=== PATIENT | male | born 1945 | race Caucasian/White ===

== ENCOUNTER 2016-09-17 20:33 | Inpatient (IN) | payer MEDICAID ==
[~2016-09-17] VITALS: Ht 175.3 cm; Wt 43.9 kg
[~2016-09-17 20:33] MED LIST: HALO2CON PO; QUET200 PO
[2016-09-17 21:14] VITALS: BP 132/76; PULSE 83; RESP 16; TEMP 98.8; O2SAT 99
[2016-09-17] MEDS ORDERED: BUSP1TAB PO (21:22)
[2016-09-17] MEDS ORDERED: HALO1TAB PO (21:23)
[2016-09-17] MEDS ORDERED: QUET5TAB PO (21:23)
[2016-09-17] MEDS ORDERED: MEMA1TAB2 PO (21:23)
[2016-09-17 21:28] VITALS: O2SAT 99
[2016-09-17] MEDS ORDERED: SODIUM CHLORIDE 0.9% FLUSH 10 ML FLUSH IVF PRN (21:30)
--- NOTE | 2016-09-17 21:35 | PD ---
HPI Chief Complaint: GI Complaint Time Seen by Provider: 21:15 Travel History International Travel<30 days: No Contact w/Intl Traveler<30days: No Traveled to known affect area: No History of Present Illness HPI Patient comes in by EMS with reported 1 episode of dark red vomiting. Patient is demented and a poor historian. Patient is alert to self but not year or location. Part of History of present illness is obtained through use of shoe stainer is patient's primary language is Yakut. Patient was asked if he wanted to use hospital interpreting service, but declined this time is comfortable using the shoe stainer. Patient reports that he is here because he awoke with chest pain on the right side 3 hours ago has since resolved. Patient denies any nausea, vomiting, shortness of breath, abdominal pain, fevers , or headaches. Patient reports he does live with his . PFS Past Medical History Medical History: Unable to Obtain Cancer: No Cardiovascular Problems: No Dementia: Yes Diabetes: No Endocrine: No Genitourinary: No Headaches: No Immune Disorder: No Musculoskeletal: No Neurologic: No Psychiatric: No Reproductive: No Respiratory: No Seizures: No Tetanus Vaccination: Unknown Past Surgical History Surgical History: Unable to Obtain AICD: No Arteriovenous Shunt: No Insulin Pump: No Joint Replacement: No Pacemaker: No Social History Alcohol Use: No Tobacco Use: No Substance Use: No Allergies-Medications (Allergen,Severity, Reaction): Coded Allergies: No Known Allergies (Unverified , 11/10/15) INFO OBTAINED FROM PT'S SON Reported Meds & Prescriptions Reported Meds & Active Scripts Active Reported Haloperidol 1 Mg Tab 1 Mg PO BID Memantine 10 Mg Tab 10 Mg PO BID Quetiapine (Quetiapine Fumarate) 50 Mg Tab 50 Mg PO BID Buspirone (Buspirone HCl) 7.5 Mg Tab 7.5 Mg PO BID Review of Systems ROS Limitations: Poor Historian Except as stated in HPI: all other systems reviewed are Neg Physical Exam Exam Limitations: Poor Historian Narrative GENERAL: Well-developed, well nourished, in no acute distress, and non-ill appearing. SKIN: Focused skin assessment warm and dry. HEAD: Atraumatic. Normocephalic. EYES: Pupils equal and round. EOMI. No scleral icterus. No injection or drainage. ENT: No nasal bleeding or discharge. Mucous membranes pink and moist. Posterior pharynx shows no evidence of recent or active bleeding. There is no signs of blood or coffee-ground emesis noted in the mouth. NECK: Trachea midline. No JVD. Supple. No nuclear rigidity. CARDIOVASCULAR: Regular rate and rhythm. No murmur appreciated. RESPIRATORY: No accessory muscle use. No respiratory distress. Clear to auscultation. Breath sounds equal bilaterally. GASTROINTESTINAL: Abdomen soft, non-tender, nondistended. Hepatic and splenic margins not palpable. Normal bowel sounds 4. No pulsatile mass. MUSCULOSKELETAL: No obvious deformities. No clubbing. No cyanosis. No edema. Patient moving all 4 extremities.. NEUROLOGICAL: Awake and alert. No obvious cranial nerve deficits. Motor grossly within normal limits. Normal speech. PSYCHIATRIC: Appropriate mood and affect. Data Data Last Documented VS Vital Signs Date Time Temp Pulse Resp B/P Pulse Ox O2 Delivery O2 Flow Rate FiO2 09/17/16 21:28 99 Room Air 09/17/16 21:14 98.8 83 16 132/76 Orders Basic Metabolic Panel (Bmp) (09/17/16 21:21) Complete Blood Count With Diff (09/17/16 21:21) Prothrombin Time / Inr (Pt) (09/17/16 21:21) Act Partial Throm Time (Ptt) (09/17/16 21:21) Chest, Single Ap (09/17/16 21:21) Ecg Monitoring (09/17/16 21:21) Iv Access Insert/Monitor (09/17/16 21:21) Oximetry (09/17/16 21:21) Sodium Chloride 0.9% Flush (Ns Flush) (09/17/16 21:30) Electrocardiogram (09/17/16 21:30) Ckmb (Isoenzyme) Profile (09/17/16 21:30) Magnesium (Mg) (09/17/16 21:30) Troponin I (09/17/16 21:30) Bilateral Bp Monitoring (09/17/16 21:30) Oxygen Administration (09/17/16 21:30) Ckmb (Isoenzyme) Profile (09/17/16 22:49) Troponin I (09/17/16 22:49) Labs Laboratory Tests Test 09/17/16 21:38 White Blood Count 10.5 TH/MM3 Red Blood Count 3.47 MIL/MM3 Hemoglobin 10.4 GM/DL Hematocrit 30.6 % Mean Corpuscular Volume 88.4 FL Mean Corpuscular Hemoglobin 30.0 PG Mean Corpuscular Hemoglobin 33.9 % Concent Red Cell Distribution Width 13.4 % Platelet Count 346 TH/MM3 Mean Platelet Volume 6.6 FL Neutrophils (%) (Auto) 83.5 % Lymphocytes (%) (Auto) 9.8 % Monocytes (%) (Auto) 5.8 % Eosinophils (%) (Auto) 0.5 % Basophils (%) (Auto) 0.4 % Neutrophils # (Auto) 8.7 TH/MM3 Lymphocytes # (Auto) 1.0 TH/MM3 Monocytes # (Auto) 0.6 TH/MM3 Eosinophils # (Auto) 0.1 TH/MM3 Basophils # (Auto) 0.0 TH/MM3 CBC Comment DIFF FINAL Differential Comment Prothrombin Time 11.3 SEC Prothromb Time International 1.0 RATIO Ratio Activated Partial 22.9 SEC Thromboplast Time Sodium Level 142 MEQ/L Potassium Level 3.8 MEQ/L Chloride Level 109 MEQ/L Carbon Dioxide Level 28.2 MEQ/L Anion Gap 5 MEQ/L Blood Urea Nitrogen 16 MG/DL Creatinine 0.96 MG/DL Estimat Glomerular Filtration 77 ML/MIN Rate Random Glucose 125 MG/DL Calcium Level 8.2 MG/DL [facility] Medical Decision Making Medical Screen Exam Complete: Yes Emergency Medical Condition: Yes Interpretation(s) EKG reviewed with Dr. Lennon shows sinus rhythm with a ventricular of 74. No STEMI. Chest x-ray read by the radiologist shows: No acute disease. Differential Diagnosis Anemia, electrolyte abnormality, acute coronary syndrome, pneumonia, other Narrative Course Patient seen and examined. Initial laboratory and radiological studies ordered. Patient signed out to Dr. Lennon at the end of my shift. Please see his dictation for final diagnosis and disposition. HemaPrompt Point of Care Internal Pos. & Neg. Controls: Passed Fecal Specimen Occult Blood: Negative Rohith Bundy September 17, 2016 21:35
[2016-09-17 21:52] LABS: AUTOMATED NEUTROPHIL # 8.7 TH/MM3 (1.8-7.7); BASOPHIL % 0.4 % (0.0-2.0); EOSINOPHIL # 0.1 TH/MM3 (0-0.4); EOSINOPHIL % 0.5 % (0.0-4.0); HEMATOCRIT 30.6 % (39.0-51.0); HEMO FLAGS DIFF FINAL; LYMPH % 9.8 % (9.0-44.0); MEAN CELL VOLUME 88.4 FL (80.0-100.0); MEAN CORPUSCULAR HGB CONC 33.9 % (32.0-36.0); MONO % 5.8 % (0.0-8.0); NEUT % 83.5 % (16.0-70.0); PLATELET COUNT 346 TH/MM3 (150-450); RED BLOOD COUNT 3.47 MIL/MM3 (4.50-5.90); RED CELL DISTRIBUTION WIDTH 13.4 % (11.6-17.2); WHITE BLOOD COUNT 10.5 TH/MM3 (4.0-11.0)
[2016-09-17 22:07] LABS: BICARBONATE 28.2 MEQ/L (21.0-32.0); POTASSIUM 3.8 MEQ/L (3.5-5.1)
[2016-09-17 22:12] LABS: APTT (PATIENT) 22.9 SEC (24.3-30.1); PROTHROMBIN TIME - PATIENT 11.3 SEC (9.8-11.6)
--- NOTE | 2016-09-17 22:16 | RADRPT ---
EXAM DATE/TIME: 09/17/2016 22:07 [facility] COMPARISON: No previous studies available for comparison. INDICATIONS : Vomiting blood. MEDICAL HISTORY : None. SURGICAL HISTORY : None. ENCOUNTER: Initial ACUITY: 1 day PAIN SCORE: Non-responsive. LOCATION: chest FINDINGS: A single view of the chest demonstrates the lungs to be symmetrically aerated without evidence of mas s, infiltrate or effusion. The cardiomediastinal contours are unremarkable. Osseous structures are intact. A scoliotic spine. CONCLUSION: No acute disease. Moises Snider Jr., MD on September 17, 2016 at 22:14 Board Certified Radiologist. This report was verified electronically.
--- NOTE | 2016-09-17 22:57 | PD ---
Physical Exam Date Seen by Provider: September 17, 2016 Time Seen by Provider: 22:56 Narrative The patient is a 71-year-old male was initially evaluated by the mid-level provider. Please refer to the initial history, physical, diagnostic evaluation , and treatment modality plan. The patient was signed out at 11 PM laboratory evaluation pending. Data Data Last Documented VS Vital Signs Date Time Temp Pulse Resp B/P Pulse Ox O2 Delivery O2 Flow Rate FiO2 09/18/16 00:19 76 18 135/70 98 Room Air 09/17/16 23:50 99.7 Orders Basic Metabolic Panel (Bmp) (09/17/16 21:21) Complete Blood Count With Diff (09/17/16 21:21) Prothrombin Time / Inr (Pt) (09/17/16 21:21) Act Partial Throm Time (Ptt) (09/17/16 21:21) Chest, Single Ap (09/17/16 21:21) Ecg Monitoring (09/17/16 21:21) Iv Access Insert/Monitor (09/17/16 21:21) Oximetry (09/17/16 21:21) Sodium Chloride 0.9% Flush (Ns Flush) (09/17/16 21:30) Electrocardiogram (09/17/16 21:30) Ckmb (Isoenzyme) Profile (09/17/16 21:30) Magnesium (Mg) (09/17/16 21:30) Troponin I (09/17/16 21:30) Bilateral Bp Monitoring (09/17/16 21:30) Oxygen Administration (09/17/16 21:30) Ckmb (Isoenzyme) Profile (09/17/16 22:49) Troponin I (09/17/16 22:49) Us Testicles W Doppler (09/17/16 ) Urinalysis - C+S If Indicated (09/17/16 23:35) CKMB (09/17/16 21:38) CKMB% (09/17/16 21:38) Sodium Chlor 0.9% 1000 Ml Inj (Ns 1000 M (09/18/16 01:00) Sodium Chlor 0.9% 1000 Ml Inj (Ns 1000 M (09/18/16 01:45) CKMB (09/18/16 00:39) CKMB% (09/18/16 00:39) Admit Order (Ed Use Only) (09/18/16 02:01) Labs Laboratory Tests Test 09/17/16 09/17/16 09/18/16 21:38 23:44 00:39 White Blood Count 10.5 TH/MM3 Red Blood Count 3.47 MIL/MM3 Hemoglobin 10.4 GM/DL Hematocrit 30.6 % Mean Corpuscular Volume 88.4 FL Mean Corpuscular Hemoglobin 30.0 PG Mean Corpuscular Hemoglobin 33.9 % Concent Red Cell Distribution Width 13.4 % Platelet Count 346 TH/MM3 Mean Platelet Volume 6.6 FL Neutrophils (%) (Auto) 83.5 % Lymphocytes (%) (Auto) 9.8 % Monocytes (%) (Auto) 5.8 % Eosinophils (%) (Auto) 0.5 % Basophils (%) (Auto) 0.4 % Neutrophils # (Auto) 8.7 TH/MM3 Lymphocytes # (Auto) 1.0 TH/MM3 Monocytes # (Auto) 0.6 TH/MM3 Eosinophils # (Auto) 0.1 TH/MM3 Basophils # (Auto) 0.0 TH/MM3 CBC Comment DIFF FINAL Differential Comment Prothrombin Time 11.3 SEC Prothromb Time International 1.0 RATIO Ratio Activated Partial 22.9 SEC Thromboplast Time Sodium Level 142 MEQ/L Potassium Level 3.8 MEQ/L Chloride Level 109 MEQ/L Carbon Dioxide Level 28.2 MEQ/L Anion Gap 5 MEQ/L Blood Urea Nitrogen 16 MG/DL Creatinine 0.96 MG/DL Estimat Glomerular Filtration 77 ML/MIN Rate Random Glucose 125 MG/DL Calcium Level 8.2 MG/DL Magnesium Level 2.1 MG/DL Total Creatine Kinase 2723 U/L 3041 U/L Creatine Kinase MB 53.6 NG/ML 55.9 NG/ML Creatine Kinase MB % 2.0 % 1.8 % Troponin I LESS THAN 0.02 LESS THAN 0.02 NG/ML NG/ML Urine Color YELLOW Urine Turbidity CLEAR Urine pH 6.0 Urine Specific [place] 1.022 Urine Protein 30 mg/dL Urine Glucose (UA) NEG mg/dL Urine Ketones TRACE mg/dL Urine Occult Blood MOD Urine Nitrite NEG Urine Bilirubin NEG Urine Urobilinogen 2.0 MG/DL Urine Leukocyte Esterase NEG Urine RBC 7 /hpf Urine WBC 1 /hpf Urine Mucus FEW /lpf Microscopic Urinalysis Comment CATH-CULT NOT IND MDM Medical Record Reviewed: Yes Supervised Visit with JAGJIT: Yes Interpretation(s) EKG reveals normal sinus rhythm with a rate of 74. No ischemic changes or ectopy noted. Laboratory Tests Test 09/17/16 09/17/16 09/18/16 21:38 23:44 00:39 White Blood Count 10.5 TH/MM3 Red Blood Count 3.47 MIL/MM3 Hemoglobin 10.4 GM/DL Hematocrit 30.6 % Mean Corpuscular Volume 88.4 FL Mean Corpuscular Hemoglobin 30.0 PG Mean Corpuscular Hemoglobin 33.9 % Concent Red Cell Distribution Width 13.4 % Platelet Count 346 TH/MM3 Mean Platelet Volume 6.6 FL Neutrophils (%) (Auto) 83.5 % Lymphocytes (%) (Auto) 9.8 % Monocytes (%) (Auto) 5.8 % Eosinophils (%) (Auto) 0.5 % Basophils (%) (Auto) 0.4 % Neutrophils # (Auto) 8.7 TH/MM3 Lymphocytes # (Auto) 1.0 TH/MM3 Monocytes # (Auto) 0.6 TH/MM3 Eosinophils # (Auto) 0.1 TH/MM3 Basophils # (Auto) 0.0 TH/MM3 CBC Comment DIFF FINAL Differential Comment Prothrombin Time 11.3 SEC Prothromb Time International 1.0 RATIO Ratio Activated Partial 22.9 SEC Thromboplast Time Sodium Level 142 MEQ/L Potassium Level 3.8 MEQ/L Chloride Level 109 MEQ/L Carbon Dioxide Level 28.2 MEQ/L Anion Gap 5 MEQ/L Blood Urea Nitrogen 16 MG/DL Creatinine 0.96 MG/DL Estimat Glomerular Filtration 77 ML/MIN Rate Random Glucose 125 MG/DL Calcium Level 8.2 MG/DL Magnesium Level 2.1 MG/DL Total Creatine Kinase 2723 U/L 3041 U/L Creatine Kinase MB 53.6 NG/ML 55.9 NG/ML Creatine Kinase MB % 2.0 % 1.8 % Troponin I LESS THAN 0.02 LESS THAN 0.02 NG/ML NG/ML Urine Color YELLOW Urine Turbidity CLEAR Urine pH 6.0 Urine Specific Welch 1.022 Urine Protein 30 mg/dL Urine Glucose (UA) NEG mg/dL Urine Ketones TRACE mg/dL Urine Occult Blood MOD Urine Nitrite NEG Urine Bilirubin NEG Urine Urobilinogen 2.0 MG/DL Urine Leukocyte Esterase NEG Urine RBC 7 /hpf Urine WBC 1 /hpf Urine Mucus FEW /lpf Microscopic Urinalysis Comment CATH-CULT NOT IND Differential Diagnosis Differential diagnosis includes acute coronary syndrome, GERD, esophageal spasm , pancreatitis, gastritis, atypical chest pain, pneumonia, pleural effusion. Narrative Course I, Dr. Lennon, have reviewed the advance practice practitioner's documentation and am in agreement, met with the patient face to face, made the diagnosis, and the medical decision making was done by me. *My assessment and Findings: 71-year-old male who was initially evaluated by the mid-level provider. Please refer to the initial history, physical, diagnostic evaluation, treatment modality plan. The patient was signed out 11 PM with laboratory evaluation pending for atypical right sided chest pain. EKG was unremarkable. The patient was evaluated, has noted tenderness upon palpation, states that the medic in the emergency department. Chest x-rays unremarkable. The patient's initial troponin was negative, however, CPK was elevated greater than 2000. The patient received 2 L of IV fluids and CPK was reevaluated, was now greater than 3000. The patient has rhabdomyolysis with no obvious underlying cause. We tried to call the number for the patient, however , no one at the house would worm picker the phone, we're unable to find any family he knows any relevant past medical history. As the patient does have rhabdomyolysis and atypical chest pain, the patient will be admitted for IV fluids. The patient may need case management and/or DCF involvement if no family is obtainable. I also performed a physical examination, the patient had uncircumcised phallus, but and had enlarged and edematous scrotum which appear to be slightly painful. UA was negative, therefore, ultrasound was ordered. Ultrasound is currently pending. Physician Communication Physician Communication The on-call medical service was paged for admission. I discussed the patient with Dr. Spears who agrees with admission. Diagnosis Primary Impression: Rhabdomyolysis Qualified Code: M62.82 - Non-traumatic rhabdomyolysis Additional Impression: Atypical chest pain Admitting Information Admitting Physician Requests: Admit Condition: Stable Ammon Lennon MD September 17, 2016 22:57
[2016-09-17 23:22] LABS: MAGNESIUM 2.1 MG/DL (1.5-2.5)
[2016-09-17 23:47] VITALS: BP 149/89; PULSE 75; RESP 18; O2SAT 99
[2016-09-17 23:50] VITALS: TEMP 99.7
[2016-09-17 23:53] LABS: CREATINE KINASE 2723 U/L (39-308)
[2016-09-17 23:58] LABS: BLOOD, URINE MOD (NEG); GLUCOSE,URINE NEG (NEG); KETONE, URINE TRACE mg/dL (NEG); MUCUS URINE FEW /lpf (OCC); NITRITE,URINE NEG (NEG); URINE COLOR YELLOW (YELLW/STRAW)
[2016-09-17 23:59] LABS: COMMENT (UR) CATH-CULT NOT IND; CULTURE IF INDICATED CATH CULTURE NOT IND
[2016-09-18] VITALS (11 sets, daily range): BP systolic 124–159; BP diastolic 65–77; PULSE 65–80; RESP 16–20; TEMP 97.7–99.1; O2SAT 96–100
[2016-09-18 00:11] LABS: CKMB 53.6 NG/ML (0.5-3.6)
[2016-09-18] MEDS ORDERED: SODIUM CHLOR 0.9% 1000 ML INJ 1,000 ML IV ONE ×2 (01:00→01:45)
[2016-09-18 01:36] LABS: CREATINE KINASE 3041 U/L (39-308)
[2016-09-18 01:50] LABS: CKMB 55.9 NG/ML (0.5-3.6)
[2016-09-18] MEDS ORDERED: NALOXONE HCL 0.4 MG/ML AMP IV PRN (02:15)
[2016-09-18] MEDS ORDERED: SODIUM CHLORIDE 0.9% FLUSH 10 ML FLUSH IV FLUSH PRN (02:15)
[2016-09-18] MEDS: SODIUM CHLOR 0.9% 1000 ML INJ 1,000 ML IV SCH ×3 (02:16→20:52)
--- NOTE | 2016-09-18 04:56 | RADRPT ---
EXAM DATE/TIME: 09/18/2016 02:44 [facility] COMPARISON: No previous studies available for comparison. INDICATIONS : Scrotal pain and swelling. MEDICAL HISTORY : Dementia. Unable to obtain proper history. SURGICAL HISTORY : Unable to obtain. ENCOUNTER: Initial ACUITY: 1 day PAIN SCORE: 3/10 LOCATION: Bilateral scrotum. MEASUREMENTS: RIGHT TESTICLE: 4.3 x 3.6 x 2.2cm LEFT TESTICLE: 4.4 x 3.0 x 2.1cm FINDINGS: RIGHT TESTICLE: Homogeneous echotexture without intra or extratesticular mass. Blood flow is symmetric and within no rmal limits. Moderate hydrocele. Cysts in the epididymal head. LEFT TESTICLE: Homogeneous echotexture without intra or extratesticular mass. Blood flow is symmetric and within no rmal limits. No hydrocele or varicocele. Epididymis is within normal limits. SCROTUM: Prominently edematous CONCLUSION: Right hydrocele and epididymal cysts. Prominent scrotal edema. Testicles were benign and intact Curtis Preciado MD on September 18, 2016 at 4:52 Board Certified Radiologist. This report was verified electronically.
--- NOTE | 2016-09-18 08:39 | HHI.HP ---
HPI Service [facility] Hospitalists Primary Care Physician Unknown Admission Diagnosis rhabdomyolysis, atypical chest pain, dementia Diagnoses: Chief Complaint: Pt denies pain/discomfort Travel History International Travel<30 Days: No Contact w/Intl Traveler <30 Da: No Traveled to Known Affected Are: No History of Present Illness Mr. Bar is 71 yo with history of dementia. No other history was known or reported. Mr. Bar's primary language is Welsh. Visual collection systems worker service was initially utilized and due to pt's low vocalization the grounding engineer could not hear a great deal of pt's communication. Subsequently, a nurse who is fluent in Welsh served as a collection systems worker. Mr. Bar noted the current year is 1992, he was born in 2094 and could not recall events of last evening that brought him to the hospital. As such, history is obtained from medical record. 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 Pt denied taking medication for any issue. Per report, pt awoke with chest pain and coughed up an amount of red blood. He was subsequently transported to [facility]. Through bedside nurse grounding engineer pain denied pain (chest, abdominal, back, leg , or head), shortness of breath. He did endorse having a cough a sore throat. Nausea and vomiting were denied. Due to pt's unreliable recall a 10 pt ROS could not be obtained. Review of Systems ROS Limitations: Poor Historian Past Family Social History Past Medical History Dementia Past Surgical History Unknown, pt denied Reported Medications Reported Meds & Active Scripts Active Reported Haloperidol 1 Mg Tab 1 Mg PO BID Memantine 10 Mg Tab 10 Mg PO BID Quetiapine (Quetiapine Fumarate) 50 Mg Tab 50 Mg PO BID Buspirone (Buspirone HCl) 7.5 Mg Tab 7.5 Mg PO BID Allergies: Coded Allergies: No Known Allergies (Unverified , 11/10/15) INFO OBTAINED FROM PT'S SON Active Ordered Medications Current Medications Medications (Trade) Dose Ordered Sig/Leo Route Start Time Stop Time Status Last Admin (NS 1000 ml Inj) 1,000 ml @ 100 mls/hr Q10H IV 09/18/16 02:01 09/18/16 02:16 (NS Flush) 2 ml UNSCH PRN IV FLUSH 09/18/16 02:15 (NS Flush) 2 ml BID IV FLUSH 09/18/16 09:00 (Narcan Inj) 0.4 mg UNSCH PRN IV 09/18/16 02:15 Family History Unable to determine. Social History Medical record indicated pt drinks one cup of coffee a day. Nicotine use was denied (per medical record). Recreational and illicit drugs were denied (per medical record). Physical Exam Vital Signs Vital Signs Date Time Temp Pulse Resp B/P Pulse Ox O2 Delivery O2 Flow Rate FiO2 09/18/16 07:45 98.3 75 17 158/77 96 09/18/16 04:17 65 09/18/16 04:06 97.7 71 18 159/75 100 09/18/16 02:15 80 18 145/69 99 Room Air 09/18/16 00:19 76 18 135/70 98 Room Air 09/17/16 23:50 99.7 09/17/16 23:47 75 18 149/89 99 Room Air 09/17/16 21:28 99 Room Air 09/17/16 21:14 98.8 83 16 132/76 99 Physical Exam GENERAL: This is a well-nourished, well-developed patient, in no apparent distress encountered laying a bed in the ED bay. SKIN: No rashes, ecchymoses or lesions. Cool and dry. HEAD: Atraumatic. Normocephalic. EYES: Pupils equal round and reactive. Extraocular motions intact. No scleral icterus. No injection or drainage. ENT: Nose without bleeding, purulent drainage. Airway patent. NECK: Trachea midline. No lymphadenopathy. Supple, nontender, CARDIOVASCULAR: Regular rate and rhythm without murmurs, gallops, or rubs. RESPIRATORY: Clear to auscultation. Breath sounds equal bilaterally. No wheezes , rales, or rhonchi. GASTROINTESTINAL: Abdomen soft, non-tender, nondistended. No hepato- splenomegaly. No guarding. MUSCULOSKELETAL: Extremities without clubbing, cyanosis, or edema. No joint tenderness, effusion, or edema noted. NEUROLOGICAL: Awake and alert x 1. Cranial nerves II through XII intact. Motor and sensory grossly within normal limits. Per burse pt was evidencing word finding difficulties in his [place] language. Laboratory Laboratory Tests Test 09/17/16 09/17/16 09/18/16 21:38 23:44 00:39 White Blood Count 10.5 Red Blood Count 3.47 Hemoglobin 10.4 Hematocrit 30.6 Mean Corpuscular Volume 88.4 Mean Corpuscular Hemoglobin 30.0 Mean Corpuscular Hemoglobin 33.9 Concent Red Cell Distribution Width 13.4 Platelet Count 346 Mean Platelet Volume 6.6 Neutrophils (%) (Auto) 83.5 Lymphocytes (%) (Auto) 9.8 Monocytes (%) (Auto) 5.8 Eosinophils (%) (Auto) 0.5 Basophils (%) (Auto) 0.4 Neutrophils # (Auto) 8.7 Lymphocytes # (Auto) 1.0 Monocytes # (Auto) 0.6 Eosinophils # (Auto) 0.1 Basophils # (Auto) 0.0 CBC Comment DIFF FINAL Differential Comment Prothrombin Time 11.3 Prothromb Time International 1.0 Ratio Activated Partial 22.9 Thromboplast Time Sodium Level 142 Potassium Level 3.8 Chloride Level 109 Carbon Dioxide Level 28.2 Anion Gap 5 Blood Urea Nitrogen 16 Creatinine 0.96 Estimat Glomerular Filtration 77 Rate Random Glucose 125 Calcium Level 8.2 Magnesium Level 2.1 Total Creatine Kinase 2723 3041 Creatine Kinase MB 53.6 55.9 Creatine Kinase MB % 2.0 1.8 Troponin I LESS THAN 0.02 LESS THAN 0.02 Urine Color YELLOW Urine Turbidity CLEAR Urine pH 6.0 Urine Specific [place] 1.022 Urine Protein 30 Urine Glucose (UA) NEG Urine Ketones TRACE Urine Occult Blood MOD Urine Nitrite NEG Urine Bilirubin NEG Urine Urobilinogen 2.0 Urine Leukocyte Esterase NEG Urine RBC 7 Urine WBC 1 Urine Mucus FEW Microscopic Urinalysis Comment CATH-CULT NOT IND Result Diagram: [id number]/17/[id number]/[id number] Imaging Last Impressions Scrotum Ultrasound 09/18/16 0000 Signed Impressions: Service Date/Time: September 02:44 - CONCLUSION: Right hydrocele and epididymal cysts. Prominent scrotal edema. Testicles were benign and intact Curtis Preciado MD Chest X-Ray 09/17/162120 Signed Impressions: Service Date/Time: Saturday, September 17, 2016 22:07 - CONCLUSION: No acute disease. Moises Snider Jr., MD Assessment and Plan Problem List: (1) Rhabdomyolysis ICD Code: M62.82 Status: Acute (2) Dementia with behavioral disturbance ICD Code: F03.91 Status: Chronic (3) Atypical chest pain ICD Code: R07.89 Status: Acute (4) Normocytic anemia ICD Code: D64.9 Status: Acute Assessment and Plan Mr. Bar is 71 yo with history of dementia. No other history was known or reported. Rhabdomyolysis -IVF -creatinine is currently WNL -avoid nephrotoxic agents. -recheck labs in am Normocytic anemia -Checking serial H&H -B-12, Iron/TIBC, and Ferritin studies ordered. Repeat labs in am Dementia with disturbance of behavior -Continue home dosing of memantine 10 mg po BID , quetiapine 50 mg PO BID, haloperidol 1 mg PO BID, and buspirone 7,5 mg BID Atypical chest pain -Cardiac enzymes normal x 2 -Per Ed report pt did not suffer stemi -monitor Diet: healthy heart DVT prophylaxis: Attestation Patient seen and examined with Antonio Raman PA-C. The exam, history, and the medical decision-making described in the above note were completed with the assistance of the dictating practitioner. I attest that I had a lokx-cy-swal encounter with the patient on the same day, and personally performed all of the history, exam, or medical decision making. Discussed case with him thoroughly after seeing the patient, reviewed and agreed with the plan. Please see addendum in History, Physical examination and Plan. See below for any errata/ additional input: Mr. Bar is 71 yo with history of dementia, very poor historian, allegedly sent to the hospital for? Hematemesis and chest pain. Patient very poor historian. Not in distress. Calm. Not in distress Regular rate and rhythm Clear breath sounds Awake, not oriented, positive for dementia. Chest pain-serial troponin so far is negative 2, EKGs negative, sinus rhythm, normal axis. Anemia-check serial H&H Rhabdomyolysis-no compromise of renal function, monitor CK, continue IVF. Recheck BMP tomorrow. Discussed Condition With Pt, RN at bedside, RN (collection systems worker) and Dr. Juarez. Physician Certification 2 Midnight Certification Type: Admission for Inpatient Services Order for Inpatient Services The services are ordered in accordance with Medicare regulations or non- Medicare payer requirements, as applicable. In the case of services not specified as inpatient-only, they are appropriately provided as inpatient services in accordance with the 2-midnight benchmark. Estimated LOS (days): 3 Three days is the estimated time the patient will need to remain in the hospital , assuming treatment plan goals are met and no additional complications. Post-Hospital Plan: Not yet determined Problem Qualifiers (1) Rhabdomyolysis: Qualified Code: M62.82 - Non-traumatic rhabdomyolysis (2) Dementia with behavioral disturbance: Qualified Code: F03.91 - Dementia with behavioral disturbance, unspecified dementia type Maurice Raman Jr. Sep 18, 2016 08:39 Justin Juarez MD Sep 18, 2016 18:04
[2016-09-18] MEDS: HALOPERIDOL 1 MG TAB PO SCH ×2 (11:25→20:52)
[2016-09-18] MEDS: SODIUM CHLORIDE 0.9% FLUSH 10 ML FLUSH IV FLUSH SCH ×2 (11:25→20:53)
[2016-09-18] MEDS: MEMANTINE HCL 10 MG TAB PO SCH ×2 (11:25→20:52)
--- NOTE | 2016-09-18 11:32 | EKG ---
Date Performed: 09/17/2016 Time Performed: 21:36:20 PTAGE: 71 years EKG: Sinus rhythm NORMAL ECG NO PREVIOUS TRACING DOCTOR: Albert Medina Interpretating Date/Time 09/18/2016 11:31:12
[2016-09-18 12:07] LABS: HEMATOCRIT 29.1 % (39.0-51.0); REVIEW FLAG FINAL
[2016-09-18] MEDS: QUEtiapine FUMARATE 25 MG TAB PO SCH (12:42)
[2016-09-18 13:13] LABS: TRANSFERRIN IRON PROFILE 147 MG/DL (200-360)
[2016-09-18 13:38] LABS: FERRITIN 284 NG/ML (26-388)
[2016-09-18 17:34] LABS: HEMATOCRIT 29.4 % (39.0-51.0); REVIEW FLAG FINAL
[2016-09-18] MEDS: IRON SUCROSE INJ 200 MG in SODIUM CHLORIDE 0.9% INJ 100 ML IV SCH (20:06)
[2016-09-18] MEDS: busPIRone HCL 5 MG TAB PO SCH (20:52)
[2016-09-19] VITALS (7 sets, daily range): BP systolic 104–150; BP diastolic 55–87; PULSE 62–93; RESP 16–20; TEMP 97.8–99.6; O2SAT 97–99
[2016-09-19 01:55] LABS: REVIEW FLAG FINAL
[2016-09-19 08:49] LABS: AUTOMATED NEUTROPHIL # 5.2 TH/MM3 (1.8-7.7); BASOPHIL % 0.7 % (0.0-2.0); EOSINOPHIL # 0.3 TH/MM3 (0-0.4); EOSINOPHIL % 4.1 % (0.0-4.0); HEMATOCRIT 30.5 % (39.0-51.0); HEMO FLAGS DIFF FINAL; LYMPH % 15.3 % (9.0-44.0); LYMPHOCYTE # 1.1 TH/MM3 (1.0-4.8); MEAN CELL VOLUME 87.3 FL (80.0-100.0); MEAN CORPUSCULAR HEMOGLOBIN 30.1 PG (27.0-34.0); MEAN CORPUSCULAR HGB CONC 34.5 % (32.0-36.0); MONO % 6.2 % (0.0-8.0); NEUT % 73.7 % (16.0-70.0); PLATELET COUNT 298 TH/MM3 (150-450); RED BLOOD COUNT 3.49 MIL/MM3 (4.50-5.90); RED CELL DISTRIBUTION WIDTH 13.3 % (11.6-17.2)
[2016-09-19] MEDS: HALOPERIDOL 1 MG TAB PO SCH ×2 (09:13→21:17)
[2016-09-19] MEDS: busPIRone HCL 5 MG TAB PO SCH ×2 (09:13→21:17)
[2016-09-19] MEDS: IRON SUCROSE INJ 200 MG in SODIUM CHLORIDE 0.9% INJ 100 ML IV SCH (09:13)
[2016-09-19] MEDS: MEMANTINE HCL 10 MG TAB PO SCH ×2 (09:13→21:17)
[2016-09-19] MEDS: QUEtiapine FUMARATE 25 MG TAB PO SCH ×2 (09:13→12:03)
[2016-09-19] MEDS: SODIUM CHLORIDE 0.9% FLUSH 10 ML FLUSH IV FLUSH SCH ×2 (09:14→21:20)
[2016-09-19] MEDS: SODIUM CHLOR 0.9% 1000 ML INJ 1,000 ML IV SCH ×2 (09:14→17:07)
[2016-09-19 09:15] LABS: BICARBONATE 24.6 MEQ/L (21.0-32.0); POTASSIUM 3.3 MEQ/L (3.5-5.1)
--- NOTE | 2016-09-19 09:20 | HHI.PR ---
Subjective Remarks Follow-up for anemia. Pt resting comfortably, in NAD. Denied pain/discomfort, cough, shortness of breath, fever, nausea, or vomiting. Discussed with RN, no new concerns raised. Objective Vitals Vital Signs Date Time Temp Pulse Resp B/P Pulse Ox O2 Delivery O2 Flow Rate FiO2 09/19/16 08:00 97.8 66 18 136/71 99 09/19/16 04:00 99.0 73 20 134/74 98 09/19/16 00:00 97.8 62 16 137/60 99 09/18/16 22:00 Room Air 09/18/16 20:30 97.9 66 20 147/65 100 09/18/16 20:17 76 09/18/16 19:39 98.8 68 20 124/74 100 09/18/16 15:32 98.4 65 16 146/69 99 09/18/16 11:46 99.1 72 20 146/73 99 I/O 09/18/16 09/18/16 09/18/16 09/19/16 09/19/16 09/19/16 07:00 15:00 23:00 07:00 15:00 23:00 Intake Total 3000 ml 360 ml 60 ml 2648 ml Output Total 500 ml Balance 2500 ml 360 ml 60 ml 2648 ml Intake Oral 360 ml 60 ml 300 ml IV Total 3000 ml 2348 ml Output Urine Total 500 ml # Voids 2 4 1 3 # Bowel Movements 1 0 0 Result Diagram: 09/19/16 0658 09/17/162137 Imaging Last Impressions Scrotum Ultrasound 09/18/16 0000 Signed Impressions: Service Date/Time: September 02:44 - CONCLUSION: Right hydrocele and epididymal cysts. Prominent scrotal edema. Testicles were benign and intact Curtis Preciado MD Chest X-Ray 09/17/162120 Signed Impressions: Service Date/Time: Saturday, September 17, 2016 22:07 - CONCLUSION: No acute disease. Moises Snider Jr., MD Objective Remarks GENERAL: Pt encountered laying a bed, awake, not in acute distress, seemingly more alert and responsive than upon admission. SKIN: Warm and dry. HEAD: Normocephalic. EYES: No scleral icterus. No injection or drainage. NECK: Supple, trachea midline. No lymphadenopathy. CARDIOVASCULAR: Regular rate and rhythm without murmurs, gallops, or rubs. RESPIRATORY: Breath sounds equal bilaterally. No accessory muscle use. GASTROINTESTINAL: Abdomen soft, non-tender, nondistended. MUSCULOSKELETAL: No cyanosis, or edema. PSYCHIATRIC: Alert and oriented x 1, affect flat, not evidencing depression or anxiety. Pleasant and cooperative. Medications and IVs Current Medications Medications (Trade) Dose Ordered Sig/Leo Route Start Time Stop Time Status Last Admin (NS 1000 ml Inj) 1,000 ml @ 100 mls/hr Q10H IV 09/18/16 02:01 09/18/16 20:52 (NS Flush) 2 ml UNSCH PRN IV FLUSH 09/18/16 02:15 (NS Flush) 2 ml BID IV FLUSH 09/18/16 09:00 09/18/16 20:53 (Narcan Inj) 0.4 mg UNSCH PRN IV 09/18/16 02:15 (Haldol) 1 mg BID PO 09/18/16 10:00 09/18/16 20:52 (SEROquel) 25 mg BID@09,12 PO 09/18/16 12:00 09/18/16 12:42 (Buspar) 7.5 mg Q12HR PO 09/18/16 21:00 09/18/16 20:52 Memantine 10 mg 10 mg BID PO 09/18/16 10:00 09/18/16 20:52 (Venofer Inj/NS Inj) 110 ml @ 110 mls/hr DAILY IV 09/18/16 20:00 09/20/16 09:59 09/18/16 20:06 Urinary Catheter: No Vascular Central Line Catheter: No A/P Problem List: (1) Rhabdomyolysis ICD Code: M62.82 Status: Acute (2) Dementia with behavioral disturbance ICD Code: F03.91 Status: Chronic (3) Atypical chest pain ICD Code: R07.89 Status: Acute (4) Normocytic anemia ICD Code: D64.9 Status: Acute Assessment and Plan Mr. Bar is 71 yo with history of dementia. No other history was known or reported. Rhabdomyolysis -IVF -creatinine is currently WNL -avoid nephrotoxic agents. -recheck labs in am -Labs indicated an significant improvement as CPK has decreased by over 41%. Repeat labs in am. Normocytic anemia -Checking serial H&H -B-12, Iron/TIBC, and Ferritin studies ordered. -Repeat labs in am -Pt received first dose of Iron sucrose last evening, labs this morning reflect improved H&H; IV replacement to occur daily until 09/20/16. Dementia with disturbance of behavior -Continue home dosing of memantine 10 mg po BID , quetiapine 50 mg PO BID, haloperidol 1 mg PO BID, and buspirone 7,5 mg BID -Per nursing, behavior has been good. -PT consult placed to evaluate and treat with results being used by CM to determine needs should pt be sent home or need placement. Atypical chest pain -Cardiac enzymes normal x 2 -Per Ed report pt did not suffer stemi -monitor -No further reports of chest pain since admission. Diet: healthy heart DVT prophylaxis: Discussed with Pt, RN, and Dr. Juarez. Discharge Planning CM working to formulate discharge plan. Pt consult placed to evaluate and treat; results to assist in determining care at home or if pt is placed. Problem Qualifiers (1) Rhabdomyolysis: Qualified Code: M62.82 - Non-traumatic rhabdomyolysis (2) Dementia with behavioral disturbance: Qualified Code: F03.91 - Dementia with behavioral disturbance, unspecified dementia type Maurice Raman Jr. Sep 19, 2016 09:20
[2016-09-19 13:50] LABS: CKMB 10.6 NG/ML (0.5-3.6)
[2016-09-20] VITALS (7 sets, daily range): BP systolic 133–165; BP diastolic 65–93; PULSE 66–82; RESP 16–19; TEMP 97.8–98.7; O2SAT 97–98
[2016-09-20] MEDS: SODIUM CHLOR 0.9% 1000 ML INJ 1,000 ML IV SCH ×3 (01:38→20:44)
[2016-09-20 07:20] LABS: AUTOMATED NEUTROPHIL # 3.9 TH/MM3 (1.8-7.7); BASOPHIL # 0.1 TH/MM3 (0-0.2); BASOPHIL % 0.9 % (0.0-2.0); EOSINOPHIL # 0.3 TH/MM3 (0-0.4); EOSINOPHIL % 5.9 % (0.0-4.0); HEMATOCRIT 30.8 % (39.0-51.0); HEMO FLAGS DIFF FINAL; LYMPH % 20.4 % (9.0-44.0); LYMPHOCYTE # 1.2 TH/MM3 (1.0-4.8); MEAN CELL VOLUME 87.9 FL (80.0-100.0); MEAN CORPUSCULAR HGB CONC 34.2 % (32.0-36.0); MONO % 6.9 % (0.0-8.0); NEUT % 65.9 % (16.0-70.0); PLATELET COUNT 288 TH/MM3 (150-450); RED BLOOD COUNT 3.51 MIL/MM3 (4.50-5.90); RED CELL DISTRIBUTION WIDTH 13.1 % (11.6-17.2)
[2016-09-20 07:52] LABS: BICARBONATE 26.5 MEQ/L (21.0-32.0); POTASSIUM 3.5 MEQ/L (3.5-5.1)
[2016-09-20] MEDS: IRON SUCROSE INJ 200 MG in SODIUM CHLORIDE 0.9% INJ 100 ML IV SCH (09:50)
[2016-09-20] MEDS: SODIUM CHLORIDE 0.9% FLUSH 10 ML FLUSH IV FLUSH SCH ×2 (09:50→20:49)
[2016-09-20] MEDS: HALOPERIDOL 1 MG TAB PO SCH ×2 (09:51→20:43)
[2016-09-20] MEDS: MEMANTINE HCL 10 MG TAB PO SCH ×2 (09:51→20:43)
[2016-09-20] MEDS: busPIRone HCL 5 MG TAB PO SCH ×2 (09:51→20:43)
[2016-09-20] MEDS: QUEtiapine FUMARATE 25 MG TAB PO SCH ×2 (09:51→12:38)
--- NOTE | 2016-09-20 13:04 | HHI.PR ---
Subjective Remarks Follow for rhabdomyolysis Patient denies any symptoms, denies any pain, shortness of breath, poor historian. Objective Vitals Vital Signs Date Time Temp Pulse Resp B/P Pulse Ox O2 Delivery O2 Flow Rate FiO2 09/20/16 12:00 98.0 66 18 133/65 97 09/20/16 09:40 Room Air 09/20/16 09:40 77 09/20/16 08:00 98.2 72 18 142/71 98 09/20/16 04:00 98.7 69 16 152/82 97 09/20/16 00:00 98.0 71 16 138/76 98 09/19/16 20:08 83 09/19/16 20:00 Room Air 09/19/16 19:52 99.6 84 16 150/87 97 09/19/16 16:05 98.1 93 18 115/59 98 I/O 09/19/16 09/19/16 09/19/16 09/20/16 09/20/16 09/20/16 07:00 15:00 23:00 07:00 15:00 23:00 Intake Total 2648 ml 948 ml 200 ml Balance 2648 ml 948 ml 200 ml Intake Oral 300 ml 600 ml 200 ml IV Total 2348 ml 348 ml # Voids 3 2 2 5 # Bowel Movements 0 0 0 0 Result Diagram: 09/20/1664309/20/16643 Objective Remarks GENERAL: Pt encountered laying a bed, awake, not in acute distress, seemingly more alert and responsive than upon admission. SKIN: Warm and dry. NECK: Supple, trachea midline. No lymphadenopathy. CARDIOVASCULAR: Regular rate and rhythm without murmurs, gallops, or rubs. RESPIRATORY: Breath sounds equal bilaterally. No accessory muscle use. GASTROINTESTINAL: Abdomen soft, non-tender, nondistended. MUSCULOSKELETAL: No cyanosis, or edema. PSYCHIATRIC: Alert and oriented x 1, affect flat, not evidencing depression or anxiety. A/P Problem List: (1) Rhabdomyolysis ICD Code: M62.82 Status: Acute (2) Dementia with behavioral disturbance ICD Code: F03.91 Status: Chronic (3) Atypical chest pain ICD Code: R07.89 Status: Acute (4) Normocytic anemia ICD Code: D64.9 Status: Acute Assessment and Plan Mr. Bar is 71 yo with history of dementia. No other history was known or reported. Rhabdomyolysis -IVF, creatinine is normal, CK trending down, recheck CK and BMP tomorrow. Iron deficiency anemia-continue iron sucrose, hemoglobin stable. Dementia with disturbance of behavior -Continue home dosing of memantine 10 mg po BID , quetiapine 50 mg PO BID, haloperidol 1 mg PO BID, and buspirone 7,5 mg BID -Per nursing, behavior has been good. -PT consult placed to evaluate and treat with results being used by CM to determine needs should pt be sent home or need placement. Atypical chest pain -Cardiac enzymes normal x 2, EKG within normal limits -monitor -No further reports of chest pain since admission. Diet: healthy heart DVT prophylaxis: Discharge Planning Discharge to SNF tomorrow if CKs less than 1000 Problem Qualifiers (1) Rhabdomyolysis: Qualified Code: M62.82 - Non-traumatic rhabdomyolysis (2) Dementia with behavioral disturbance: Qualified Code: F03.91 - Dementia with behavioral disturbance, unspecified dementia type Justin Juarez MD Sep 20, 2016 13:04
[2016-09-21] VITALS (7 sets, daily range): BP systolic 130–158; BP diastolic 68–96; PULSE 76–86; RESP 18–20; TEMP 97.2–99.5; O2SAT 92–98
[2016-09-21] MEDS: SODIUM CHLORIDE 0.9% FLUSH 10 ML FLUSH IV FLUSH SCH ×2 (08:12→21:16)
[2016-09-21] MEDS: busPIRone HCL 5 MG TAB PO SCH ×2 (08:12→21:16)
[2016-09-21] MEDS: QUEtiapine FUMARATE 25 MG TAB PO SCH ×2 (08:13→11:34)
[2016-09-21] MEDS: HALOPERIDOL 1 MG TAB PO SCH (08:13)
[2016-09-21] MEDS: MEMANTINE HCL 10 MG TAB PO SCH ×2 (08:13→21:16)
[2016-09-21 10:32] LABS: BICARBONATE 24.6 MEQ/L (21.0-32.0); POTASSIUM 3.9 MEQ/L (3.5-5.1)
--- NOTE | 2016-09-21 13:38 | HHI.PR ---
Subjective Remarks Follow-up for rhabdomyolysis Patient not agitated, sleepy today, arousable. No complaints. Objective Vitals Vital Signs Date Time Temp Pulse Resp B/P Pulse Ox O2 Delivery O2 Flow Rate FiO2 09/21/16 12:15 98.1 80 18 130/73 92 09/21/16 08:28 99.5 78 18 151/75 94 09/21/16 07:00 Room Air 09/21/16 06:00 97.7 85 20 158/96 97 09/21/16 00:00 97.2 76 18 152/86 98 09/20/16 20:00 97.8 82 19 165/93 97 09/20/16 20:00 Room Air 09/20/16 19:59 75 I/O 09/20/16 09/20/16 09/20/16 09/21/16 09/21/16 09/21/16 07:00 15:00 23:00 07:00 15:00 23:00 Intake Total 1918 ml 1216 ml 590 ml Balance 1918 ml 1216 ml 590 ml Intake Oral 320 ml 360 ml IV Total 1598 ml 856 ml 590 ml # Voids 5 4 3 # Bowel Movements 0 1 0 Result Diagram: 09/20/16 0644 09/21/16 0819 Objective Remarks GENERAL: Not in distress. SKIN: Warm and dry. NECK: Supple, trachea midline. CARDIOVASCULAR: Regular rate and rhythm without murmurs, gallops, or rubs. RESPIRATORY: Breath sounds equal bilaterally. No accessory muscle use. GASTROINTESTINAL: Abdomen soft, non-tender, nondistended. MUSCULOSKELETAL: No cyanosis, or edema. 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 Bar is 71 yo with history of dementia. No other history was known or reported. Rhabdomyolysis - Resolved with IVF, creatinine remained stable. Iron deficiency anemia- status post iron sucrose, hemoglobin stable. Dementia with disturbance of behavior -Continue home dosing of memantine 10 mg po BID , quetiapine 50 mg PO BID, change of the paddle to when necessary due to sleepiness. Continue buspirone. Atypical chest pain -Cardiac enzymes normal x 2, EKG within normal limits -monitor -No further reports of chest pain since admission. Diet: healthy heart DVT prophylaxis: Discharge Planning Discharge to SNF once placement is available. No contact information available. Problem Qualifiers (1) Rhabdomyolysis: Qualified Code: M62.82 - Non-traumatic rhabdomyolysis (2) Dementia with behavioral disturbance: Qualified Code: F03.91 - Dementia with behavioral disturbance, unspecified dementia type Justin Juarez MD Sep 21, 2016 13:38
--- NOTE | 2016-09-21 13:41 | HHI.DS ---
Discharge Summary Admission Date Sep 18, 2016 at 02:02 Discharge Date: Sep 22, 2016 Admitting Diagnosis rhabdomyolysis, atypical chest pain, dementia (1) Rhabdomyolysis ICD Code: M62.82 Diagnosis: Principal (2) Dementia with behavioral disturbance ICD Code: F03.91 Diagnosis: Secondary (3) Atypical chest pain ICD Code: R07.89 Diagnosis: Secondary (4) Normocytic anemia ICD Code: D64.9 Diagnosis: Secondary Procedures None Brief History - From Admission Mr. Bar is 71 yo with history of dementia. No other history was known or reported. Mr. Bar's primary language is Slovenian. Visual olive brine tester service was initially utilized and due to pt's low vocalization the freelance interpreter/translator could not hear a great deal of pt's communication. Subsequently, a nurse who is fluent in [place]ian served as a olive brine tester. Mr. Bar noted the current year is 1992, he was born in 2094 and could not recall events of last evening that brought him to the hospital. As such, history is obtained from medical record. 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 Pt denied taking medication for any issue. Per report, pt awoke with chest pain and coughed up an amount of red blood. He was subsequently transported to [facility]. Through bedside nurse freelance interpreter/translator pain denied pain (chest, abdominal, back, leg , or head), shortness of breath. He did endorse having a cough a sore throat. Nausea and vomiting were denied. Due to pt's unreliable recall a 10 pt ROS could not be obtained. CBC/BMP: 09/20/16 0644 09/21/16 0819 Significant Findings Laboratory Tests Test 09/18/16 09/19/16 09/20/16 09/21/16 17:08 06:58 06:44 08:19 Hemoglobin 9.8 GM/DL 10.5 GM/DL 10.5 GM/DL (13.0-17.0) (13.0-17.0) (13.0-17.0) Hematocrit 29.4 % 30.5 % 30.8 % (39.0-51.0) (39.0-51.0) (39.0-51.0) Red Blood Count 3.49 MIL/MM3 3.51 MIL/MM3 (4.50-5.90) (4.50-5.90) Mean Platelet Volume 6.9 FL 6.6 FL (7.0-11.0) (7.0-11.0) Neutrophils (%) (Auto) 73.7 % (16.0-70.0) Eosinophils (%) (Auto) 4.1 % (0.0-4.0) 5.9 % (0.0-4.0) Potassium Level 3.3 MEQ/L (3.5-5.1) Total Creatine Kinase 1778 U/L 1040 U/L 646 U/L (39-308) (39-308) (39-308) Creatine Kinase MB 10.6 NG/ML (0.5-3.6) Calcium Level 8.2 MG/DL 8.4 MG/DL (8.5-10.1) (8.5-10.1) PE at Discharge GENERAL: Not in distress. SKIN: Warm and dry. NECK: Supple, trachea midline. CARDIOVASCULAR: Regular rate and rhythm without murmurs, gallops, or rubs. RESPIRATORY: Breath sounds equal bilaterally. No accessory muscle use. GASTROINTESTINAL: Abdomen soft, non-tender, nondistended. MUSCULOSKELETAL: No cyanosis, or edema. 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 Bar is 71 yo with history of dementia allegedly sent to the hospital for chest pain and coughing up blood but no hematemesis. Patient is a very poor historian. Upon ED admission, the patient was found to have rhabdomyolysis which improved volume resuscitation. He also had anemia but no obvious source of bleeding. Patient received iron sucrose. He had atypical chest pain, cardiac enzymes and EKG were negative. Because patient is a poor historian, has dementia and no family that can be contacted, intervention was limited. It seems that he cannot take care of himself hence patient will be discharged to rehabilitation. Pt Condition on Discharge: Good Discharge Disposition: Discharge to SNF Discharge Time: > 30 minutes Discharge Instructions DIET: Follow Instructions for: As Tolerated, No Restrictions Activities you can perform: Regular-No Restrictions Follow up Referrals: SNF/[facility]/ - 2-3 Days Continued Medications: Buspirone (Buspirone) 7.5 Mg Tab 7.5 MG PO BID Anxiety Ref 0 TAB Haloperidol (Haloperidol) 1 Mg Tab 1 MG PO BID Ref 0 TAB Memantine (Memantine) 10 Mg Tab 10 MG PO BID Alzheimer's Dementia Ref 0 TAB Quetiapine (Quetiapine) 50 Mg Tab 50 MG PO BID #60 Ref 0 TAB Justin Juarez MD Sep 21, 2016 13:41
[2016-09-21] MEDS ORDERED: HALOPERIDOL 1 MG TAB PO PRN (14:00)
[2016-09-21] MEDS: SODIUM CHLOR 0.9% 1000 ML INJ 1,000 ML IV SCH (16:44)
[2016-09-22] VITALS (7 sets, daily range): BP systolic 90–164; BP diastolic 60–85; PULSE 70–108; RESP 16–20; TEMP 98.1–99.8; O2SAT 95–100
[2016-09-22] MEDS: SODIUM CHLORIDE 0.9% FLUSH 10 ML FLUSH IV FLUSH SCH ×2 (09:00→20:19)
[2016-09-22] MEDS: QUEtiapine FUMARATE 25 MG TAB PO SCH ×2 (09:31→12:00)
[2016-09-22] MEDS: MEMANTINE HCL 10 MG TAB PO SCH ×2 (09:31→20:18)
[2016-09-22] MEDS: busPIRone HCL 5 MG TAB PO SCH ×2 (09:31→20:19)
--- NOTE | 2016-09-22 17:48 | HHI.PR ---
Subjective Remarks As per RN, patient noted to have trouble swallowing food patient has no complaints as per RN patient was awake great part of the day. Objective Vitals Vital Signs Date Time Temp Pulse Resp B/P Pulse Ox O2 Delivery O2 Flow Rate FiO2 09/22/16 12:00 99.2 82 18 144/69 97 09/22/16 08:00 99.0 73 18 160/85 98 09/22/16 08:00 94 Room Air 09/22/16 04:00 98.1 78 20 152/78 96 09/22/16 04:00 98.1 78 20 152/78 96 09/22/16 00:00 98.1 70 18 141/68 98 09/21/16 21:19 Room Air 09/21/16 20:07 82 09/21/16 20:00 98.3 78 20 147/68 98 I/O 09/21/16 09/21/16 09/21/16 09/22/16 09/22/16 09/22/16 07:00 15:00 23:00 07:00 15:00 23:00 Intake Total 590 ml 1248 ml 0 ml 0 ml Output Total 0 ml Balance 590 ml 1248 ml 0 ml 0 ml Intake Oral 240 ml 0 ml 0 ml Oral Supplement 240 ml IV Total 590 ml 768 ml Output Urine Total 0 ml # Voids 3 2 # Bowel Movements 0 0 0 Result Diagram: 09/20/16 0644 09/21/16 0819 Imaging Last Impressions Scrotum Ultrasound 09/18/16 0000 Signed Impressions: Service Date/Time: September 02:44 - CONCLUSION: Right hydrocele and epididymal cysts. Prominent scrotal edema. Testicles were benign and intact Curtis Preciado MD Chest X-Ray 09/17/162120 Signed Impressions: Service Date/Time: Saturday, September 17, 2016 22:07 - CONCLUSION: No acute disease. Moises Snider Jr., MD Objective Remarks GENERAL: Not in distress. SKIN: Warm and dry. NECK: Supple, trachea midline. CARDIOVASCULAR: Regular rate and rhythm without murmurs, gallops, or rubs. RESPIRATORY: Breath sounds equal bilaterally. No accessory muscle use. GASTROINTESTINAL: Abdomen soft, non-tender, nondistended. MUSCULOSKELETAL: No cyanosis, or edema. NEURO: Very lethargic - difficult to arouse. Procedures None Medications and IVs Current Medications Medications (Trade) Dose Ordered Sig/Leo Route Start Time Stop Time Status Last Admin (NS Flush) 2 ml UNSCH PRN IV FLUSH 09/18/16 02:15 (NS Flush) 2 ml BID IV FLUSH 09/18/16 09:00 09/22/16 20:19 (Narcan Inj) 0.4 mg UNSCH PRN IV 09/18/16 02:15 (SEROquel) 25 mg BID@09,12 PO 09/18/16 12:00 09/22/16 12:00 (Buspar) 7.5 mg Q12HR PO 09/18/16 21:00 09/22/16 20:19 (Namenda) 10 mg BID PO 09/18/16 10:00 09/22/16 20:18 (Haldol) 1 mg BID PRN PO 09/21/16 14:00 A/P Problem List: (1) Rhabdomyolysis ICD Code: M62.82 Status: Resolved (2) Dementia with behavioral disturbance ICD Code: F03.91 Status: Chronic (3) Atypical chest pain ICD Code: R07.89 Status: Resolved (4) Normocytic anemia ICD Code: D64.9 Status: Acute Assessment and Plan Mr. Bar is 71 yo with history of dementia. No other history was known or reported. 1. Rhabdomyolysis: - Resolved with IVF, creatinine remained stable. 2. Iron deficiency anemia- status post iron sucrose, hemoglobin stable. 3. Dementia with disturbance of behavior -Continue home dosing of memantine 10 mg po BID , quetiapine 50 mg PO BID. Continue buspirone. 4. Atypical chest pain -Cardiac enzymes normal x 2, EKG within normal limits -monitor -No further reports of chest pain since admission. 5. Dysphagia - Check Swallow evaluation. - In the meantime will place on NPO and IVF. DVT prophylaxis: SCD's Discharge Planning Hold discharge due to Dysphagia and lethargy. DC when patient more awake and swallow eval done. Problem Qualifiers (1) Rhabdomyolysis: Qualified Code: M62.82 - Non-traumatic rhabdomyolysis (2) Dementia with behavioral disturbance: Qualified Code: F03.91 - Dementia with behavioral disturbance, unspecified dementia type Danielito Snider MD Sep 22, 2016 17:48
[2016-09-22] MEDS: SODIUM CHLOR 0.9% 1000 ML INJ 1,000 ML IV SCH (23:24)
[2016-09-23] VITALS (7 sets, daily range): BP systolic 107–167; BP diastolic 61–93; PULSE 74–96; RESP 16–20; TEMP 97.6–99; O2SAT 96–99
[2016-09-23 08:02] LABS: AUTOMATED NEUTROPHIL # 9.2 TH/MM3 (1.8-7.7); BASOPHIL % 0.4 % (0.0-2.0); EOSINOPHIL # 0.4 TH/MM3 (0-0.4); EOSINOPHIL % 3.3 % (0.0-4.0); HEMATOCRIT 33.1 % (39.0-51.0); LYMPH % 12.1 % (9.0-44.0); LYMPHOCYTE # 1.4 TH/MM3 (1.0-4.8); MEAN CELL VOLUME 88.3 FL (80.0-100.0); MEAN CORPUSCULAR HGB CONC 33.9 % (32.0-36.0); MONO % 6.2 % (0.0-8.0); PLATELET COUNT 360 TH/MM3 (150-450); RED BLOOD COUNT 3.75 MIL/MM3 (4.50-5.90); RED CELL DISTRIBUTION WIDTH 13.8 % (11.6-17.2); WHITE BLOOD COUNT 11.8 TH/MM3 (4.0-11.0)
[2016-09-23 08:04] LABS: HEMO FLAGS DIFF FINAL
[2016-09-23 08:26] LABS: ANION GAP 6 MEQ/L (5-15); AST (GOT) 25 U/L (15-37); BICARBONATE 29.3 MEQ/L (21.0-32.0); BLOOD UREA NITROGEN 13 MG/DL (7-18); CHLORIDE 104 MEQ/L (98-107); GLOMERULAR FILTRATION RATE 111 ML/MIN (>89); MAGNESIUM 2.2 MG/DL (1.5-2.5); POTASSIUM 3.9 MEQ/L (3.5-5.1); SODIUM (NA) 139 MEQ/L (136-145)
[2016-09-23 08:27] LABS: ALT (GPT) 32 U/L (12-78)
[2016-09-23 08:30] LABS: ALKALINE PHOSPHATASE 73 U/L (45-117); CREATINE KINASE 198 U/L (39-308); TOTAL BILIRUBIN ADULT 0.4 MG/DL (0.2-1.0)
[2016-09-23] MEDS: SODIUM CHLORIDE 0.9% FLUSH 10 ML FLUSH IV FLUSH SCH ×2 (09:00→20:17)
[2016-09-23] MEDS: QUEtiapine FUMARATE 25 MG TAB PO SCH ×2 (09:09→12:05)
[2016-09-23] MEDS: MEMANTINE HCL 10 MG TAB PO SCH ×2 (09:09→20:17)
[2016-09-23] MEDS: SODIUM CHLOR 0.9% 1000 ML INJ 1,000 ML IV SCH (09:09)
[2016-09-23] MEDS: busPIRone HCL 5 MG TAB PO SCH ×2 (09:09→20:17)
[2016-09-23] MEDS ORDERED: DOXAZOSIN MESYLATE 2 MG TAB PO SCH (13:15)
[2016-09-23] MEDS: amLODIPine BESYLATE 5 MG TAB PO SCH (14:33)
[2016-09-23 17:21] LABS: AUTOMATED NEUTROPHIL # 5.7 TH/MM3 (1.8-7.7); BASOPHIL % 0.6 % (0.0-2.0); EOSINOPHIL # 0.5 TH/MM3 (0-0.4); EOSINOPHIL % 6.2 % (0.0-4.0); HEMO FLAGS DIFF FINAL; LYMPHOCYTE # 1.6 TH/MM3 (1.0-4.8); MEAN CELL VOLUME 88.4 FL (80.0-100.0); MEAN CORPUSCULAR HEMOGLOBIN 30.4 PG (27.0-34.0); MEAN CORPUSCULAR HGB CONC 34.4 % (32.0-36.0); NEUT % 65.2 % (16.0-70.0); PLATELET COUNT 347 TH/MM3 (150-450); RED BLOOD COUNT 3.73 MIL/MM3 (4.50-5.90); RED CELL DISTRIBUTION WIDTH 13.7 % (11.6-17.2); WHITE BLOOD COUNT 8.7 TH/MM3 (4.0-11.0)
--- NOTE | 2016-09-23 18:36 | HHI.PR ---
Subjective Remarks Deferred entry - Patient seen at 1:05 PM BP noted to be elevated with a systolic blood pressure in the 160s. Patient denies chest pain or shortness of breath passed dysphagia eval Objective Vitals Vital Signs Date Time Temp Pulse Resp B/P Pulse Ox O2 Delivery O2 Flow Rate FiO2 09/23/16 12:00 97.6 74 20 107/61 98 09/23/16 09:00 80 09/23/16 08:00 Room Air 09/23/16 08:00 98.0 78 20 153/76 99 09/23/16 04:00 98.3 84 17 162/89 98 09/23/16 00:00 99.0 74 16 129/67 96 09/22/16 20:00 Room Air 09/22/16 20:00 98.2 108 20 164/83 95 09/22/16 20:00 89 I/O 09/22/16 09/22/16 09/22/16 09/23/16 09/23/16 09/23/16 07:00 15:00 23:00 07:00 15:00 23:00 Intake Total 0 ml 840 ml 360 ml 491 ml Balance 0 ml 840 ml 360 ml 491 ml Intake Oral 0 ml 840 ml 360 ml 0 ml IV Total 491 ml # Voids 2 4 3 6 # Bowel Movements 0 0 1 Result Diagram: 09/23/16 1654 09/23/16 0702 Imaging Last Impressions Scrotum Ultrasound 09/18/16 0000 Signed Impressions: Service Date/Time: September 02:44 - CONCLUSION: Right hydrocele and epididymal cysts. Prominent scrotal edema. Testicles were benign and intact Curtis Preciado MD Chest X-Ray 09/17/162120 Signed Impressions: Service Date/Time: Saturday, September 17, 2016 22:07 - CONCLUSION: No acute disease. Moises Snider Jr., MD Objective Remarks GENERAL: Not in distress. SKIN: Warm and dry. NECK: Supple, trachea midline. CARDIOVASCULAR: Regular rate and rhythm without murmurs, gallops, or rubs. RESPIRATORY: Breath sounds equal bilaterally. No accessory muscle use. GASTROINTESTINAL: Abdomen soft, non-tender, nondistended. MUSCULOSKELETAL: No cyanosis, or edema. NEURO: Very lethargic - Awake and alert Procedures None Medications and IVs Current Medications Medications (Trade) Dose Ordered Sig/Leo Route Start Time Stop Time Status Last Admin (NS Flush) 2 ml UNSCH PRN IV FLUSH 09/18/16 02:15 (NS Flush) 2 ml BID IV FLUSH 09/18/16 09:00 09/23/16 09:00 (Narcan Inj) 0.4 mg UNSCH PRN IV 09/18/16 02:15 (SEROquel) 25 mg BID@09,12 PO 09/18/16 12:00 09/23/16 12:05 (Buspar) 7.5 mg Q12HR PO 09/18/16 21:00 09/23/16 09:09 (Namenda) 10 mg BID PO 09/18/16 10:00 09/23/16 09:09 (Haldol) 1 mg BID PRN PO 09/21/16 14:00 (Norvasc) 5 mg DAILY PO 09/23/16 13:15 09/23/16 14:33 A/P Problem List: (1) Rhabdomyolysis ICD Code: M62.82 Status: Resolved (2) Dementia with behavioral disturbance ICD Code: F03.91 Status: Chronic (3) Atypical chest pain ICD Code: R07.89 Status: Resolved (4) Normocytic anemia ICD Code: D64.9 Status: Acute Assessment and Plan Mr. Bar is 71 yo with history of dementia. No other history was known or reported. 1. Rhabdomyolysis: - Resolved with IVF, creatinine remained stable. 2. Iron deficiency anemia- status post iron sucrose, hemoglobin stable. 3. Dementia with disturbance of behavior -Continue home dosing of memantine 10 mg po BID , quetiapine 50 mg PO BID. Continue buspirone. 4. Atypical chest pain -Cardiac enzymes normal x 2, EKG within normal limits -monitor -No further reports of chest pain since admission. 5. Dysphagia - Check Swallow evaluation. - In the meantime will place on NPO and IVF. 6. Uncontrolled HTN - Upon review of blood pressure it is noted that bp has been consistently elevated. - Will start patient on amlodipine 5 mg daily. - Continue to monitor vital signs. DVT prophylaxis: SCD's Discharge Planning Possible Dc in am pending stabilization of BP. Problem Qualifiers (1) Rhabdomyolysis: Qualified Code: M62.82 - Non-traumatic rhabdomyolysis (2) Dementia with behavioral disturbance: Qualified Code: F03.91 - Dementia with behavioral disturbance, unspecified dementia type Danielito Snider MD Sep 23, 2016 18:36
[2016-09-24] VITALS (7 sets, daily range): BP systolic 147–166; BP diastolic 89–95; PULSE 82–104; RESP 18–20; TEMP 97–99.1; O2SAT 94–97
[2016-09-24] MEDS: SODIUM CHLORIDE 0.9% FLUSH 10 ML FLUSH IV FLUSH SCH ×2 (08:31→20:51)
[2016-09-24] MEDS: QUEtiapine FUMARATE 25 MG TAB PO SCH ×2 (08:32→12:29)
[2016-09-24] MEDS: busPIRone HCL 5 MG TAB PO SCH (08:32)
[2016-09-24] MEDS: MEMANTINE HCL 10 MG TAB PO SCH ×2 (08:32→20:51)
[2016-09-24] MEDS: amLODIPine BESYLATE 5 MG TAB PO SCH (08:32)
--- NOTE | 2016-09-24 16:03 | HHI.PR ---
Subjective Remarks Discussed with RN - patient has been lethargic most of the day otherwise patient is afebrile BP with better control Objective Vitals Vital Signs Date Time Temp Pulse Resp B/P Pulse Ox O2 Delivery O2 Flow Rate FiO2 09/24/16 12:00 98.0 104 20 157/89 97 09/24/16 08:00 98.6 95 18 147/89 97 09/24/16 08:00 Room Air 09/24/16 04:00 97.2 98 20 155/94 97 09/24/16 00:00 97.3 82 18 166/91 97 09/23/16 20:00 Room Air 09/23/16 20:00 98.7 83 20 167/80 97 09/23/16 20:00 96 09/23/16 16:00 98.1 82 20 150/93 96 I/O 09/23/16 09/23/16 09/23/16 09/24/16 09/24/16 09/24/16 07:00 15:00 23:00 07:00 15:00 23:00 Intake Total 491 ml 0 ml Balance 491 ml 0 ml Intake Oral 0 ml 0 ml IV Total 491 ml # Voids 6 2 4 # Bowel Movements 0 1 Result Diagram: 09/23/16 1654 09/23/16 0702 Imaging Last Impressions Scrotum Ultrasound 09/18/16 0000 Signed Impressions: Service Date/Time: September 02:44 - CONCLUSION: Right hydrocele and epididymal cysts. Prominent scrotal edema. Testicles were benign and intact Curtis Preciado MD Chest X-Ray 09/17/162120 Signed Impressions: Service Date/Time: Saturday, September 17, 2016 22:07 - CONCLUSION: No acute disease. Moises Snider Jr., MD Objective Remarks GENERAL: Not in distress. SKIN: Warm and dry. NECK: Supple, trachea midline. CARDIOVASCULAR: Regular rate and rhythm without murmurs, gallops, or rubs. RESPIRATORY: Breath sounds equal bilaterally. No accessory muscle use. GASTROINTESTINAL: Abdomen soft, non-tender, nondistended. MUSCULOSKELETAL: No cyanosis, or edema. NEURO: Lethargic but arousable. Procedures None Medications and IVs Current Medications Medications (Trade) Dose Ordered Sig/Leo Route Start Time Stop Time Status Last Admin (NS Flush) 2 ml UNSCH PRN IV FLUSH 09/18/16 02:15 (NS Flush) 2 ml BID IV FLUSH 09/18/16 09:00 09/24/16 08:31 (Narcan Inj) 0.4 mg UNSCH PRN IV 09/18/16 02:15 (SEROquel) 25 mg BID@09,12 PO 09/18/16 12:00 09/24/16 12:29 (Buspar) 7.5 mg Q12HR PO 09/18/16 21:00 09/24/16 08:32 (Namenda) 10 mg BID PO 09/18/16 10:00 09/24/16 08:32 (Haldol) 1 mg BID PRN PO 09/21/16 14:00 (Norvasc) 5 mg DAILY PO 09/23/16 13:15 09/24/16 08:32 Urinary Catheter: No Vascular Central Line Catheter: No A/P Problem List: (1) Rhabdomyolysis ICD Code: M62.82 Status: Resolved (2) Dementia with behavioral disturbance ICD Code: F03.91 Status: Chronic (3) Atypical chest pain ICD Code: R07.89 Status: Resolved (4) Normocytic anemia ICD Code: D64.9 Status: Acute Assessment and Plan Mr. Bar is 71 yo with history of dementia. No other history was known or reported. 1. Rhabdomyolysis: - Resolved with IVF, creatinine remained stable. 2. Iron deficiency anemia- status post iron sucrose, hemoglobin stable. 3. Dementia with disturbance of behavior -Continue home dosing of memantine 10 mg po BID. - I will hold Seroquel and Buspirone. 4. Atypical chest pain -Cardiac enzymes normal x 2, EKG within normal limits -monitor -No further reports of chest pain since admission. 5. Dysphagia - Patient passed dysphagia evaluation - recommended pureed diet and thin liquids. 6. Uncontrolled HTN - Upon review of blood pressure it is noted that bp has been consistently elevated. - BP much improved however still slightly elevated, will increase dose of Amlodipine to 10 mg po daily. - Continue to monitor vital signs. DVT prophylaxis: SCD's Discharge Planning Patient ok to be transferred to [place]. Patient is not a safe discharge and as per family service caseworker would take him back home. Patient may be transferred to [place]. Problem Qualifiers (1) Rhabdomyolysis: Qualified Code: M62.82 - Non-traumatic rhabdomyolysis (2) Dementia with behavioral disturbance: Qualified Code: F03.91 - Dementia with behavioral disturbance, unspecified dementia type Danielito Snider MD Sep 24, 2016 16:03
[2016-09-25] VITALS: BP 141/81; PULSE 91; RESP 16; TEMP 98.9; O2SAT 98
[2016-09-25 04:00] VITALS: BP 136/92; PULSE 83; RESP 16; TEMP 99; O2SAT 96
[2016-09-25 08:00] VITALS: BP 110/55; PULSE 79; RESP 20; TEMP 98.6; O2SAT 90
[2016-09-25] MEDS: SODIUM CHLORIDE 0.9% FLUSH 10 ML FLUSH IV FLUSH SCH (09:07)
[2016-09-25] MEDS: MEMANTINE HCL 10 MG TAB PO SCH ×2 (09:07→21:11)
[2016-09-25] MEDS: amLODIPine BESYLATE 5 MG TAB PO SCH (09:07)
[2016-09-25 12:00] VITALS: BP 138/85; PULSE 94; RESP 20; TEMP 98.3; O2SAT 94
--- NOTE | 2016-09-25 12:10 | HHI.PR ---
Subjective Remarks Patient is more awake today Nonverbal No major overnight events reported Objective Vitals Vital Signs Date Time Temp Pulse Resp B/P Pulse Ox O2 Delivery O2 Flow Rate FiO2 09/25/16 08:00 98.6 79 20 110/55 90 09/25/16 04:00 99.0 83 16 136/92 96 09/25/16 00:00 98.9 91 16 141/81 98 09/24/16 20:00 99.1 99 18 152/95 96 09/24/16 19:59 90 09/24/16 19:45 Room Air 09/24/16 16:00 97.0 104 20 153/93 94 I/O 09/24/16 09/24/16 09/24/16 09/25/16 09/25/16 09/25/16 07:00 15:00 23:00 07:00 15:00 23:00 Intake Total 60 ml 0 ml 0 ml Balance 60 ml 0 ml 0 ml Intake Oral 60 ml 0 ml 0 ml # Voids 4 2 3 1 # Bowel Movements 1 0 0 Result Diagram: 09/23/16 1654 09/23/16 0702 Imaging Last Impressions Scrotum Ultrasound 09/18/16 0000 Signed Impressions: Service Date/Time: September 02:44 - CONCLUSION: Right hydrocele and epididymal cysts. Prominent scrotal edema. Testicles were benign and intact Curtis Preciado MD Chest X-Ray 09/17/162120 Signed Impressions: Service Date/Time: Saturday, September 17, 2016 22:07 - CONCLUSION: No acute disease. Moises Snider Jr., MD Objective Remarks GENERAL: Not in distress. SKIN: Warm and dry. NECK: Supple, trachea midline. CARDIOVASCULAR: Regular rate and rhythm without murmurs, gallops, or rubs. RESPIRATORY: Breath sounds equal bilaterally. No accessory muscle use. GASTROINTESTINAL: Abdomen soft, non-tender, nondistended. MUSCULOSKELETAL: No cyanosis, or edema. NEURO: Awake and Alert. non verbal - does not follows commands. Procedures None Medications and IVs Current Medications Medications (Trade) Dose Ordered Sig/Leo Route Start Time Stop Time Status Last Admin (SEROquel) 25 mg BID@09,12 PO 09/18/16 12:00 Hold 09/24/16 12:29 (Buspar) 7.5 mg Q12HR PO 09/18/16 21:00 Hold 09/24/16 08:32 (Namenda) 10 mg BID PO 09/18/16 10:00 09/25/16 09:07 (Norvasc) 5 mg DAILY PO 09/23/16 13:15 09/25/16 09:07 Urinary Catheter: No Vascular Central Line Catheter: No A/P Problem List: (1) Rhabdomyolysis ICD Code: M62.82 Status: Resolved (2) Dementia with behavioral disturbance ICD Code: F03.91 Status: Chronic (3) Atypical chest pain ICD Code: R07.89 Status: Resolved (4) Normocytic anemia ICD Code: D64.9 Status: Acute Assessment and Plan Mr. Bar is 71 yo with history of dementia. No other history was known or reported. 1. Rhabdomyolysis: - Resolved with IVF, creatinine remained stable. 2. Iron deficiency anemia- status post iron sucrose, hemoglobin stable. 3. Dementia with disturbance of behavior -Continue home dosing of memantine 10 mg po BID. - Continue to hold Seroquel and Buspirone - patient is more awake and less sedated. 4. Atypical chest pain -Cardiac enzymes normal x 2, EKG within normal limits -monitor -No further reports of chest pain since admission. 5. Dysphagia - Patient passed dysphagia evaluation - recommended pureed diet and thin liquids. 6. Uncontrolled HTN - Upon review of blood pressure it is noted that bp has been consistently elevated. - BP much improved - Continue Amlodipine 10 mg po daily. DVT prophylaxis: SCD's Discharge Planning Patient ok to be transferred to [place]. Patient is not a safe discharge and as per adult protective caseworker would take him back home. Patient may be transferred to [place]. Problem Qualifiers (1) Rhabdomyolysis: Qualified Code: M62.82 - Non-traumatic rhabdomyolysis (2) Dementia with behavioral disturbance: Qualified Code: F03.91 - Dementia with behavioral disturbance, unspecified dementia type Danielito Snider MD Sep 25, 2016 12:10
[2016-09-25 14:00] VITALS: BP 137/91; PULSE 99; RESP 18; TEMP 99.5; O2SAT 97
[2016-09-25 20:00] VITALS: BP 141/86; PULSE 98; RESP 18; TEMP 97.2; O2SAT 97
[2016-09-26 08:00] VITALS: BP 148/94; PULSE 102; RESP 20; TEMP 99.2; O2SAT 95
[2016-09-26] MEDS: amLODIPine BESYLATE 5 MG TAB PO SCH (09:55)
[2016-09-26] MEDS: MEMANTINE HCL 10 MG TAB PO SCH ×2 (09:55→23:38)
[2016-09-26] MEDS: ENOXAPARIN SODIUM 40 MG/0.4 ML SYRINGE SQ SCH (10:00)
--- NOTE | 2016-09-26 10:01 | HHI.PR ---
Subjective Remarks 71-year-old male from [place] who does not speak any [place] who originally was brought to the for evaluation of possible chest pain, coughing up blood. Patient had evaluation done in found to have rhabdomyolysis, atypical chest pain that was ruled out with cardiac enzymes and EKGs. Apparently, The patient has significant dementia with disturbance of behavior that family is unable to care for him at home. Patient apparently also is not a [place] citizen, does not have financial resources and the family unwilling to take him home. Unable to find placement for the patient at this time. For those reasons patient was transferred to [facility] for long-term care. Evaluated the patient this morning and he does have decreased level consciousness, he was able to be arouse , only mumbles when he speaks. Does not follow any commands. Objective Vitals Vital Signs Date Time Temp Pulse Resp B/P Pulse Ox O2 Delivery O2 Flow Rate FiO2 09/25/16 20:00 97.2 98 18 141/86 97 09/25/16 20:00 97 Room Air 09/25/16 14:00 97 Room Air 09/25/16 14:00 99.5 99 18 137/91 97 09/25/16 12:00 98.3 94 20 138/85 94 I/O 09/25/16 09/25/16 09/25/16 09/26/16 09/26/16 09/26/16 07:00 15:00 23:00 07:00 15:00 23:00 Intake Total 0 ml 600 ml Output Total 0 ml Balance 0 ml 600 ml Intake Oral 0 ml 600 ml Output Urine Total 0 ml # Voids 1 1 2 # Bowel Movements 0 0 Result Diagram: 09/23/16 1654 09/23/16 0702 Objective Remarks GENERAL: Well-developed, cachectic, in no acute distress. Arousable, unable to determine orientation HEENT: Head is normocephalic without any lesions or masses noted. Facial features are symmetric with bitemporal wasting. Eyes: Extraocular muscles are intact. Conjunctivae were clear. Oropharyngeal: Pharynx without any erythema edema. Buccal mucosa is dry without any masses or lesions NECK: Supple without any masses. Trachea midline no deviation. No JVD, CARDIAC: Regular rhythm, regular rate. S1/S2 are heard. 2/6 ejection murmur, no gallops or rubs. LUNGS: Clear to auscultation bilaterally. No wheeze, rhonchi or rales. No use of accessory muscles on inspiration or expiration. ABDOMEN: Soft, nontender. Nondistended. Bowel sounds heard in all 4 quadrants. No organomegaly or masses. Negative rebound, negative guarding EXTREMITIES: No edema, pulses are equal bilaterally. No cyanosis or clubbing NEUROLOGY: Patient with significant dementia. Cranial nerves are grossly intact. Procedures None Urinary Catheter: No Vascular Central Line Catheter: No A/P Assessment and Plan Dementia with disturbance of behavior Continue home dosing of memantine 10 mg po BID. Continue to hold Seroquel and Buspirone to see if patient becomes more alert Rhabdomyolysis without renal involvement: Resolved Status post IV fluids, CPK returned to normal Iron deficiency anemia- status post iron sucrose, hemoglobin stable. Atypical chest pain Cardiac enzymes normal x 2, EKG within normal limits No further reports of chest pain since admission. Dysphagia Speech therapy evaluated patient and recommended, recommended pureed diet and thin liquids. Uncontrolled hypertension Amlodipine 5 mg daily, increase to 10 mg daily DVT prophylaxis: Lovenox, SCD's Discharge Planning Difficult discharge situation with significant dementia, non-US citizen, no payer source, family unwilling to take patient home. Case management for discharge planning Gonzales Babcock Sep 26, 2016 10:01
[2016-09-26 20:00] VITALS: BP 131/99; PULSE 100; RESP 22; TEMP 97.8; O2SAT 95
[2016-09-26 23:00] VITALS: RESP 18
[2016-09-27 08:00] VITALS: BP 137/85; PULSE 91; RESP 20; TEMP 98.2; O2SAT 96
[2016-09-27] MEDS: MEMANTINE HCL 10 MG TAB PO SCH ×2 (09:20→20:19)
[2016-09-27] MEDS: ENOXAPARIN SODIUM 40 MG/0.4 ML SYRINGE SQ SCH (09:20)
--- NOTE | 2016-09-27 10:51 | HHI.PR ---
Subjective Remarks Patient seen and examined today for follow-up on dementia. Patient does wake up , however he only mumbles when he tries his speak. He does not follow commands Objective Vitals Vital Signs Date Time Temp Pulse Resp B/P Pulse Ox O2 Delivery O2 Flow Rate FiO2 09/27/16 08:00 98.2 91 20 137/85 96 09/27/16 00:00 Room Air 09/26/16 23:00 18 09/26/16 20:00 97.8 100 22 131/99 95 I/O 09/26/16 09/26/16 09/26/16 09/27/16 09/27/16 09/27/16 07:00 15:00 23:00 07:00 15:00 23:00 Intake Total 0 ml 120 ml Balance 0 ml 120 ml Intake Oral 0 ml 120 ml # Voids 1 2 Result Diagram: 09/23/16 1654 09/23/16 0702 Objective Remarks GENERAL: Well-developed, cachectic, in no acute distress. Arousable, unable to determine orientation HEENT: Head is normocephalic without any lesions or masses noted. Facial features are symmetric with bitemporal wasting. Eyes: Extraocular muscles are intact. Conjunctivae were clear. NECK: Supple without any masses. Trachea midline no deviation. No JVD, CARDIAC: Regular rhythm, regular rate. S1/S2 are heard. 2/6 ejection murmur, no gallops or rubs. LUNGS: Clear to auscultation bilaterally. No wheeze, rhonchi or rales. No use of accessory muscles on inspiration or expiration. ABDOMEN: Soft, nontender. Nondistended. Bowel sounds heard in all 4 quadrants. No organomegaly or masses. Negative rebound, negative guarding EXTREMITIES: No edema, pulses are equal bilaterally. No cyanosis or clubbing NEUROLOGY: Patient with significant dementia. Cranial nerves are grossly intact. Procedures None Urinary Catheter: No Vascular Central Line Catheter: No A/P Assessment and Plan Dementia with disturbance of behavior Continue home dosing of memantine 10 mg po BID. Continue to hold Seroquel and Buspirone to see if patient becomes more alert Rhabdomyolysis without renal involvement: Resolved Status post IV fluids, CPK returned to normal Iron deficiency anemia- status post iron sucrose, hemoglobin stable. Atypical chest pain Cardiac enzymes normal x 2, EKG within normal limits No further reports of chest pain since admission. Dysphagia Speech therapy evaluated patient and recommended, recommended pureed diet and thin liquids. Uncontrolled hypertension, improved Amlodipine 10 mg daily DVT prophylaxis: Lovenox, SCD's Discharge Planning Difficult discharge situation with significant dementia, non-US citizen, no payer source, family unwilling to take patient home. Case management for discharge planning Gonzales Babcock Sep 27, 2016 10:51
[2016-09-27 20:00] VITALS: BP 125/79; PULSE 101; RESP 20; TEMP 100.6; O2SAT 97
[2016-09-28] VITALS: TEMP 99.6
[2016-09-28 08:00] VITALS: BP 115/72; PULSE 77; RESP 17; TEMP 97.6; O2SAT 98
[2016-09-28] MEDS: MEMANTINE HCL 10 MG TAB PO SCH ×2 (09:41→21:05)
[2016-09-28] MEDS: ENOXAPARIN SODIUM 40 MG/0.4 ML SYRINGE SQ SCH (09:41)
--- NOTE | 2016-09-28 11:38 | HHI.PR ---
Subjective Remarks Patient seen and examined today for follow-up on dementia. Patient does arouse easily. He does mumble when trying to speak. Records reviewed patient did have fever one episode last night, afebrile at this time Objective Vitals Vital Signs Date Time Temp Pulse Resp B/P Pulse Ox O2 Delivery O2 Flow Rate FiO2 09/28/16 08:00 97.6 77 17 115/72 98 Manual Cuff/Auscultation 09/28/16 07:00 98 Room Air 09/28/16 00:00 99.6 09/27/16 20:00 100.6 101 20 125/79 97 09/27/16 19:00 98 Room Air I/O 09/27/16 09/27/16 09/27/16 09/28/16 09/28/16 09/28/16 07:00 15:00 23:00 07:00 15:00 23:00 Intake Total 120 ml 500 ml 960 ml 240 ml Balance 120 ml 500 ml 960 ml 240 ml Intake Oral 120 ml 500 ml 720 ml 240 ml Oral Supplement 240 ml Bladder Scan Volume Amount 349 ml # Voids 2 0 2 2 # Bowel Movements 1 0 0 Objective Remarks GENERAL: Well-developed, cachectic, in no acute distress. Arousable, unable to determine orientation HEENT: Head is normocephalic without any lesions or masses noted. Facial features are symmetric with bitemporal wasting. Eyes: Extraocular muscles are intact. Conjunctivae were clear. NECK: Supple without any masses. Trachea midline no deviation. No JVD, CARDIAC: Regular rhythm, regular rate. S1/S2 are heard. 2/6 ejection murmur, no gallops or rubs. LUNGS: Clear to auscultation bilaterally. No wheeze, rhonchi or rales. No use of accessory muscles on inspiration or expiration. ABDOMEN: Soft, nontender. Nondistended. Bowel sounds heard in all 4 quadrants. No organomegaly or masses. Negative rebound, negative guarding EXTREMITIES: No edema, pulses are equal bilaterally. No cyanosis or clubbing NEUROLOGY: Patient with significant dementia. Cranial nerves are grossly intact. Procedures None Urinary Catheter: No Vascular Central Line Catheter: No A/P Assessment and Plan Dementia with disturbance of behavior Continue home dosing of memantine 10 mg po BID. Continue to hold Seroquel and Buspirone to see if patient becomes more alert Temperature 100.6 last night, afebrile at this time Continue monitor for infection If further temperature elevation will proceed with infection workup Rhabdomyolysis without renal involvement: Resolved Status post IV fluids, CPK returned to normal Iron deficiency anemia- status post iron sucrose, hemoglobin stable. Atypical chest pain Cardiac enzymes normal x 2, EKG within normal limits No further reports of chest pain since admission. Dysphagia Speech therapy evaluated patient and recommended, recommended pureed diet and thin liquids. hypertension, improved Amlodipine 10 mg daily DVT prophylaxis: Lovenox, SCD's Discharge Planning Difficult discharge situation with significant dementia, non-US citizen, no payer source, family unwilling to take patient home. Case management for discharge planning Gonzales Babcock Sep 28, 2016 11:37
--- NOTE | 2016-09-28 16:26 | RADHPO ---
EXAM DATE/TIME: 09/28/2016 15:43 [facility] COMPARISON: US TESTICLE W/DOPPLER, September 18, 2016, 2:44. INDICATIONS : Testicular edema and pain. MEDICAL HISTORY : Dementia. SURGICAL HISTORY : Unable to obtain. ENCOUNTER: Subsequent ACUITY: 2 weeks PAIN SCORE: Non-Responsive LOCATION: Bilateral scrotum. MEASUREMENTS: RIGHT TESTICLE: 2.7 x 4.6 x 2.1cm LEFT TESTICLE: 3.3 x 2.4 x 2.3cm FINDINGS: RIGHT TESTICLE: Homogeneous echotexture without intra or extratesticular mass. Blood flow is symmetric and within no rmal limits. Small hydrocele. The epididymis contains 2 cysts measuring 6 mm and 7 mm and the blood flow to the right epididymis is mildly increased. No evidence of varicocele.. LEFT TESTICLE: Homogeneous echotexture without intra or extratesticular mass. Blood flow is symmetric and within no rmal limits. No hydrocele or varicocele. Epididymis is within normal limits. SCROTUM: Within normal limits. CONCLUSION: 1. Intact flow to both testicles without focal lesions. 2. Small right hydrocele. 2 right epididymal cysts, similar to prior ultrasound 10 days ago. Mild h yperemia to the right epididymis. Moises Borden MD on September 28, 2016 at 16:17 Board Certified Radiologist. This report was verified electronically.
[2016-09-28 20:00] VITALS: BP 105/65; PULSE 79; RESP 20; TEMP 99; O2SAT 97
[2016-09-29 08:40] VITALS: BP 131/83; PULSE 86; RESP 19; TEMP 97.7; O2SAT 97
[2016-09-29] MEDS: ENOXAPARIN SODIUM 40 MG/0.4 ML SYRINGE SQ SCH (09:58)
[2016-09-29] MEDS: MEMANTINE HCL 10 MG TAB PO SCH ×2 (09:59→20:09)
--- NOTE | 2016-09-29 11:39 | HHI.PR ---
Subjective Remarks Patient seen and examined today for follow-up on dementia. No change in clinical status. There is no indication of any new problems. Objective Vitals Vital Signs Date Time Temp Pulse Resp B/P Pulse Ox O2 Delivery O2 Flow Rate FiO2 09/29/16 08:40 97.7 86 19 131/83 97 09/28/16 20:00 99.0 79 20 105/65 97 09/28/16 19:00 Room Air I/O 09/28/16 09/28/16 09/28/16 09/29/16 09/29/16 09/29/16 07:00 15:00 23:00 07:00 15:00 23:00 Intake Total 240 ml 1320 ml 480 ml Balance 240 ml 1320 ml 480 ml Intake Oral 240 ml 1080 ml 480 ml Oral Supplement 240 ml # Voids 2 3 2 # Bowel Movements 0 1 0 Objective Remarks GENERAL: Well-developed, cachectic, in no acute distress. Arousable, unable to determine orientation HEENT: Head is normocephalic without any lesions or masses noted. Facial features are symmetric with bitemporal wasting. Eyes: Extraocular muscles are intact. Conjunctivae were clear. NECK: Supple without any masses. Trachea midline no deviation. No JVD, CARDIAC: Regular rhythm, regular rate. S1/S2 are heard. 2/6 ejection murmur, no gallops or rubs. LUNGS: Clear to auscultation bilaterally. No wheeze, rhonchi or rales. No use of accessory muscles on inspiration or expiration. ABDOMEN: Soft, nontender. Nondistended. Bowel sounds heard in all 4 quadrants. No organomegaly or masses. Negative rebound, negative guarding EXTREMITIES: No edema, pulses are equal bilaterally. No cyanosis or clubbing NEUROLOGY: Patient with significant dementia. Cranial nerves are grossly intact. GENITOURINARY: Patient does have significant edema noted of the right testicle Procedures None Urinary Catheter: No Vascular Central Line Catheter: No A/P Assessment and Plan Dementia with disturbance of behavior Continue home dosing of memantine 10 mg po BID. Continue to hold Seroquel and Buspirone to see if patient becomes more alert Temperature 100.6 on 09/27/16, afebrile at this time Continue monitor for infection If further temperature elevation will proceed with infection workup Rhabdomyolysis without renal involvement: Resolved Status post IV fluids, CPK returned to normal Right testicular enlargement Patient has had multiple ultrasounds performed which did not indicate any changes. Does indicate right hydrocele, right epididymal cyst Continue monitor and address if needed Iron deficiency anemia- status post iron sucrose, hemoglobin stable. Atypical chest pain Cardiac enzymes normal x 2, EKG within normal limits No further reports of chest pain since admission. Dysphagia Speech therapy evaluated patient and recommended, recommended pureed diet and thin liquids. hypertension, improved Amlodipine 10 mg daily DVT prophylaxis: Lovenox, SCD's Discharge Planning Difficult discharge situation with significant dementia, non-US citizen, no payer source, family unwilling to take patient home. Case management for discharge planning Gonzales Babcock Sep 29, 2016 11:38
[2016-09-29 20:00] VITALS: BP 125/72; PULSE 78; RESP 19; TEMP 96.8; O2SAT 98
[2016-09-30 08:00] VITALS: BP 135/92; PULSE 79; RESP 18; TEMP 97.6; O2SAT 94
[2016-09-30] MEDS: MEMANTINE HCL 10 MG TAB PO SCH ×2 (08:37→20:52)
[2016-09-30] MEDS: ENOXAPARIN SODIUM 40 MG/0.4 ML SYRINGE SQ SCH (08:37)
--- NOTE | 2016-09-30 10:11 | HHI.PR ---
Subjective Remarks Follow-up for dementia. No acute complaints. Objective Vitals Vital Signs Date Time Temp Pulse Resp B/P Pulse Ox O2 Delivery O2 Flow Rate FiO2 09/30/16 08:00 97.6 79 18 135/92 94 09/29/16 20:00 96.8 78 19 125/72 98 I/O 09/29/16 09/29/16 09/29/16 09/30/16 09/30/16 09/30/16 07:00 15:00 23:00 07:00 15:00 23:00 Intake Total 480 ml 1020 ml 120 ml Balance 480 ml 1020 ml 120 ml Intake Oral 480 ml 1020 ml 120 ml # Voids 2 4 2 # Bowel Movements 0 0 Objective Remarks GENERAL: Elderly patient in no apparent distress. SKIN: Warm and dry. HEAD: Atraumatic. Normocephalic. CARDIOVASCULAR: Regular rate and rhythm. RESPIRATORY: No accessory muscle use. Clear to auscultation. Breath sounds equal bilaterally. GASTROINTESTINAL: Abdomen soft, non-tender, nondistended. NEUROLOGICAL: Awake and alert. Knows he is in [place], but does not know he is at the hospital nor the month or year. Normal speech. Procedures None Urinary Catheter: No Vascular Central Line Catheter: No A/P Problem List: (1) Rhabdomyolysis ICD Code: M62.82 Status: Resolved (2) Dementia with behavioral disturbance ICD Code: F03.91 Status: Chronic (3) Atypical chest pain ICD Code: R07.89 Status: Resolved (4) Normocytic anemia ICD Code: D64.9 Status: Acute Assessment and Plan Dementia with disturbance of behavior Continue home dosing of memantine 10 mg po BID. Continue to hold Seroquel and Buspirone to see if patient becomes more alert Temperature 100.6 on 09/27/16, afebrile at this time Continue monitor for infection If further temperature elevation will proceed with infection workup Rhabdomyolysis without renal involvement: Resolved Status post IV fluids, CPK returned to normal Right testicular enlargement Patient has had multiple ultrasounds performed which did not indicate any changes. Does indicate right hydrocele, right epididymal cyst Continue monitor and address if needed Iron deficiency anemia status post iron sucrose hemoglobin stable. Atypical chest pain Cardiac enzymes normal x 2, EKG within normal limits No further reports of chest pain since admission. Dysphagia Speech therapy evaluated patient and recommended, recommended pureed diet and thin liquids. Hypertension: Improved. Amlodipine 10 mg daily DVT prophylaxis: Lovenox, SCDs. Problem Qualifiers (1) Rhabdomyolysis: Qualified Code: M62.82 - Non-traumatic rhabdomyolysis (2) Dementia with behavioral disturbance: Qualified Code: F03.91 - Dementia with behavioral disturbance, unspecified dementia type Naya Ferraro Sep 30, 2016 10:11
[2016-09-30 20:05] VITALS: BP 135/92; PULSE 78; RESP 21; TEMP 97.8; O2SAT 97
[2016-10-01] MEDS: MEMANTINE HCL 10 MG TAB PO SCH ×2 (07:56→20:35)
[2016-10-01] MEDS: ENOXAPARIN SODIUM 40 MG/0.4 ML SYRINGE SQ SCH (07:57)
[2016-10-01 08:00] VITALS: BP 108/71; PULSE 73; RESP 18; TEMP 96.6; O2SAT 92
--- NOTE | 2016-10-01 13:30 | HHI.PR ---
Subjective Remarks Follow-up for dementia. No acute complaints. Objective Vitals Vital Signs Date Time Temp Pulse Resp B/P Pulse Ox O2 Delivery O2 Flow Rate FiO2 10/01/16 08:00 96.6 73 18 108/71 92 09/30/16 20:05 97.8 78 21 135/92 97 I/O 09/30/16 09/30/16 09/30/16 10/01/16 10/01/16 10/01/16 07:00 15:00 23:00 07:00 15:00 23:00 Intake Total 120 ml 120 ml Balance 120 ml 120 ml Intake Oral 120 ml 120 ml # Voids 2 2 1 # Bowel Movements 1 0 1 Objective Remarks GENERAL: Elderly patient in no apparent distress. SKIN: Warm and dry. HEAD: Atraumatic. Normocephalic. CARDIOVASCULAR: Regular rate and rhythm. RESPIRATORY: No accessory muscle use. Clear to auscultation. Breath sounds equal bilaterally. GASTROINTESTINAL: Abdomen soft, non-tender, nondistended. NEUROLOGICAL: Awake and alert. Disoriented. Normal speech. Procedures None Urinary Catheter: No Vascular Central Line Catheter: No A/P Problem List: (1) Rhabdomyolysis ICD Code: M62.82 Status: Resolved (2) Dementia with behavioral disturbance ICD Code: F03.91 Status: Chronic (3) Atypical chest pain ICD Code: R07.89 Status: Resolved (4) Normocytic anemia ICD Code: D64.9 Status: Acute Assessment and Plan Dementia with disturbance of behavior Continue home dosing of memantine 10 mg po BID. Continue to hold Seroquel and Buspirone to see if patient becomes more alert Temperature 100.6 on 09/27/16, afebrile at this time Continue monitor for infection If further temperature elevation will proceed with infection workup Rhabdomyolysis without renal involvement: Resolved Status post IV fluids, CPK returned to normal Right testicular enlargement Patient has had multiple ultrasounds performed which did not indicate any changes. Does indicate right hydrocele, right epididymal cyst Continue to monitor and address if needed Iron deficiency anemia status post iron sucrose hemoglobin stable. Atypical chest pain Cardiac enzymes normal x 2, EKG within normal limits No further reports of chest pain since admission. Dysphagia Speech therapy evaluated patient and recommended, recommended pureed diet and thin liquids. Hypertension: Improved. Amlodipine 10 mg daily DVT prophylaxis: Lovenox, SCDs. Problem Qualifiers (1) Rhabdomyolysis: Qualified Code: M62.82 - Non-traumatic rhabdomyolysis (2) Dementia with behavioral disturbance: Qualified Code: F03.91 - Dementia with behavioral disturbance, unspecified dementia type Naya Ferraro Oct 01, 2016 13:30
[2016-10-01 20:13] VITALS: BP 120/81; PULSE 86; RESP 16; TEMP 98.4; O2SAT 95
[2016-10-02 08:00] VITALS: BP 111/73; PULSE 77; RESP 18; TEMP 96.9; O2SAT 94
[2016-10-02] MEDS: MEMANTINE HCL 10 MG TAB PO SCH ×2 (08:09→20:36)
[2016-10-02] MEDS: ENOXAPARIN SODIUM 40 MG/0.4 ML SYRINGE SQ SCH (08:11)
--- NOTE | 2016-10-02 09:37 | HHI.PR ---
Subjective Remarks Patient is deeply sleeping upon my exam. Objective Vitals Vital Signs Date Time Temp Pulse Resp B/P Pulse Ox O2 Delivery O2 Flow Rate FiO2 10/02/16 08:00 96.9 77 18 111/73 94 10/01/16 20:13 98.4 86 16 120/81 95 I/O 10/01/16 10/01/16 10/01/16 10/02/16 10/02/16 10/02/16 06:59 14:59 22:59 06:59 14:59 22:59 Intake Total 690 ml 220 ml Output Total 400 ml Balance 690 ml -180 ml Intake Oral 690 ml 220 ml Output Urine Total 400 ml # Voids 2 # Bowel Movements 2 0 Objective Remarks GENERAL: Elderly patient in no apparent distress sleeping. CARDIOVASCULAR: Regular rate and rhythm. RESPIRATORY: No accessory muscle use. Clear to auscultation. Breath sounds equal bilaterally. GASTROINTESTINAL: Abdomen soft, non-tender, nondistended. NEUROLOGICAL: Deeply sleeping; does not arouse to voice or sternal rub but patient is breathing normally; moans something while sleeping. Legs move and he was witnessed to be scratching his face with his hand. Procedures None Urinary Catheter: No Vascular Central Line Catheter: No A/P Problem List: (1) Rhabdomyolysis ICD Code: M62.82 Status: Resolved (2) Dementia with behavioral disturbance ICD Code: F03.91 Status: Chronic (3) Atypical chest pain ICD Code: R07.89 Status: Resolved (4) Normocytic anemia ICD Code: D64.9 Status: Acute Assessment and Plan Dementia with disturbance of behavior Continue home dosing of memantine 10 mg po BID. Continue to hold Seroquel and Buspirone to see if patient becomes more alert Temperature 100.6 on 09/27/16, afebrile at this time Continue monitor for infection If further temperature elevation will proceed with infection workup Rhabdomyolysis without renal involvement: Resolved Status post IV fluids, CPK returned to normal Right testicular enlargement Patient has had multiple ultrasounds performed which did not indicate any changes. Does indicate right hydrocele, right epididymal cyst Continue to monitor and address if needed Iron deficiency anemia status post iron sucrose hemoglobin stable. Atypical chest pain Cardiac enzymes normal x 2, EKG within normal limits No further reports of chest pain since admission. Dysphagia Speech therapy evaluated patient and recommended, recommended pureed diet and thin liquids. Hypertension: Improved. Amlodipine 10 mg daily DVT prophylaxis: Lovenox, SCDs. Problem Qualifiers (1) Rhabdomyolysis: Qualified Code: M62.82 - Non-traumatic rhabdomyolysis (2) Dementia with behavioral disturbance: Qualified Code: F03.91 - Dementia with behavioral disturbance, unspecified dementia type Naya Ferraro Oct 02, 2016 09:37
[2016-10-02 20:00] VITALS: BP 109/76; PULSE 82; RESP 16; TEMP 96.7; O2SAT 100
[2016-10-03 09:51] VITALS: BP 95/63; PULSE 93; RESP 15; TEMP 97.6; O2SAT 96
[2016-10-03] MEDS: MEMANTINE HCL 10 MG TAB PO SCH ×2 (10:30→20:49)
[2016-10-03] MEDS: ENOXAPARIN SODIUM 40 MG/0.4 ML SYRINGE SQ SCH (10:30)
--- NOTE | 2016-10-03 12:00 | HHI.PR ---
Subjective Remarks Follow-up for dementia. Patient has mildly injected eyes and he does admit to itching in both. Possibly chronic although patient is a poor historian. Objective Vitals Vital Signs Date Time Temp Pulse Resp B/P Pulse Ox O2 Delivery O2 Flow Rate FiO2 10/03/16 09:51 97.6 93 15 95/63 96 10/02/16 20:00 96.7 82 16 109/76 100 I/O 10/02/16 10/02/16 10/02/16 10/03/16 10/03/16 10/03/16 07:00 15:00 23:00 07:00 15:00 23:00 Intake Total 220 ml 1150 ml 360 ml 240 ml Output Total 400 ml Balance -180 ml 1150 ml 360 ml 240 ml Intake Oral 220 ml 1150 ml 360 ml 240 ml Output Urine Total 400 ml # Voids 3 2 2 # Bowel Movements 0 1 1 0 Objective Remarks GENERAL: Elderly patient in no apparent distress sleeping. EYES: Mild injection over the medial and lateral aspects of both eyes. There is some mild green crust noted at the medial aspect of left eye but no actual purulent drainage. CARDIOVASCULAR: Regular rate and rhythm. RESPIRATORY: No accessory muscle use. Clear to auscultation. Breath sounds equal bilaterally. NEUROLOGICAL: Awake and alert. Difficulty responding to questions due to dementia. Procedures None Urinary Catheter: No Vascular Central Line Catheter: No A/P Problem List: (1) Rhabdomyolysis ICD Code: M62.82 Status: Resolved (2) Dementia with behavioral disturbance ICD Code: F03.91 Status: Chronic (3) Atypical chest pain ICD Code: R07.89 Status: Resolved (4) Normocytic anemia ICD Code: D64.9 Status: Acute Assessment and Plan Dementia with disturbance of behavior Continue home dosing of memantine 10 mg po BID. Continue to hold Seroquel and Buspirone to see if patient becomes more alert Temperature 100.6 on 09/27/16, afebrile at this time Continue monitor for infection If further temperature elevation will proceed with infection workup Rhabdomyolysis without renal involvement: Resolved Status post IV fluids, CPK returned to normal Right testicular enlargement Patient has had multiple ultrasounds performed which did not indicate any changes. Does indicate right hydrocele, right epididymal cyst Continue to monitor and address if needed Iron deficiency anemia status post iron sucrose hemoglobin stable. Atypical chest pain Cardiac enzymes normal x 2, EKG within normal limits No further reports of chest pain since admission. Dysphagia Speech therapy evaluated patient and recommended, recommended pureed diet and thin liquids. Hypertension: Improved. Amlodipine 10 mg daily DVT prophylaxis: Lovenox, SCDs. Discharge Planning Submitted application for social security benefits. Problem Qualifiers (1) Rhabdomyolysis: Qualified Code: M62.82 - Non-traumatic rhabdomyolysis (2) Dementia with behavioral disturbance: Qualified Code: F03.91 - Dementia with behavioral disturbance, unspecified dementia type Naya Ferraro Oct 03, 2016 11:59
[2016-10-03 20:00] VITALS: BP 140/88; PULSE 88; RESP 20; TEMP 98; O2SAT 98
[2016-10-04 08:00] VITALS: BP 130/94; PULSE 80; RESP 18; TEMP 97.6; O2SAT 96
--- NOTE | 2016-10-04 09:24 | HHI.PR ---
Subjective Remarks Follow-up for dementia. No acute complaints. Patient states he is good, comfortable. Objective Vitals Vital Signs Date Time Temp Pulse Resp B/P Pulse Ox O2 Delivery O2 Flow Rate FiO2 10/03/16 20:00 98.0 88 20 140/88 98 10/03/16 09:51 97.6 93 15 95/63 96 I/O 10/03/16 10/03/16 10/03/16 10/04/16 10/04/16 10/04/16 07:00 15:00 23:00 07:00 15:00 23:00 Intake Total 240 ml 1160 ml 240 ml Balance 240 ml 1160 ml 240 ml Intake Oral 240 ml 920 ml 240 ml Oral Supplement 240 ml # Voids 2 4 2 # Bowel Movements 0 0 1 Objective Remarks GENERAL: Elderly patient in no apparent distress watching tv. CARDIOVASCULAR: Regular rate and rhythm. RESPIRATORY: No accessory muscle use. Clear to auscultation. Breath sounds equal bilaterally. GASTROINTESTINAL: Abdomen soft, nontender, nondistended. NEUROLOGICAL: Awake and alert. Normal speech, but speaks softly. Procedures None Urinary Catheter: No Vascular Central Line Catheter: No A/P Problem List: (1) Rhabdomyolysis ICD Code: M62.82 Status: Resolved (2) Dementia with behavioral disturbance ICD Code: F03.91 Status: Chronic (3) Atypical chest pain ICD Code: R07.89 Status: Resolved (4) Normocytic anemia ICD Code: D64.9 Status: Acute Assessment and Plan Dementia with disturbance of behavior Continue home dosing of memantine 10 mg po BID. Continue to hold Seroquel and Buspirone to see if patient becomes more alert Temperature 100.6 on 09/27/16, afebrile since Continue monitor for infection If further temperature elevation will proceed with infection workup Rhabdomyolysis without renal involvement: Resolved Status post IV fluids, CPK returned to normal Right testicular enlargement Patient has had multiple ultrasounds performed which did not indicate any changes. Does indicate right hydrocele, right epididymal cyst Continue to monitor and address if needed Iron deficiency anemia status post iron sucrose hemoglobin stable. Atypical chest pain Cardiac enzymes normal x 2, EKG within normal limits No further reports of chest pain since admission. Dysphagia Speech therapy evaluated patient and recommended, recommended pureed diet and thin liquids. Hypertension: Improved. Amlodipine 10 mg daily DVT prophylaxis: Lovenox, SCDs. Discharge Planning Submitted application for social security benefits. Problem Qualifiers (1) Rhabdomyolysis: Qualified Code: M62.82 - Non-traumatic rhabdomyolysis (2) Dementia with behavioral disturbance: Qualified Code: F03.91 - Dementia with behavioral disturbance, unspecified dementia type Naya Ferraro Oct 04, 2016 09:24
[2016-10-04] MEDS: ENOXAPARIN SODIUM 40 MG/0.4 ML SYRINGE SQ SCH (10:05)
[2016-10-04] MEDS: MEMANTINE HCL 10 MG TAB PO SCH ×2 (10:06→20:35)
[2016-10-04 20:00] VITALS: BP 147/82; PULSE 81; RESP 19; TEMP 96.3; O2SAT 95
[2016-10-05 08:00] VITALS: BP 138/90; PULSE 90; RESP 18; TEMP 98.8; O2SAT 94
[2016-10-05] MEDS: ENOXAPARIN SODIUM 40 MG/0.4 ML SYRINGE SQ SCH (09:29)
[2016-10-05] MEDS: MEMANTINE HCL 10 MG TAB PO SCH ×2 (09:29→21:22)
--- NOTE | 2016-10-05 11:21 | HHI.PR ---
Subjective Remarks Follow-up for dementia. No acute complaints. Denies itching in eyes. Objective Vitals Vital Signs Date Time Temp Pulse Resp B/P Pulse Ox O2 Delivery O2 Flow Rate FiO2 10/05/16 08:00 98.8 90 18 138/90 94 10/04/16 20:00 96.3 81 19 147/82 95 I/O 10/04/16 10/04/16 10/04/16 10/05/16 10/05/16 10/05/16 07:00 15:00 23:00 07:00 15:00 23:00 Intake Total 240 ml 890 ml 720 ml 120 ml 480 ml Balance 240 ml 890 ml 720 ml 120 ml 480 ml Intake Oral 240 ml 250 ml 720 ml 120 ml 480 ml Oral Supplement 240 ml IV Total 400 ml # Voids 2 6 2 1 # Bowel Movements 1 1 Objective Remarks GENERAL: Elderly patient in no apparent distress watching tv. EYES: Mild injection bilaterally. Green hard crusts at medial corner of L eye but no obvious purulence. CARDIOVASCULAR: Regular rate and rhythm. RESPIRATORY: No accessory muscle use. Clear to auscultation. Breath sounds equal bilaterally. GASTROINTESTINAL: Abdomen nontender, nondistended. NEUROLOGICAL: Awake and alert. Normal speech. Procedures None Urinary Catheter: No Vascular Central Line Catheter: No A/P Problem List: (1) Rhabdomyolysis ICD Code: M62.82 Status: Resolved (2) Dementia with behavioral disturbance ICD Code: F03.91 Status: Chronic (3) Atypical chest pain ICD Code: R07.89 Status: Resolved (4) Normocytic anemia ICD Code: D64.9 Status: Acute Assessment and Plan Dementia with disturbance of behavior Continue home dosing of memantine 10 mg po BID. Continue to hold Seroquel and Buspirone; seems to being doing fine off these meds and is awake and alert Temperature 100.6 on 09/27/16, afebrile since Continue monitor for infection If further temperature elevation will proceed with infection workup Rhabdomyolysis without renal involvement: Resolved Status post IV fluids, CPK returned to normal Right testicular enlargement Patient has had multiple ultrasounds performed which did not indicate any changes. Does indicate right hydrocele, right epididymal cyst Continue to monitor and address if needed Iron deficiency anemia status post iron sucrose hemoglobin stable. Atypical chest pain Cardiac enzymes normal x 2, EKG within normal limits No further reports of chest pain since admission. Dysphagia Speech therapy evaluated patient and recommended, recommended pureed diet and thin liquids. Hypertension: Improved. Amlodipine 10 mg daily Possible conjunctivitis: mild injection in both eyes but does not appear as a true bacterial conjunctivitis. Mild green crusting at L eye. The entire conjunctiva is not affected. Will monitor. If worsens can prescribe antibiotic drops. DVT prophylaxis: Lovenox, SCDs. Discharge Planning Submitted application for social security benefits. Problem Qualifiers (1) Rhabdomyolysis: Qualified Code: M62.82 - Non-traumatic rhabdomyolysis (2) Dementia with behavioral disturbance: Qualified Code: F03.91 - Dementia with behavioral disturbance, unspecified dementia type Naya Ferraro Oct 05, 2016 11:21
[2016-10-05 20:00] VITALS: BP 141/85; PULSE 87; RESP 20; TEMP 99.3; O2SAT 95
[2016-10-06 08:48] VITALS: BP 149/90; PULSE 96; RESP 15; TEMP 97.3; O2SAT 97
[2016-10-06] MEDS: MEMANTINE HCL 10 MG TAB PO SCH ×2 (09:22→21:12)
[2016-10-06] MEDS: ENOXAPARIN SODIUM 40 MG/0.4 ML SYRINGE SQ SCH (09:22)
--- NOTE | 2016-10-06 09:55 | HHI.PR ---
Subjective Remarks Follow-up for dementia. Patient's eyes are noted to be mildly injected but he denies any itching. Objective Vitals Vital Signs Date Time Temp Pulse Resp B/P Pulse Ox O2 Delivery O2 Flow Rate FiO2 10/06/16 08:48 97.3 96 15 149/90 97 10/05/16 20:00 99.3 87 20 141/85 95 I/O 10/05/16 10/05/16 10/05/16 10/06/16 10/06/16 10/06/16 07:00 15:00 23:00 07:00 15:00 23:00 Intake Total 120 ml 480 ml 900 ml 240 ml Balance 120 ml 480 ml 900 ml 240 ml Intake Oral 120 ml 480 ml 900 ml 240 ml # Voids 2 1 6 2 Objective Remarks GENERAL: Elderly patient in no apparent distress. EYES: Mild injection only medial and lateral to iris in both eyes. No injection over superior aspect of eyes. The lower palpebral conjunctiva appears without inflammation. Green hard crusts at medial corner of L eye. Mild white drainage at medial corner of R eye. CARDIOVASCULAR: Regular rate and rhythm. RESPIRATORY: No accessory muscle use. Clear to auscultation. Breath sounds equal bilaterally. GASTROINTESTINAL: Normoactive bowel sounds. Abdomen soft, nontender, nondistended. NEUROLOGICAL: Awake and alert. Normal speech. Procedures None Urinary Catheter: No Vascular Central Line Catheter: No A/P Problem List: (1) Rhabdomyolysis ICD Code: M62.82 Status: Resolved (2) Dementia with behavioral disturbance ICD Code: F03.91 Status: Chronic (3) Atypical chest pain ICD Code: R07.89 Status: Resolved (4) Normocytic anemia ICD Code: D64.9 Status: Acute Assessment and Plan Dementia with disturbance of behavior Continue home dosing of memantine 10 mg po BID. Continue to hold Seroquel and Buspirone; seems to being doing fine off these meds and is awake and alert Temperature 100.6 on 09/27/16, afebrile since Continue monitor for infection If further temperature elevation will proceed with infection workup Rhabdomyolysis without renal involvement: Resolved Status post IV fluids, CPK returned to normal Right testicular enlargement Patient has had multiple ultrasounds performed which did not indicate any changes. Does indicate right hydrocele, right epididymal cyst Continue to monitor and address if needed Iron deficiency anemia status post iron sucrose hemoglobin stable. Atypical chest pain Cardiac enzymes normal x 2, EKG within normal limits No further reports of chest pain since admission. Dysphagia Speech therapy evaluated patient and recommended, recommended pureed diet and thin liquids. Hypertension: Improved. Amlodipine 10 mg daily BP mildly elevated prior to medication administration. DVT prophylaxis: Lovenox, SCDs. Discharge Planning Submitted application for social security benefits. Problem Qualifiers (1) Rhabdomyolysis: Qualified Code: M62.82 - Non-traumatic rhabdomyolysis (2) Dementia with behavioral disturbance: Qualified Code: F03.91 - Dementia with behavioral disturbance, unspecified dementia type Naya Ferraro Oct 06, 2016 09:55
[2016-10-06 20:00] VITALS: BP 136/87; PULSE 84; RESP 20; TEMP 98; O2SAT 97
[2016-10-07 08:00] VITALS: BP 127/85; PULSE 93; RESP 19; TEMP 98.2; O2SAT 94
[2016-10-07] MEDS: MEMANTINE HCL 10 MG TAB PO SCH ×2 (08:42→22:07)
[2016-10-07] MEDS: ENOXAPARIN SODIUM 40 MG/0.4 ML SYRINGE SQ SCH (10:24)
--- NOTE | 2016-10-07 10:26 | HHI.PR ---
Subjective Remarks Patient seen and examined today for follow-up on dementia. Patient appears to be more alert than he was a week ago when I was taking care of him. He is answering questions. Objective Vitals Vital Signs Date Time Temp Pulse Resp B/P Pulse Ox O2 Delivery O2 Flow Rate FiO2 10/07/16 08:00 98.2 93 19 127/85 94 10/06/16 20:00 98.0 84 20 136/87 97 I/O 10/06/16 10/06/16 10/06/16 10/07/16 10/07/16 10/07/16 07:00 15:00 23:00 07:00 15:00 23:00 Intake Total 240 ml 1120 ml 120 ml 50 ml Balance 240 ml 1120 ml 120 ml 50 ml Intake Oral 240 ml 1120 ml 120 ml 50 ml # Voids 2 4 2 # Bowel Movements 1 2 Objective Remarks GENERAL: Well-developed, cachectic, in no acute distress. Arousable, patient appears to be more alert, however still unable to understand him and obtain orientation HEENT: Head is normocephalic without any lesions or masses noted. Facial features are symmetric with bitemporal wasting. Eyes: Extraocular muscles are intact. Conjunctivae were clear. NECK: Supple without any masses. Trachea midline no deviation. No JVD, CARDIAC: Regular rhythm, regular rate. S1/S2 are heard. 2/6 ejection murmur, no gallops or rubs. LUNGS: Clear to auscultation bilaterally. No wheeze, rhonchi or rales. No use of accessory muscles on inspiration or expiration. ABDOMEN: Soft, nontender. Nondistended. Bowel sounds heard in all 4 quadrants. No organomegaly or masses. Negative rebound, negative guarding EXTREMITIES: No edema, pulses are equal bilaterally. No cyanosis or clubbing NEUROLOGY: Patient with significant dementia. Cranial nerves are grossly intact. GENITOURINARY: Patient does have significant edema noted of the right testicle Procedures None Urinary Catheter: No Vascular Central Line Catheter: No A/P Assessment and Plan Dementia with disturbance of behavior Continue home dosing of memantine 10 mg po BID. Continue to hold Seroquel and Buspirone to see if patient becomes more alert Rhabdomyolysis without renal involvement: Resolved Status post IV fluids, CPK returned to normal Right testicular enlargement Patient has had multiple ultrasounds performed which did not indicate any changes. Does indicate right hydrocele, right epididymal cyst Continue monitor and address if needed Iron deficiency anemia- status post iron sucrose, hemoglobin stable. Atypical chest pain Cardiac enzymes normal x 2, EKG within normal limits No further reports of chest pain since admission. Dysphagia Speech therapy evaluated patient and recommended, recommended pureed diet and thin liquids. hypertension, improved, however still mildly elevated Amlodipine 10 mg daily Add Lopressor 12.5 mg twice daily DVT prophylaxis: Lovenox, SCD's Discharge Planning Difficult discharge situation with significant dementia, non-[place] citizen, no payer source, family unwilling to take patient home. Case management for discharge planning Gonzales Babcock Oct 07, 2016 10:26
[2016-10-07] MEDS ORDERED: PILL SPLITTER OTHER PRN (10:45)
[2016-10-07] MEDS: METOPROLOL TARTRATE 25 MG TAB PO SCH ×2 (11:06→22:07)
[2016-10-07 20:00] VITALS: BP 148/95; PULSE 89; RESP 20; TEMP 97.8; O2SAT 98
[2016-10-08 08:45] VITALS: BP 137/86; PULSE 88; RESP 19; TEMP 96.7; O2SAT 97
[2016-10-08] MEDS: MEMANTINE HCL 10 MG TAB PO SCH ×2 (09:28→21:19)
[2016-10-08] MEDS: METOPROLOL TARTRATE 25 MG TAB PO SCH ×2 (09:31→21:19)
[2016-10-08] MEDS: ENOXAPARIN SODIUM 40 MG/0.4 ML SYRINGE SQ SCH (09:34)
--- NOTE | 2016-10-08 12:06 | HHI.PR ---
Subjective Remarks Patient seen and examined today for follow-up on dementia. Patient appears to be doing much better. He is much more alert and speaking. He is orientated to person and state. Denies any new complaints Objective Vitals Vital Signs Date Time Temp Pulse Resp B/P Pulse Ox O2 Delivery O2 Flow Rate FiO2 10/08/16 08:45 96.7 88 19 137/86 97 10/07/16 20:00 97.8 89 20 148/95 98 I/O 10/07/16 10/07/16 10/07/16 10/08/16 10/08/16 10/08/16 07:00 15:00 23:00 07:00 15:00 23:00 Intake Total 120 ml 100 ml 880 ml 840 ml Balance 120 ml 100 ml 880 ml 840 ml Intake Oral 120 ml 100 ml 120 ml 120 ml Oral Supplement 760 ml 720 ml # Voids 2 1 2 2 # Bowel Movements 2 0 0 1 Objective Remarks GENERAL: Well-developed, cachectic, in no acute distress. Arousable, patient appears to be more alert, he is orientated to person and state. He has not orientated to city, date, year HEENT: Head is normocephalic without any lesions or masses noted. Facial features are symmetric with bitemporal wasting. Eyes: Extraocular muscles are intact. Conjunctivae were clear. NECK: Supple without any masses. Trachea midline no deviation. No JVD, CARDIAC: Regular rhythm, regular rate. S1/S2 are heard. 2/6 ejection murmur, no gallops or rubs. LUNGS: Clear to auscultation bilaterally. No wheeze, rhonchi or rales. No use of accessory muscles on inspiration or expiration. ABDOMEN: Soft, nontender. Nondistended. Bowel sounds heard in all 4 quadrants. No organomegaly or masses. Negative rebound, negative guarding EXTREMITIES: No edema, pulses are equal bilaterally. No cyanosis or clubbing NEUROLOGY: Patient with significant dementia. Cranial nerves are grossly intact. GENITOURINARY: Patient does have significant edema noted of the right testicle Procedures None Urinary Catheter: No Vascular Central Line Catheter: No A/P Assessment and Plan Dementia with disturbance of behavior, improving Continue home dosing of memantine 10 mg po BID. Continue to hold Seroquel and Buspirone to see if patient becomes more alert Rhabdomyolysis without renal involvement: Resolved Status post IV fluids, CPK returned to normal Right testicular enlargement Patient has had multiple ultrasounds performed which did not indicate any changes. Does indicate right hydrocele, right epididymal cyst Continue monitor and address if needed Iron deficiency anemia- status post iron sucrose, hemoglobin stable. Atypical chest pain Cardiac enzymes normal x 2, EKG within normal limits No further reports of chest pain since admission. Dysphagia Speech therapy evaluated patient and recommended, recommended pureed diet and thin liquids. hypertension, improved, Amlodipine 10 mg daily Lopressor 12.5 mg twice daily DVT prophylaxis: Lovenox, SCD's Discharge Planning Difficult discharge situation with significant dementia, non-[place] citizen, no payer source, family unwilling to take patient home. Case management for discharge planning Gonzales Babcock Oct 08, 2016 12:06
[2016-10-08 20:00] VITALS: BP 127/77; PULSE 89; RESP 16; TEMP 96.6; O2SAT 98
[2016-10-09] MEDS: ENOXAPARIN SODIUM 40 MG/0.4 ML SYRINGE SQ SCH (09:36)
[2016-10-09] MEDS: METOPROLOL TARTRATE 25 MG TAB PO SCH ×2 (09:36→21:26)
[2016-10-09] MEDS: MEMANTINE HCL 10 MG TAB PO SCH ×2 (09:36→21:26)
[2016-10-09 10:41] VITALS: BP 107/68; PULSE 88; RESP 16; TEMP 97.4; O2SAT 96
--- NOTE | 2016-10-09 10:59 | HHI.PR ---
Subjective Remarks Patient seen and examined today for follow-up on dementia. Patient appears be more alert on a daily basis. He is answering questions appropriately. He is alert to state and person Objective Vitals Vital Signs Date Time Temp Pulse Resp B/P Pulse Ox O2 Delivery O2 Flow Rate FiO2 10/09/16 10:41 97.4 88 16 107/68 96 10/08/16 20:00 96.6 89 16 127/77 98 I/O 10/08/16 10/08/16 10/08/16 10/09/16 10/09/16 10/09/16 07:00 15:00 23:00 07:00 15:00 23:00 Intake Total 840 ml 1610 ml 120 ml Balance 840 ml 1610 ml 120 ml Intake Oral 120 ml 1130 ml 120 ml Oral Supplement 720 ml 480 ml # Voids 2 4 2 # Bowel Movements 1 3 1 Objective Remarks GENERAL: Well-developed, cachectic, in no acute distress. Arousable, patient appears to be more alert, he is orientated to person and state. He has not orientated to city, date, year HEENT: Head is normocephalic without any lesions or masses noted. Facial features are symmetric with bitemporal wasting. Eyes: Extraocular muscles are intact. Conjunctivae were clear. NECK: Supple without any masses. Trachea midline no deviation. No JVD, CARDIAC: Regular rhythm, regular rate. S1/S2 are heard. 2/6 ejection murmur, no gallops or rubs. LUNGS: Clear to auscultation bilaterally. No wheeze, rhonchi or rales. No use of accessory muscles on inspiration or expiration. ABDOMEN: Soft, nontender. Nondistended. Bowel sounds heard in all 4 quadrants. No organomegaly or masses. Negative rebound, negative guarding EXTREMITIES: No edema, pulses are equal bilaterally. No cyanosis or clubbing NEUROLOGY: Patient with significant dementia. Cranial nerves are grossly intact. GENITOURINARY: Patient does have significant edema noted of the right testicle Procedures None Urinary Catheter: No Vascular Central Line Catheter: No A/P Assessment and Plan Dementia with disturbance of behavior, improving Continue home dosing of memantine 10 mg po BID. Continue to hold Seroquel and Buspirone to see if patient becomes more alert Rhabdomyolysis without renal involvement: Resolved Status post IV fluids, CPK returned to normal Right testicular enlargement Patient has had multiple ultrasounds performed which did not indicate any changes. Does indicate right hydrocele, right epididymal cyst Continue monitor and address if needed Iron deficiency anemia- status post iron sucrose, hemoglobin stable. Atypical chest pain Cardiac enzymes normal x 2, EKG within normal limits No further reports of chest pain since admission. Dysphagia Speech therapy evaluated patient and recommended, recommended pureed diet and thin liquids. hypertension, improved, Amlodipine 10 mg daily Lopressor 12.5 mg twice daily DVT prophylaxis: Lovenox, SCD's Discharge Planning Difficult discharge situation with significant dementia, non-US citizen, no payer source, family unwilling to take patient home. Case management for discharge planning Gonzales Babcock Oct 09, 2016 10:59
[2016-10-09 20:00] VITALS: BP 109/73; PULSE 90; RESP 20; TEMP 98.1; O2SAT 97
[2016-10-10 08:00] VITALS: BP 121/73; PULSE 85; RESP 18; TEMP 98.2; O2SAT 96
[2016-10-10] MEDS: METOPROLOL TARTRATE 25 MG TAB PO SCH ×2 (09:58→21:23)
[2016-10-10] MEDS: MEMANTINE HCL 10 MG TAB PO SCH ×2 (09:58→21:23)
[2016-10-10] MEDS: ENOXAPARIN SODIUM 40 MG/0.4 ML SYRINGE SQ SCH (09:59)
--- NOTE | 2016-10-10 11:22 | HHI.PR ---
Subjective Remarks Patient seen and examined today for follow-up on dementia. Patient is doing well today. Denies any new complaints. Patient appears to be becoming more alert on a daily basis. Objective Vitals Vital Signs Date Time Temp Pulse Resp B/P Pulse Ox O2 Delivery O2 Flow Rate FiO2 10/10/16 08:00 98.2 85 18 121/73 96 10/09/16 20:00 98.1 90 20 109/73 97 I/O 10/09/16 10/09/16 10/09/16 10/10/16 10/10/16 10/10/16 07:00 15:00 23:00 07:00 15:00 23:00 Intake Total 120 ml 100 ml 1120 ml 120 ml Balance 120 ml 100 ml 1120 ml 120 ml Intake Oral 120 ml 100 ml 1120 ml 120 ml # Voids 2 7 2 1 # Bowel Movements 1 5 2 Objective Remarks GENERAL: Well-developed, cachectic, in no acute distress. Arousable, patient appears to be more alert, he is orientated to person and state. He has not orientated to city, date, year HEENT: Head is normocephalic without any lesions or masses noted. Facial features are symmetric with bitemporal wasting. Eyes: Extraocular muscles are intact. Conjunctivae were clear. NECK: Supple without any masses. Trachea midline no deviation. No JVD, CARDIAC: Regular rhythm, regular rate. S1/S2 are heard. 2/6 ejection murmur, no gallops or rubs. LUNGS: Clear to auscultation bilaterally. No wheeze, rhonchi or rales. No use of accessory muscles on inspiration or expiration. ABDOMEN: Soft, nontender. Nondistended. Bowel sounds heard in all 4 quadrants. No organomegaly or masses. Negative rebound, negative guarding EXTREMITIES: No edema, pulses are equal bilaterally. No cyanosis or clubbing NEUROLOGY: Patient with significant dementia. Cranial nerves are grossly intact. GENITOURINARY: Patient does have significant edema noted of the right testicle Procedures None Urinary Catheter: No Vascular Central Line Catheter: No A/P Assessment and Plan Dementia with disturbance of behavior, improving Continue home dosing of memantine 10 mg po BID. Continue to hold Seroquel and Buspirone to see if patient becomes more alert Rhabdomyolysis without renal involvement: Resolved Status post IV fluids, CPK returned to normal Right testicular enlargement Patient has had multiple ultrasounds performed which did not indicate any changes. Does indicate right hydrocele, right epididymal cyst Continue monitor and address if needed Iron deficiency anemia- status post iron sucrose, hemoglobin stable. Atypical chest pain Cardiac enzymes normal x 2, EKG within normal limits No further reports of chest pain since admission. Dysphagia Speech therapy evaluated patient and recommended, recommended pureed diet and thin liquids. hypertension, improved, Amlodipine 10 mg daily Lopressor 12.5 mg twice daily DVT prophylaxis: Lovenox, SCD's Records reviewed, no change in patient's clinical status or plan of care Discharge Planning Difficult discharge situation with significant dementia, non-US citizen, no payer source, family unwilling to take patient home. Case management for discharge planning Gonzales Babcock Oct 10, 2016 11:22
[2016-10-10 20:00] VITALS: BP 147/109; PULSE 93; RESP 20; TEMP 99; O2SAT 98
[2016-10-11 08:00] VITALS: BP 104/65; PULSE 63; RESP 19; TEMP 97.3; O2SAT 97
[2016-10-11] MEDS: ENOXAPARIN SODIUM 40 MG/0.4 ML SYRINGE SQ SCH (08:16)
[2016-10-11] MEDS: MEMANTINE HCL 10 MG TAB PO SCH ×2 (08:16→20:36)
[2016-10-11] MEDS: METOPROLOL TARTRATE 25 MG TAB PO SCH ×2 (08:16→20:36)
--- NOTE | 2016-10-11 11:52 | HHI.PR ---
Subjective Remarks Patient seen and examined today for follow-up on dementia. Patient mentation doesn't improve on a daily basis. Denies any new complaints today. Objective Vitals Vital Signs Date Time Temp Pulse Resp B/P Pulse Ox O2 Delivery O2 Flow Rate FiO2 10/11/16 08:00 97.3 63 19 104/65 97 10/10/16 20:00 99.0 93 20 147/109 98 I/O 10/10/16 10/10/16 10/10/16 10/11/16 10/11/16 10/11/16 07:00 15:00 23:00 07:00 15:00 23:00 Intake Total 120 ml 1080 ml Output Total 1 ml Balance 120 ml 1079 ml Intake Oral 120 ml 1080 ml Stool Total 1 ml # Voids 2 1 6 1 # Bowel Movements 2 1 Objective Remarks GENERAL: Well-developed, cachectic, in no acute distress. Arousable, patient appears to be more alert, he is orientated to person and state. He has not orientated to city, date, year HEENT: Head is normocephalic without any lesions or masses noted. Facial features are symmetric with bitemporal wasting. Eyes: Extraocular muscles are intact. Conjunctivae were clear. NECK: Supple without any masses. Trachea midline no deviation. No JVD, CARDIAC: Regular rhythm, regular rate. S1/S2 are heard. 2/6 ejection murmur, no gallops or rubs. LUNGS: Clear to auscultation bilaterally. No wheeze, rhonchi or rales. No use of accessory muscles on inspiration or expiration. ABDOMEN: Soft, nontender. Nondistended. Bowel sounds heard in all 4 quadrants. No organomegaly or masses. Negative rebound, negative guarding EXTREMITIES: No edema, pulses are equal bilaterally. No cyanosis or clubbing NEUROLOGY: Patient with significant dementia. Cranial nerves are grossly intact. GENITOURINARY: Patient does have significant edema noted of the right testicle Procedures None Urinary Catheter: No Vascular Central Line Catheter: No A/P Assessment and Plan Dementia with disturbance of behavior, improving Continue home dosing of memantine 10 mg po BID. Continue to hold Seroquel and Buspirone to see if patient becomes more alert Rhabdomyolysis without renal involvement: Resolved Status post IV fluids, CPK returned to normal Right testicular enlargement Patient has had multiple ultrasounds performed which did not indicate any changes. Does indicate right hydrocele, right epididymal cyst Continue monitor and address if needed Iron deficiency anemia- status post iron sucrose, hemoglobin stable. Atypical chest pain Cardiac enzymes normal x 2, EKG within normal limits No further reports of chest pain since admission. Dysphagia Speech therapy evaluated patient and recommended, recommended pureed diet and thin liquids. hypertension, improved, Amlodipine 10 mg daily Lopressor 12.5 mg twice daily DVT prophylaxis: Lovenox, SCD's Records reviewed, no change in patient's clinical status or plan of care Discharge Planning Difficult discharge situation with significant dementia, non-US citizen, no payer source, family unwilling to take patient home. Case management for discharge planning Gonzales Babcock Oct 11, 2016 11:52
[2016-10-11 20:00] VITALS: BP 99/82; PULSE 85; RESP 16; TEMP 97.9; O2SAT 97
[2016-10-11] MEDS: MAGNESIUM HYDROXIDE SUSP 30 ML CUP PO PRN (20:32)
[2016-10-12] MEDS: MEMANTINE HCL 10 MG TAB PO SCH ×2 (07:38→20:37)
[2016-10-12] MEDS: MAGNESIUM HYDROXIDE SUSP 30 ML CUP PO PRN (07:38)
[2016-10-12] MEDS: ENOXAPARIN SODIUM 40 MG/0.4 ML SYRINGE SQ SCH (07:40)
[2016-10-12] MEDS: METOPROLOL TARTRATE 25 MG TAB PO SCH ×2 (07:40→20:37)
[2016-10-12 08:00] VITALS: BP 92/63; PULSE 67; RESP 20; TEMP 96.4; O2SAT 95
--- NOTE | 2016-10-12 09:49 | HHI.PR ---
Subjective Remarks Patient seen and examined today for follow-up on dementia. Patient mentation continues to improve daily. Patient denies any new complaints Objective Vitals Vital Signs Date Time Temp Pulse Resp B/P Pulse Ox O2 Delivery O2 Flow Rate FiO2 10/12/16 08:00 96.4 67 20 92/63 95 10/11/16 20:00 97.9 85 16 99/82 97 I/O 10/11/16 10/11/16 10/11/16 10/12/16 10/12/16 10/12/16 07:00 15:00 23:00 07:00 15:00 23:00 Intake Total 960 ml 360 ml 480 ml 90 ml Balance 960 ml 360 ml 480 ml 90 ml Intake Oral 960 ml 120 ml 480 ml 90 ml Oral Supplement 240 ml # Voids 1 2 2 2 # Bowel Movements 1 1 2 2 Objective Remarks GENERAL: Well-developed, cachectic, in no acute distress. Arousable, patient appears to be more alert, he is orientated to person and state. He has not orientated to city, date, year HEENT: Head is normocephalic without any lesions or masses noted. Facial features are symmetric with bitemporal wasting. Eyes: Extraocular muscles are intact. Conjunctivae were clear. NECK: Supple without any masses. Trachea midline no deviation. No JVD, CARDIAC: Regular rhythm, regular rate. S1/S2 are heard. 2/6 ejection murmur, no gallops or rubs. LUNGS: Clear to auscultation bilaterally. No wheeze, rhonchi or rales. No use of accessory muscles on inspiration or expiration. ABDOMEN: Soft, nontender. Nondistended. Bowel sounds heard in all 4 quadrants. No organomegaly or masses. Negative rebound, negative guarding EXTREMITIES: No edema, pulses are equal bilaterally. No cyanosis or clubbing NEUROLOGY: Patient with significant dementia. Cranial nerves are grossly intact. GENITOURINARY: Patient does have significant edema noted of the right testicle Procedures None Urinary Catheter: No Vascular Central Line Catheter: No A/P Assessment and Plan Dementia with disturbance of behavior, improving Continue home dosing of memantine 10 mg po BID. Continue to hold Seroquel and Buspirone to see if patient becomes more alert Rhabdomyolysis without renal involvement: Resolved Status post IV fluids, CPK returned to normal Right testicular enlargement Patient has had multiple ultrasounds performed which did not indicate any changes. Does indicate right hydrocele, right epididymal cyst Continue monitor and address if needed Iron deficiency anemia- status post iron sucrose, hemoglobin stable. Atypical chest pain Cardiac enzymes normal x 2, EKG within normal limits No further reports of chest pain since admission. Dysphagia Speech therapy evaluated patient and recommended, recommended pureed diet and thin liquids. hypertension, lower blood pressure over the last 24 hours Amlodipine 10 mg daily Lopressor 12.5 mg twice daily Check laboratory studies CBC, BMP, evaluate for maybe mild dehydration, low fluid status May need to adjust medications if blood pressure continues to remain low DVT prophylaxis: Lovenox, SCD's Records reviewed, no change in patient's clinical status or plan of care Discharge Planning Difficult discharge situation with significant dementia, non-[place] citizen, no payer source, family unwilling to take patient home. Case management for discharge planning Gonzales Babcock Oct 12, 2016 09:49
[2016-10-12 20:00] VITALS: BP 103/70; PULSE 77; RESP 16; TEMP 97; O2SAT 97
[2016-10-13 06:37] LABS: AUTOMATED NEUTROPHIL # 5.8 TH/MM3 (1.8-7.7); BASOPHIL % 0.5 % (0.0-2.0); EOSINOPHIL # 0.2 TH/MM3 (0-0.4); EOSINOPHIL % 2.1 % (0.0-4.0); HEMATOCRIT 33.6 % (39.0-51.0); HEMO FLAGS DIFF FINAL; LYMPH % 22.9 % (9.0-44.0); MEAN CELL VOLUME 87.8 FL (80.0-100.0); MEAN CORPUSCULAR HEMOGLOBIN 28.9 PG (27.0-34.0); MEAN CORPUSCULAR HGB CONC 32.9 % (32.0-36.0); MONO % 7.9 % (0.0-8.0); NEUT % 66.6 % (16.0-70.0); PLATELET COUNT 392 TH/MM3 (150-450); RED BLOOD COUNT 3.83 MIL/MM3 (4.50-5.90); RED CELL DISTRIBUTION WIDTH 13.1 % (11.6-17.2); WHITE BLOOD COUNT 8.8 TH/MM3 (4.0-11.0)
[2016-10-13 06:45] LABS: POTASSIUM 3.9 MEQ/L (3.5-5.1)
[2016-10-13 06:51] LABS: BICARBONATE 26.9 MEQ/L (21.0-32.0); MAGNESIUM 2.8 MG/DL (1.5-2.5)
[2016-10-13 08:00] VITALS: BP 136/76; PULSE 71; RESP 18; TEMP 97.8; O2SAT 97
[2016-10-13] MEDS: METOPROLOL TARTRATE 25 MG TAB PO SCH ×2 (09:03→20:36)
[2016-10-13] MEDS: MEMANTINE HCL 10 MG TAB PO SCH ×2 (09:03→20:35)
[2016-10-13] MEDS: ENOXAPARIN SODIUM 40 MG/0.4 ML SYRINGE SQ SCH (09:04)
--- NOTE | 2016-10-13 11:24 | HHI.PR ---
Subjective Remarks Patient seen and examined today for follow-up on dementia. Patient lying In Bed Answering Questions. Denies Any New Complaints. Objective Vitals Vital Signs Date Time Temp Pulse Resp B/P Pulse Ox O2 Delivery O2 Flow Rate FiO2 10/12/16 20:00 97.0 77 16 103/70 97 I/O 10/12/16 10/12/16 10/12/16 10/13/16 10/13/16 10/13/16 07:00 15:00 23:00 07:00 15:00 23:00 Intake Total 480 ml 210 ml 480 ml 720 ml Balance 480 ml 210 ml 480 ml 720 ml Intake Oral 480 ml 210 ml 480 ml 480 ml Oral Supplement 240 ml # Voids 2 1 2 3 # Bowel Movements 2 1 2 Result Diagram: 10/13/1660410/13/16604 Objective Remarks GENERAL: Well-developed, cachectic, in no acute distress. Arousable, patient appears to be more alert, he is orientated to person and state. He has not orientated to city, date, year HEENT: Head is normocephalic without any lesions or masses noted. Facial features are symmetric with bitemporal wasting. Eyes: Extraocular muscles are intact. Conjunctivae were clear. NECK: Supple without any masses. Trachea midline no deviation. No JVD, CARDIAC: Regular rhythm, regular rate. S1/S2 are heard. 2/6 ejection murmur, no gallops or rubs. LUNGS: Clear to auscultation bilaterally. No wheeze, rhonchi or rales. No use of accessory muscles on inspiration or expiration. ABDOMEN: Soft, nontender. Nondistended. Bowel sounds heard in all 4 quadrants. No organomegaly or masses. Negative rebound, negative guarding EXTREMITIES: No edema, pulses are equal bilaterally. No cyanosis or clubbing NEUROLOGY: Patient with significant dementia. Cranial nerves are grossly intact. GENITOURINARY: Patient does have significant edema noted of the right testicle Procedures None Urinary Catheter: No Vascular Central Line Catheter: No A/P Assessment and Plan Dementia with disturbance of behavior, improving Continue home dosing of memantine 10 mg po BID. Continue to hold Seroquel and Buspirone to see if patient becomes more alert Hypermagnesemia Discontinue magnesium hydroxide for bowel prep Monitor magnesium level Rhabdomyolysis without renal involvement: Resolved Status post IV fluids, CPK returned to normal Right testicular enlargement Patient has had multiple ultrasounds performed which did not indicate any changes. Does indicate right hydrocele, right epididymal cyst Continue monitor and address if needed Iron deficiency anemia- status post iron sucrose, hemoglobin stable. Atypical chest pain Cardiac enzymes normal x 2, EKG within normal limits No further reports of chest pain since admission. Dysphagia Speech therapy evaluated patient and recommended, recommended pureed diet and thin liquids. hypertension, lower blood pressure over the last 24 hours Amlodipine 10 mg daily, decreased to 5 mg daily Lopressor 12.5 mg twice daily DVT prophylaxis: Lovenox, SCD's Discharge Planning Difficult discharge situation with significant dementia, non-[place] citizen, no payer source, family unwilling to take patient home. Case management for discharge planning Gonzales Babcock Oct 13, 2016 11:24
[2016-10-13] MEDS ORDERED: LACTULOSE SYRUP 20 GM/30 ML CUP PO PRN (11:30)
[2016-10-13 20:00] VITALS: BP 131/75; PULSE 86; RESP 21; TEMP 97.2; O2SAT 95
[2016-10-14 08:00] VITALS: BP 116/78; PULSE 79; RESP 18; TEMP 98.2; O2SAT 96
[2016-10-14] MEDS: MEMANTINE HCL 10 MG TAB PO SCH ×2 (09:42→20:30)
[2016-10-14] MEDS: amLODIPine BESYLATE 5 MG TAB PO SCH (09:43)
[2016-10-14] MEDS: METOPROLOL TARTRATE 25 MG TAB PO SCH ×2 (09:43→20:30)
[2016-10-14] MEDS: ENOXAPARIN SODIUM 40 MG/0.4 ML SYRINGE SQ SCH (09:44)
--- NOTE | 2016-10-14 10:24 | HHI.PR ---
Subjective Remarks Follow-up for dementia. No acute complaints. Objective Vitals Vital Signs Date Time Temp Pulse Resp B/P Pulse Ox O2 Delivery O2 Flow Rate FiO2 10/13/16 20:00 97.2 86 21 131/75 95 I/O 10/13/16 10/13/16 10/13/16 10/14/16 10/14/16 10/14/16 07:00 15:00 23:00 07:00 15:00 23:00 Intake Total 720 ml 600 ml 120 ml 120 ml Output Total 1 ml Balance 720 ml 600 ml 119 ml 120 ml Intake Oral 480 ml 600 ml 120 ml 120 ml Oral Supplement 240 ml Stool Total 1 ml # Voids 3 6 3 2 # Bowel Movements 2 2 2 Result Diagram: 10/13/1660410/13/16604 Objective Remarks GENERAL: Elderly patient in no apparent distress. CARDIOVASCULAR: Regular rate and rhythm. RESPIRATORY: No accessory muscle use. Clear to auscultation. Breath sounds equal bilaterally. GASTROINTESTINAL: Abdomen soft, nontender, nondistended. NEUROLOGICAL: Awake and alert. Normal speech. Procedures None Urinary Catheter: No Vascular Central Line Catheter: No A/P Problem List: (1) Rhabdomyolysis ICD Code: M62.82 Status: Resolved (2) Dementia with behavioral disturbance ICD Code: F03.91 Status: Chronic (3) Atypical chest pain ICD Code: R07.89 Status: Resolved (4) Normocytic anemia ICD Code: D64.9 Status: Acute Assessment and Plan Dementia with disturbance of behavior Continue home dosing of memantine 10 mg po BID. Continue to hold Seroquel and Buspirone; seems to being doing fine off these meds and is awake and alert Temperature 100.6 on 09/27/16, afebrile since Continue monitor for infection If further temperature elevation will proceed with infection workup Rhabdomyolysis without renal involvement: Resolved Status post IV fluids, CPK returned to normal Right testicular enlargement Patient has had multiple ultrasounds performed which did not indicate any changes. Does indicate right hydrocele, right epididymal cyst Continue to monitor and address if needed Iron deficiency anemia status post iron sucrose hemoglobin stable. Atypical chest pain Cardiac enzymes normal x 2, EKG within normal limits No further reports of chest pain since admission. Dysphagia Speech therapy evaluated patient and recommended, recommended pureed diet and thin liquids. Hypertension: Improved. Amlodipine decreased to 5 mg po daily due to hypotension. Monitor. DVT prophylaxis: Lovenox, SCDs. Discharge Planning Submitted application for social security benefits. Problem Qualifiers (1) Rhabdomyolysis: Qualified Code: M62.82 - Non-traumatic rhabdomyolysis (2) Dementia with behavioral disturbance: Qualified Code: F03.91 - Dementia with behavioral disturbance, unspecified dementia type Naya Ferraro Oct 14, 2016 10:24
[2016-10-14 20:00] VITALS: BP 130/71; PULSE 90; RESP 21; TEMP 98.1; O2SAT 100
[2016-10-15 08:00] VITALS: BP 123/82; PULSE 78; RESP 19; TEMP 96.3; O2SAT 100
[2016-10-15] MEDS: amLODIPine BESYLATE 5 MG TAB PO SCH (09:32)
[2016-10-15] MEDS: METOPROLOL TARTRATE 25 MG TAB PO SCH ×2 (09:32→20:32)
[2016-10-15] MEDS: ENOXAPARIN SODIUM 40 MG/0.4 ML SYRINGE SQ SCH (09:32)
[2016-10-15] MEDS: MEMANTINE HCL 10 MG TAB PO SCH ×2 (09:32→20:28)
--- NOTE | 2016-10-15 11:06 | HHI.PR ---
Subjective Remarks Follow-up for dementia. No acute complaints. Patient is wriggling his legs in the bed (foot of bed elevated) but states he is very comfortable. Objective Vitals Vital Signs Date Time Temp Pulse Resp B/P Pulse Ox O2 Delivery O2 Flow Rate FiO2 10/15/16 08:00 96.3 78 19 123/82 100 10/14/16 20:00 98.1 90 21 130/71 100 I/O 10/14/16 10/14/16 10/14/16 10/15/16 10/15/16 10/15/16 07:00 15:00 23:00 07:00 15:00 23:00 Intake Total 120 ml 360 ml 600 ml 120 ml Output Total 5 ml 2 ml Balance 120 ml 355 ml 598 ml 120 ml Intake Oral 120 ml 360 ml 600 ml 120 ml Output Urine Total 2 ml Stool Total 3 ml 2 ml # Voids 2 3 3 2 # Bowel Movements 2 2 2 Result Diagram: 10/13/1660410/13/16604 Objective Remarks GENERAL: Elderly patient in no apparent distress. CARDIOVASCULAR: Regular rate and rhythm. RESPIRATORY: No accessory muscle use. Clear to auscultation. Breath sounds equal bilaterally. GASTROINTESTINAL: Abdomen soft, nontender, nondistended. NEUROLOGICAL: Awake and alert. Normal speech. PSYCHIATRIC: Calm mood and affect. Procedures None Urinary Catheter: No Vascular Central Line Catheter: No A/P Problem List: (1) Rhabdomyolysis ICD Code: M62.82 Status: Resolved (2) Dementia with behavioral disturbance ICD Code: F03.91 Status: Chronic (3) Atypical chest pain ICD Code: R07.89 Status: Resolved (4) Normocytic anemia ICD Code: D64.9 Status: Acute Assessment and Plan Dementia with disturbance of behavior Continue home dosing of memantine 10 mg po BID. Continue to hold Seroquel and Buspirone due to sedation; is awake and alert off these meds 10/15: I was alerted later in the day that the patient is now trying to physically get out of bed. We will apply soft restraints for now for patient safety. Will hold off on resuming scheduled Seroquel, but will order Haldol 0.5 mg po q6h as needed for acute agitation. Temperature 100.6 on 09/27/16, afebrile since Continue monitor for infection If further temperature elevation will proceed with infection workup Rhabdomyolysis without renal involvement: Resolved Status post IV fluids, CPK returned to normal Right testicular enlargement Patient has had multiple ultrasounds performed which did not indicate any changes. Does indicate right hydrocele, right epididymal cyst Continue to monitor and address if needed Iron deficiency anemia status post iron sucrose hemoglobin stable. Atypical chest pain Cardiac enzymes normal x 2, EKG within normal limits No further reports of chest pain since admission. Dysphagia Speech therapy evaluated patient and recommended, recommended pureed diet and thin liquids. Hypertension: Improved. Amlodipine decreased to 5 mg po daily due to hypotension. Monitor. DVT prophylaxis: Lovenox, SCDs. Discharge Planning Submitted application for social security benefits. Problem Qualifiers (1) Rhabdomyolysis: Qualified Code: M62.82 - Non-traumatic rhabdomyolysis (2) Dementia with behavioral disturbance: Qualified Code: F03.91 - Dementia with behavioral disturbance, unspecified dementia type Naya Ferraro Oct 15, 2016 11:06
[2016-10-15] MEDS ORDERED: HALOPERIDOL 0.5 MG TAB PO PRN (16:30)
[2016-10-15 20:00] VITALS: BP 110/65; PULSE 83; RESP 16; TEMP 96.3; O2SAT 98
[2016-10-16 08:00] VITALS: BP 118/72; PULSE 84; RESP 20; TEMP 97.3; O2SAT 95
[2016-10-16] MEDS: ENOXAPARIN SODIUM 40 MG/0.4 ML SYRINGE SQ SCH (09:07)
[2016-10-16] MEDS: METOPROLOL TARTRATE 25 MG TAB PO SCH ×2 (09:07→20:24)
[2016-10-16] MEDS: amLODIPine BESYLATE 5 MG TAB PO SCH (09:07)
[2016-10-16] MEDS: MEMANTINE HCL 10 MG TAB PO SCH ×2 (09:08→20:24)
--- NOTE | 2016-10-16 10:34 | HHI.PR ---
Subjective Remarks Follow-up for dementia. Denies pain. Denies dysuria. When I asked the patient if he slept he states "wonderful". Nurse tells me the patient has an ulceration of his lip and bleeding gums. Objective Vitals Vital Signs Date Time Temp Pulse Resp B/P Pulse Ox O2 Delivery O2 Flow Rate FiO2 10/16/16 08:00 97.3 84 20 118/72 95 10/15/16 20:00 96.3 83 16 110/65 98 I/O 10/15/16 10/15/16 10/15/16 10/16/16 10/16/16 10/16/16 07:00 15:00 23:00 07:00 15:00 23:00 Intake Total 120 ml 330 ml 720 ml Balance 120 ml 330 ml 720 ml Intake Oral 120 ml 330 ml 480 ml Oral Supplement 240 ml # Voids 2 3 2 # Bowel Movements 2 2 0 Result Diagram: 10/13/1660410/13/16604 Objective Remarks GENERAL: Elderly patient in no apparent distress. ENT: Mild lesion over the mucosal surface of the right lower lip. Extremely poor dentition. Lower gumline is significantly inflamed. CARDIOVASCULAR: Regular rate and rhythm. RESPIRATORY: No accessory muscle use. Clear to auscultation. Breath sounds equal bilaterally. GASTROINTESTINAL: Abdomen soft, nontender, nondistended. NEUROLOGICAL: Awake and alert. Normal speech. PSYCHIATRIC: Calm mood and affect. Procedures None Urinary Catheter: No Vascular Central Line Catheter: No A/P Problem List: (1) Rhabdomyolysis ICD Code: M62.82 Status: Resolved (2) Dementia with behavioral disturbance ICD Code: F03.91 Status: Chronic (3) Atypical chest pain ICD Code: R07.89 Status: Resolved (4) Normocytic anemia ICD Code: D64.9 Status: Acute Assessment and Plan Dementia with disturbance of behavior Continue home dosing of memantine 10 mg po BID. Continue to hold Seroquel and Buspirone due to sedation; is awake and alert off these meds 10/15: I was alerted later in the day that the patient is now trying to physically get out of bed. We will apply soft restraints for now for patient safety. Will hold off on resuming scheduled Seroquel, but will order Haldol 0.5 mg po q6h as needed for acute agitation. 10/16: Soft restraints in place. Haldol not needed. Suspected gingivitis: Poor oral hygiene. Start Peridex, soak swab and apply to teeth, gums, tongue, and roof of mouth bid. Temperature 100.6 on 09/27/16, afebrile since Continue monitor for infection If further temperature elevation will proceed with infection workup Rhabdomyolysis without renal involvement: Resolved Status post IV fluids, CPK returned to normal Right testicular enlargement Patient has had multiple ultrasounds performed which did not indicate any changes. Does indicate right hydrocele, right epididymal cyst Continue to monitor and address if needed Iron deficiency anemia status post iron sucrose hemoglobin stable. Atypical chest pain Cardiac enzymes normal x 2, EKG within normal limits No further reports of chest pain since admission. Dysphagia Speech therapy evaluated patient and recommended, recommended pureed diet and thin liquids. Hypertension: Improved. Amlodipine decreased to 5 mg po daily due to hypotension. Monitor. DVT prophylaxis: Lovenox, SCDs. Discharge Planning Submitted application for social security benefits. Problem Qualifiers (1) Rhabdomyolysis: Qualified Code: M62.82 - Non-traumatic rhabdomyolysis (2) Dementia with behavioral disturbance: Qualified Code: F03.91 - Dementia with behavioral disturbance, unspecified dementia type Naya Ferraro Oct 16, 2016 10:34
[2016-10-16 20:00] VITALS: BP 142/81; PULSE 75; RESP 16; TEMP 96.3; O2SAT 99
[2016-10-16] MEDS: CHLORHEXIDINE GLUCONATE 0.12% 15 ML CUP SCH (20:23)
[2016-10-16] MEDS: NYSTATIN 100,000 UNIT/GM CREAM 15 GM TOPICAL SCH (20:24)
[2016-10-17 08:00] VITALS: BP 122/74; PULSE 88; RESP 18; TEMP 97.8; O2SAT 95
[2016-10-17] MEDS: NYSTATIN 100,000 UNIT/GM CREAM 15 GM TOPICAL SCH ×2 (09:00→21:07)
[2016-10-17] MEDS: CHLORHEXIDINE GLUCONATE 0.12% 15 ML CUP SCH ×2 (09:00→21:00)
[2016-10-17] MEDS: METOPROLOL TARTRATE 25 MG TAB PO SCH ×2 (09:00→20:59)
--- NOTE | 2016-10-17 10:01 | HHI.PR ---
Subjective Remarks Follow-up for dementia. Nods in affirmation that he is okay. Objective Vitals Vital Signs Date Time Temp Pulse Resp B/P Pulse Ox O2 Delivery O2 Flow Rate FiO2 10/16/16 20:00 96.3 75 16 142/81 99 I/O 10/16/16 10/16/16 10/16/16 10/17/16 10/17/16 10/17/16 07:00 15:00 23:00 07:00 15:00 23:00 Intake Total 720 ml 360 ml 480 ml 680 ml Output Total 2 ml Balance 720 ml 358 ml 480 ml 680 ml Intake Oral 480 ml 360 ml 480 ml 680 ml Oral Supplement 240 ml Output Urine Total 2 ml # Voids 2 1 2 # Bowel Movements 0 0 1 1 Result Diagram: 10/13/1660410/13/16604 Objective Remarks GENERAL: Elderly patient in no apparent distress. ENT: Mild lesion over the mucosal surface of the right lower lip. No erythema. CARDIOVASCULAR: Regular rate and rhythm. RESPIRATORY: No accessory muscle use. RR normal. NEUROLOGICAL: Sleeping, but arouses to light touch on the shoulder. Normal speech. PSYCHIATRIC: Calm mood and affect. Procedures None Urinary Catheter: No Vascular Central Line Catheter: No A/P Problem List: (1) Rhabdomyolysis ICD Code: M62.82 Status: Resolved (2) Dementia with behavioral disturbance ICD Code: F03.91 Status: Chronic (3) Atypical chest pain ICD Code: R07.89 Status: Resolved (4) Normocytic anemia ICD Code: D64.9 Status: Acute Assessment and Plan Dementia with disturbance of behavior: stable Continue home dosing of memantine 10 mg po BID. Continue to hold Seroquel and Buspirone due to sedation; is awake and alert off these meds Continue soft restraints as needed for patient safety. Suspected gingivitis: Poor oral hygiene. -Continue Peridex, soak swab and apply to teeth, gums, tongue, and roof of mouth bid. Temperature 100.6 on 09/27/16, afebrile since Continue monitor for infection If further temperature elevation will proceed with infection workup Rhabdomyolysis without renal involvement: Resolved Status post IV fluids, CPK returned to normal Right testicular enlargement Patient has had multiple ultrasounds performed which did not indicate any changes. Does indicate right hydrocele, right epididymal cyst Continue to monitor and address if needed Iron deficiency anemia status post iron sucrose hemoglobin stable. Atypical chest pain Cardiac enzymes normal x 2, EKG within normal limits No further reports of chest pain since admission. Dysphagia Speech therapy evaluated patient and recommended, recommended pureed diet and thin liquids. Hypertension: Improved. Amlodipine decreased to 5 mg po daily due to hypotension. Monitor. DVT prophylaxis: Lovenox, SCDs. Discharge Planning Submitted application for social security benefits. Problem Qualifiers (1) Rhabdomyolysis: Qualified Code: M62.82 - Non-traumatic rhabdomyolysis (2) Dementia with behavioral disturbance: Qualified Code: F03.91 - Dementia with behavioral disturbance, unspecified dementia type Naya Ferraro Oct 17, 2016 10:01
[2016-10-17] MEDS: amLODIPine BESYLATE 5 MG TAB PO SCH (11:15)
[2016-10-17] MEDS: ENOXAPARIN SODIUM 40 MG/0.4 ML SYRINGE SQ SCH (11:15)
[2016-10-17] MEDS: MEMANTINE HCL 10 MG TAB PO SCH ×2 (11:15→20:59)
[2016-10-17 20:14] VITALS: BP 110/79; PULSE 84; RESP 18; TEMP 98.1; O2SAT 90
[2016-10-18 08:00] VITALS: BP 118/68; PULSE 20; RESP 20; TEMP 97.2; O2SAT 94
[2016-10-18] MEDS: MEMANTINE HCL 10 MG TAB PO SCH ×2 (09:00→22:04)
[2016-10-18] MEDS: METOPROLOL TARTRATE 25 MG TAB PO SCH ×2 (09:00→22:04)
[2016-10-18] MEDS: CHLORHEXIDINE GLUCONATE 0.12% 15 ML CUP SCH ×2 (09:00→21:00)
[2016-10-18] MEDS: amLODIPine BESYLATE 5 MG TAB PO SCH (09:00)
[2016-10-18] MEDS: NYSTATIN 100,000 UNIT/GM CREAM 15 GM TOPICAL SCH ×2 (09:00→22:04)
[2016-10-18] MEDS: ENOXAPARIN SODIUM 40 MG/0.4 ML SYRINGE SQ SCH (09:06)
--- NOTE | 2016-10-18 09:47 | HHI.PR ---
Subjective Remarks Follow-up for dementia. Patient states he is very good. When I asked the patient if he is having any pain or how he feels in both Sinhala and Wallisian he just looks at me and does not respond. Objective Vitals Vital Signs Date Time Temp Pulse Resp B/P Pulse Ox O2 Delivery O2 Flow Rate FiO2 10/18/16 08:00 97.2 20 20 118/68 94 10/17/16 20:14 98.1 84 18 110/79 90 I/O 10/17/16 10/17/16 10/17/16 10/18/16 10/18/16 10/18/16 07:00 15:00 23:00 07:00 15:00 23:00 Intake Total 680 ml 600 ml Balance 680 ml 600 ml Intake Oral 680 ml 600 ml # Voids 2 6 1 # Bowel Movements 1 1 Objective Remarks GENERAL: Elderly patient in no apparent distress. EYES: Mild tearing bilaterally. ENT: Mild lesion over the mucosal surface of the right lower lip. CARDIOVASCULAR: Regular rate and rhythm. RESPIRATORY: No accessory muscle use. CTAB. GASTROINTESTINAL: Normoactive bowel sounds. Abdomen is tense as patient leans slightly forward and moves and cannot fully relax for exam. NEUROLOGICAL: Awake and alert. Normal speech. Appears demented. PSYCHIATRIC: Calm mood and affect. Procedures None Urinary Catheter: No Vascular Central Line Catheter: No A/P Problem List: (1) Rhabdomyolysis ICD Code: M62.82 Status: Resolved (2) Dementia with behavioral disturbance ICD Code: F03.91 Status: Chronic (3) Atypical chest pain ICD Code: R07.89 Status: Resolved (4) Normocytic anemia ICD Code: D64.9 Status: Acute Assessment and Plan Dementia with disturbance of behavior: stable Continue home dosing of memantine 10 mg po BID. Continue to hold Seroquel and Buspirone due to sedation; is awake and alert off these meds Continue soft restraints as needed for patient safety. Suspected gingivitis: Poor oral hygiene. -Continue Peridex, soak swab and apply to teeth, gums, tongue, and roof of mouth bid. Temperature 100.6 on 09/27/16, afebrile since Continue monitor for infection If further temperature elevation will proceed with infection workup Rhabdomyolysis without renal involvement: Resolved Status post IV fluids, CPK returned to normal Right testicular enlargement Patient has had multiple ultrasounds performed which did not indicate any changes. Does indicate right hydrocele, right epididymal cyst Continue to monitor and address if needed Iron deficiency anemia status post iron sucrose hemoglobin stable. Atypical chest pain Cardiac enzymes normal x 2, EKG within normal limits No further reports of chest pain since admission. Dysphagia Speech therapy evaluated patient and recommended, recommended pureed diet and thin liquids. Hypertension: Improved. Amlodipine decreased to 5 mg po daily due to hypotension. Monitor. DVT prophylaxis: Lovenox, SCDs. Discharge Planning Submitted application for social security benefits. Problem Qualifiers (1) Rhabdomyolysis: Qualified Code: M62.82 - Non-traumatic rhabdomyolysis (2) Dementia with behavioral disturbance: Qualified Code: F03.91 - Dementia with behavioral disturbance, unspecified dementia type Naya Ferraro Oct 18, 2016 09:46
[2016-10-18 20:00] VITALS: BP 111/67; PULSE 98; RESP 19; TEMP 97.5; O2SAT 95
[2016-10-19 08:00] VITALS: BP 102/66; PULSE 64; RESP 18; TEMP 97.1; O2SAT 95
[2016-10-19] MEDS: amLODIPine BESYLATE 5 MG TAB PO SCH (09:00)
[2016-10-19] MEDS: NYSTATIN 100,000 UNIT/GM CREAM 15 GM TOPICAL SCH ×2 (09:00→20:18)
[2016-10-19] MEDS: CHLORHEXIDINE GLUCONATE 0.12% 15 ML CUP SCH ×2 (09:00→20:18)
[2016-10-19] MEDS: METOPROLOL TARTRATE 25 MG TAB PO SCH ×3 (09:00→20:21)
--- NOTE | 2016-10-19 09:26 | HHI.PR ---
Subjective Remarks Follow-up for dementia. No acute complaints. Objective Vitals Vital Signs Date Time Temp Pulse Resp B/P Pulse Ox O2 Delivery O2 Flow Rate FiO2 10/18/16 20:00 97.5 98 19 111/67 95 I/O 10/18/16 10/18/16 10/18/16 10/19/16 10/19/16 10/19/16 07:00 15:00 23:00 07:00 15:00 23:00 Intake Total 560 ml 120 ml 120 ml Balance 560 ml 120 ml 120 ml Intake Oral 560 ml 120 ml 120 ml # Voids 1 2 2 2 # Bowel Movements 1 1 2 2 Objective Remarks GENERAL: Elderly patient in no apparent distress. ENT: Mild lesion, aphthous ulceration over the mucosal surface of the right lower lip. CARDIOVASCULAR: Regular rate and rhythm. RESPIRATORY: No accessory muscle use. CTAB. GASTROINTESTINAL: Abdomen soft, non-tender, non-distended. NEUROLOGICAL: Awake and alert. Normal speech. PSYCHIATRIC: Calm mood and affect. Procedures None Urinary Catheter: No Vascular Central Line Catheter: No A/P Problem List: (1) Rhabdomyolysis ICD Code: M62.82 Status: Resolved (2) Dementia with behavioral disturbance ICD Code: F03.91 Status: Chronic (3) Atypical chest pain ICD Code: R07.89 Status: Resolved (4) Normocytic anemia ICD Code: D64.9 Status: Acute Assessment and Plan Dementia with disturbance of behavior: stable Continue home dosing of memantine 10 mg po BID. Continue to hold Seroquel and Buspirone due to sedation; is awake and alert off these meds Soft restraints were removed Suspected gingivitis: Due to poor oral hygiene. -Continue Peridex, soak swab and apply to teeth, gums, tongue, and roof of mouth bid. Temperature 100.6 on 09/27/16, afebrile since Continue monitor for infection If further temperature elevation will proceed with infection workup Rhabdomyolysis without renal involvement: Resolved Status post IV fluids, CPK returned to normal Right testicular enlargement Patient has had multiple ultrasounds performed which did not indicate any changes. Does indicate right hydrocele, right epididymal cyst Continue to monitor and address if needed Iron deficiency anemia status post iron sucrose hemoglobin stable. Atypical chest pain Cardiac enzymes normal x 2, EKG within normal limits No further reports of chest pain since admission. Dysphagia Speech therapy evaluated patient and recommended, recommended pureed diet and thin liquids. Hypertension: Improved. Amlodipine decreased to 5 mg po daily due to hypotension. Monitor. 10/19: Amlodipine and metoprolol both held this morning due to low BP of 102/66. DVT prophylaxis: Lovenox, SCDs. Discharge Planning Submitted application for social security benefits. Problem Qualifiers (1) Rhabdomyolysis: Qualified Code: M62.82 - Non-traumatic rhabdomyolysis (2) Dementia with behavioral disturbance: Qualified Code: F03.91 - Dementia with behavioral disturbance, unspecified dementia type Naya Ferraro Oct 19, 2016 09:26
[2016-10-19] MEDS: MEMANTINE HCL 10 MG TAB PO SCH ×2 (10:04→20:18)
[2016-10-19] MEDS: ENOXAPARIN SODIUM 40 MG/0.4 ML SYRINGE SQ SCH (10:04)
[2016-10-19 20:00] VITALS: BP 99/58; PULSE 74; RESP 19; TEMP 98.1; O2SAT 100
[2016-10-20 08:00] VITALS: BP 126/74; PULSE 80; RESP 16; TEMP 97.8; O2SAT 95
[2016-10-20] MEDS: CHLORHEXIDINE GLUCONATE 0.12% 15 ML CUP SCH ×2 (09:00→21:00)
[2016-10-20] MEDS: amLODIPine BESYLATE 5 MG TAB PO SCH (09:31)
[2016-10-20] MEDS: METOPROLOL TARTRATE 25 MG TAB PO SCH ×2 (09:31→21:27)
[2016-10-20] MEDS: MEMANTINE HCL 10 MG TAB PO SCH ×2 (09:31→21:27)
[2016-10-20] MEDS: NYSTATIN 100,000 UNIT/GM CREAM 15 GM TOPICAL SCH ×2 (09:31→21:28)
[2016-10-20] MEDS: ENOXAPARIN SODIUM 40 MG/0.4 ML SYRINGE SQ SCH (10:04)
--- NOTE | 2016-10-20 10:54 | HHI.PR ---
Subjective Remarks Follow-up for dementia. No acute complaints. Objective Vitals Vital Signs Date Time Temp Pulse Resp B/P Pulse Ox O2 Delivery O2 Flow Rate FiO2 10/19/16 20:00 98.1 74 19 99/58 100 I/O 10/19/16 10/19/16 10/19/16 10/20/16 10/20/16 10/20/16 07:00 15:00 23:00 07:00 15:00 23:00 Intake Total 120 ml 480 ml 120 ml 120 ml Balance 120 ml 480 ml 120 ml 120 ml Intake Oral 120 ml 480 ml 120 ml 120 ml # Voids 2 2 2 2 # Bowel Movements 2 0 2 2 Objective Remarks GENERAL: Elderly patient in no apparent distress. CARDIOVASCULAR: Distant heart sounds. Regular rate and rhythm. RESPIRATORY: No accessory muscle use. CTAB anteriorly. GASTROINTESTINAL: Abdomen tense due to patient movement, but non-tender. NEUROLOGICAL: Sleeping but arouses to touch on the shoulder. Procedures None Urinary Catheter: No Vascular Central Line Catheter: No A/P Problem List: (1) Rhabdomyolysis ICD Code: M62.82 Status: Resolved (2) Dementia with behavioral disturbance ICD Code: F03.91 Status: Chronic (3) Atypical chest pain ICD Code: R07.89 Status: Resolved (4) Normocytic anemia ICD Code: D64.9 Status: Acute Assessment and Plan Dementia with disturbance of behavior: stable Continue home dosing of memantine 10 mg po BID. Continue to hold Seroquel and Buspirone due to sedation; is awake and alert off these meds Soft restraints were removed Suspected gingivitis: Due to poor oral hygiene. -Continue Peridex, soak swab and apply to teeth, gums, tongue, and roof of mouth bid. Temperature 100.6 on 09/27/16, afebrile since Continue monitor for infection If further temperature elevation will proceed with infection workup Rhabdomyolysis without renal involvement: Resolved Status post IV fluids, CPK returned to normal Right testicular enlargement Patient has had multiple ultrasounds performed which did not indicate any changes. Does indicate right hydrocele, right epididymal cyst Continue to monitor and address if needed Iron deficiency anemia status post iron sucrose hemoglobin stable. Atypical chest pain Cardiac enzymes normal x 2, EKG within normal limits No further reports of chest pain since admission. Dysphagia Speech therapy evaluated patient and recommended, recommended pureed diet and thin liquids. Hypertension: Stable Continue amlodipine and metoprolol DVT prophylaxis: Lovenox, SCDs. Discharge Planning Submitted application for social security benefits. Problem Qualifiers (1) Rhabdomyolysis: Qualified Code: M62.82 - Non-traumatic rhabdomyolysis (2) Dementia with behavioral disturbance: Qualified Code: F03.91 - Dementia with behavioral disturbance, unspecified dementia type Naya Ferraro Oct 20, 2016 10:54
[2016-10-20 20:00] VITALS: BP 134/87; PULSE 90; RESP 18; TEMP 98.4; O2SAT 99
[2016-10-21 08:00] VITALS: BP 92/61; PULSE 89; RESP 19; TEMP 96.8; O2SAT 100
[2016-10-21] MEDS: MEMANTINE HCL 10 MG TAB PO SCH ×2 (09:00→21:06)
[2016-10-21] MEDS: amLODIPine BESYLATE 5 MG TAB PO SCH (09:00)
[2016-10-21] MEDS: NYSTATIN 100,000 UNIT/GM CREAM 15 GM TOPICAL SCH ×2 (09:00→21:14)
[2016-10-21] MEDS: METOPROLOL TARTRATE 25 MG TAB PO SCH ×2 (09:00→21:06)
[2016-10-21] MEDS: CHLORHEXIDINE GLUCONATE 0.12% 15 ML CUP SCH ×2 (09:00→21:00)
[2016-10-21] MEDS: ENOXAPARIN SODIUM 40 MG/0.4 ML SYRINGE SQ SCH (10:00)
[2016-10-21 10:18] VITALS: BP 100/71
--- NOTE | 2016-10-21 11:28 | HHI.PR ---
Subjective Remarks Patient seen and examined today for follow-up on dementia. Patient resting in bed comfortably. Denies any new complaints. Objective Vitals Vital Signs Date Time Temp Pulse Resp B/P Pulse Ox O2 Delivery O2 Flow Rate FiO2 10/21/16 10:18 100/71 10/21/16 08:00 96.8 89 19 92/61 100 10/20/16 20:00 98.4 90 18 134/87 99 I/O 10/20/16 10/20/16 10/20/16 10/21/16 10/21/16 10/21/16 07:00 15:00 23:00 07:00 15:00 23:00 Intake Total 120 ml 960 ml 480 ml Output Total 1 ml Balance 120 ml 959 ml 480 ml Intake Oral 120 ml 960 ml 480 ml Stool Total 1 ml # Voids 2 7 3 # Bowel Movements 2 3 0 Objective Remarks GENERAL: Well-developed, cachectic, in no acute distress. Arousable, patient appears to be more alert, he is orientated to person and state. He has not orientated to city, date, year HEENT: Head is normocephalic without any lesions or masses noted. Facial features are symmetric with bitemporal wasting. Eyes: Extraocular muscles are intact. Conjunctivae were clear. NECK: Supple without any masses. Trachea midline no deviation. No JVD, CARDIAC: Regular rhythm, regular rate. S1/S2 are heard. 2/6 ejection murmur, no gallops or rubs. LUNGS: Clear to auscultation bilaterally. No wheeze, rhonchi or rales. No use of accessory muscles on inspiration or expiration. ABDOMEN: Soft, nontender. Nondistended. Bowel sounds heard in all 4 quadrants. No organomegaly or masses. Negative rebound, negative guarding EXTREMITIES: No edema, pulses are equal bilaterally. No cyanosis or clubbing NEUROLOGY: Patient with significant dementia. Cranial nerves are grossly intact. GENITOURINARY: Patient does have significant edema noted of the right testicle Procedures None Urinary Catheter: No Vascular Central Line Catheter: No A/P Assessment and Plan Dementia with disturbance of behavior, improving Continue home dosing of memantine 10 mg po BID. Continue to hold Seroquel and Buspirone to see if patient becomes more alert Hypermagnesemia Discontinue magnesium hydroxide for bowel prep Monitor magnesium level Rhabdomyolysis without renal involvement: Resolved Status post IV fluids, CPK returned to normal Right testicular enlargement Patient has had multiple ultrasounds performed which did not indicate any changes. Does indicate right hydrocele, right epididymal cyst Continue monitor and address if needed Iron deficiency anemia- status post iron sucrose, hemoglobin stable. Atypical chest pain Cardiac enzymes normal x 2, EKG within normal limits No further reports of chest pain since admission. Dysphagia Speech therapy evaluated patient and recommended, recommended pureed diet and thin liquids. hypertension, lower blood pressure over the last 24 hours Discontinue Norvasc 5 mg daily, Lopressor 12.5 mg twice daily DVT prophylaxis: Lovenox, SCD's Discharge Planning Difficult discharge situation with significant dementia, non-[place] citizen, no payer source, family unwilling to take patient home. Case management for discharge planning Gonzales Babcock Oct 21, 2016 11:28
[2016-10-21 20:00] VITALS: BP 135/83; PULSE 82; RESP 22; TEMP 98.6; O2SAT 97
[2016-10-22 08:00] VITALS: BP 122/72; PULSE 75; RESP 19; TEMP 97.5; O2SAT 95
[2016-10-22 08:18] LABS: POTASSIUM 4.4 MEQ/L (3.5-5.1)
[2016-10-22 08:21] LABS: BICARBONATE 28.3 MEQ/L (21.0-32.0)
[2016-10-22] MEDS: CHLORHEXIDINE GLUCONATE 0.12% 15 ML CUP SCH ×2 (09:00→20:41)
[2016-10-22] MEDS: METOPROLOL TARTRATE 25 MG TAB PO SCH ×2 (09:53→20:39)
[2016-10-22] MEDS: MEMANTINE HCL 10 MG TAB PO SCH ×2 (09:53→20:39)
[2016-10-22] MEDS: NYSTATIN 100,000 UNIT/GM CREAM 15 GM TOPICAL SCH ×2 (09:54→20:41)
[2016-10-22] MEDS: ENOXAPARIN SODIUM 40 MG/0.4 ML SYRINGE SQ SCH (10:44)
--- NOTE | 2016-10-22 12:53 | HHI.PR ---
Subjective Remarks Patient seen and examined today for follow-up on dementia. Patient denies any new complaints. Lying in bed comfortable. Objective Vitals Vital Signs Date Time Temp Pulse Resp B/P Pulse Ox O2 Delivery O2 Flow Rate FiO2 10/22/16 08:00 97.5 75 19 122/72 95 10/21/16 20:00 98.6 82 22 135/83 97 I/O 10/21/16 10/21/16 10/21/16 10/22/16 10/22/16 10/22/16 07:00 15:00 23:00 07:00 15:00 23:00 Intake Total 480 ml 570 ml 1040 ml 480 ml Balance 480 ml 570 ml 1040 ml 480 ml Intake Oral 480 ml 570 ml 1040 ml 480 ml # Voids 3 2 3 2 # Bowel Movements 0 0 0 0 Result Diagram: 10/22/16 0800 Objective Remarks GENERAL: Well-developed, cachectic, in no acute distress. Arousable, patient appears to be alert, he is orientated to person and state. He has not orientated to city, date, year HEENT: Head is normocephalic without any lesions or masses noted. Facial features are symmetric with bitemporal wasting. Eyes: Extraocular muscles are intact. Conjunctivae were clear. NECK: Supple without any masses. Trachea midline no deviation. No JVD, CARDIAC: Regular rhythm, regular rate. S1/S2 are heard. 2/6 ejection murmur, no gallops or rubs. LUNGS: Clear to auscultation bilaterally. No wheeze, rhonchi or rales. No use of accessory muscles on inspiration or expiration. ABDOMEN: Soft, nontender. Nondistended. Bowel sounds heard in all 4 quadrants. No organomegaly or masses. Negative rebound, negative guarding EXTREMITIES: No edema, pulses are equal bilaterally. No cyanosis or clubbing NEUROLOGY: Patient with significant dementia. Cranial nerves are grossly intact. GENITOURINARY: Patient does have significant edema noted of the right testicle Procedures None Urinary Catheter: No Vascular Central Line Catheter: No A/P Assessment and Plan Dementia with disturbance of behavior, improving Continue home dosing of memantine 10 mg po BID. Continue to hold Seroquel and Buspirone to see if patient becomes more alert Hypermagnesemia Discontinue magnesium hydroxide for bowel prep Monitor magnesium level Rhabdomyolysis without renal involvement: Resolved Status post IV fluids, CPK returned to normal Right testicular enlargement Patient has had multiple ultrasounds performed which did not indicate any changes. Does indicate right hydrocele, right epididymal cyst Continue monitor and address if needed Iron deficiency anemia- status post iron sucrose, hemoglobin stable. Atypical chest pain Cardiac enzymes normal x 2, EKG within normal limits No further reports of chest pain since admission. Dysphagia Speech therapy evaluated patient and recommended, recommended pureed diet and thin liquids. hypertension, blood pressure improved Lopressor 12.5 mg twice daily DVT prophylaxis: Lovenox, SCD's Discharge Planning Difficult discharge situation with significant dementia, non-[place] citizen, no payer source, family unwilling to take patient home. Case management for discharge planning Gonzales Babcock Oct 22, 2016 12:53
[2016-10-22 20:00] VITALS: BP 110/79; PULSE 76; RESP 18; TEMP 97.3; O2SAT 98
[2016-10-23 08:00] VITALS: BP 122/78; PULSE 78; RESP 18; TEMP 97.8; O2SAT 95
--- NOTE | 2016-10-23 08:42 | HHI.PR ---
Subjective Remarks Patient seen and examined today for follow-up on dementia. Patient lying in bed comfortable. Denies any new complaints. No change in clinical status. Awaiting case management for discharge planning Objective Vitals Vital Signs Date Time Temp Pulse Resp B/P Pulse Ox O2 Delivery O2 Flow Rate FiO2 10/22/16 20:00 97.3 76 18 110/79 98 I/O 10/22/16 10/22/16 10/22/16 10/23/16 10/23/16 10/23/16 07:00 15:00 23:00 07:00 15:00 23:00 Intake Total 480 ml 120 ml 60 ml Balance 480 ml 120 ml 60 ml Intake Oral 480 ml 120 ml 60 ml # Voids 2 1 2 # Bowel Movements 0 2 1 1 Result Diagram: 10/22/16 0800 Objective Remarks GENERAL: Well-developed, cachectic, in no acute distress. Arousable, patient appears to be alert, he is orientated to person and state. He has not orientated to city, date, year HEENT: Head is normocephalic without any lesions or masses noted. Facial features are symmetric with bitemporal wasting. Eyes: Extraocular muscles are intact. Conjunctivae were clear. NECK: Supple without any masses. Trachea midline no deviation. No JVD, CARDIAC: Regular rhythm, regular rate. S1/S2 are heard. 2/6 ejection murmur, no gallops or rubs. LUNGS: Clear to auscultation bilaterally. No wheeze, rhonchi or rales. No use of accessory muscles on inspiration or expiration. ABDOMEN: Soft, nontender. Nondistended. Bowel sounds heard in all 4 quadrants. No organomegaly or masses. Negative rebound, negative guarding EXTREMITIES: No edema, pulses are equal bilaterally. No cyanosis or clubbing NEUROLOGY: Patient with significant dementia. Cranial nerves are grossly intact. GENITOURINARY: Patient does have significant edema noted of the right testicle Procedures None Urinary Catheter: No Vascular Central Line Catheter: No A/P Assessment and Plan Dementia with disturbance of behavior, improving Continue home dosing of memantine 10 mg po BID. Continue to hold Seroquel and Buspirone to see if patient becomes more alert Hypermagnesemia Discontinue magnesium hydroxide for bowel prep Monitor magnesium level Rhabdomyolysis without renal involvement: Resolved Status post IV fluids, CPK returned to normal Right testicular enlargement Patient has had multiple ultrasounds performed which did not indicate any changes. Does indicate right hydrocele, right epididymal cyst Continue monitor and address if needed Iron deficiency anemia- status post iron sucrose, hemoglobin stable. Atypical chest pain Cardiac enzymes normal x 2, EKG within normal limits No further reports of chest pain since admission. Dysphagia Speech therapy evaluated patient and recommended, recommended pureed diet and thin liquids. hypertension, blood pressure improved Lopressor 12.5 mg twice daily DVT prophylaxis: Lovenox, SCD's Discharge Planning Difficult discharge situation with significant dementia, non-[place] citizen, no payer source, family unwilling to take patient home. Case management for discharge planning Gonzales Babcock Oct 23, 2016 08:42
[2016-10-23] MEDS: NYSTATIN 100,000 UNIT/GM CREAM 15 GM TOPICAL SCH ×2 (09:00→21:59)
[2016-10-23] MEDS: ENOXAPARIN SODIUM 40 MG/0.4 ML SYRINGE SQ SCH (09:11)
[2016-10-23] MEDS: MEMANTINE HCL 10 MG TAB PO SCH ×2 (09:12→21:59)
[2016-10-23] MEDS: METOPROLOL TARTRATE 25 MG TAB PO SCH ×2 (09:13→21:59)
[2016-10-23] MEDS: CHLORHEXIDINE GLUCONATE 0.12% 15 ML CUP SCH ×2 (09:14→21:00)
[2016-10-23 20:00] VITALS: BP 117/77; PULSE 94; RESP 18; TEMP 97; O2SAT 99
[2016-10-24 08:00] VITALS: BP 111/70; PULSE 80; RESP 18; TEMP 98; O2SAT 95
[2016-10-24] MEDS: NYSTATIN 100,000 UNIT/GM CREAM 15 GM TOPICAL SCH ×2 (09:00→21:21)
[2016-10-24] MEDS: CHLORHEXIDINE GLUCONATE 0.12% 15 ML CUP SCH ×2 (09:00→21:00)
[2016-10-24] MEDS: MEMANTINE HCL 10 MG TAB PO SCH ×2 (09:14→21:19)
[2016-10-24] MEDS: METOPROLOL TARTRATE 25 MG TAB PO SCH ×2 (09:14→21:19)
--- NOTE | 2016-10-24 09:50 | HHI.PR ---
Subjective Remarks Patient seen and examined today for follow-up on dementia. Patient is resting carefully in bed. Denies any new complaints. No change in clinical status Objective Vitals Vital Signs Date Time Temp Pulse Resp B/P Pulse Ox O2 Delivery O2 Flow Rate FiO2 10/23/16 20:00 97.0 94 18 117/77 99 I/O 10/23/16 10/23/16 10/23/16 10/24/16 10/24/16 10/24/16 07:00 15:00 23:00 07:00 15:00 23:00 Intake Total 60 ml 600 ml 1240 ml Output Total 1 ml Balance 60 ml 600 ml -1 ml 1240 ml Intake Oral 60 ml 600 ml 1240 ml Stool Total 1 ml # Voids 2 4 2 4 # Bowel Movements 1 3 Result Diagram: 10/22/16 0800 Objective Remarks GENERAL: Well-developed, cachectic, in no acute distress. Arousable, patient appears to be alert, he is orientated to person and state. He has not orientated to city, date, year HEENT: Head is normocephalic without any lesions or masses noted. Facial features are symmetric with bitemporal wasting. Eyes: Extraocular muscles are intact. Conjunctivae were clear. NECK: Supple without any masses. Trachea midline no deviation. No JVD, CARDIAC: Regular rhythm, regular rate. S1/S2 are heard. 2/6 ejection murmur, no gallops or rubs. LUNGS: Clear to auscultation bilaterally. No wheeze, rhonchi or rales. No use of accessory muscles on inspiration or expiration. ABDOMEN: Soft, nontender. Nondistended. Bowel sounds heard in all 4 quadrants. No organomegaly or masses. Negative rebound, negative guarding EXTREMITIES: No edema, pulses are equal bilaterally. No cyanosis or clubbing NEUROLOGY: Patient with significant dementia. Cranial nerves are grossly intact. GENITOURINARY: Patient does have significant edema noted of the right testicle Procedures None Urinary Catheter: No Vascular Central Line Catheter: No A/P Assessment and Plan Dementia with disturbance of behavior, improving Continue home dosing of memantine 10 mg po BID. Continue to hold Seroquel and Buspirone to see if patient becomes more alert Hypermagnesemia Discontinue magnesium hydroxide for bowel prep Monitor magnesium level Rhabdomyolysis without renal involvement: Resolved Status post IV fluids, CPK returned to normal Right testicular enlargement Patient has had multiple ultrasounds performed which did not indicate any changes. Does indicate right hydrocele, right epididymal cyst Continue monitor and address if needed Iron deficiency anemia- status post iron sucrose, hemoglobin stable. Atypical chest pain Cardiac enzymes normal x 2, EKG within normal limits No further reports of chest pain since admission. Dysphagia Speech therapy evaluated patient and recommended, recommended pureed diet and thin liquids. hypertension, blood pressure improved Lopressor 12.5 mg twice daily DVT prophylaxis: Lovenox, SCD's Discharge Planning Difficult discharge situation with significant dementia, non-US citizen, no payer source, family unwilling to take patient home. Case management for discharge planning Gonzales Babcock Oct 24, 2016 09:50
[2016-10-24] MEDS: ENOXAPARIN SODIUM 40 MG/0.4 ML SYRINGE SQ SCH (09:55)
[2016-10-24 20:00] VITALS: BP 118/80; PULSE 87; RESP 16; TEMP 99.6; O2SAT 98
[2016-10-25 08:00] VITALS: BP 123/73; PULSE 82; RESP 18; TEMP 97.5; O2SAT 93
--- NOTE | 2016-10-25 09:05 | HHI.PR ---
Subjective Remarks Patient seen and examined today for follow-up on dementia. Patient lying in bed denies any new complaints. No change in clinical status. Objective Vitals Vital Signs Date Time Temp Pulse Resp B/P Pulse Ox O2 Delivery O2 Flow Rate FiO2 10/24/16 20:00 99.6 87 16 118/80 98 I/O 10/24/16 10/24/16 10/24/16 10/25/16 10/25/16 10/25/16 07:00 15:00 23:00 07:00 15:00 23:00 Intake Total 1240 ml 600 ml 120 ml Output Total 1 ml Balance 1240 ml 599 ml 120 ml Intake Oral 1240 ml 600 ml 120 ml Stool Total 1 ml # Voids 4 5 2 # Bowel Movements 3 2 Result Diagram: 10/22/16 0800 Objective Remarks GENERAL: Well-developed, cachectic, in no acute distress. Arousable, patient appears to be alert, he is orientated to person and state. He has not orientated to city, date, year HEENT: Head is normocephalic without any lesions or masses noted. Facial features are symmetric with bitemporal wasting. Eyes: Extraocular muscles are intact. Conjunctivae were clear. NECK: Supple without any masses. Trachea midline no deviation. No JVD, CARDIAC: Regular rhythm, regular rate. S1/S2 are heard. 2/6 ejection murmur, no gallops or rubs. LUNGS: Clear to auscultation bilaterally. No wheeze, rhonchi or rales. No use of accessory muscles on inspiration or expiration. ABDOMEN: Soft, nontender. Nondistended. Bowel sounds heard in all 4 quadrants. No organomegaly or masses. Negative rebound, negative guarding EXTREMITIES: No edema, pulses are equal bilaterally. No cyanosis or clubbing NEUROLOGY: Patient with significant dementia. Cranial nerves are grossly intact. GENITOURINARY: Patient does have significant edema noted of the right testicle Procedures None Urinary Catheter: No Vascular Central Line Catheter: No A/P Assessment and Plan Dementia with disturbance of behavior, improving Continue home dosing of memantine 10 mg po BID. Continue to hold Seroquel and Buspirone to see if patient becomes more alert Hypermagnesemia, resolved Discontinue magnesium hydroxide for bowel prep Monitor magnesium level Rhabdomyolysis without renal involvement: Resolved Status post IV fluids, CPK returned to normal Right testicular enlargement, stable Patient has had multiple ultrasounds performed which did not indicate any changes. Does indicate right hydrocele, right epididymal cyst Continue monitor and address if needed Iron deficiency anemia- status post iron sucrose, hemoglobin stable. Atypical chest pain, resolved Cardiac enzymes normal x 2, EKG within normal limits No further reports of chest pain since admission. Dysphagia Speech therapy evaluated patient and recommended, recommended pureed diet and thin liquids. hypertension, blood pressure stable Lopressor 12.5 mg twice daily DVT prophylaxis: Lovenox, SCD's Discharge Planning Difficult discharge situation with significant dementia, non-US citizen, no payer source, family unwilling to take patient home. Case management for discharge planning Gonzales Babcock Oct 25, 2016 09:05
[2016-10-25] MEDS: MEMANTINE HCL 10 MG TAB PO SCH ×2 (10:04→22:02)
[2016-10-25] MEDS: METOPROLOL TARTRATE 25 MG TAB PO SCH ×2 (10:04→22:02)
[2016-10-25] MEDS: ENOXAPARIN SODIUM 40 MG/0.4 ML SYRINGE SQ SCH (10:04)
[2016-10-25] MEDS: CHLORHEXIDINE GLUCONATE 0.12% 15 ML CUP SCH (10:06)
[2016-10-25] MEDS: NYSTATIN 100,000 UNIT/GM CREAM 15 GM TOPICAL SCH ×2 (10:13→22:03)
[2016-10-25 20:00] VITALS: BP 100/66; PULSE 86; RESP 20; TEMP 99; O2SAT 98
[2016-10-26 08:00] VITALS: BP 108/61; PULSE 75; RESP 18; TEMP 97.3; O2SAT 96
[2016-10-26] MEDS: CHLORHEXIDINE GLUCONATE 0.12% 15 ML CUP SCH ×2 (09:00→21:00)
[2016-10-26] MEDS: METOPROLOL TARTRATE 25 MG TAB PO SCH ×2 (09:04→21:37)
[2016-10-26] MEDS: MEMANTINE HCL 10 MG TAB PO SCH ×2 (09:04→21:37)
[2016-10-26] MEDS: NYSTATIN 100,000 UNIT/GM CREAM 15 GM TOPICAL SCH ×2 (09:05→21:37)
[2016-10-26] MEDS: ENOXAPARIN SODIUM 40 MG/0.4 ML SYRINGE SQ SCH (09:06)
--- NOTE | 2016-10-26 10:31 | HHI.PR ---
Subjective Remarks Patient seen and examined today for follow-up on dementia. Patient denies any new complaints. No change in clinical status. Objective Vitals Vital Signs Date Time Temp Pulse Resp B/P Pulse Ox O2 Delivery O2 Flow Rate FiO2 10/26/16 08:00 97.3 75 18 108/61 96 10/25/16 20:00 99.0 86 20 100/66 98 I/O 10/25/16 10/25/16 10/25/16 10/26/16 10/26/16 10/26/16 07:00 15:00 23:00 07:00 15:00 23:00 Intake Total 120 ml 1140 ml 550 ml 480 ml Balance 120 ml 1140 ml 550 ml 480 ml Intake Oral 120 ml 1140 ml 550 ml 480 ml # Voids 2 2 1 2 # Bowel Movements 2 0 1 1 Result Diagram: 10/22/16 0800 Objective Remarks GENERAL: Well-developed, cachectic, in no acute distress. Arousable, patient appears to be alert, he is orientated to person and state. He has not orientated to city, date, year HEENT: Head is normocephalic without any lesions or masses noted. Facial features are symmetric with bitemporal wasting. Eyes: Extraocular muscles are intact. Conjunctivae were clear. NECK: Supple without any masses. Trachea midline no deviation. No JVD, CARDIAC: Regular rhythm, regular rate. S1/S2 are heard. 2/6 ejection murmur, no gallops or rubs. LUNGS: Clear to auscultation bilaterally. No wheeze, rhonchi or rales. No use of accessory muscles on inspiration or expiration. ABDOMEN: Soft, nontender. Nondistended. Bowel sounds heard in all 4 quadrants. No organomegaly or masses. Negative rebound, negative guarding EXTREMITIES: No edema, pulses are equal bilaterally. No cyanosis or clubbing NEUROLOGY: Patient with significant dementia. Cranial nerves are grossly intact. GENITOURINARY: Patient does have significant edema noted of the right testicle Procedures None Urinary Catheter: No Vascular Central Line Catheter: No A/P Assessment and Plan Dementia with disturbance of behavior, improving Continue home dosing of memantine 10 mg po BID. Continue to hold Seroquel and Buspirone to see if patient becomes more alert Hypermagnesemia, resolved Discontinue magnesium hydroxide for bowel prep Monitor magnesium level Rhabdomyolysis without renal involvement: Resolved Status post IV fluids, CPK returned to normal Right testicular enlargement, stable Patient has had multiple ultrasounds performed which did not indicate any changes. Does indicate right hydrocele, right epididymal cyst Continue monitor and address if needed Iron deficiency anemia- status post iron sucrose, hemoglobin stable. Atypical chest pain, resolved Cardiac enzymes normal x 2, EKG within normal limits No further reports of chest pain since admission. Dysphagia Speech therapy evaluated patient and recommended, recommended pureed diet and thin liquids. hypertension, blood pressure stable Lopressor 12.5 mg twice daily DVT prophylaxis: Lovenox, SCD's Records reviewed, no change in clinical condition or treatment plan Discharge Planning Difficult discharge situation with significant dementia, non-US citizen, no payer source, family unwilling to take patient home. Case management for discharge planning Gonzales Babcock Oct 26, 2016 10:31
[2016-10-26 20:00] VITALS: BP 102/64; PULSE 98; RESP 18; TEMP 98.9; O2SAT 99
--- NOTE | 2016-10-27 07:59 | HHI.PR ---
Subjective Remarks Patient seen and examined today for follow-up on dementia. Patient denies any new complaints. Absolutely no change in patient's clinical condition or treatment plan. Awaiting case management discharge planning Objective Vitals Vital Signs Date Time Temp Pulse Resp B/P Pulse Ox O2 Delivery O2 Flow Rate FiO2 10/26/16 20:00 98.9 98 18 102/64 99 10/26/16 08:00 97.3 75 18 108/61 96 I/O 10/26/16 10/26/16 10/26/16 10/27/16 10/27/16 10/27/16 07:00 15:00 23:00 07:00 15:00 23:00 Intake Total 480 ml 720 ml 240 ml Balance 480 ml 720 ml 240 ml Intake Oral 480 ml 720 ml 240 ml # Voids 2 2 2 # Bowel Movements 1 1 2 Objective Remarks GENERAL: Well-developed, cachectic, in no acute distress. Arousable, patient appears to be alert, he is orientated to person and state. He has not orientated to city, date, year HEENT: Head is normocephalic without any lesions or masses noted. Facial features are symmetric with bitemporal wasting. Eyes: Extraocular muscles are intact. Conjunctivae were clear. NECK: Supple without any masses. Trachea midline no deviation. No JVD, CARDIAC: Regular rhythm, regular rate. S1/S2 are heard. 2/6 ejection murmur, no gallops or rubs. LUNGS: Clear to auscultation bilaterally. No wheeze, rhonchi or rales. No use of accessory muscles on inspiration or expiration. ABDOMEN: Soft, nontender. Nondistended. Bowel sounds heard in all 4 quadrants. No organomegaly or masses. Negative rebound, negative guarding EXTREMITIES: No edema, pulses are equal bilaterally. No cyanosis or clubbing NEUROLOGY: Patient with significant dementia. Cranial nerves are grossly intact. GENITOURINARY: Patient does have significant edema noted of the right testicle Procedures None Urinary Catheter: No Vascular Central Line Catheter: No A/P Assessment and Plan Dementia with disturbance of behavior, stable Continue home dosing of memantine 10 mg po BID. Continue to hold Seroquel and Buspirone to see if patient becomes more alert Hypermagnesemia, resolved Discontinue magnesium hydroxide for bowel prep Monitor magnesium level Rhabdomyolysis without renal involvement: Resolved Status post IV fluids, CPK returned to normal Right testicular enlargement, stable Patient has had multiple ultrasounds performed which did not indicate any changes. Does indicate right hydrocele, right epididymal cyst Continue monitor and address if needed Iron deficiency anemia- stable status post iron sucrose, hemoglobin stable. Atypical chest pain, resolved Cardiac enzymes normal x 2, EKG within normal limits No further reports of chest pain since admission. Dysphagia Speech therapy evaluated patient and recommended, recommended pureed diet and thin liquids. hypertension, blood pressure stable Lopressor 12.5 mg twice daily DVT prophylaxis: Lovenox, SCD's Records reviewed, no change in clinical condition or treatment plan Discharge Planning Difficult discharge situation with significant dementia, non-US citizen, no payer source, family unwilling to take patient home. Case management for discharge planning Gonzales Babcock Oct 27, 2016 07:59
[2016-10-27 08:00] VITALS: BP 138/80; PULSE 73; RESP 20; TEMP 97.5; O2SAT 98
[2016-10-27] MEDS: CHLORHEXIDINE GLUCONATE 0.12% 15 ML CUP SCH ×2 (09:00→21:53)
[2016-10-27] MEDS: NYSTATIN 100,000 UNIT/GM CREAM 15 GM TOPICAL SCH ×2 (09:00→21:54)
[2016-10-27] MEDS: ENOXAPARIN SODIUM 40 MG/0.4 ML SYRINGE SQ SCH (09:07)
[2016-10-27] MEDS: MEMANTINE HCL 10 MG TAB PO SCH ×2 (09:07→21:53)
[2016-10-27] MEDS: METOPROLOL TARTRATE 25 MG TAB PO SCH ×2 (09:08→21:53)
[2016-10-27 20:00] VITALS: BP 100/73; PULSE 75; RESP 21; TEMP 98; O2SAT 100
[2016-10-28 08:00] VITALS: BP 113/61; PULSE 72; RESP 20; TEMP 97; O2SAT 99
[2016-10-28] MEDS: NYSTATIN 100,000 UNIT/GM CREAM 15 GM TOPICAL SCH ×2 (09:00→22:10)
[2016-10-28] MEDS: CHLORHEXIDINE GLUCONATE 0.12% 15 ML CUP SCH ×2 (09:00→22:04)
[2016-10-28] MEDS: METOPROLOL TARTRATE 25 MG TAB PO SCH ×2 (10:46→22:04)
[2016-10-28] MEDS: MEMANTINE HCL 10 MG TAB PO SCH ×2 (10:46→22:03)
[2016-10-28] MEDS: ENOXAPARIN SODIUM 40 MG/0.4 ML SYRINGE SQ SCH (10:46)
--- NOTE | 2016-10-28 13:41 | HHI.PR ---
Subjective Remarks Follow-up for dementia. No acute complaints. Objective Vitals Vital Signs Date Time Temp Pulse Resp B/P Pulse Ox O2 Delivery O2 Flow Rate FiO2 10/28/16 08:00 97.0 72 20 113/61 99 10/27/16 20:00 98.0 75 21 100/73 100 I/O 10/27/16 10/27/16 10/27/16 10/28/16 10/28/16 10/28/16 07:00 15:00 23:00 07:00 15:00 23:00 Intake Total 240 ml 690 ml 120 ml 120 ml Balance 240 ml 690 ml 120 ml 120 ml Intake Oral 240 ml 690 ml 120 ml 120 ml # Voids 2 2 2 2 # Bowel Movements 2 2 2 Objective Remarks GENERAL: Elderly patient in no apparent distress. CARDIOVASCULAR: Regular rate and rhythm. RESPIRATORY: No accessory muscle use. CTAB. GASTROINTESTINAL: Abdomen tense as his legs are elevated. NEUROLOGICAL: Awake and alert. Procedures None Urinary Catheter: No Vascular Central Line Catheter: No A/P Problem List: (1) Rhabdomyolysis ICD Code: M62.82 Status: Resolved (2) Dementia with behavioral disturbance ICD Code: F03.91 Status: Chronic (3) Atypical chest pain ICD Code: R07.89 Status: Resolved (4) Normocytic anemia ICD Code: D64.9 Status: Acute Assessment and Plan Dementia with disturbance of behavior: stable Continue home dosing of memantine 10 mg po BID. Continue to hold Seroquel and Buspirone due to sedation; is awake and alert off these meds Soft restraints were removed Hypermagnesemia: Resolved magnesium hydroxide discontinued Mg level improved on 10/22. Suspected gingivitis: Due to poor oral hygiene. -Continue Peridex, soak swab and apply to teeth, gums, tongue, and roof of mouth bid. Temperature 100.6 on 09/27/16, afebrile since Continue monitor for infection If further temperature elevation will proceed with infection workup Rhabdomyolysis without renal involvement: Resolved Status post IV fluids, CPK returned to normal Right testicular enlargement Patient has had multiple ultrasounds performed which did not indicate any changes. Does indicate right hydrocele, right epididymal cyst Continue to monitor and address if needed Iron deficiency anemia status post iron sucrose hemoglobin stable. Atypical chest pain Cardiac enzymes normal x 2, EKG within normal limits No further reports of chest pain since admission. Dysphagia Speech therapy evaluated patient and recommended, recommended pureed diet and thin liquids. Hypertension: Stable Continue amlodipine and metoprolol DVT prophylaxis: Lovenox, SCDs. Discharge Planning Submitted application for social security benefits. 10/24/16: Per CM apparently patient is not a [place] citizen and family in [place] will not take responsibility for him. Difficulty finding assistance for him. Problem Qualifiers (1) Rhabdomyolysis: Qualified Code: M62.82 - Non-traumatic rhabdomyolysis (2) Dementia with behavioral disturbance: Qualified Code: F03.91 - Dementia with behavioral disturbance, unspecified dementia type Naya Ferraro Oct 28, 2016 13:41
[2016-10-28 20:00] VITALS: BP 97/65; PULSE 87; RESP 16; TEMP 98.5; O2SAT 99
[2016-10-29 08:00] VITALS: BP 106/71; PULSE 63; RESP 18; TEMP 98; O2SAT 95
[2016-10-29] MEDS: METOPROLOL TARTRATE 25 MG TAB PO SCH ×2 (08:58→21:18)
[2016-10-29] MEDS: MEMANTINE HCL 10 MG TAB PO SCH ×2 (08:58→21:18)
[2016-10-29] MEDS: ENOXAPARIN SODIUM 40 MG/0.4 ML SYRINGE SQ SCH (08:58)
[2016-10-29] MEDS: NYSTATIN 100,000 UNIT/GM CREAM 15 GM TOPICAL SCH ×2 (08:59→21:19)
[2016-10-29] MEDS: CHLORHEXIDINE GLUCONATE 0.12% 15 ML CUP SCH ×2 (16:47→21:00)
--- NOTE | 2016-10-29 18:54 | HHI.PR ---
Subjective Remarks Late entry. Patient evaluated this morning. Follow-up for dementia. No acute complaints. He states he is "very good". Objective Vitals Vital Signs Date Time Temp Pulse Resp B/P Pulse Ox O2 Delivery O2 Flow Rate FiO2 10/29/16 08:00 98.0 63 18 106/71 95 10/28/16 20:00 98.5 87 16 97/65 99 I/O 10/28/16 10/28/16 10/28/16 10/29/16 10/29/16 10/29/16 07:00 15:00 23:00 07:00 15:00 23:00 Intake Total 120 ml 1050 ml 750 ml 200 ml Balance 120 ml 1050 ml 750 ml 200 ml Intake Oral 120 ml 1050 ml 750 ml 200 ml # Voids 2 2 1 1 # Bowel Movements 2 1 1 0 Objective Remarks GENERAL: Elderly patient in no apparent distress. CARDIOVASCULAR: Regular rate and rhythm. RESPIRATORY: No accessory muscle use. CTAB. GASTROINTESTINAL: Abdomen tense as his legs are elevated. NEUROLOGICAL: Awake and alert. Procedures None Urinary Catheter: No Vascular Central Line Catheter: No A/P Problem List: (1) Rhabdomyolysis ICD Code: M62.82 Status: Resolved (2) Dementia with behavioral disturbance ICD Code: F03.91 Status: Chronic (3) Atypical chest pain ICD Code: R07.89 Status: Resolved (4) Normocytic anemia ICD Code: D64.9 Status: Acute Assessment and Plan Dementia with disturbance of behavior: stable Continue home dosing of memantine 10 mg po BID. Continue to hold Seroquel and Buspirone due to sedation; is awake and alert off these meds Soft restraints were removed Hypermagnesemia: Resolved Magnesium hydroxide discontinued Mg level improved on 10/22. Suspected gingivitis: Due to poor oral hygiene. -Continue Peridex, soak swab and apply to teeth, gums, tongue, and roof of mouth bid. Temperature 100.6 on 09/27/16, afebrile since Continue monitor for infection If further temperature elevation will proceed with infection workup Rhabdomyolysis without renal involvement: Resolved Status post IV fluids, CPK returned to normal Right testicular enlargement Patient has had multiple ultrasounds performed which did not indicate any changes. Does indicate right hydrocele, right epididymal cyst Continue to monitor and address if needed Iron deficiency anemia status post iron sucrose hemoglobin stable. Atypical chest pain Cardiac enzymes normal x 2, EKG within normal limits No further reports of chest pain since admission. Dysphagia Speech therapy evaluated patient and recommended, recommended pureed diet and thin liquids. Hypertension: Stable Continue amlodipine and metoprolol DVT prophylaxis: Lovenox, SCDs. Discharge Planning Submitted application for social security benefits. 10/24/16: Per CM apparently patient is not a [place] citizen and family in [place] will not take responsibility for him. Difficulty finding assistance for him. Problem Qualifiers (1) Rhabdomyolysis: Qualified Code: M62.82 - Non-traumatic rhabdomyolysis (2) Dementia with behavioral disturbance: Qualified Code: F03.91 - Dementia with behavioral disturbance, unspecified dementia type Naya Ferraro Oct 29, 2016 18:54
[2016-10-29 20:00] VITALS: BP 116/78; PULSE 72; RESP 20; TEMP 96.4; O2SAT 100
[2016-10-30 08:00] VITALS: BP 114/72; PULSE 76; RESP 18; TEMP 97.8; O2SAT 95
[2016-10-30] MEDS: MEMANTINE HCL 10 MG TAB PO SCH ×2 (08:37→21:58)
[2016-10-30] MEDS: METOPROLOL TARTRATE 25 MG TAB PO SCH ×2 (08:37→21:58)
[2016-10-30] MEDS: ENOXAPARIN SODIUM 40 MG/0.4 ML SYRINGE SQ SCH (08:37)
[2016-10-30] MEDS: CHLORHEXIDINE GLUCONATE 0.12% 15 ML CUP SCH ×2 (08:37→21:00)
[2016-10-30] MEDS: NYSTATIN 100,000 UNIT/GM CREAM 15 GM TOPICAL SCH ×2 (08:37→21:59)
--- NOTE | 2016-10-30 10:22 | HHI.PR ---
Subjective Remarks Follow-up for dementia. No acute complaints. Objective Vitals Vital Signs Date Time Temp Pulse Resp B/P Pulse Ox O2 Delivery O2 Flow Rate FiO2 10/29/16 20:00 96.4 72 20 116/78 100 I/O 10/29/16 10/29/16 10/29/16 10/30/16 10/30/16 10/30/16 07:00 15:00 23:00 07:00 15:00 23:00 Intake Total 200 ml 1240 ml 480 ml Output Total 2 ml Balance 200 ml 1238 ml 480 ml Intake Oral 200 ml 1000 ml 480 ml Oral Supplement 240 ml Stool Total 2 ml # Voids 1 6 2 # Bowel Movements 0 1 2 Objective Remarks GENERAL: Elderly patient in no apparent distress. CARDIOVASCULAR: Regular rate and rhythm. RESPIRATORY: No accessory muscle use. CTAB. GASTROINTESTINAL: Abdomen non-tender, non-distended. NEUROLOGICAL: Awake and alert. Demented. Procedures None Urinary Catheter: No Vascular Central Line Catheter: No A/P Problem List: (1) Rhabdomyolysis ICD Code: M62.82 Status: Resolved (2) Dementia with behavioral disturbance ICD Code: F03.91 Status: Chronic (3) Atypical chest pain ICD Code: R07.89 Status: Resolved (4) Normocytic anemia ICD Code: D64.9 Status: Acute Assessment and Plan Dementia with disturbance of behavior: stable Continue home dosing of memantine 10 mg po BID. Continue to hold Seroquel and Buspirone due to sedation; is awake and alert off these meds Soft restraints were removed Hypermagnesemia: Resolved Magnesium hydroxide discontinued Mg level improved on 10/22. Suspected gingivitis: Due to poor oral hygiene. -Continue Peridex, soak swab and apply to teeth, gums, tongue, and roof of mouth bid. Temperature 100.6 on 09/27/16, afebrile since Continue monitor for infection If further temperature elevation will proceed with infection workup Rhabdomyolysis without renal involvement: Resolved Status post IV fluids, CPK returned to normal Right testicular enlargement Patient has had multiple ultrasounds performed which did not indicate any changes. Does indicate right hydrocele, right epididymal cyst Continue to monitor and address if needed Iron deficiency anemia status post iron sucrose hemoglobin stable. Atypical chest pain Cardiac enzymes normal x 2, EKG within normal limits No further reports of chest pain since admission. Dysphagia Speech therapy evaluated patient and recommends pureed diet and thin liquids. Hypertension: Stable Continue amlodipine and metoprolol DVT prophylaxis: Lovenox, SCDs. Discharge Planning Submitted application for social security benefits. 10/24/16: Per CM apparently patient is not a [place] citizen and family in [place] will not take responsibility for him. Difficulty finding assistance for him. Problem Qualifiers (1) Rhabdomyolysis: Qualified Code: M62.82 - Non-traumatic rhabdomyolysis (2) Dementia with behavioral disturbance: Qualified Code: F03.91 - Dementia with behavioral disturbance, unspecified dementia type Naya Ferraro Oct 30, 2016 10:22
[2016-10-30 20:00] VITALS: BP 99/70; PULSE 98; RESP 20; TEMP 98.3; O2SAT 97
[2016-10-31 08:00] VITALS: BP 107/72; PULSE 77; RESP 18; TEMP 97.7; O2SAT 92
[2016-10-31] MEDS: CHLORHEXIDINE GLUCONATE 0.12% 15 ML CUP SCH ×2 (08:05→22:59)
[2016-10-31] MEDS: NYSTATIN 100,000 UNIT/GM CREAM 15 GM TOPICAL SCH ×2 (08:05→23:01)
[2016-10-31] MEDS: METOPROLOL TARTRATE 25 MG TAB PO SCH ×2 (08:05→22:56)
[2016-10-31] MEDS: ENOXAPARIN SODIUM 40 MG/0.4 ML SYRINGE SQ SCH (08:05)
[2016-10-31] MEDS: MEMANTINE HCL 10 MG TAB PO SCH ×2 (08:07→22:55)
--- NOTE | 2016-10-31 10:49 | HHI.PR ---
Subjective Remarks Follow-up for dementia. No acute issues. Objective Vitals Vital Signs Date Time Temp Pulse Resp B/P Pulse Ox O2 Delivery O2 Flow Rate FiO2 10/31/16 08:00 97.7 77 18 107/72 92 10/30/16 20:00 98.3 98 20 99/70 97 I/O 10/30/16 10/30/16 10/30/16 10/31/16 10/31/16 10/31/16 07:00 15:00 23:00 07:00 15:00 23:00 Intake Total 480 ml 1440 ml 480 ml Output Total 1 ml Balance 480 ml 1439 ml 480 ml Intake Oral 480 ml 1440 ml 480 ml Stool Total 1 ml # Voids 2 7 3 # Bowel Movements 2 3 2 Objective Remarks GENERAL: Elderly patient in no apparent distress. CARDIOVASCULAR: Regular rate and rhythm. RESPIRATORY: No accessory muscle use. CTAB. NEUROLOGICAL: Asleep but moves his extremities. Procedures None Urinary Catheter: No Vascular Central Line Catheter: No A/P Problem List: (1) Rhabdomyolysis ICD Code: M62.82 Status: Resolved (2) Dementia with behavioral disturbance ICD Code: F03.91 Status: Chronic (3) Atypical chest pain ICD Code: R07.89 Status: Resolved (4) Normocytic anemia ICD Code: D64.9 Status: Acute Assessment and Plan Dementia with disturbance of behavior: stable Continue home dosing of memantine 10 mg po BID. Continue to hold Seroquel and Buspirone due to sedation; is awake and alert off these meds Soft restraints were removed Hypermagnesemia: Resolved Magnesium hydroxide discontinued Mg level improved on 10/22. Suspected gingivitis: Due to poor oral hygiene. -Continue Peridex, soak swab and apply to teeth, gums, tongue, and roof of mouth bid. Temperature 100.6 on 09/27/16, afebrile since Continue monitor for infection If further temperature elevation will proceed with infection workup Rhabdomyolysis without renal involvement: Resolved Status post IV fluids, CPK returned to normal Right testicular enlargement Patient has had multiple ultrasounds performed which did not indicate any changes. Does indicate right hydrocele, right epididymal cyst Continue to monitor and address if needed Iron deficiency anemia status post iron sucrose hemoglobin stable. Atypical chest pain Cardiac enzymes normal x 2, EKG within normal limits No further reports of chest pain since admission. Dysphagia Speech therapy evaluated patient and recommends pureed diet and thin liquids. Hypertension: Stable Continue amlodipine and metoprolol DVT prophylaxis: Lovenox, SCDs. Discharge Planning Submitted application for social security benefits. 10/24/16: Per CM apparently patient is not a [place] citizen and family in [place] will not take responsibility for him. Difficulty finding assistance for him. Problem Qualifiers (1) Rhabdomyolysis: Qualified Code: M62.82 - Non-traumatic rhabdomyolysis (2) Dementia with behavioral disturbance: Qualified Code: F03.91 - Dementia with behavioral disturbance, unspecified dementia type Naya Ferraro Oct 31, 2016 10:49
[2016-10-31 21:26] VITALS: BP 123/80; PULSE 93; RESP 20; TEMP 98.8; O2SAT 96
[2016-11-01 08:00] VITALS: BP 116/77; PULSE 82; RESP 18; TEMP 98.2; O2SAT 96
[2016-11-01] MEDS: METOPROLOL TARTRATE 25 MG TAB PO SCH ×2 (09:23→21:24)
[2016-11-01] MEDS: MEMANTINE HCL 10 MG TAB PO SCH ×2 (09:23→21:25)
[2016-11-01] MEDS: CHLORHEXIDINE GLUCONATE 0.12% 15 ML CUP SCH ×2 (09:24→21:00)
[2016-11-01] MEDS: NYSTATIN 100,000 UNIT/GM CREAM 15 GM TOPICAL SCH ×2 (09:25→21:00)
[2016-11-01] MEDS: ENOXAPARIN SODIUM 40 MG/0.4 ML SYRINGE SQ SCH (09:28)
--- NOTE | 2016-11-01 14:37 | HHI.PR ---
Subjective Remarks Late entry. Patient evaluated this morning. Follow-up for dementia. No acute complaints. Objective Vitals Vital Signs Date Time Temp Pulse Resp B/P Pulse Ox O2 Delivery O2 Flow Rate FiO2 11/01/16 08:00 98.2 82 18 116/77 96 10/31/16 21:26 98.8 93 20 123/80 96 I/O 10/31/16 10/31/16 10/31/16 11/01/16 11/01/16 11/01/16 06:59 14:59 22:59 06:59 14:59 22:59 Intake Total 480 ml 240 ml Balance 480 ml 240 ml Intake Oral 480 ml 240 ml # Voids 3 2 3 # Bowel Movements 2 2 Objective Remarks GENERAL: Elderly patient in no apparent distress. CARDIOVASCULAR: Regular rate and rhythm. RESPIRATORY: No accessory muscle use. CTAB. GASTROINTESTINAL: Abdomen soft, non-tender, non-distended. NEUROLOGICAL: Awake and alert. Procedures None Urinary Catheter: No Vascular Central Line Catheter: No A/P Problem List: (1) Rhabdomyolysis ICD Code: M62.82 Status: Resolved (2) Dementia with behavioral disturbance ICD Code: F03.91 Status: Chronic (3) Atypical chest pain ICD Code: R07.89 Status: Resolved (4) Normocytic anemia ICD Code: D64.9 Status: Acute Assessment and Plan Dementia with disturbance of behavior: stable Continue home dosing of memantine 10 mg po BID. Continue to hold Seroquel and Buspirone due to sedation; is awake and alert off these meds Soft restraints were removed Hypermagnesemia: Resolved Magnesium hydroxide discontinued Mg level improved on 10/22. Suspected gingivitis: Due to poor oral hygiene. -Continue Peridex, soak swab and apply to teeth, gums, tongue, and roof of mouth bid. Temperature 100.6 on 09/27/16, afebrile since Continue monitor for infection If further temperature elevation will proceed with infection workup Rhabdomyolysis without renal involvement: Resolved Status post IV fluids, CPK returned to normal Right testicular enlargement Patient has had multiple ultrasounds performed which did not indicate any changes. Does indicate right hydrocele, right epididymal cyst Continue to monitor and address if needed Iron deficiency anemia status post iron sucrose hemoglobin stable. Atypical chest pain Cardiac enzymes normal x 2, EKG within normal limits No further reports of chest pain since admission. Dysphagia Speech therapy evaluated patient and recommends pureed diet and thin liquids. Hypertension: Stable Continue amlodipine and metoprolol DVT prophylaxis: Lovenox, SCDs. Discharge Planning Submitted application for social security benefits. 10/24/16: Per CM apparently patient is not a [place] citizen and family in [place] will not take responsibility for him. Difficulty finding assistance for him. Problem Qualifiers (1) Rhabdomyolysis: Qualified Code: M62.82 - Non-traumatic rhabdomyolysis (2) Dementia with behavioral disturbance: Qualified Code: F03.91 - Dementia with behavioral disturbance, unspecified dementia type Naya Ferraro Nov 01, 2016 14:37
[2016-11-01 20:00] VITALS: BP 108/82; PULSE 92; RESP 21; TEMP 98.1; O2SAT 98
[2016-11-02 08:00] VITALS: BP 118/76; PULSE 88; RESP 18; TEMP 97.3; O2SAT 98
[2016-11-02] MEDS: MEMANTINE HCL 10 MG TAB PO SCH ×2 (09:40→21:23)
[2016-11-02] MEDS: CHLORHEXIDINE GLUCONATE 0.12% 15 ML CUP SCH ×2 (09:44→21:00)
[2016-11-02] MEDS: METOPROLOL TARTRATE 25 MG TAB PO SCH ×2 (09:44→21:23)
[2016-11-02] MEDS: NYSTATIN 100,000 UNIT/GM CREAM 15 GM TOPICAL SCH ×2 (09:44→21:00)
[2016-11-02] MEDS: ENOXAPARIN SODIUM 40 MG/0.4 ML SYRINGE SQ SCH (09:49)
--- NOTE | 2016-11-02 10:09 | HHI.PR ---
Subjective Remarks Follow-up for dementia. No acute complaints. Objective Vitals Vital Signs Date Time Temp Pulse Resp B/P Pulse Ox O2 Delivery O2 Flow Rate FiO2 11/01/16 20:00 98.1 92 21 108/82 98 I/O 11/01/16 11/01/16 11/01/16 11/02/16 11/02/16 11/02/16 06:59 14:59 22:59 06:59 14:59 22:59 Intake Total 0 ml 120 ml Balance 0 ml 120 ml Intake Oral 0 ml 120 ml # Voids 3 2 2 # Bowel Movements 2 2 1 Objective Remarks GENERAL: Elderly patient in no apparent distress. CARDIOVASCULAR: Regular rate and rhythm. RESPIRATORY: No accessory muscle use. CTAB. GASTROINTESTINAL: Abdomen tense due to patient position, but non-tender. NEUROLOGICAL: Awake and alert. Procedures None Urinary Catheter: No Vascular Central Line Catheter: No A/P Problem List: (1) Rhabdomyolysis ICD Code: M62.82 Status: Resolved (2) Dementia with behavioral disturbance ICD Code: F03.91 Status: Chronic (3) Atypical chest pain ICD Code: R07.89 Status: Resolved (4) Normocytic anemia ICD Code: D64.9 Status: Acute Assessment and Plan Dementia with disturbance of behavior: stable Continue home dosing of memantine 10 mg po BID. Continue to hold Seroquel and Buspirone due to sedation; is awake and alert off these meds Soft restraints were removed Hypermagnesemia: Resolved Magnesium hydroxide discontinued Mg level improved on 10/22. Suspected gingivitis: Due to poor oral hygiene. -Continue Peridex, soak swab and apply to teeth, gums, tongue, and roof of mouth bid. Temperature 100.6 on 09/27/16, afebrile since Continue monitor for infection If further temperature elevation will proceed with infection workup Rhabdomyolysis without renal involvement: Resolved Status post IV fluids, CPK returned to normal Right testicular enlargement Patient has had multiple ultrasounds performed which did not indicate any changes. Does indicate right hydrocele, right epididymal cyst Continue to monitor and address if needed Iron deficiency anemia status post iron sucrose hemoglobin stable. Atypical chest pain Cardiac enzymes normal x 2, EKG within normal limits No further reports of chest pain since admission. Dysphagia Speech therapy evaluated patient and recommends pureed diet and thin liquids. Hypertension: Stable Continue amlodipine and metoprolol DVT prophylaxis: Lovenox, SCDs. Discharge Planning Submitted application for social security benefits. 10/24/16: Per CM apparently patient is not a [place] citizen and family in [place] will not take responsibility for him. Difficulty finding assistance for him. Problem Qualifiers (1) Rhabdomyolysis: Qualified Code: M62.82 - Non-traumatic rhabdomyolysis (2) Dementia with behavioral disturbance: Qualified Code: F03.91 - Dementia with behavioral disturbance, unspecified dementia type Naya Ferraro Nov 02, 2016 10:09
[2016-11-02 20:00] VITALS: BP 107/73; PULSE 93; RESP 49; TEMP 97.1; O2SAT 99
[2016-11-03] MEDS: METOPROLOL TARTRATE 25 MG TAB PO SCH ×2 (09:50→22:19)
[2016-11-03] MEDS: CHLORHEXIDINE GLUCONATE 0.12% 15 ML CUP SCH ×2 (09:51→22:19)
[2016-11-03] MEDS: MEMANTINE HCL 10 MG TAB PO SCH ×2 (09:51→22:20)
[2016-11-03] MEDS: ENOXAPARIN SODIUM 40 MG/0.4 ML SYRINGE SQ SCH (09:52)
[2016-11-03] MEDS: NYSTATIN 100,000 UNIT/GM CREAM 15 GM TOPICAL SCH ×2 (09:52→22:21)
[2016-11-03 10:30] VITALS: BP 118/73; PULSE 53; RESP 19; TEMP 98.2; O2SAT 100
--- NOTE | 2016-11-03 11:43 | HHI.PR ---
Subjective Remarks Follow-up for dementia. No acute complaints. Objective Vitals Vital Signs Date Time Temp Pulse Resp B/P Pulse Ox O2 Delivery O2 Flow Rate FiO2 11/03/16 10:30 98.2 53 19 118/73 100 11/02/16 20:00 97.1 93 49 107/73 99 I/O 11/02/16 11/02/16 11/02/16 11/03/16 11/03/16 11/03/16 07:00 15:00 23:00 07:00 15:00 23:00 Intake Total 120 ml 600 ml Output Total 1 ml Balance 120 ml 599 ml Intake Oral 120 ml 600 ml Stool Total 1 ml # Voids 2 4 3 # Bowel Movements 1 2 Objective Remarks GENERAL: Elderly patient in no apparent distress. CARDIOVASCULAR: Regular rate and rhythm. RESPIRATORY: No accessory muscle use. Rumbling in the chest but patient is sleeping. GASTROINTESTINAL: Abdomen non-tender, non-distended. NEUROLOGICAL: Sleeping but arouses to voice. Procedures None Urinary Catheter: No Vascular Central Line Catheter: No A/P Problem List: (1) Rhabdomyolysis ICD Code: M62.82 Status: Resolved (2) Dementia with behavioral disturbance ICD Code: F03.91 Status: Chronic (3) Atypical chest pain ICD Code: R07.89 Status: Resolved (4) Normocytic anemia ICD Code: D64.9 Status: Acute Assessment and Plan Dementia with disturbance of behavior: stable Continue home dosing of memantine 10 mg po BID. Continue to hold Seroquel and Buspirone due to sedation; is awake and alert off these meds Soft restraints were removed Hypermagnesemia: Resolved Magnesium hydroxide discontinued Mg level improved on 10/22. Suspected gingivitis: Due to poor oral hygiene. -Continue Peridex, soak swab and apply to teeth, gums, tongue, and roof of mouth bid. Temperature 100.6 on 09/27/16, afebrile since Continue monitor for infection If further temperature elevation will proceed with infection workup Rhabdomyolysis without renal involvement: Resolved Status post IV fluids, CPK returned to normal Right testicular enlargement Patient has had multiple ultrasounds performed which did not indicate any changes. Does indicate right hydrocele, right epididymal cyst Continue to monitor and address if needed Iron deficiency anemia status post iron sucrose hemoglobin stable. Atypical chest pain Cardiac enzymes normal x 2, EKG within normal limits No further reports of chest pain since admission. Dysphagia Speech therapy evaluated patient and recommends pureed diet and thin liquids. Hypertension: Stable Continue amlodipine and metoprolol DVT prophylaxis: Lovenox, SCDs. Discharge Planning Submitted application for social security benefits. 10/24/16: Per CM apparently patient is not a [place] citizen and family in [place] will not take responsibility for him. Difficulty finding assistance for him. Problem Qualifiers (1) Rhabdomyolysis: Qualified Code: M62.82 - Non-traumatic rhabdomyolysis (2) Dementia with behavioral disturbance: Qualified Code: F03.91 - Dementia with behavioral disturbance, unspecified dementia type Naya Ferraro Nov 03, 2016 11:43
[2016-11-03 20:00] VITALS: BP 129/74; PULSE 81; RESP 18; TEMP 96.6; O2SAT 100
[2016-11-04 08:00] VITALS: BP 109/66; PULSE 53; RESP 18; TEMP 96.5; O2SAT 98
[2016-11-04] MEDS: NYSTATIN 100,000 UNIT/GM CREAM 15 GM TOPICAL SCH ×2 (09:00→20:53)
[2016-11-04] MEDS: METOPROLOL TARTRATE 25 MG TAB PO SCH ×2 (09:00→20:52)
[2016-11-04] MEDS: CHLORHEXIDINE GLUCONATE 0.12% 15 ML CUP SCH ×2 (09:00→20:54)
[2016-11-04] MEDS: MEMANTINE HCL 10 MG TAB PO SCH ×2 (09:02→20:52)
[2016-11-04] MEDS: ENOXAPARIN SODIUM 40 MG/0.4 ML SYRINGE SQ SCH (09:02)
--- NOTE | 2016-11-04 13:02 | HHI.PR ---
Subjective Remarks Patient seen and examined today for follow-up on dementia. Patient denies any new complaints. No change in clinical status. Objective Vitals Vital Signs Date Time Temp Pulse Resp B/P Pulse Ox O2 Delivery O2 Flow Rate FiO2 11/04/16 08:00 96.5 53 18 109/66 98 11/03/16 20:00 96.6 81 18 129/74 100 I/O 11/03/16 11/03/16 11/03/16 11/04/16 11/04/16 11/04/16 07:00 15:00 23:00 07:00 15:00 23:00 Intake Total 620 ml 0 ml Balance 620 ml 0 ml Intake Oral 620 ml 0 ml # Voids 3 2 2 # Bowel Movements 2 1 Objective Remarks GENERAL: Well-developed, cachectic, in no acute distress. Arousable, patient appears to be alert, he is orientated to person and state. He has not orientated to city, date, year HEENT: Head is normocephalic without any lesions or masses noted. Facial features are symmetric with bitemporal wasting. Eyes: Extraocular muscles are intact. Conjunctivae were clear. NECK: Trachea midline no deviation. No JVD, CARDIAC: Regular rhythm, regular rate. S1/S2 are heard. 2/6 ejection murmur, no gallops or rubs. LUNGS: Clear to auscultation bilaterally. No wheeze, rhonchi or rales. No use of accessory muscles on inspiration or expiration. ABDOMEN: Soft, nontender. Nondistended. Bowel sounds heard in all 4 quadrants. No organomegaly or masses. Negative rebound, negative guarding EXTREMITIES: No edema, pulses are equal bilaterally. No cyanosis or clubbing NEUROLOGY: Patient with significant dementia. Cranial nerves are grossly intact. Procedures None Urinary Catheter: No Vascular Central Line Catheter: No A/P Assessment and Plan Dementia with disturbance of behavior, stable Continue home dosing of memantine 10 mg po BID. Continue to hold Seroquel and Buspirone to see if patient becomes more alert Hypermagnesemia, resolved Discontinue magnesium hydroxide for bowel prep Monitor magnesium level Rhabdomyolysis without renal involvement: Resolved Status post IV fluids, CPK returned to normal Right testicular enlargement, stable Patient has had multiple ultrasounds performed which did not indicate any changes. Does indicate right hydrocele, right epididymal cyst Continue monitor and address if needed Iron deficiency anemia- stable status post iron sucrose, hemoglobin stable. Atypical chest pain, resolved Cardiac enzymes normal x 2, EKG within normal limits No further reports of chest pain since admission. Dysphagia Speech therapy evaluated patient and recommended, recommended pureed diet and thin liquids. hypertension, blood pressure stable Lopressor 12.5 mg twice daily DVT prophylaxis: Lovenox, SCD's Records reviewed, no change in clinical condition or treatment plan Discharge Planning Difficult discharge situation with significant dementia, non-US citizen, no payer source, family unwilling to take patient home. Case management for discharge planning Gonzales Babcock Nov 04, 2016 13:01
[2016-11-04 20:00] VITALS: BP 111/70; PULSE 81; RESP 16; TEMP 96.8; O2SAT 96
[2016-11-05 08:00] VITALS: BP 134/72; PULSE 81; RESP 17; TEMP 97.8; O2SAT 95
[2016-11-05] MEDS: CHLORHEXIDINE GLUCONATE 0.12% 15 ML CUP SCH ×2 (08:47→21:00)
[2016-11-05] MEDS: METOPROLOL TARTRATE 25 MG TAB PO SCH ×2 (08:47→21:45)
[2016-11-05] MEDS: MEMANTINE HCL 10 MG TAB PO SCH ×2 (08:47→21:44)
[2016-11-05] MEDS: NYSTATIN 100,000 UNIT/GM CREAM 15 GM TOPICAL SCH ×2 (08:48→21:45)
[2016-11-05] MEDS: ENOXAPARIN SODIUM 40 MG/0.4 ML SYRINGE SQ SCH (08:48)
--- NOTE | 2016-11-05 09:45 | HHI.PR ---
Subjective Remarks Patient seen and examined follow-up on dementia. Patient denies any new complaints. States that he is doing well. Objective Vitals Vital Signs Date Time Temp Pulse Resp B/P Pulse Ox O2 Delivery O2 Flow Rate FiO2 11/05/16 08:00 97.8 81 17 134/72 95 11/04/16 20:00 96.8 81 16 111/70 96 I/O 11/04/16 11/04/16 11/04/16 11/05/16 11/05/16 11/05/16 07:00 15:00 23:00 07:00 15:00 23:00 Intake Total 0 ml 1440 ml 480 ml Balance 0 ml 1440 ml 480 ml Intake Oral 0 ml 1440 ml 480 ml # Voids 2 2 4 # Bowel Movements 1 3 Objective Remarks GENERAL: Well-developed, cachectic, in no acute distress. Arousable, patient appears to be alert, he is orientated to person and state. He has not orientated to city, date, year HEENT: Head is normocephalic without any lesions or masses noted. Facial features are symmetric with bitemporal wasting. Eyes: Extraocular muscles are intact. Conjunctivae were clear. NECK: Trachea midline no deviation. CARDIAC: Regular rhythm, regular rate. S1/S2 are heard. 2/6 ejection murmur, no gallops or rubs. LUNGS: Clear to auscultation bilaterally. No wheeze, rhonchi or rales. No use of accessory muscles on inspiration or expiration. ABDOMEN: Soft, nontender. Nondistended. Bowel sounds heard in all 4 quadrants. No organomegaly or masses. Negative rebound, negative guarding EXTREMITIES: No edema, pulses are equal bilaterally. No cyanosis or clubbing NEUROLOGY: Patient with significant dementia. Cranial nerves are grossly intact. Procedures None Urinary Catheter: No Vascular Central Line Catheter: No A/P Assessment and Plan Dementia with disturbance of behavior, stable Continue home dosing of memantine 10 mg po BID. Continue to hold Seroquel and Buspirone to see if patient becomes more alert Hypermagnesemia, resolved Discontinue magnesium hydroxide for bowel prep Monitor magnesium level Rhabdomyolysis without renal involvement: Resolved Status post IV fluids, CPK returned to normal Right testicular enlargement, stable Patient has had multiple ultrasounds performed which did not indicate any changes. Does indicate right hydrocele, right epididymal cyst Continue monitor and address if needed Iron deficiency anemia- stable status post iron sucrose, hemoglobin stable. Atypical chest pain, resolved Cardiac enzymes normal x 2, EKG within normal limits No further reports of chest pain since admission. Dysphagia Speech therapy evaluated patient and recommended, recommended pureed diet and thin liquids. hypertension, blood pressure stable Lopressor 12.5 mg twice daily DVT prophylaxis: Lovenox, SCD's Records reviewed, no change in clinical condition or treatment plan Discharge Planning Difficult discharge situation with significant dementia, non-US citizen, no payer source, family unwilling to take patient home. Case management for discharge planning Gonzales Babcock Nov 05, 2016 09:45
[2016-11-05 16:52] VITALS: BP 122/78; PULSE 97; RESP 17; TEMP 96.1; O2SAT 97
[2016-11-05 17:28] VITALS: BP 134/72; PULSE 81; RESP 18; TEMP 96.1; O2SAT 97
[2016-11-05 20:00] VITALS: BP 126/77; PULSE 83; RESP 20; TEMP 97.3; O2SAT 98
[2016-11-06 08:00] VITALS: BP 117/80; PULSE 80; RESP 18; TEMP 98; O2SAT 96
[2016-11-06] MEDS: ENOXAPARIN SODIUM 40 MG/0.4 ML SYRINGE SQ SCH (09:39)
[2016-11-06] MEDS: MEMANTINE HCL 10 MG TAB PO SCH ×2 (09:39→21:04)
[2016-11-06] MEDS: METOPROLOL TARTRATE 25 MG TAB PO SCH ×2 (09:39→21:04)
[2016-11-06] MEDS: CHLORHEXIDINE GLUCONATE 0.12% 15 ML CUP SCH ×2 (09:40→21:00)
[2016-11-06] MEDS: NYSTATIN 100,000 UNIT/GM CREAM 15 GM TOPICAL SCH ×2 (09:41→21:00)
--- NOTE | 2016-11-06 10:34 | HHI.PR ---
Subjective Remarks Patient seen and examined today for follow-up on dementia. Patient denies any new complaints. He is lying in bed comfortable. No change in clinical status. Objective Vitals Vital Signs Date Time Temp Pulse Resp B/P Pulse Ox O2 Delivery O2 Flow Rate FiO2 11/05/16 20:00 97.3 83 20 126/77 98 11/05/16 17:28 96.1 81 18 134/72 97 11/05/16 16:52 96.1 97 17 122/78 97 I/O 11/05/16 11/05/16 11/05/16 11/06/16 11/06/16 11/06/16 07:00 15:00 23:00 07:00 15:00 23:00 Intake Total 480 ml 480 ml 480 ml Output Total 1 ml Balance 480 ml 479 ml 480 ml Intake Oral 480 ml 480 ml 480 ml Stool Total 1 ml # Voids 4 3 3 # Bowel Movements 3 2 2 Objective Remarks GENERAL: Well-developed, cachectic, in no acute distress. Arousable, patient appears to be alert, he is orientated to person and state. He has not orientated to city, date, year HEENT: Head is normocephalic without any lesions or masses noted. Facial features are symmetric with bitemporal wasting. Eyes: Extraocular muscles are intact. Conjunctivae were clear. NECK: Trachea midline no deviation. CARDIAC: Regular rhythm, regular rate. S1/S2 are heard. 2/6 ejection murmur, no gallops or rubs. LUNGS: Clear to auscultation bilaterally. No wheeze, rhonchi or rales. No use of accessory muscles on inspiration or expiration. ABDOMEN: Soft, nontender. Nondistended. Bowel sounds heard in all 4 quadrants. No organomegaly or masses. Negative rebound, negative guarding EXTREMITIES: No edema, pulses are equal bilaterally. No cyanosis or clubbing NEUROLOGY: Patient with significant dementia. Cranial nerves are grossly intact. Procedures None Urinary Catheter: No Vascular Central Line Catheter: No A/P Assessment and Plan Dementia with disturbance of behavior, stable Continue home dosing of memantine 10 mg po BID. Discontinue Seroquel and Buspirone, since patient became more alert with being off medications, patient has not had any abnormal behavior Hypermagnesemia, resolved Discontinue magnesium hydroxide for bowel prep Monitor magnesium level Rhabdomyolysis without renal involvement: Resolved Status post IV fluids, CPK returned to normal Right testicular enlargement, stable Patient has had multiple ultrasounds performed which did not indicate any changes. Does indicate right hydrocele, right epididymal cyst Continue monitor and address if needed Iron deficiency anemia- stable status post iron sucrose, hemoglobin stable. Atypical chest pain, resolved Cardiac enzymes normal x 2, EKG within normal limits No further reports of chest pain since admission. Dysphagia Speech therapy evaluated patient and recommended, recommended pureed diet and thin liquids. hypertension, blood pressure stable Lopressor 12.5 mg twice daily DVT prophylaxis: Lovenox, SCD's Discharge Planning Difficult discharge situation with significant dementia, non-US citizen, no payer source, family unwilling to take patient home. Case management for discharge planning Gonzales Babcock Nov 06, 2016 10:34
[2016-11-06 20:00] VITALS: BP 104/90; PULSE 79; RESP 18; TEMP 97.4; O2SAT 98
[2016-11-07 08:00] VITALS: BP 107/78; PULSE 73; RESP 18; TEMP 97.8; O2SAT 97
[2016-11-07] MEDS: ENOXAPARIN SODIUM 40 MG/0.4 ML SYRINGE SQ SCH (08:09)
[2016-11-07] MEDS: CHLORHEXIDINE GLUCONATE 0.12% 15 ML CUP SCH ×2 (08:10→20:02)
[2016-11-07] MEDS: MEMANTINE HCL 10 MG TAB PO SCH ×2 (08:11→19:57)
[2016-11-07] MEDS: NYSTATIN 100,000 UNIT/GM CREAM 15 GM TOPICAL SCH ×2 (08:11→20:58)
[2016-11-07] MEDS: METOPROLOL TARTRATE 25 MG TAB PO SCH ×2 (08:13→19:57)
--- NOTE | 2016-11-07 09:50 | HHI.PR ---
Subjective Remarks Patient seen and examined today for follow-up on dementia. Patient denies any new complaints. No change in clinical status. Objective Vitals Vital Signs Date Time Temp Pulse Resp B/P Pulse Ox O2 Delivery O2 Flow Rate FiO2 11/06/16 20:00 97.4 79 18 104/90 98 I/O 11/06/16 11/06/16 11/06/16 11/07/16 11/07/16 11/07/16 07:00 15:00 23:00 07:00 15:00 23:00 Intake Total 480 ml 660 ml 60 ml Output Total 1 ml Balance 480 ml 659 ml 60 ml Intake Oral 480 ml 660 ml 60 ml Stool Total 1 ml # Voids 3 6 1 # Bowel Movements 2 0 0 Objective Remarks GENERAL: Well-developed, cachectic, in no acute distress. Arousable, patient appears to be alert, he is orientated to person and state. He has not orientated to city, date, year HEENT: Head is normocephalic without any lesions or masses noted. Facial features are symmetric with bitemporal wasting. Eyes: Extraocular muscles are intact. Conjunctivae were clear. NECK: Trachea midline no deviation. CARDIAC: Regular rhythm, regular rate. S1/S2 are heard. 2/6 ejection murmur, no gallops or rubs. LUNGS: Clear to auscultation bilaterally. No wheeze, rhonchi or rales. No use of accessory muscles on inspiration or expiration. ABDOMEN: Soft, nontender. Nondistended. Bowel sounds heard in all 4 quadrants. No organomegaly or masses. Negative rebound, negative guarding EXTREMITIES: No edema, pulses are equal bilaterally. No cyanosis or clubbing NEUROLOGY: Patient with significant dementia. Cranial nerves are grossly intact. Procedures None Urinary Catheter: No Vascular Central Line Catheter: No A/P Assessment and Plan Dementia with disturbance of behavior, stable Continue home dosing of memantine 10 mg po BID. Discontinue Seroquel and Buspirone, since patient became more alert with being off medications, patient has not had any abnormal behavior Hypermagnesemia, resolved Discontinue magnesium hydroxide for bowel prep Monitor magnesium level Rhabdomyolysis without renal involvement: Resolved Status post IV fluids, CPK returned to normal Right testicular enlargement, stable Patient has had multiple ultrasounds performed which did not indicate any changes. Does indicate right hydrocele, right epididymal cyst Continue monitor and address if needed Iron deficiency anemia- stable status post iron sucrose, hemoglobin stable. Atypical chest pain, resolved Cardiac enzymes normal x 2, EKG within normal limits No further reports of chest pain since admission. Dysphagia Speech therapy evaluated patient and recommended, recommended pureed diet and thin liquids. hypertension, blood pressure stable Lopressor 12.5 mg twice daily DVT prophylaxis: Lovenox, SCD's Discharge Planning Difficult discharge situation with significant dementia, non-US citizen, no payer source, family unwilling to take patient home. Case management for discharge planning Gonzales Babcock Nov 07, 2016 09:49
[2016-11-07 20:00] VITALS: BP 137/85; PULSE 67; RESP 20; TEMP 96.5; O2SAT 97
[2016-11-08 08:00] VITALS: BP 110/84; PULSE 81; RESP 19; TEMP 96.9; O2SAT 94
[2016-11-08] MEDS: CHLORHEXIDINE GLUCONATE 0.12% 15 ML CUP SCH ×2 (09:00→21:00)
[2016-11-08] MEDS: ENOXAPARIN SODIUM 40 MG/0.4 ML SYRINGE SQ SCH (09:10)
[2016-11-08] MEDS: MEMANTINE HCL 10 MG TAB PO SCH ×2 (09:10→21:27)
[2016-11-08] MEDS: METOPROLOL TARTRATE 25 MG TAB PO SCH ×2 (09:10→21:27)
[2016-11-08] MEDS: NYSTATIN 100,000 UNIT/GM CREAM 15 GM TOPICAL SCH ×2 (09:14→21:30)
--- NOTE | 2016-11-08 10:38 | HHI.PR ---
Subjective Remarks Patient seen and examined for follow-up on dementia. Patient doing well. Denies any new complaints. No change in clinical status. Objective Vitals Vital Signs Date Time Temp Pulse Resp B/P Pulse Ox O2 Delivery O2 Flow Rate FiO2 11/08/16 08:00 96.9 81 19 110/84 94 11/07/16 20:00 96.5 67 20 137/85 97 I/O 11/07/16 11/07/16 11/07/16 11/08/16 11/08/16 11/08/16 07:00 15:00 23:00 07:00 15:00 23:00 Intake Total 60 ml 600 ml 75 ml Output Total 1 ml Balance 60 ml 599 ml 75 ml Intake Oral 60 ml 600 ml 75 ml IV Total 0 ml Stool Total 1 ml # Voids 1 3 4 # Bowel Movements 0 1 Objective Remarks GENERAL: Well-developed, cachectic, in no acute distress. Arousable, patient appears to be alert, he is orientated to person and state. He has not orientated to city, date, year HEENT: Head is normocephalic without any lesions or masses noted. Facial features are symmetric with bitemporal wasting. Eyes: Extraocular muscles are intact. Conjunctivae were clear. NECK: Trachea midline no deviation. CARDIAC: Regular rhythm, regular rate. S1/S2 are heard. 2/6 ejection murmur, no gallops or rubs. LUNGS: Clear to auscultation bilaterally. No wheeze, rhonchi or rales. No use of accessory muscles on inspiration or expiration. ABDOMEN: Soft, nontender. Nondistended. Bowel sounds heard in all 4 quadrants. No organomegaly or masses. Negative rebound, negative guarding EXTREMITIES: No edema, pulses are equal bilaterally. No cyanosis or clubbing NEUROLOGY: Patient with significant dementia. Cranial nerves are grossly intact. Procedures None Urinary Catheter: No Vascular Central Line Catheter: No A/P Assessment and Plan Dementia with disturbance of behavior, stable Continue home dosing of memantine 10 mg po BID. Discontinue Seroquel and Buspirone, since patient became more alert with being off medications, patient has not had any abnormal behavior Hypermagnesemia, resolved Discontinue magnesium hydroxide for bowel prep Monitor magnesium level Rhabdomyolysis without renal involvement: Resolved Status post IV fluids, CPK returned to normal Right testicular enlargement, stable Patient has had multiple ultrasounds performed which did not indicate any changes. Does indicate right hydrocele, right epididymal cyst Continue monitor and address if needed Iron deficiency anemia- stable status post iron sucrose, hemoglobin stable. Atypical chest pain, resolved Cardiac enzymes normal x 2, EKG within normal limits No further reports of chest pain since admission. Dysphagia Speech therapy evaluated patient and recommended, recommended pureed diet and thin liquids. hypertension, blood pressure stable Lopressor 12.5 mg twice daily DVT prophylaxis: Lovenox, SCD's Records reviewed, absolutely no change in treatment plan Discharge Planning Difficult discharge situation with significant dementia, non-[place] citizen, no payer source, family unwilling to take patient home. Case management for discharge planning Gonzales Babcock Nov 08, 2016 10:38
[2016-11-08 20:00] VITALS: BP 110/62; PULSE 93; RESP 20; TEMP 95.4; O2SAT 95
[2016-11-09 08:00] VITALS: BP 98/73; PULSE 75; RESP 19; TEMP 96.9; O2SAT 96
[2016-11-09] MEDS: CHLORHEXIDINE GLUCONATE 0.12% 15 ML CUP SCH ×2 (09:00→21:00)
[2016-11-09] MEDS: METOPROLOL TARTRATE 25 MG TAB PO SCH (09:00)
[2016-11-09] MEDS: ENOXAPARIN SODIUM 40 MG/0.4 ML SYRINGE SQ SCH (09:02)
[2016-11-09] MEDS: MEMANTINE HCL 10 MG TAB PO SCH ×2 (09:02→21:02)
[2016-11-09] MEDS: NYSTATIN 100,000 UNIT/GM CREAM 15 GM TOPICAL SCH ×2 (09:03→21:03)
--- NOTE | 2016-11-09 10:32 | HHI.PR ---
Subjective Remarks Patient seen and examined today for follow-up on dementia. Patient doing quite well denies any new complaints. No change in clinical status. Awaiting case management for discharge planning Objective Vitals Vital Signs Date Time Temp Pulse Resp B/P Pulse Ox O2 Delivery O2 Flow Rate FiO2 11/09/16 08:00 96.9 75 19 98/73 96 11/08/16 20:00 95.4 93 20 110/62 95 I/O 11/08/16 11/08/16 11/08/16 11/09/16 11/09/16 11/09/16 07:00 15:00 23:00 07:00 15:00 23:00 Intake Total 75 ml 720 ml 480 ml Balance 75 ml 720 ml 480 ml Intake Oral 75 ml 480 ml 480 ml Oral Supplement 240 ml IV Total 0 ml # Voids 4 2 2 # Bowel Movements 1 1 1 Objective Remarks GENERAL: Well-developed, cachectic, in no acute distress. Arousable, patient appears to be alert, he is orientated to person and state. He has not orientated to city, date, year HEENT: Head is normocephalic without any lesions or masses noted. Facial features are symmetric with bitemporal wasting. Eyes: Extraocular muscles are intact. Conjunctivae were clear. NECK: Trachea midline no deviation. CARDIAC: Regular rhythm, regular rate. S1/S2 are heard. 2/6 ejection murmur, no gallops or rubs. LUNGS: Clear to auscultation bilaterally. No wheeze, rhonchi or rales. No use of accessory muscles on inspiration or expiration. ABDOMEN: Soft, nontender. Nondistended. Bowel sounds heard in all 4 quadrants. No organomegaly or masses. Negative rebound, negative guarding EXTREMITIES: No edema, pulses are equal bilaterally. No cyanosis or clubbing NEUROLOGY: Patient with significant dementia. Cranial nerves are grossly intact. Procedures None Urinary Catheter: No Vascular Central Line Catheter: No A/P Assessment and Plan Dementia with disturbance of behavior, stable Continue home dosing of memantine 10 mg po BID. Discontinue Seroquel and Buspirone, since patient became more alert with being off medications, patient has not had any abnormal behavior Hypermagnesemia, resolved Discontinue magnesium hydroxide for bowel prep Monitor magnesium level Rhabdomyolysis without renal involvement: Resolved Status post IV fluids, CPK returned to normal Right testicular enlargement, stable Patient has had multiple ultrasounds performed which did not indicate any changes. Does indicate right hydrocele, right epididymal cyst Continue monitor and address if needed Iron deficiency anemia- stable status post iron sucrose, hemoglobin stable. Atypical chest pain, resolved Cardiac enzymes normal x 2, EKG within normal limits No further reports of chest pain since admission. Dysphagia Speech therapy evaluated patient and recommended, recommended pureed diet and thin liquids. hypertension, blood pressure stable Lopressor 12.5 mg daily DVT prophylaxis: Lovenox, SCD's Records reviewed, absolutely no change in treatment plan Discharge Planning Difficult discharge situation with significant dementia, non-US citizen, no payer source, family unwilling to take patient home. Case management for discharge planning Gonzales Babcock Nov 09, 2016 10:31
[2016-11-09 20:00] VITALS: BP 113/79; PULSE 80; RESP 20; TEMP 96; O2SAT 96
[2016-11-10] MEDS: MEMANTINE HCL 10 MG TAB PO SCH ×2 (09:20→20:18)
[2016-11-10] MEDS: NYSTATIN 100,000 UNIT/GM CREAM 15 GM TOPICAL SCH ×2 (09:31→20:18)
[2016-11-10] MEDS: CHLORHEXIDINE GLUCONATE 0.12% 15 ML CUP SCH ×2 (09:31→20:18)
[2016-11-10] MEDS: ENOXAPARIN SODIUM 40 MG/0.4 ML SYRINGE SQ SCH (09:31)
[2016-11-10] MEDS: METOPROLOL TARTRATE 25 MG TAB PO SCH (09:32)
--- NOTE | 2016-11-10 10:15 | HHI.PR ---
Subjective Remarks Patient seen and examined today for follow-up on dementia. Patient states that he is doing muy zenia. Denies any new complaints. Objective Vitals Vital Signs Date Time Temp Pulse Resp B/P Pulse Ox O2 Delivery O2 Flow Rate FiO2 11/09/16 20:00 96.0 80 20 113/79 96 I/O 11/09/16 11/09/16 11/09/16 11/10/16 11/10/16 11/10/16 07:00 15:00 23:00 07:00 15:00 23:00 Intake Total 480 ml 750 ml 480 ml 480 ml Balance 480 ml 750 ml 480 ml 480 ml Intake Oral 480 ml 750 ml 240 ml 480 ml Oral Supplement 240 ml # Voids 2 6 1 2 # Bowel Movements 1 3 1 2 Objective Remarks GENERAL: Well-developed, cachectic, in no acute distress. Arousable, patient appears to be alert, he is orientated to person and state. He has not orientated to city, date, year HEENT: Head is normocephalic without any lesions or masses noted. Facial features are symmetric with bitemporal wasting. Eyes: Extraocular muscles are intact. Conjunctivae were clear. NECK: Trachea midline no deviation. CARDIAC: Regular rhythm, regular rate. S1/S2 are heard. 2/6 ejection murmur, no gallops or rubs. LUNGS: Clear to auscultation bilaterally. No wheeze, rhonchi or rales. No use of accessory muscles on inspiration or expiration. ABDOMEN: Soft, nontender. Nondistended. Bowel sounds heard in all 4 quadrants. No organomegaly or masses. Negative rebound, negative guarding EXTREMITIES: No edema, pulses are equal bilaterally. No cyanosis or clubbing NEUROLOGY: Patient with significant dementia. Cranial nerves are grossly intact. Procedures None Urinary Catheter: No Vascular Central Line Catheter: No A/P Assessment and Plan Dementia with disturbance of behavior, stable Continue home dosing of memantine 10 mg po BID. Discontinue Seroquel and Buspirone, since patient became more alert with being off medications, patient has not had any abnormal behavior Hypermagnesemia, resolved Discontinue magnesium hydroxide for bowel prep Monitor magnesium level Rhabdomyolysis without renal involvement: Resolved Status post IV fluids, CPK returned to normal Right testicular enlargement, stable Patient has had multiple ultrasounds performed which did not indicate any changes. Does indicate right hydrocele, right epididymal cyst Continue monitor and address if needed Iron deficiency anemia- stable status post iron sucrose, hemoglobin stable. Atypical chest pain, resolved Cardiac enzymes normal x 2, EKG within normal limits No further reports of chest pain since admission. Dysphagia Speech therapy evaluated patient and recommended, recommended pureed diet and thin liquids. hypertension, blood pressure stable Lopressor 12.5 mg daily DVT prophylaxis: Lovenox, SCD's Records reviewed, absolutely no change in treatment plan Discharge Planning Difficult discharge situation with significant dementia, non-US citizen, no payer source, family unwilling to take patient home. Case management for discharge planning Gonzales Babcock Nov 10, 2016 10:15
[2016-11-10 10:21] VITALS: BP 109/83; PULSE 76; RESP 15; TEMP 96.7; O2SAT 94
[2016-11-10 22:00] VITALS: BP 115/79; PULSE 71; RESP 21; TEMP 97.8; O2SAT 98
[2016-11-11] MEDS: METOPROLOL TARTRATE 25 MG TAB PO SCH (08:16)
[2016-11-11] MEDS: MEMANTINE HCL 10 MG TAB PO SCH ×2 (08:16→20:53)
[2016-11-11] MEDS: NYSTATIN 100,000 UNIT/GM CREAM 15 GM TOPICAL SCH ×2 (08:17→20:54)
[2016-11-11] MEDS: CHLORHEXIDINE GLUCONATE 0.12% 15 ML CUP SCH ×2 (08:17→20:52)
[2016-11-11] MEDS: ENOXAPARIN SODIUM 40 MG/0.4 ML SYRINGE SQ SCH (08:45)
[2016-11-11 08:59] VITALS: BP 121/77; PULSE 76; RESP 19; TEMP 96.1; O2SAT 98
--- NOTE | 2016-11-11 16:37 | HHI.PR ---
Subjective Remarks Follow-up for dementia. Patient states he is "excelente". Objective Vitals Vital Signs Date Time Temp Pulse Resp B/P Pulse Ox O2 Delivery O2 Flow Rate FiO2 11/11/16 08:59 96.1 76 19 121/77 98 11/10/16 22:00 97.8 71 21 115/79 98 I/O 11/10/16 11/10/16 11/10/16 11/11/16 11/11/16 11/11/16 07:00 15:00 23:00 07:00 15:00 23:00 Intake Total 480 ml 500 ml 240 ml 520 ml Balance 480 ml 500 ml 240 ml 520 ml Intake Oral 480 ml 500 ml 240 ml 520 ml # Voids 2 4 1 3 # Bowel Movements 2 1 1 1 Objective Remarks GENERAL: Pleasant elderly patient in no apparent distress in day room watching TV. CARDIOVASCULAR: Regular rate and rhythm. RESPIRATORY: No accessory muscle use. CTAB. GASTROINTESTINAL: Abdomen non-tender, non-distended. NEUROLOGICAL: Awake and alert. Procedures None Urinary Catheter: No Vascular Central Line Catheter: No A/P Problem List: (1) Rhabdomyolysis ICD Code: M62.82 Status: Resolved (2) Dementia with behavioral disturbance ICD Code: F03.91 Status: Chronic (3) Atypical chest pain ICD Code: R07.89 Status: Resolved (4) Normocytic anemia ICD Code: D64.9 Status: Acute Assessment and Plan Dementia with disturbance of behavior: stable Continue home dosing of memantine 10 mg po BID. Continue to hold Seroquel and Buspirone due to sedation; is awake and alert off these meds Soft restraints were removed Hypermagnesemia: Resolved Magnesium hydroxide discontinued Mg level improved on 10/22. Suspected gingivitis: Due to poor oral hygiene. -Continue Peridex, soak swab and apply to teeth, gums, tongue, and roof of mouth bid. Temperature 100.6 on 09/27/16, afebrile since Continue monitor for infection If further temperature elevation will proceed with infection workup Rhabdomyolysis without renal involvement: Resolved Status post IV fluids, CPK returned to normal Right testicular enlargement Patient has had multiple ultrasounds performed which did not indicate any changes. Does indicate right hydrocele, right epididymal cyst Continue to monitor and address if needed Iron deficiency anemia status post iron sucrose hemoglobin stable. Atypical chest pain Cardiac enzymes normal x 2, EKG within normal limits No further reports of chest pain since admission. Dysphagia Speech therapy evaluated patient and recommends pureed diet and thin liquids. Hypertension: Stable Continue amlodipine and metoprolol DVT prophylaxis: Lovenox, SCDs. Discharge Planning Submitted application for social security benefits. 10/24/16: Per CM apparently patient is not a [place] citizen and family in [place] will not take responsibility for him. Difficulty finding assistance for him. Problem Qualifiers (1) Rhabdomyolysis: Qualified Code: M62.82 - Non-traumatic rhabdomyolysis (2) Dementia with behavioral disturbance: Qualified Code: F03.91 - Dementia with behavioral disturbance, unspecified dementia type Naya Ferraro Nov 11, 2016 16:37
[2016-11-11 20:00] VITALS: BP 120/64; PULSE 93; RESP 20; TEMP 97.7; O2SAT 94
[2016-11-12 08:00] VITALS: BP 118/70; PULSE 88; RESP 18; TEMP 98.8; O2SAT 96
[2016-11-12] MEDS: CHLORHEXIDINE GLUCONATE 0.12% 15 ML CUP SCH ×2 (08:41→21:00)
[2016-11-12] MEDS: ENOXAPARIN SODIUM 40 MG/0.4 ML SYRINGE SQ SCH (08:41)
[2016-11-12] MEDS: MEMANTINE HCL 10 MG TAB PO SCH ×2 (08:42→21:08)
[2016-11-12] MEDS: METOPROLOL TARTRATE 25 MG TAB PO SCH (08:42)
[2016-11-12] MEDS: NYSTATIN 100,000 UNIT/GM CREAM 15 GM TOPICAL SCH ×2 (08:43→21:08)
--- NOTE | 2016-11-12 12:03 | HHI.PR ---
Subjective Remarks Follow-up for dementia. No acute complaints. Objective Vitals Vital Signs Date Time Temp Pulse Resp B/P Pulse Ox O2 Delivery O2 Flow Rate FiO2 11/11/16 20:00 97.7 93 20 120/64 94 I/O 11/11/16 11/11/16 11/11/16 11/12/16 11/12/16 11/12/16 07:00 15:00 23:00 07:00 15:00 23:00 Intake Total 240 ml 520 ml 0 ml 0 ml Balance 240 ml 520 ml 0 ml 0 ml Intake Oral 240 ml 520 ml 0 ml IV Total 0 ml # Voids 1 3 3 # Bowel Movements 1 1 Objective Remarks GENERAL: Pleasant elderly patient in no apparent distress. CARDIOVASCULAR: Regular rate and rhythm. RESPIRATORY: No accessory muscle use. CTAB. NEUROLOGICAL: Awake and alert. PSYCHIATRIC: Happy mood and affect. Procedures None Urinary Catheter: No Vascular Central Line Catheter: No A/P Problem List: (1) Rhabdomyolysis ICD Code: M62.82 Status: Resolved (2) Dementia with behavioral disturbance ICD Code: F03.91 Status: Chronic (3) Atypical chest pain ICD Code: R07.89 Status: Resolved (4) Normocytic anemia ICD Code: D64.9 Status: Acute Assessment and Plan Dementia with disturbance of behavior: stable Continue home dosing of memantine 10 mg po BID. Continue to hold Seroquel and Buspirone due to sedation; is awake and alert off these meds Soft restraints were removed Patient remains well behaved with good mood and affect. Hypermagnesemia: Resolved Magnesium hydroxide discontinued Mg level improved on 10/22. Suspected gingivitis: Due to poor oral hygiene. -Continue Peridex, soak swab and apply to teeth, gums, tongue, and roof of mouth bid. Temperature 100.6 on 09/27/16, afebrile since Continue monitor for infection If further temperature elevation will proceed with infection workup Rhabdomyolysis without renal involvement: Resolved Status post IV fluids, CPK returned to normal Right testicular enlargement Patient has had multiple ultrasounds performed which did not indicate any changes. Does indicate right hydrocele, right epididymal cyst Continue to monitor and address if needed Iron deficiency anemia status post iron sucrose hemoglobin stable. Atypical chest pain Cardiac enzymes normal x 2, EKG within normal limits No further reports of chest pain since admission. Dysphagia Speech therapy evaluated patient and recommends pureed diet and thin liquids. Hypertension: Stable Continue amlodipine and metoprolol DVT prophylaxis: Lovenox, SCDs. Discharge Planning Submitted application for social security benefits. 10/24/16: Per CM apparently patient is not a [place] citizen and family in [place] will not take responsibility for him. Difficulty finding assistance for him. Problem Qualifiers (1) Rhabdomyolysis: Qualified Code: M62.82 - Non-traumatic rhabdomyolysis (2) Dementia with behavioral disturbance: Qualified Code: F03.91 - Dementia with behavioral disturbance, unspecified dementia type Naya Ferraro Nov 12, 2016 12:02
[2016-11-12 20:00] VITALS: BP 134/86; PULSE 77; RESP 20; TEMP 97; O2SAT 99
[2016-11-13] MEDS: CHLORHEXIDINE GLUCONATE 0.12% 15 ML CUP SCH ×2 (07:38→20:26)
[2016-11-13] MEDS: NYSTATIN 100,000 UNIT/GM CREAM 15 GM TOPICAL SCH ×2 (07:39→20:26)
[2016-11-13] MEDS: MEMANTINE HCL 10 MG TAB PO SCH ×2 (07:39→20:26)
[2016-11-13] MEDS: METOPROLOL TARTRATE 25 MG TAB PO SCH (07:39)
[2016-11-13] MEDS: ENOXAPARIN SODIUM 40 MG/0.4 ML SYRINGE SQ SCH (07:41)
[2016-11-13 09:44] VITALS: BP 105/76; PULSE 73; RESP 18; TEMP 97.2; O2SAT 97
--- NOTE | 2016-11-13 11:51 | HHI.PR ---
Subjective Remarks Follow-up for dementia. No acute complaints. Objective Vitals Vital Signs Date Time Temp Pulse Resp B/P Pulse Ox O2 Delivery O2 Flow Rate FiO2 11/13/16 09:44 97.2 73 18 105/76 97 11/12/16 20:00 97.0 77 20 134/86 99 I/O 11/12/16 11/12/16 11/12/16 11/13/16 11/13/16 11/13/16 07:00 15:00 23:00 07:00 15:00 23:00 Intake Total 0 ml 1080 ml 480 ml Output Total 2 ml Balance 0 ml 1078 ml 480 ml Intake Oral 0 ml 1080 ml 480 ml Stool Total 2 ml # Voids 3 5 2 # Bowel Movements 1 1 Objective Remarks GENERAL: Pleasant elderly patient in no apparent distress. CARDIOVASCULAR: Regular rate and rhythm. RESPIRATORY: No accessory muscle use. CTAB. GASTROINTESTINAL: Abdomen tense as patient cannot relax his abdomen. NEUROLOGICAL: Awake and alert. PSYCHIATRIC: Pleasant mood and affect. Procedures None Urinary Catheter: No Vascular Central Line Catheter: No A/P Problem List: (1) Rhabdomyolysis ICD Code: M62.82 Status: Resolved (2) Dementia with behavioral disturbance ICD Code: F03.91 Status: Chronic (3) Atypical chest pain ICD Code: R07.89 Status: Resolved (4) Normocytic anemia ICD Code: D64.9 Status: Acute Assessment and Plan Dementia with disturbance of behavior: stable Continue home dosing of memantine 10 mg po BID. Continue to hold Seroquel and Buspirone due to sedation; is awake and alert off these meds Soft restraints were removed Patient remains well behaved with good mood and affect. Hypermagnesemia: Resolved Magnesium hydroxide discontinued Mg level improved on 10/22. Suspected gingivitis: Due to poor oral hygiene. -Continue Peridex, soak swab and apply to teeth, gums, tongue, and roof of mouth bid. Temperature 100.6 on 09/27/16, afebrile since Continue monitor for infection If further temperature elevation will proceed with infection workup Rhabdomyolysis without renal involvement: Resolved Status post IV fluids, CPK returned to normal Right testicular enlargement Patient has had multiple ultrasounds performed which did not indicate any changes. Does indicate right hydrocele, right epididymal cyst Continue to monitor and address if needed Iron deficiency anemia status post iron sucrose hemoglobin stable. Atypical chest pain Cardiac enzymes normal x 2, EKG within normal limits No further reports of chest pain since admission. Dysphagia Speech therapy evaluated patient and recommends pureed diet and thin liquids. Hypertension: Stable Continue amlodipine and metoprolol DVT prophylaxis: Lovenox, SCDs. Discharge Planning Submitted application for social security benefits. 10/24/16: Per CM apparently patient is not a [place] citizen and family in [place] will not take responsibility for him. Difficulty finding assistance for him. Problem Qualifiers (1) Rhabdomyolysis: Qualified Code: M62.82 - Non-traumatic rhabdomyolysis (2) Dementia with behavioral disturbance: Qualified Code: F03.91 - Dementia with behavioral disturbance, unspecified dementia type Naya Ferraro Nov 13, 2016 11:51
[2016-11-13 20:00] VITALS: BP 137/85; PULSE 60; RESP 20; TEMP 98; O2SAT 98
[2016-11-14 08:00] VITALS: BP 131/76; PULSE 79; RESP 17; TEMP 98; O2SAT 95
[2016-11-14] MEDS: ENOXAPARIN SODIUM 40 MG/0.4 ML SYRINGE SQ SCH (10:02)
[2016-11-14] MEDS: MEMANTINE HCL 10 MG TAB PO SCH ×2 (10:02→21:56)
[2016-11-14] MEDS: CHLORHEXIDINE GLUCONATE 0.12% 15 ML CUP SCH ×2 (10:03→21:00)
[2016-11-14] MEDS: METOPROLOL TARTRATE 25 MG TAB PO SCH (10:04)
[2016-11-14] MEDS: NYSTATIN 100,000 UNIT/GM CREAM 15 GM TOPICAL SCH ×2 (10:04→21:56)
--- NOTE | 2016-11-14 11:33 | HHI.PR ---
Subjective Remarks Follow-up for dementia. No acute complaints. Objective Vitals Vital Signs Date Time Temp Pulse Resp B/P Pulse Ox O2 Delivery O2 Flow Rate FiO2 11/14/16 08:00 98.0 79 17 131/76 95 11/13/16 20:00 98.0 60 20 137/85 98 Manual Cuff/Auscultation I/O 11/13/16 11/13/16 11/13/16 11/14/16 11/14/16 11/14/16 07:00 15:00 23:00 07:00 15:00 23:00 Intake Total 480 ml 200 ml 800 ml 60 ml Balance 480 ml 200 ml 800 ml 60 ml Intake Oral 480 ml 200 ml 800 ml 60 ml # Voids 2 1 3 # Bowel Movements 1 1 1 Objective Remarks GENERAL: Pleasant elderly patient in no apparent distress. CARDIOVASCULAR: Regular rate and rhythm. RESPIRATORY: No accessory muscle use. CTAB. GASTROINTESTINAL: Abdomen tense as patient cannot relax his abdomen. NEUROLOGICAL: Awake and alert. PSYCHIATRIC: Pleasant mood and affect. Procedures None Urinary Catheter: No Vascular Central Line Catheter: No A/P Problem List: (1) Rhabdomyolysis ICD Code: M62.82 Status: Resolved (2) Dementia with behavioral disturbance ICD Code: F03.91 Status: Chronic (3) Atypical chest pain ICD Code: R07.89 Status: Resolved (4) Normocytic anemia ICD Code: D64.9 Status: Acute Assessment and Plan Dementia with disturbance of behavior: stable Continue home dosing of memantine 10 mg po BID. Continue to hold Seroquel and Buspirone due to sedation; is awake and alert off these meds Soft restraints were removed Patient remains well behaved with good mood and affect. Hypermagnesemia: Resolved Magnesium hydroxide discontinued Mg level improved on 10/22. Suspected gingivitis: Due to poor oral hygiene. -Continue Peridex, soak swab and apply to teeth, gums, tongue, and roof of mouth bid. Temperature 100.6 on 09/27/16, afebrile since Continue monitor for infection If further temperature elevation will proceed with infection workup Rhabdomyolysis without renal involvement: Resolved Status post IV fluids, CPK returned to normal Right testicular enlargement Patient has had multiple ultrasounds performed which did not indicate any changes. Does indicate right hydrocele, right epididymal cyst Continue to monitor and address if needed Iron deficiency anemia status post iron sucrose hemoglobin stable. Atypical chest pain Cardiac enzymes normal x 2, EKG within normal limits No further reports of chest pain since admission. Dysphagia Speech therapy evaluated patient and recommends pureed diet and thin liquids. Hypertension: Stable Continue amlodipine and metoprolol DVT prophylaxis: Lovenox, SCDs. Discharge Planning Submitted application for social security benefits. 10/24/16: Per CM apparently patient is not a [place] citizen and family in [place] will not take responsibility for him. Difficulty finding assistance for him. Problem Qualifiers (1) Rhabdomyolysis: Qualified Code: M62.82 - Non-traumatic rhabdomyolysis (2) Dementia with behavioral disturbance: Qualified Code: F03.91 - Dementia with behavioral disturbance, unspecified dementia type Naya Ferraro Nov 14, 2016 11:33
[2016-11-14 20:56] VITALS: BP 112/68; PULSE 77; RESP 20; TEMP 97.9; O2SAT 99
[2016-11-15] MEDS: CHLORHEXIDINE GLUCONATE 0.12% 15 ML CUP SCH ×2 (09:00→21:00)
[2016-11-15 09:20] VITALS: BP 128/80; PULSE 88; RESP 18; TEMP 98
[2016-11-15] MEDS: NYSTATIN 100,000 UNIT/GM CREAM 15 GM TOPICAL SCH ×2 (09:23→22:11)
[2016-11-15] MEDS: METOPROLOL TARTRATE 25 MG TAB PO SCH (09:23)
[2016-11-15] MEDS: MEMANTINE HCL 10 MG TAB PO SCH ×2 (09:23→22:10)
[2016-11-15] MEDS: ENOXAPARIN SODIUM 40 MG/0.4 ML SYRINGE SQ SCH (09:24)
--- NOTE | 2016-11-15 09:47 | HHI.PR ---
Subjective Remarks Follow-up for dementia. No acute complaints. Patient admits to feeling good. Objective Vitals Vital Signs Date Time Temp Pulse Resp B/P Pulse Ox O2 Delivery O2 Flow Rate FiO2 11/15/16 09:20 98.0 88 18 128/80 11/14/16 20:56 97.9 77 20 112/68 99 I/O 11/14/16 11/14/16 11/14/16 11/15/16 11/15/16 11/15/16 07:00 15:00 23:00 07:00 15:00 23:00 Intake Total 60 ml Balance 60 ml Intake Oral 60 ml # Voids 3 2 # Bowel Movements 1 2 3 Objective Remarks GENERAL: Pleasant elderly patient in no apparent distress. CARDIOVASCULAR: Regular rate and rhythm. RESPIRATORY: No accessory muscle use. CTAB. GASTROINTESTINAL: Abdomen tense as patient cannot relax his abdomen. NEUROLOGICAL: Awake and alert. PSYCHIATRIC: Pleasant mood and affect. Procedures None Urinary Catheter: No Vascular Central Line Catheter: No A/P Problem List: (1) Rhabdomyolysis ICD Code: M62.82 Status: Resolved (2) Dementia with behavioral disturbance ICD Code: F03.91 Status: Chronic (3) Atypical chest pain ICD Code: R07.89 Status: Resolved (4) Normocytic anemia ICD Code: D64.9 Status: Acute Assessment and Plan Dementia with disturbance of behavior: stable Continue home dosing of memantine 10 mg po BID. Continue to hold Seroquel and Buspirone due to sedation; is awake and alert off these meds Soft restraints were removed Patient remains well behaved with good mood and affect. Hypermagnesemia: Resolved Magnesium hydroxide discontinued Mg level improved on 10/22. Suspected gingivitis: Due to poor oral hygiene. -Continue Peridex, soak swab and apply to teeth, gums, tongue, and roof of mouth bid. Temperature 100.6 on 09/27/16, afebrile since Continue monitor for infection If further temperature elevation will proceed with infection workup Rhabdomyolysis without renal involvement: Resolved Status post IV fluids, CPK returned to normal Right testicular enlargement Patient has had multiple ultrasounds performed which did not indicate any changes. Does indicate right hydrocele, right epididymal cyst Continue to monitor and address if needed Iron deficiency anemia status post iron sucrose hemoglobin stable. Atypical chest pain Cardiac enzymes normal x 2, EKG within normal limits No further reports of chest pain since admission. Dysphagia Speech therapy evaluated patient and recommends pureed diet and thin liquids. Hypertension: Stable Continue amlodipine and metoprolol DVT prophylaxis: Lovenox, SCDs. Discharge Planning Submitted application for social security benefits. 10/24/16: Per CM apparently patient is not a [place] citizen and family in [place] will not take responsibility for him. Difficulty finding assistance for him. Problem Qualifiers (1) Rhabdomyolysis: Qualified Code: M62.82 - Non-traumatic rhabdomyolysis (2) Dementia with behavioral disturbance: Qualified Code: F03.91 - Dementia with behavioral disturbance, unspecified dementia type Naya Ferraro Nov 15, 2016 09:47
[2016-11-15 20:00] VITALS: BP 103/72; PULSE 71; RESP 18; TEMP 97.4; O2SAT 99
[2016-11-16 08:00] VITALS: BP 133/78; PULSE 88; RESP 16; TEMP 98.8; O2SAT 94
[2016-11-16] MEDS: CHLORHEXIDINE GLUCONATE 0.12% 15 ML CUP SCH ×2 (09:00→21:00)
[2016-11-16] MEDS: NYSTATIN 100,000 UNIT/GM CREAM 15 GM TOPICAL SCH ×2 (10:00→21:04)
--- NOTE | 2016-11-16 10:03 | HHI.PR ---
Subjective Remarks Follow-up for dementia. Patient sleeping. Objective Vitals Vital Signs Date Time Temp Pulse Resp B/P Pulse Ox O2 Delivery O2 Flow Rate FiO2 11/15/16 20:00 97.4 71 18 103/72 99 I/O 11/15/16 11/15/16 11/15/16 11/16/16 11/16/16 11/16/16 07:00 15:00 23:00 07:00 15:00 23:00 Intake Total 240 ml 600 ml 0 ml Output Total 3 ml Balance 240 ml 597 ml 0 ml Intake Oral 240 ml 600 ml 0 ml Stool Total 3 ml # Voids 2 4 1 # Bowel Movements 3 1 Objective Remarks GENERAL: Pleasant elderly patient in no apparent distress sleeping, snoring. CARDIOVASCULAR: Regular rate and rhythm. RESPIRATORY: No accessory muscle use. CTAB. NEUROLOGICAL: Sleeping. Procedures None Urinary Catheter: No Vascular Central Line Catheter: No A/P Problem List: (1) Rhabdomyolysis ICD Code: M62.82 Status: Resolved (2) Dementia with behavioral disturbance ICD Code: F03.91 Status: Chronic (3) Atypical chest pain ICD Code: R07.89 Status: Resolved (4) Normocytic anemia ICD Code: D64.9 Status: Acute Assessment and Plan Dementia with disturbance of behavior: stable Continue home dosing of memantine 10 mg po BID. Continue to hold Seroquel and Buspirone due to sedation; is awake and alert off these meds Soft restraints were removed Patient remains well behaved with good mood and affect. Hypermagnesemia: Resolved Magnesium hydroxide discontinued Mg level improved on 10/22. Suspected gingivitis: Due to poor oral hygiene. -Continue Peridex, soak swab and apply to teeth, gums, tongue, and roof of mouth bid. Temperature 100.6 on 09/27/16, afebrile since Continue monitor for infection If further temperature elevation will proceed with infection workup Rhabdomyolysis without renal involvement: Resolved Status post IV fluids, CPK returned to normal Right testicular enlargement Patient has had multiple ultrasounds performed which did not indicate any changes. Does indicate right hydrocele, right epididymal cyst Continue to monitor and address if needed Iron deficiency anemia status post iron sucrose hemoglobin stable. Atypical chest pain Cardiac enzymes normal x 2, EKG within normal limits No further reports of chest pain since admission. Dysphagia Speech therapy evaluated patient and recommends pureed diet and thin liquids. Hypertension: Stable Continue amlodipine and metoprolol DVT prophylaxis: Lovenox, SCDs. Discharge Planning Submitted application for social security benefits. 10/24/16: Per CM apparently patient is not a [place] citizen and family in [place] will not take responsibility for him. Difficulty finding assistance for him. Problem Qualifiers (1) Rhabdomyolysis: Qualified Code: M62.82 - Non-traumatic rhabdomyolysis (2) Dementia with behavioral disturbance: Qualified Code: F03.91 - Dementia with behavioral disturbance, unspecified dementia type Naya Ferraro Nov 16, 2016 10:03
[2016-11-16] MEDS: MEMANTINE HCL 10 MG TAB PO SCH ×2 (11:18→21:03)
[2016-11-16] MEDS: ENOXAPARIN SODIUM 40 MG/0.4 ML SYRINGE SQ SCH (11:18)
[2016-11-16] MEDS: METOPROLOL TARTRATE 25 MG TAB PO SCH (11:18)
[2016-11-16 20:00] VITALS: BP 120/82; PULSE 68; RESP 18; TEMP 97.1; O2SAT 98
[2016-11-17] MEDS: MEMANTINE HCL 10 MG TAB PO SCH ×2 (09:00→22:00)
[2016-11-17 09:18] VITALS: BP 104/66; PULSE 99; RESP 19; TEMP 98.6; O2SAT 96
[2016-11-17] MEDS: ENOXAPARIN SODIUM 40 MG/0.4 ML SYRINGE SQ SCH (09:18)
[2016-11-17] MEDS: CHLORHEXIDINE GLUCONATE 0.12% 15 ML CUP SCH ×2 (09:18→22:05)
[2016-11-17] MEDS: METOPROLOL TARTRATE 25 MG TAB PO SCH (09:19)
[2016-11-17] MEDS: NYSTATIN 100,000 UNIT/GM CREAM 15 GM TOPICAL SCH ×3 (09:19→22:06)
--- NOTE | 2016-11-17 11:06 | HHI.PR ---
Subjective Remarks Follow up for dementia. No acute issues. Objective Vitals Vital Signs Date Time Temp Pulse Resp B/P Pulse Ox O2 Delivery O2 Flow Rate FiO2 11/17/16 09:18 98.6 99 19 104/66 96 11/16/16 20:00 97.1 68 18 120/82 98 I/O 11/16/16 11/16/16 11/16/16 11/17/16 11/17/16 11/17/16 07:00 15:00 23:00 07:00 15:00 23:00 Intake Total 0 ml 960 ml 240 ml Output Total 1 ml 3 ml Balance 0 ml 959 ml 237 ml Intake Oral 0 ml 960 ml 240 ml Output Urine Total 3 ml Stool Total 1 ml # Voids 1 4 3 # Bowel Movements 1 3 Objective Remarks GENERAL: Pleasant elderly patient in no apparent distress. CARDIOVASCULAR: Regular rate and rhythm. RESPIRATORY: No accessory muscle use. CTAB. GASTROINTESTINAL: Abdomen tense as patient cannot follow command to relax his position. NEUROLOGICAL: Awake and alert. PSYCHIATRIC: Pleasant mood and affect. Procedures None Urinary Catheter: No Vascular Central Line Catheter: No A/P Problem List: (1) Rhabdomyolysis ICD Code: M62.82 Status: Resolved (2) Dementia with behavioral disturbance ICD Code: F03.91 Status: Chronic (3) Atypical chest pain ICD Code: R07.89 Status: Resolved (4) Normocytic anemia ICD Code: D64.9 Status: Acute Assessment and Plan Dementia with disturbance of behavior: stable Continue home dosing of memantine 10 mg po BID. Continue to hold Seroquel and Buspirone due to sedation; is awake and alert off these meds Soft restraints were removed Patient remains well behaved with good mood and affect. Hypermagnesemia: Resolved Magnesium hydroxide discontinued Mg level improved on 10/22. Suspected gingivitis: Due to poor oral hygiene. -Continue Peridex, soak swab and apply to teeth, gums, tongue, and roof of mouth bid. Temperature 100.6 on 09/27/16, afebrile since Continue monitor for infection If further temperature elevation will proceed with infection workup Rhabdomyolysis without renal involvement: Resolved Status post IV fluids, CPK returned to normal Right testicular enlargement Patient has had multiple ultrasounds performed which did not indicate any changes. Does indicate right hydrocele, right epididymal cyst Continue to monitor and address if needed Iron deficiency anemia status post iron sucrose hemoglobin stable. Atypical chest pain Cardiac enzymes normal x 2, EKG within normal limits No further reports of chest pain since admission. Dysphagia Speech therapy evaluated patient and recommends pureed diet and thin liquids. Hypertension: Stable Continue amlodipine and metoprolol DVT prophylaxis: Lovenox, SCDs. Discharge Planning Submitted application for social security benefits. 10/24/16: Per CM apparently patient is not a [place] citizen and family in [place] will not take responsibility for him. Difficulty finding assistance for him. Problem Qualifiers (1) Rhabdomyolysis: Qualified Code: M62.82 - Non-traumatic rhabdomyolysis (2) Dementia with behavioral disturbance: Qualified Code: F03.91 - Dementia with behavioral disturbance, unspecified dementia type Naya Ferraro Nov 17, 2016 11:06
[2016-11-17 20:00] VITALS: BP 100/66; PULSE 79; RESP 16; TEMP 97.6; O2SAT 95
[2016-11-18 08:00] VITALS: BP 101/63; PULSE 62; RESP 20; TEMP 95.9; O2SAT 99
[2016-11-18] MEDS: METOPROLOL TARTRATE 25 MG TAB PO SCH (08:40)
[2016-11-18] MEDS: CHLORHEXIDINE GLUCONATE 0.12% 15 ML CUP SCH ×2 (08:40→22:01)
[2016-11-18] MEDS: NYSTATIN 100,000 UNIT/GM CREAM 15 GM TOPICAL SCH ×2 (08:40→22:05)
[2016-11-18] MEDS: MEMANTINE HCL 10 MG TAB PO SCH ×2 (08:40→22:00)
[2016-11-18] MEDS: ENOXAPARIN SODIUM 40 MG/0.4 ML SYRINGE SQ SCH (10:27)
--- NOTE | 2016-11-18 11:31 | HHI.PR ---
Subjective Remarks Patient seen and examined today for follow-up on dementia. Patient denies any new complaints. Patient appears to be in good spirits. No change in clinical status. Objective Vitals Vital Signs Date Time Temp Pulse Resp B/P Pulse Ox O2 Delivery O2 Flow Rate FiO2 11/18/16 08:00 95.9 62 20 101/63 99 11/17/16 20:00 97.6 79 16 100/66 95 I/O 11/17/16 11/17/16 11/17/16 11/18/16 11/18/16 11/18/16 06:59 14:59 22:59 06:59 14:59 22:59 Intake Total 240 ml 870 ml Output Total 3 ml Balance 237 ml 870 ml Intake Oral 240 ml 870 ml Output Urine Total 3 ml # Voids 3 4 2 # Bowel Movements 3 2 2 Objective Remarks GENERAL: Well-developed, cachectic, in no acute distress. Arousable, patient appears to be alert, he is orientated to person and state. He has not orientated to city, date, year HEENT: Head is normocephalic without any lesions or masses noted. Facial features are symmetric with bitemporal wasting. Eyes: Extraocular muscles are intact. Conjunctivae were clear. NECK: Trachea midline no deviation. CARDIAC: Regular rhythm, regular rate. S1/S2 are heard. 2/6 ejection murmur, no gallops or rubs. LUNGS: Clear to auscultation bilaterally. No wheeze, rhonchi or rales. No use of accessory muscles on inspiration or expiration. ABDOMEN: Soft, nontender. Nondistended. Bowel sounds heard in all 4 quadrants. No organomegaly or masses. Negative rebound, negative guarding EXTREMITIES: No edema, pulses are equal bilaterally. No cyanosis or clubbing NEUROLOGY: Patient with significant dementia. Cranial nerves are grossly intact. Procedures None Urinary Catheter: No Vascular Central Line Catheter: No A/P Assessment and Plan Dementia with disturbance of behavior, stable Continue home dosing of memantine 10 mg po BID. Discontinue Seroquel and Buspirone, since patient became more alert with being off medications, patient has not had any abnormal behavior Hypermagnesemia, resolved Discontinue magnesium hydroxide for bowel prep Monitor magnesium level Rhabdomyolysis without renal involvement: Resolved Status post IV fluids, CPK returned to normal Right testicular enlargement, stable Patient has had multiple ultrasounds performed which did not indicate any changes. Does indicate right hydrocele, right epididymal cyst Continue monitor and address if needed Iron deficiency anemia- stable status post iron sucrose, hemoglobin stable. Atypical chest pain, resolved Cardiac enzymes normal x 2, EKG within normal limits No further reports of chest pain since admission. Dysphagia Speech therapy evaluated patient and recommended, recommended pureed diet and thin liquids. Patient appears be more alert, will reconsult speech therapy for evaluation to see if diet can be advanced. hypertension, blood pressure stable Lopressor 12.5 mg daily DVT prophylaxis: Lovenox, SCD's Discharge Planning Difficult discharge situation with significant dementia, non-US citizen, no payer source, family unwilling to take patient home. Case management for discharge planning Gonzales Babcock Nov 18, 2016 11:31
[2016-11-18 20:00] VITALS: BP 113/69; PULSE 89; RESP 20; TEMP 98.4; O2SAT 95
[2016-11-19] MEDS: MEMANTINE HCL 10 MG TAB PO SCH ×2 (08:42→22:13)
[2016-11-19] MEDS: NYSTATIN 100,000 UNIT/GM CREAM 15 GM TOPICAL SCH ×2 (08:43→22:14)
[2016-11-19] MEDS: ENOXAPARIN SODIUM 40 MG/0.4 ML SYRINGE SQ SCH (08:43)
[2016-11-19] MEDS: CHLORHEXIDINE GLUCONATE 0.12% 15 ML CUP SCH ×2 (08:43→22:12)
[2016-11-19] MEDS: METOPROLOL TARTRATE 25 MG TAB PO SCH (08:43)
[2016-11-19 09:54] VITALS: BP 113/70; PULSE 75; RESP 14; TEMP 96.1; O2SAT 100
--- NOTE | 2016-11-19 10:41 | HHI.PR ---
Subjective Remarks Patient seen and examined today for follow-up on dementia. Patient denies any new problems. States that he is doing well. Objective Vitals Vital Signs Date Time Temp Pulse Resp B/P Pulse Ox O2 Delivery O2 Flow Rate FiO2 11/19/16 09:54 96.1 75 14 113/70 100 11/18/16 20:00 98.4 89 20 113/69 95 I/O 11/18/16 11/18/16 11/18/16 11/19/16 11/19/16 11/19/16 07:00 15:00 23:00 07:00 15:00 23:00 Intake Total 0 ml 0 ml Output Total 1 ml Balance -1 ml 0 ml Intake Oral 0 ml 0 ml Output Urine Total 1 ml # Voids 2 2 # Bowel Movements 2 1 1 Objective Remarks GENERAL: Well-developed, cachectic, in no acute distress. Arousable, patient appears to be alert, he is orientated to person and state. He has not orientated to city, date, year HEENT: Head is normocephalic without any lesions or masses noted. Facial features are symmetric with bitemporal wasting. Eyes: Extraocular muscles are intact. Conjunctivae were clear. NECK: Trachea midline no deviation. CARDIAC: Regular rhythm, regular rate. S1/S2 are heard. 2/6 ejection murmur, no gallops or rubs. LUNGS: Clear to auscultation bilaterally. No wheeze, rhonchi or rales. No use of accessory muscles on inspiration or expiration. ABDOMEN: Soft, nontender. Nondistended. Bowel sounds heard in all 4 quadrants. No organomegaly or masses. Negative rebound, negative guarding EXTREMITIES: No edema, pulses are equal bilaterally. No cyanosis or clubbing NEUROLOGY: Patient with significant dementia. Cranial nerves are grossly intact. Procedures None Urinary Catheter: No Vascular Central Line Catheter: No A/P Assessment and Plan Dementia with disturbance of behavior, stable Continue home dosing of memantine 10 mg po BID. Discontinue Seroquel and Buspirone, since patient became more alert with being off medications, patient has not had any abnormal behavior Hypermagnesemia, resolved Discontinue magnesium hydroxide for bowel prep Monitor magnesium level Rhabdomyolysis without renal involvement: Resolved Status post IV fluids, CPK returned to normal Right testicular enlargement, stable Patient has had multiple ultrasounds performed which did not indicate any changes. Does indicate right hydrocele, right epididymal cyst Continue monitor and address if needed Iron deficiency anemia- stable status post iron sucrose, hemoglobin stable. Atypical chest pain, resolved Cardiac enzymes normal x 2, EKG within normal limits No further reports of chest pain since admission. Dysphagia Speech therapy evaluated patient and recommended, recommended mechanical soft diet, chopped meat with gravy and thin liquids Patient appears be more alert, will reconsult speech therapy for evaluation to see if diet can be advanced. hypertension, blood pressure stable Lopressor 12.5 mg daily DVT prophylaxis: Lovenox, SCD's Discharge Planning Difficult discharge situation with significant dementia, non-US citizen, no payer source, family unwilling to take patient home. Case management for discharge planning Gonzales Babcock Nov 19, 2016 10:41
[2016-11-19 21:46] VITALS: BP 119/70; PULSE 72; RESP 17; TEMP 98.3; O2SAT 100
[2016-11-20 08:00] VITALS: BP 118/77; PULSE 88; RESP 18; TEMP 97.3; O2SAT 95
[2016-11-20] MEDS: CHLORHEXIDINE GLUCONATE 0.12% 15 ML CUP SCH ×2 (09:00→19:29)
[2016-11-20] MEDS: MEMANTINE HCL 10 MG TAB PO SCH ×2 (10:42→19:28)
[2016-11-20] MEDS: METOPROLOL TARTRATE 25 MG TAB PO SCH (10:42)
[2016-11-20] MEDS: ENOXAPARIN SODIUM 40 MG/0.4 ML SYRINGE SQ SCH (10:42)
[2016-11-20] MEDS: NYSTATIN 100,000 UNIT/GM CREAM 15 GM TOPICAL SCH ×2 (10:43→19:29)
--- NOTE | 2016-11-20 13:13 | HHI.PR ---
Subjective Remarks Patient seen and examined today for follow-up on dementia. Patient denies any new complaints. No change in clinical status. Objective Vitals Vital Signs Date Time Temp Pulse Resp B/P Pulse Ox O2 Delivery O2 Flow Rate FiO2 11/19/16 21:46 98.3 72 17 119/70 100 I/O 11/19/16 11/19/16 11/19/16 11/20/16 11/20/16 11/20/16 07:00 15:00 23:00 07:00 15:00 23:00 Intake Total 0 ml 1150 ml 125 ml Output Total 2 ml 3 ml Balance 0 ml 1148 ml 122 ml Intake Oral 0 ml 1150 ml 125 ml Output Urine Total 2 ml 3 ml # Voids 2 3 # Bowel Movements 1 2 1 Objective Remarks GENERAL: Well-developed, cachectic, in no acute distress. Arousable, patient appears to be alert, he is orientated to person and state. He has not orientated to city, date, year HEENT: Head is normocephalic without any lesions or masses noted. Facial features are symmetric with bitemporal wasting. Eyes: Extraocular muscles are intact. Conjunctivae were clear. NECK: Trachea midline no deviation. CARDIAC: Regular rhythm, regular rate. S1/S2 are heard. 2/6 ejection murmur, no gallops or rubs. LUNGS: Clear to auscultation bilaterally. No wheeze, rhonchi or rales. No use of accessory muscles on inspiration or expiration. ABDOMEN: Soft, nontender. Nondistended. Bowel sounds heard in all 4 quadrants. No organomegaly or masses. Negative rebound, negative guarding EXTREMITIES: No edema, pulses are equal bilaterally. No cyanosis or clubbing NEUROLOGY: Patient with significant dementia. Cranial nerves are grossly intact. Procedures None Urinary Catheter: No Vascular Central Line Catheter: No A/P Assessment and Plan Dementia with disturbance of behavior, stable Continue home dosing of memantine 10 mg po BID. Discontinue Seroquel and Buspirone, since patient became more alert with being off medications, patient has not had any abnormal behavior Hypermagnesemia, resolved Discontinue magnesium hydroxide for bowel prep Monitor magnesium level Rhabdomyolysis without renal involvement: Resolved Status post IV fluids, CPK returned to normal Right testicular enlargement, stable Patient has had multiple ultrasounds performed which did not indicate any changes. Does indicate right hydrocele, right epididymal cyst Continue monitor and address if needed Iron deficiency anemia- stable status post iron sucrose, hemoglobin stable. Atypical chest pain, resolved Cardiac enzymes normal x 2, EKG within normal limits No further reports of chest pain since admission. Dysphagia Speech therapy evaluated patient and recommended, recommended mechanical soft diet, chopped meat with gravy and thin liquids Patient appears be more alert, will reconsult speech therapy for evaluation to see if diet can be advanced. hypertension, blood pressure stable Lopressor 12.5 mg daily DVT prophylaxis: Lovenox, SCD's Discharge Planning Difficult discharge situation with significant dementia, non-US citizen, no payer source, family unwilling to take patient home. Case management for discharge planning Gonzales Babcock Nov 20, 2016 13:12
[2016-11-20 20:00] VITALS: BP 97/75; PULSE 80; RESP 18; TEMP 98; O2SAT 90
[2016-11-21 08:00] VITALS: BP 130/66; PULSE 80; RESP 18; TEMP 97.8; O2SAT 95
[2016-11-21] MEDS: CHLORHEXIDINE GLUCONATE 0.12% 15 ML CUP SCH ×2 (09:00→20:37)
[2016-11-21] MEDS: MEMANTINE HCL 10 MG TAB PO SCH ×2 (09:15→20:36)
[2016-11-21] MEDS: METOPROLOL TARTRATE 25 MG TAB PO SCH (09:15)
[2016-11-21] MEDS: NYSTATIN 100,000 UNIT/GM CREAM 15 GM TOPICAL SCH ×2 (09:16→20:37)
--- NOTE | 2016-11-21 10:58 | HHI.PR ---
Subjective Remarks Patient seen and examined today for follow-up on dementia. Patient denies any new complaints. No change in clinical status. No change in current treatment plan. Case management for discharge planning Objective Vitals Vital Signs Date Time Temp Pulse Resp B/P Pulse Ox O2 Delivery O2 Flow Rate FiO2 11/21/16 08:00 97.8 80 18 130/66 95 11/20/16 20:00 98.0 80 18 97/75 90 I/O 11/20/16 11/20/16 11/20/16 11/21/16 11/21/16 11/21/16 06:59 14:59 22:59 06:59 14:59 22:59 Intake Total 125 ml 600 ml 420 ml Output Total 3 ml 1 ml Balance 122 ml 599 ml 420 ml Intake Oral 125 ml 600 ml 420 ml Output Urine Total 3 ml Stool Total 1 ml # Voids 4 3 # Bowel Movements 1 2 Objective Remarks GENERAL: Well-developed, cachectic, in no acute distress. Arousable, patient appears to be alert, he is orientated to person and state. He has not orientated to city, date, year HEENT: Head is normocephalic without any lesions or masses noted. Facial features are symmetric with bitemporal wasting. Eyes: Extraocular muscles are intact. Conjunctivae were clear. NECK: Trachea midline no deviation. CARDIAC: Regular rhythm, regular rate. S1/S2 are heard. 2/6 ejection murmur, no gallops or rubs. LUNGS: Clear to auscultation bilaterally. No wheeze, rhonchi or rales. No use of accessory muscles on inspiration or expiration. ABDOMEN: Soft, nontender. Nondistended. Bowel sounds heard in all 4 quadrants. No organomegaly or masses. Negative rebound, negative guarding EXTREMITIES: No edema, pulses are equal bilaterally. No cyanosis or clubbing NEUROLOGY: Patient with significant dementia. Cranial nerves are grossly intact. Procedures None Urinary Catheter: No Vascular Central Line Catheter: No A/P Assessment and Plan Dementia with disturbance of behavior, stable Continue home dosing of memantine 10 mg po BID. Discontinue Seroquel and Buspirone, since patient became more alert with being off medications, patient has not had any abnormal behavior Hypermagnesemia, resolved Discontinue magnesium hydroxide for bowel prep Monitor magnesium level Rhabdomyolysis without renal involvement: Resolved Status post IV fluids, CPK returned to normal Right testicular enlargement, stable Patient has had multiple ultrasounds performed which did not indicate any changes. Does indicate right hydrocele, right epididymal cyst Continue monitor and address if needed Iron deficiency anemia- stable status post iron sucrose, hemoglobin stable. Atypical chest pain, resolved Cardiac enzymes normal x 2, EKG within normal limits No further reports of chest pain since admission. Dysphagia Speech therapy evaluated patient and recommended, recommended mechanical soft diet, chopped meat with gravy and thin liquids Patient appears be more alert, will reconsult speech therapy for evaluation to see if diet can be advanced. hypertension, blood pressure stable Lopressor 12.5 mg daily DVT prophylaxis: Lovenox, SCD's Discharge Planning Difficult discharge situation with significant dementia, non-[place] citizen, no payer source, family unwilling to take patient home. Case management for discharge planning Gonzales Babcock Nov 21, 2016 10:58
[2016-11-21] MEDS: ENOXAPARIN SODIUM 40 MG/0.4 ML SYRINGE SQ SCH (12:04)
[2016-11-21 20:00] VITALS: BP 110/74; PULSE 90; RESP 18; TEMP 98.1; O2SAT 98
[2016-11-22] MEDS: NYSTATIN 100,000 UNIT/GM CREAM 15 GM TOPICAL SCH ×2 (09:00→20:16)
[2016-11-22] MEDS: CHLORHEXIDINE GLUCONATE 0.12% 15 ML CUP SCH ×2 (09:00→20:14)
[2016-11-22 09:41] VITALS: BP 118/70; PULSE 71; RESP 16; TEMP 96.7; O2SAT 98
[2016-11-22] MEDS: ENOXAPARIN SODIUM 40 MG/0.4 ML SYRINGE SQ SCH (09:48)
[2016-11-22] MEDS: METOPROLOL TARTRATE 25 MG TAB PO SCH (09:48)
[2016-11-22] MEDS: MEMANTINE HCL 10 MG TAB PO SCH ×2 (09:49→20:15)
--- NOTE | 2016-11-22 12:31 | HHI.PR ---
Subjective Remarks Patient seen and examined today. Patient denies any new complaints. No change in clinical status. No change in treatment plan, awaiting case management for discharge planning Objective Vitals Vital Signs Date Time Temp Pulse Resp B/P Pulse Ox O2 Delivery O2 Flow Rate FiO2 11/22/16 09:41 96.7 71 16 118/70 98 11/21/16 20:00 98.1 90 18 110/74 98 I/O 11/21/16 11/21/16 11/21/16 11/22/16 11/22/16 11/22/16 07:00 15:00 23:00 07:00 15:00 23:00 Intake Total 420 ml 600 ml 0 ml Output Total 1 ml Balance 420 ml 599 ml 0 ml Intake Oral 420 ml 600 ml IV Total 0 ml 0 ml Stool Total 1 ml # Voids 3 4 3 # Bowel Movements 2 3 Objective Remarks GENERAL: Well-developed, cachectic, in no acute distress. Arousable, patient appears to be alert, he is orientated to person and state. He has not orientated to city, date, year HEENT: Head is normocephalic without any lesions or masses noted. Facial features are symmetric with bitemporal wasting. Eyes: Extraocular muscles are intact. Conjunctivae were clear. NECK: Trachea midline no deviation. CARDIAC: Regular rhythm, regular rate. S1/S2 are heard. 2/6 ejection murmur, no gallops or rubs. LUNGS: Clear to auscultation bilaterally. No wheeze, rhonchi or rales. No use of accessory muscles on inspiration or expiration. ABDOMEN: Soft, nontender. Nondistended. Bowel sounds heard in all 4 quadrants. No organomegaly or masses. Negative rebound, negative guarding EXTREMITIES: No edema, pulses are equal bilaterally. No cyanosis or clubbing NEUROLOGY: Patient with significant dementia. Cranial nerves are grossly intact. Procedures None Urinary Catheter: No Vascular Central Line Catheter: No A/P Assessment and Plan Dementia with disturbance of behavior, stable Continue home dosing of memantine 10 mg po BID. Discontinue Seroquel and Buspirone, since patient became more alert with being off medications, patient has not had any abnormal behavior Hypermagnesemia, resolved Discontinue magnesium hydroxide for bowel prep Monitor magnesium level Rhabdomyolysis without renal involvement: Resolved Status post IV fluids, CPK returned to normal Right testicular enlargement, stable Patient has had multiple ultrasounds performed which did not indicate any changes. Does indicate right hydrocele, right epididymal cyst Continue monitor and address if needed Iron deficiency anemia- stable status post iron sucrose, hemoglobin stable. Atypical chest pain, resolved Cardiac enzymes normal x 2, EKG within normal limits No further reports of chest pain since admission. Dysphagia Speech therapy evaluated patient and recommended, recommended mechanical soft diet, chopped meat with gravy and thin liquids Patient appears be more alert, will reconsult speech therapy for evaluation to see if diet can be advanced. hypertension, blood pressure stable Lopressor 12.5 mg daily DVT prophylaxis: Lovenox, SCD's Discharge Planning Difficult discharge situation with significant dementia, non-[place] citizen, no payer source, family unwilling to take patient home. Case management for discharge planning Gonzales Babcock Nov 22, 2016 12:31
[2016-11-22 21:09] VITALS: BP 111/69; PULSE 73; RESP 20; TEMP 98.7; O2SAT 95
[2016-11-23] MEDS: CHLORHEXIDINE GLUCONATE 0.12% 15 ML CUP SCH ×2 (08:47→20:44)
[2016-11-23] MEDS: MEMANTINE HCL 10 MG TAB PO SCH ×2 (08:48→20:43)
[2016-11-23] MEDS: NYSTATIN 100,000 UNIT/GM CREAM 15 GM TOPICAL SCH ×2 (08:48→20:43)
[2016-11-23] MEDS: METOPROLOL TARTRATE 25 MG TAB PO SCH (08:48)
[2016-11-23] MEDS: ENOXAPARIN SODIUM 40 MG/0.4 ML SYRINGE SQ SCH (08:49)
[2016-11-23 10:24] VITALS: BP 120/90; PULSE 74; RESP 15; TEMP 96.1; O2SAT 96
--- NOTE | 2016-11-23 11:17 | HHI.PR ---
Subjective Remarks Patient seen and examined today for follow-up on dementia. Patient is sitting in chair in the common area. Denies any new complaints. Doing well. Objective Vitals Vital Signs Date Time Temp Pulse Resp B/P Pulse Ox O2 Delivery O2 Flow Rate FiO2 11/23/16 10:24 96.1 74 15 120/90 96 11/22/16 21:09 98.7 73 20 111/69 95 I/O 11/22/16 11/22/16 11/22/16 11/23/16 11/23/16 11/23/16 07:00 15:00 23:00 07:00 15:00 23:00 Intake Total 0 ml 800 ml 0 ml Balance 0 ml 800 ml 0 ml Intake Oral 800 ml IV Total 0 ml 0 ml 0 ml # Voids 3 2 # Bowel Movements 3 2 Objective Remarks GENERAL: Well-developed, cachectic, in no acute distress. Arousable, patient appears to be alert, he is orientated to person and state. He has not orientated to city, date, year HEENT: Head is normocephalic without any lesions or masses noted. Facial features are symmetric with bitemporal wasting. Eyes: Extraocular muscles are intact. Conjunctivae were clear. NECK: Trachea midline no deviation. CARDIAC: Regular rhythm, regular rate. S1/S2 are heard. 2/6 ejection murmur, no gallops or rubs. LUNGS: Clear to auscultation bilaterally. No wheeze, rhonchi or rales. No use of accessory muscles on inspiration or expiration. ABDOMEN: Soft, nontender. Nondistended. Bowel sounds heard in all 4 quadrants. No organomegaly or masses. Negative rebound, negative guarding EXTREMITIES: No edema, pulses are equal bilaterally. No cyanosis or clubbing NEUROLOGY: Patient with significant dementia. Cranial nerves are grossly intact. Procedures None Urinary Catheter: No Vascular Central Line Catheter: No A/P Assessment and Plan Dementia with disturbance of behavior, stable Continue home dosing of memantine 10 mg po BID. Discontinue Seroquel and Buspirone, since patient became more alert with being off medications, patient has not had any abnormal behavior Hypermagnesemia, resolved Discontinue magnesium hydroxide for bowel prep Monitor magnesium level Rhabdomyolysis without renal involvement: Resolved Status post IV fluids, CPK returned to normal Right testicular enlargement, stable Patient has had multiple ultrasounds performed which did not indicate any changes. Does indicate right hydrocele, right epididymal cyst Continue monitor and address if needed Iron deficiency anemia- stable status post iron sucrose, hemoglobin stable. Atypical chest pain, resolved Cardiac enzymes normal x 2, EKG within normal limits No further reports of chest pain since admission. Dysphagia Speech therapy evaluated patient and recommended, recommended mechanical soft diet, chopped meat with gravy and thin liquids Patient appears be more alert, will reconsult speech therapy for evaluation to see if diet can be advanced. hypertension, blood pressure stable Lopressor 12.5 mg daily DVT prophylaxis: Lovenox, SCD's Discharge Planning Difficult discharge situation with significant dementia, non-[place] citizen, no payer source, family unwilling to take patient home. Case management for discharge planning Gonzales Babcock Nov 23, 2016 11:17
[2016-11-23 19:14] VITALS: BP 114/79; PULSE 73; RESP 16; TEMP 96.8; O2SAT 100
[2016-11-24] MEDS: METOPROLOL TARTRATE 25 MG TAB PO SCH (08:23)
[2016-11-24] MEDS: MEMANTINE HCL 10 MG TAB PO SCH ×2 (08:24→20:05)
[2016-11-24] MEDS: NYSTATIN 100,000 UNIT/GM CREAM 15 GM TOPICAL SCH (08:25)
[2016-11-24] MEDS: CHLORHEXIDINE GLUCONATE 0.12% 15 ML CUP SCH ×2 (08:26→20:05)
--- NOTE | 2016-11-24 08:32 | HHI.PR ---
Subjective Remarks Patient seen and examined today for follow-up on dementia. Patient lying in bed comfortable. Denies any new complaints. Remains stable. Afebrile Objective Vitals Vital Signs Date Time Temp Pulse Resp B/P Pulse Ox O2 Delivery O2 Flow Rate FiO2 11/23/16 19:14 96.8 73 16 114/79 100 11/23/16 10:24 96.1 74 15 120/90 96 I/O 11/23/16 11/23/16 11/23/16 11/24/16 11/24/16 11/24/16 07:00 15:00 23:00 07:00 15:00 23:00 Intake Total 0 ml Balance 0 ml IV Total 0 ml # Voids 2 Objective Remarks GENERAL: Well-developed, cachectic, in no acute distress. Arousable, patient appears to be alert, he is orientated to person and state. He has not orientated to city, date, year HEENT: Head is normocephalic without any lesions or masses noted. Facial features are symmetric with bitemporal wasting. Eyes: Extraocular muscles are intact. Conjunctivae were clear. NECK: Trachea midline no deviation. CARDIAC: Regular rhythm, regular rate. S1/S2 are heard. 2/6 ejection murmur, no gallops or rubs. LUNGS: Clear to auscultation bilaterally. No wheeze, rhonchi or rales. No use of accessory muscles on inspiration or expiration. ABDOMEN: Soft, nontender. Nondistended. Bowel sounds heard in all 4 quadrants. No organomegaly or masses. Negative rebound, negative guarding EXTREMITIES: No edema, pulses are equal bilaterally. No cyanosis or clubbing NEUROLOGY: Patient with significant dementia. Cranial nerves are grossly intact. Procedures None Urinary Catheter: No Vascular Central Line Catheter: No A/P Assessment and Plan Dementia with disturbance of behavior, stable Continue home dosing of memantine 10 mg po BID. Discontinue Seroquel and Buspirone, since patient became more alert with being off medications, patient has not had any abnormal behavior Hypermagnesemia, resolved Discontinue magnesium hydroxide for bowel prep Monitor magnesium level Rhabdomyolysis without renal involvement: Resolved Status post IV fluids, CPK returned to normal Right testicular enlargement, stable Patient has had multiple ultrasounds performed which did not indicate any changes. Does indicate right hydrocele, right epididymal cyst Continue monitor and address if needed Iron deficiency anemia- stable status post iron sucrose, hemoglobin stable. Atypical chest pain, resolved Cardiac enzymes normal x 2, EKG within normal limits No further reports of chest pain since admission. Dysphagia Speech therapy re-evaluated patient and continue to recommended mechanical soft diet, chopped meat with gravy and thin liquids hypertension, blood pressure stable Lopressor 12.5 mg daily DVT prophylaxis: Lovenox, SCD's Discharge Planning Difficult discharge situation with significant dementia, non-US citizen, no payer source, family unwilling to take patient home. Case management for discharge planning Gonzales Babcock Nov 24, 2016 08:31
[2016-11-24 08:57] VITALS: BP 121/85; PULSE 80; RESP 18; TEMP 97.2; O2SAT 96
[2016-11-24] MEDS: ENOXAPARIN SODIUM 40 MG/0.4 ML SYRINGE SQ SCH (10:03)
[2016-11-24 20:00] VITALS: BP 109/68; PULSE 96; RESP 22; TEMP 97.9; O2SAT 98
[2016-11-25 08:00] VITALS: BP 122/78; PULSE 88; RESP 18; TEMP 98; O2SAT 95
[2016-11-25] MEDS: CHLORHEXIDINE GLUCONATE 0.12% 15 ML CUP SCH ×2 (09:00→20:07)
[2016-11-25] MEDS: METOPROLOL TARTRATE 25 MG TAB PO SCH (09:04)
[2016-11-25] MEDS: ENOXAPARIN SODIUM 40 MG/0.4 ML SYRINGE SQ SCH (09:04)
[2016-11-25] MEDS: MEMANTINE HCL 10 MG TAB PO SCH ×2 (09:04→20:07)
--- NOTE | 2016-11-25 11:07 | HHI.PR ---
Subjective Remarks Follow-up for dementia. No acute complaints. Objective Vitals Vital Signs Date Time Temp Pulse Resp B/P Pulse Ox O2 Delivery O2 Flow Rate FiO2 11/24/16 20:00 97.9 96 22 109/68 98 I/O 11/24/16 11/24/16 11/24/16 11/25/16 11/25/16 11/25/16 07:00 15:00 23:00 07:00 15:00 23:00 Intake Total 850 ml 75 ml Balance 850 ml 75 ml Intake Oral 850 ml 75 ml # Voids 2 2 # Bowel Movements 1 Objective Remarks GENERAL: Pleasant elderly patient in no apparent distress. CARDIOVASCULAR: Regular rate and rhythm. RESPIRATORY: No accessory muscle use. CTAB. NEUROLOGICAL: Awake and alert. PSYCHIATRIC: Pleasant mood and affect. Procedures None Urinary Catheter: No Vascular Central Line Catheter: No A/P Problem List: (1) Rhabdomyolysis ICD Code: M62.82 Status: Resolved (2) Dementia with behavioral disturbance ICD Code: F03.91 Status: Chronic (3) Atypical chest pain ICD Code: R07.89 Status: Resolved (4) Normocytic anemia ICD Code: D64.9 Status: Acute Assessment and Plan Dementia with disturbance of behavior: stable Continue home dosing of memantine 10 mg po BID. Continue to hold Seroquel and Buspirone due to sedation; is awake and alert off these meds Soft restraints were removed Patient remains well behaved with good mood and affect. Hypermagnesemia: Resolved Magnesium hydroxide discontinued Mg level improved on 10/22. Suspected gingivitis: Due to poor oral hygiene. -Continue Peridex, soak swab and apply to teeth, gums, tongue, and roof of mouth bid. Temperature 100.6 on 09/27/16, afebrile since Continue monitor for infection If further temperature elevation will proceed with infection workup Rhabdomyolysis without renal involvement: Resolved Status post IV fluids, CPK returned to normal Right testicular enlargement Patient has had multiple ultrasounds performed which did not indicate any changes. Does indicate right hydrocele, right epididymal cyst Continue to monitor and address if needed Iron deficiency anemia status post iron sucrose hemoglobin stable. Atypical chest pain Cardiac enzymes normal x 2, EKG within normal limits No further reports of chest pain since admission. Dysphagia Speech therapy evaluated patient and recommends pureed diet and thin liquids. Hypertension: Stable Continue amlodipine and metoprolol DVT prophylaxis: Lovenox, SCDs. Discharge Planning Submitted application for social security benefits. 10/24/16: Per CM apparently patient is not a [place] citizen and family in [place] will not take responsibility for him. Difficulty finding assistance for him. Problem Qualifiers (1) Rhabdomyolysis: Qualified Code: M62.82 - Non-traumatic rhabdomyolysis (2) Dementia with behavioral disturbance: Qualified Code: F03.91 - Dementia with behavioral disturbance, unspecified dementia type Naya Ferraro Nov 25, 2016 11:07
[2016-11-25 20:00] VITALS: BP 105/68; PULSE 87; RESP 20; TEMP 99; O2SAT 93
[2016-11-26 08:00] VITALS: BP 133/76; PULSE 89; RESP 18; TEMP 97.7; O2SAT 95
[2016-11-26] MEDS: CHLORHEXIDINE GLUCONATE 0.12% 15 ML CUP SCH ×2 (09:00→20:13)
[2016-11-26] MEDS: METOPROLOL TARTRATE 25 MG TAB PO SCH (09:18)
[2016-11-26] MEDS: MEMANTINE HCL 10 MG TAB PO SCH ×2 (09:18→20:12)
[2016-11-26] MEDS: ENOXAPARIN SODIUM 40 MG/0.4 ML SYRINGE SQ SCH (09:18)
--- NOTE | 2016-11-26 11:55 | HHI.PR ---
Subjective Remarks Follow up for dementia. No acute complaints. Objective Vitals Vital Signs Date Time Temp Pulse Resp B/P Pulse Ox O2 Delivery O2 Flow Rate FiO2 11/25/16 20:00 99.0 87 20 105/68 93 I/O 11/25/16 11/25/16 11/25/16 11/26/16 11/26/16 11/26/16 07:00 15:00 23:00 07:00 15:00 23:00 Intake Total 75 ml 720 ml 240 ml Output Total 1 ml Balance 75 ml 719 ml 240 ml Intake Oral 75 ml 720 ml 240 ml Stool Total 1 ml # Voids 4 2 # Bowel Movements 1 0 Objective Remarks GENERAL: Pleasant elderly patient in no apparent distress sitting in recliner in day room. CARDIOVASCULAR: Faint heart sounds. Regular rate and rhythm. RESPIRATORY: No accessory muscle use. CTAB. GASTROINTESTINAL: Abdomen soft, non-tender, non-distended. NEUROLOGICAL: Awake and alert. PSYCHIATRIC: Pleasant mood and affect. Procedures None Urinary Catheter: No Vascular Central Line Catheter: No A/P Problem List: (1) Rhabdomyolysis ICD Code: M62.82 Status: Resolved (2) Dementia with behavioral disturbance ICD Code: F03.91 Status: Chronic (3) Atypical chest pain ICD Code: R07.89 Status: Resolved (4) Normocytic anemia ICD Code: D64.9 Status: Acute Assessment and Plan Dementia with disturbance of behavior: stable Continue home dosing of memantine 10 mg po BID. Continue to hold Seroquel and Buspirone due to sedation; is awake and alert off these meds Soft restraints were removed Patient remains well behaved with good mood and affect. Hypermagnesemia: Resolved Magnesium hydroxide discontinued Mg level improved on 10/22. Suspected gingivitis: Due to poor oral hygiene. -Continue Peridex, soak swab and apply to teeth, gums, tongue, and roof of mouth bid. Temperature 100.6 on 09/27/16, afebrile since Continue monitor for infection If further temperature elevation will proceed with infection workup Rhabdomyolysis without renal involvement: Resolved Status post IV fluids, CPK returned to normal Right testicular enlargement Patient has had multiple ultrasounds performed which did not indicate any changes. Does indicate right hydrocele, right epididymal cyst Continue to monitor and address if needed Iron deficiency anemia status post iron sucrose hemoglobin stable. Atypical chest pain Cardiac enzymes normal x 2, EKG within normal limits No further reports of chest pain since admission. Dysphagia Speech therapy evaluated patient and recommends pureed diet and thin liquids. Hypertension: Stable Continue amlodipine and metoprolol DVT prophylaxis: Lovenox, SCDs. Discharge Planning Submitted application for social security benefits. 10/24/16: Per CM apparently patient is not a [place] citizen and family in [place] will not take responsibility for him. Difficulty finding assistance for him. Problem Qualifiers (1) Rhabdomyolysis: Qualified Code: M62.82 - Non-traumatic rhabdomyolysis (2) Dementia with behavioral disturbance: Qualified Code: F03.91 - Dementia with behavioral disturbance, unspecified dementia type Naya Ferraro Nov 26, 2016 11:54
[2016-11-26 20:00] VITALS: BP 96/58; PULSE 87; RESP 20; TEMP 97.2; O2SAT 97
[2016-11-27 07:16] LABS: AUTOMATED NEUTROPHIL # 3.9 TH/MM3 (1.8-7.7); BASOPHIL % 0.6 % (0.0-2.0); EOSINOPHIL # 0.3 TH/MM3 (0-0.4); HEMATOCRIT 38.6 % (39.0-51.0); HEMO FLAGS DIFF FINAL; LYMPH % 23.9 % (9.0-44.0); LYMPHOCYTE # 1.5 TH/MM3 (1.0-4.8); MEAN CELL VOLUME 90.6 FL (80.0-100.0); MEAN CORPUSCULAR HEMOGLOBIN 30.4 PG (27.0-34.0); MEAN CORPUSCULAR HGB CONC 33.6 % (32.0-36.0); MONO % 7.7 % (0.0-8.0); NEUT % 62.8 % (16.0-70.0); PLATELET COUNT 281 TH/MM3 (150-450); RED BLOOD COUNT 4.26 MIL/MM3 (4.50-5.90); RED CELL DISTRIBUTION WIDTH 14.1 % (11.6-17.2); WHITE BLOOD COUNT 6.2 TH/MM3 (4.0-11.0)
[2016-11-27 07:28] LABS: BICARBONATE 30.5 MEQ/L (21.0-32.0); MAGNESIUM 2.1 MG/DL (1.5-2.5)
[2016-11-27 08:00] VITALS: BP 121/76; PULSE 84; RESP 18; TEMP 96.2; O2SAT 92
[2016-11-27] MEDS: METOPROLOL TARTRATE 25 MG TAB PO SCH (08:48)
[2016-11-27] MEDS: ENOXAPARIN SODIUM 40 MG/0.4 ML SYRINGE SQ SCH (08:48)
[2016-11-27] MEDS: MEMANTINE HCL 10 MG TAB PO SCH ×2 (08:48→20:54)
[2016-11-27] MEDS: CHLORHEXIDINE GLUCONATE 0.12% 15 ML CUP SCH ×2 (08:50→20:54)
--- NOTE | 2016-11-27 10:29 | HHI.PR ---
Subjective Remarks Follow up for dementia. No acute complaints. Objective Vitals Vital Signs Date Time Temp Pulse Resp B/P Pulse Ox O2 Delivery O2 Flow Rate FiO2 11/27/16 08:00 96.2 84 18 121/76 92 11/26/16 20:00 97.2 87 20 96/58 97 I/O 11/26/16 11/26/16 11/26/16 11/27/16 11/27/16 11/27/16 07:00 15:00 23:00 07:00 15:00 23:00 Intake Total 240 ml 1300 ml 240 ml Balance 240 ml 1300 ml 240 ml Intake Oral 240 ml 1300 ml 240 ml # Voids 2 5 3 # Bowel Movements 0 2 1 Result Diagram: 11/27/1662411/27/16624 Objective Remarks GENERAL: Pleasant elderly patient in no apparent distress sitting in recliner in day room. CARDIOVASCULAR: Faint heart sounds. Regular rate and rhythm. RESPIRATORY: No accessory muscle use. CTAB. GASTROINTESTINAL: Abdomen soft, non-tender, non-distended. NEUROLOGICAL: Awake and alert. PSYCHIATRIC: Pleasant mood and affect. Procedures None Urinary Catheter: No Vascular Central Line Catheter: No A/P Problem List: (1) Rhabdomyolysis ICD Code: M62.82 Status: Resolved (2) Dementia with behavioral disturbance ICD Code: F03.91 Status: Chronic (3) Atypical chest pain ICD Code: R07.89 Status: Resolved (4) Normocytic anemia ICD Code: D64.9 Status: Acute Assessment and Plan Dementia with disturbance of behavior: stable Continue home dosing of memantine 10 mg po BID. Continue to hold Seroquel and Buspirone due to sedation; is awake and alert off these meds Soft restraints were removed Patient remains well behaved with good mood and affect. Hypermagnesemia: Resolved Magnesium hydroxide discontinued Mg level improved on 10/22. Suspected gingivitis: Due to poor oral hygiene. -Continue Peridex, soak swab and apply to teeth, gums, tongue, and roof of mouth bid. Temperature 100.6 on 09/27/16, afebrile since Continue monitor for infection If further temperature elevation will proceed with infection workup Rhabdomyolysis without renal involvement: Resolved Status post IV fluids, CPK returned to normal Right testicular enlargement Patient has had multiple ultrasounds performed which did not indicate any changes. Does indicate right hydrocele, right epididymal cyst Continue to monitor and address if needed Iron deficiency anemia status post iron sucrose hemoglobin stable. Atypical chest pain Cardiac enzymes normal x 2, EKG within normal limits No further reports of chest pain since admission. Dysphagia Speech therapy evaluated patient and recommends pureed diet and thin liquids. Hypertension: Stable Continue amlodipine and metoprolol DVT prophylaxis: Lovenox, SCDs. Discharge Planning Submitted application for social security benefits. 10/24/16: Per CM apparently patient is not a [place] citizen and family in [place] will not take responsibility for him. Difficulty finding assistance for him. Problem Qualifiers (1) Rhabdomyolysis: Qualified Code: M62.82 - Non-traumatic rhabdomyolysis (2) Dementia with behavioral disturbance: Qualified Code: F03.91 - Dementia with behavioral disturbance, unspecified dementia type Naya Ferraro Nov 27, 2016 10:29
[2016-11-27 20:00] VITALS: BP 117/74; PULSE 88; RESP 20; TEMP 95.8; O2SAT 97
[2016-11-28 08:00] VITALS: BP 123/72; PULSE 97; RESP 20; TEMP 96.9; O2SAT 94
[2016-11-28] MEDS: CHLORHEXIDINE GLUCONATE 0.12% 15 ML CUP SCH ×2 (09:00→20:38)
[2016-11-28] MEDS: MEMANTINE HCL 10 MG TAB PO SCH ×2 (09:20→20:39)
[2016-11-28] MEDS: ENOXAPARIN SODIUM 40 MG/0.4 ML SYRINGE SQ SCH (09:21)
[2016-11-28] MEDS: METOPROLOL TARTRATE 25 MG TAB PO SCH (09:21)
--- NOTE | 2016-11-28 13:01 | HHI.PR ---
Subjective Remarks Follow-up for dementia. No acute complaints. Objective Vitals Vital Signs Date Time Temp Pulse Resp B/P Pulse Ox O2 Delivery O2 Flow Rate FiO2 11/28/16 08:00 96.9 97 20 123/72 94 11/27/16 20:00 95.8 88 20 117/74 97 I/O 11/27/16 11/27/16 11/27/16 11/28/16 11/28/16 11/28/16 07:00 15:00 23:00 07:00 15:00 23:00 Intake Total 240 ml 240 ml 480 ml 240 ml Balance 240 ml 240 ml 480 ml 240 ml Intake Oral 240 ml 240 ml 480 ml 240 ml # Voids 3 1 2 2 # Bowel Movements 1 0 2 2 Result Diagram: 11/27/1662411/27/16624 Objective Remarks GENERAL: Pleasant elderly patient in no apparent distress sitting in recliner in day room eating lunch. CARDIOVASCULAR: Regular rate and rhythm. RESPIRATORY: No accessory muscle use. CTAB. GASTROINTESTINAL: Abdomen slightly tense as patient cannot relax appropriately. NEUROLOGICAL: Awake and alert. PSYCHIATRIC: Pleasant mood and affect. Procedures None Urinary Catheter: No Vascular Central Line Catheter: No A/P Problem List: (1) Rhabdomyolysis ICD Code: M62.82 Status: Resolved (2) Dementia with behavioral disturbance ICD Code: F03.91 Status: Chronic (3) Atypical chest pain ICD Code: R07.89 Status: Resolved (4) Normocytic anemia ICD Code: D64.9 Status: Acute Assessment and Plan Dementia with disturbance of behavior: stable Continue home dosing of memantine 10 mg po BID. Continue to hold Seroquel and Buspirone due to sedation; is awake and alert off these meds Soft restraints were removed Patient remains well behaved with good mood and affect. Hypermagnesemia: Resolved Magnesium hydroxide discontinued Mg level improved on 10/22. Suspected gingivitis: Due to poor oral hygiene. -Continue Peridex, soak swab and apply to teeth, gums, tongue, and roof of mouth bid. Temperature 100.6 on 09/27/16, afebrile since Continue monitor for infection If further temperature elevation will proceed with infection workup Rhabdomyolysis without renal involvement: Resolved Status post IV fluids, CPK returned to normal Right testicular enlargement Patient has had multiple ultrasounds performed which did not indicate any changes. Does indicate right hydrocele, right epididymal cyst Continue to monitor and address if needed Iron deficiency anemia status post iron sucrose hemoglobin stable. Atypical chest pain Cardiac enzymes normal x 2, EKG within normal limits No further reports of chest pain since admission. Dysphagia Speech therapy evaluated patient and recommends pureed diet and thin liquids. Hypertension: Stable Continue amlodipine and metoprolol DVT prophylaxis: Lovenox, SCDs. Discharge Planning Submitted application for social security benefits. 10/24/16: Per CM apparently patient is not a [place] citizen and family in [place] will not take responsibility for him. Difficulty finding assistance for him. Problem Qualifiers (1) Rhabdomyolysis: Qualified Code: M62.82 - Non-traumatic rhabdomyolysis (2) Dementia with behavioral disturbance: Qualified Code: F03.91 - Dementia with behavioral disturbance, unspecified dementia type Naya Ferraro Nov 28, 2016 13:01
[2016-11-28 20:00] VITALS: BP 117/75; PULSE 69; RESP 18; TEMP 96.3; O2SAT 97
[2016-11-29 08:00] VITALS: BP 118/76; PULSE 64; RESP 18; TEMP 95.9; O2SAT 100
[2016-11-29] MEDS: METOPROLOL TARTRATE 25 MG TAB PO SCH (08:47)
[2016-11-29] MEDS: MEMANTINE HCL 10 MG TAB PO SCH ×2 (08:47→20:45)
[2016-11-29] MEDS: CHLORHEXIDINE GLUCONATE 0.12% 15 ML CUP SCH ×2 (08:48→20:45)
[2016-11-29] MEDS: ENOXAPARIN SODIUM 40 MG/0.4 ML SYRINGE SQ SCH (10:25)
--- NOTE | 2016-11-29 12:25 | HHI.PR ---
Subjective Remarks Follow-up for dementia. Sitting in dayroom. No acute complaints. Objective Vitals Vital Signs Date Time Temp Pulse Resp B/P Pulse Ox O2 Delivery O2 Flow Rate FiO2 11/29/16 08:00 95.9 64 18 118/76 100 11/28/16 20:00 96.3 69 18 117/75 97 I/O 11/28/16 11/28/16 11/28/16 11/29/16 11/29/16 11/29/16 06:59 14:59 22:59 06:59 14:59 22:59 Intake Total 240 ml 1050 ml 0 ml Balance 240 ml 1050 ml 0 ml Intake Oral 240 ml 1050 ml 0 ml # Voids 2 3 2 # Bowel Movements 2 1 Result Diagram: 11/27/1662411/27/16624 Objective Remarks GENERAL: Pleasant elderly patient in no apparent distress sitting in recliner in day room. CARDIOVASCULAR: Regular rate and rhythm. RESPIRATORY: No accessory muscle use. CTAB. NEUROLOGICAL: Awake and alert. PSYCHIATRIC: Pleasant mood and affect. Procedures None Urinary Catheter: No Vascular Central Line Catheter: No A/P Problem List: (1) Rhabdomyolysis ICD Code: M62.82 Status: Resolved (2) Dementia with behavioral disturbance ICD Code: F03.91 Status: Chronic (3) Atypical chest pain ICD Code: R07.89 Status: Resolved (4) Normocytic anemia ICD Code: D64.9 Status: Acute Assessment and Plan Dementia with disturbance of behavior: stable Continue home dosing of Memantine 10 mg po BID. Continue to hold Seroquel and Buspirone due to sedation; is awake and alert off these meds Soft restraints were removed Patient remains well behaved with good mood and affect. Hypermagnesemia: Resolved Magnesium hydroxide discontinued Mg level improved on 10/22. Suspected gingivitis: Due to poor oral hygiene. -Continue Peridex, soak swab and apply to teeth, gums, tongue, and roof of mouth bid. Temperature 100.6 on 09/27/16, afebrile since Continue monitor for infection If further temperature elevation will proceed with infection workup Rhabdomyolysis without renal involvement: Resolved Status post IV fluids, CPK returned to normal Right testicular enlargement Patient has had multiple ultrasounds performed which did not indicate any changes. Does indicate right hydrocele, right epididymal cyst Continue to monitor and address if needed Iron deficiency anemia status post iron sucrose hemoglobin stable. Atypical chest pain Cardiac enzymes normal x 2, EKG within normal limits No further reports of chest pain since admission. Dysphagia Speech therapy evaluated patient and recommends pureed diet and thin liquids. Hypertension: Stable Continue amlodipine and metoprolol DVT prophylaxis: Lovenox, SCDs. Discharge Planning Submitted application for social security benefits. 10/24/16: Per CM apparently patient is not a [place] citizen and family in [place] will not take responsibility for him. Difficulty finding assistance for him. Problem Qualifiers (1) Rhabdomyolysis: Qualified Code: M62.82 - Non-traumatic rhabdomyolysis (2) Dementia with behavioral disturbance: Qualified Code: F03.91 - Dementia with behavioral disturbance, unspecified dementia type Naya Ferraro Nov 29, 2016 12:25
[2016-11-29 20:00] VITALS: BP 120/81; PULSE 77; RESP 20; TEMP 97.1; O2SAT 100
[2016-11-30 08:00] VITALS: BP 128/80; PULSE 88; RESP 16; TEMP 97; O2SAT 96
[2016-11-30] MEDS: METOPROLOL TARTRATE 25 MG TAB PO SCH (09:24)
[2016-11-30] MEDS: ENOXAPARIN SODIUM 40 MG/0.4 ML SYRINGE SQ SCH (09:24)
[2016-11-30] MEDS: CHLORHEXIDINE GLUCONATE 0.12% 15 ML CUP SCH ×2 (09:24→21:00)
[2016-11-30] MEDS: MEMANTINE HCL 10 MG TAB PO SCH ×2 (09:24→20:53)
--- NOTE | 2016-11-30 10:21 | HHI.PR ---
Subjective Remarks Follow-up for dementia. No acute complaints. Objective Vitals Vital Signs Date Time Temp Pulse Resp B/P Pulse Ox O2 Delivery O2 Flow Rate FiO2 11/30/16 08:00 97.0 88 16 128/80 96 11/29/16 20:00 97.1 77 20 120/81 100 I/O 11/29/16 11/29/16 11/29/16 11/30/16 11/30/16 11/30/16 06:59 14:59 22:59 06:59 14:59 22:59 Intake Total 0 ml 0 ml Balance 0 ml 0 ml Intake Oral 0 ml 0 ml # Voids 2 3 # Bowel Movements 2 Result Diagram: 11/27/1662411/27/16624 Objective Remarks GENERAL: Pleasant elderly patient in no apparent distress sitting in recliner in day room. CARDIOVASCULAR: Regular rate and rhythm. RESPIRATORY: No accessory muscle use. CTAB. NEUROLOGICAL: Awake and alert. PSYCHIATRIC: Pleasant mood and affect. Procedures None Urinary Catheter: No Vascular Central Line Catheter: No A/P Problem List: (1) Rhabdomyolysis ICD Code: M62.82 Status: Resolved (2) Dementia with behavioral disturbance ICD Code: F03.91 Status: Chronic (3) Atypical chest pain ICD Code: R07.89 Status: Resolved (4) Normocytic anemia ICD Code: D64.9 Status: Acute Assessment and Plan Dementia with disturbance of behavior: stable Continue home dosing of Memantine 10 mg po BID. Continue to hold Seroquel and Buspirone due to sedation; is awake and alert off these meds Soft restraints were removed Patient remains well behaved with good mood and affect. Hypermagnesemia: Resolved Magnesium hydroxide discontinued Mg level improved on 10/22. Suspected gingivitis: Due to poor oral hygiene. -Continue Peridex, soak swab and apply to teeth, gums, tongue, and roof of mouth bid. Temperature 100.6 on 09/27/16, afebrile since Continue monitor for infection If further temperature elevation will proceed with infection workup Rhabdomyolysis without renal involvement: Resolved Status post IV fluids, CPK returned to normal Right testicular enlargement Patient has had multiple ultrasounds performed which did not indicate any changes. Does indicate right hydrocele, right epididymal cyst Continue to monitor and address if needed Iron deficiency anemia status post iron sucrose hemoglobin stable. Atypical chest pain Cardiac enzymes normal x 2, EKG within normal limits No further reports of chest pain since admission. Dysphagia Speech therapy evaluated patient and recommends pureed diet and thin liquids. Hypertension: Stable Continue amlodipine and metoprolol DVT prophylaxis: Lovenox, SCDs. Discharge Planning Submitted application for social security benefits. 10/24/16: Per CM apparently patient is not a [place] citizen and family in [place] will not take responsibility for him. Difficulty finding assistance for him. Problem Qualifiers (1) Rhabdomyolysis: Qualified Code: M62.82 - Non-traumatic rhabdomyolysis (2) Dementia with behavioral disturbance: Qualified Code: F03.91 - Dementia with behavioral disturbance, unspecified dementia type Naya Ferraro Nov 30, 2016 10:21
[2016-11-30 20:00] VITALS: BP 118/76; PULSE 68; RESP 20; TEMP 97.2; O2SAT 98
[2016-12-01 08:00] VITALS: BP 122/72; PULSE 69; RESP 17; TEMP 98.1; O2SAT 95
[2016-12-01] MEDS: CHLORHEXIDINE GLUCONATE 0.12% 15 ML CUP SCH ×2 (09:00→20:58)
[2016-12-01] MEDS: MEMANTINE HCL 10 MG TAB PO SCH ×2 (09:01→20:57)
[2016-12-01] MEDS: ENOXAPARIN SODIUM 40 MG/0.4 ML SYRINGE SQ SCH (09:01)
[2016-12-01] MEDS: METOPROLOL TARTRATE 25 MG TAB PO SCH (09:01)
--- NOTE | 2016-12-01 10:25 | HHI.PR ---
Subjective Remarks Follow-up for dementia. No acute complaints. Objective Vitals Vital Signs Date Time Temp Pulse Resp B/P Pulse Ox O2 Delivery O2 Flow Rate FiO2 12/01/16 08:00 98.1 69 17 122/72 95 11/30/16 20:00 97.2 68 20 118/76 98 I/O 11/30/16 11/30/16 11/30/16 12/01/16 12/01/16 12/01/16 06:59 14:59 22:59 06:59 14:59 22:59 Intake Total 0 ml 600 ml 720 ml Output Total 1 ml Balance 0 ml 599 ml 720 ml Intake Oral 0 ml 600 ml 720 ml Stool Total 1 ml # Voids 3 3 3 # Bowel Movements 2 1 Result Diagram: 11/27/1662411/27/16624 Objective Remarks GENERAL: Pleasant elderly patient in no apparent distress sitting in recliner in day room. CARDIOVASCULAR: Faint, but regular rate and rhythm. RESPIRATORY: No accessory muscle use. CTAB. GASTROINTESTINAL: Abdomen soft, non-tender, non-distended. NEUROLOGICAL: Awake and alert. PSYCHIATRIC: Pleasant mood and affect. Procedures None Urinary Catheter: No Vascular Central Line Catheter: No A/P Problem List: (1) Rhabdomyolysis ICD Code: M62.82 Status: Resolved (2) Dementia with behavioral disturbance ICD Code: F03.91 Status: Chronic (3) Atypical chest pain ICD Code: R07.89 Status: Resolved (4) Normocytic anemia ICD Code: D64.9 Status: Acute Assessment and Plan Dementia with disturbance of behavior: stable Continue home dosing of Memantine 10 mg po BID. Continue to hold Seroquel and Buspirone due to sedation; is awake and alert off these meds Soft restraints were removed Patient remains well behaved with good mood and affect. Hypermagnesemia: Resolved Magnesium hydroxide discontinued Mg level improved on 10/22. Suspected gingivitis: Due to poor oral hygiene. -Continue Peridex, soak swab and apply to teeth, gums, tongue, and roof of mouth bid. Temperature 100.6 on 09/27/16, afebrile since Continue monitor for infection If further temperature elevation will proceed with infection workup Rhabdomyolysis without renal involvement: Resolved Status post IV fluids, CPK returned to normal Right testicular enlargement Patient has had multiple ultrasounds performed which did not indicate any changes. Does indicate right hydrocele, right epididymal cyst Continue to monitor and address if needed Iron deficiency anemia status post iron sucrose hemoglobin stable. Atypical chest pain Cardiac enzymes normal x 2, EKG within normal limits No further reports of chest pain since admission. Dysphagia Speech therapy evaluated patient and recommends pureed diet and thin liquids. Hypertension: Stable Continue amlodipine and metoprolol DVT prophylaxis: Lovenox, SCDs. Discharge Planning Submitted application for social security benefits. 10/24/16: Per CM apparently patient is not a [place] citizen and family in [place] will not take responsibility for him. Difficulty finding assistance for him. Problem Qualifiers (1) Rhabdomyolysis: Qualified Code: M62.82 - Non-traumatic rhabdomyolysis (2) Dementia with behavioral disturbance: Qualified Code: F03.91 - Dementia with behavioral disturbance, unspecified dementia type Naya Ferraro Dec 01, 2016 10:25
[2016-12-01 20:00] VITALS: BP_SYST 100; BP_SYST 107; BP_DIAS 70; BP_DIAS 74; PULSE 66; PULSE 97; RESP 16; RESP 18; TEMP 97.5; TEMP 98; O2SAT 93; O2SAT 96
[2016-12-02 09:28] VITALS: BP 89/72; PULSE 75; RESP 22; TEMP 96.8; O2SAT 97
[2016-12-02] MEDS: ENOXAPARIN SODIUM 40 MG/0.4 ML SYRINGE SQ SCH (10:03)
[2016-12-02] MEDS: MEMANTINE HCL 10 MG TAB PO SCH ×2 (10:03→21:24)
[2016-12-02] MEDS: METOPROLOL TARTRATE 25 MG TAB PO SCH (10:03)
[2016-12-02] MEDS: CHLORHEXIDINE GLUCONATE 0.12% 15 ML CUP SCH ×2 (10:19→21:25)
--- NOTE | 2016-12-02 11:30 | HHI.PR ---
Subjective Remarks Patient seen and examined today for follow-up on dementia. Patient lying in bed comfortable. Denies any new complaints. No change in clinical status. Awaiting case management for discharge planning. Objective Vitals Vital Signs Date Time Temp Pulse Resp B/P Pulse Ox O2 Delivery O2 Flow Rate FiO2 12/02/16 09:28 96.8 75 22 89/72 97 12/01/16 20:00 97.5 97 16 100/74 93 I/O 12/01/16 12/01/16 12/01/16 12/02/16 12/02/16 12/02/16 07:00 15:00 23:00 07:00 15:00 23:00 Intake Total 720 ml 540 ml 0 ml Balance 720 ml 540 ml 0 ml Intake Oral 720 ml 540 ml 0 ml # Voids 3 1 # Bowel Movements 1 1 1 Objective Remarks GENERAL: Well-developed, cachectic, in no acute distress. Arousable, patient appears to be alert, he is orientated to person and state. He has not orientated to city, date, year HEENT: Head is normocephalic without any lesions or masses noted. Facial features are symmetric with bitemporal wasting. Eyes: Extraocular muscles are intact. Conjunctivae were clear. NECK: Trachea midline no deviation. CARDIAC: Regular rhythm, regular rate. S1/S2 are heard. 2/6 ejection murmur, no gallops or rubs. LUNGS: Clear to auscultation bilaterally. No wheeze, rhonchi or rales. No use of accessory muscles on inspiration or expiration. ABDOMEN: Soft, nontender. Nondistended. Bowel sounds heard in all 4 quadrants. No organomegaly or masses. Negative rebound, negative guarding EXTREMITIES: No edema, pulses are equal bilaterally. No cyanosis or clubbing NEUROLOGY: Patient with significant dementia. Cranial nerves are grossly intact. Procedures None Urinary Catheter: No Vascular Central Line Catheter: No A/P Assessment and Plan Dementia with disturbance of behavior, stable Continue home dosing of memantine 10 mg po BID. Discontinue Seroquel and Buspirone, since patient became more alert with being off medications, patient has not had any abnormal behavior Right testicular enlargement, stable Patient has had multiple ultrasounds performed which did not indicate any changes. Does indicate right hydrocele, right epididymal cyst Continue monitor and address if needed Iron deficiency anemia- stable status post iron sucrose, hemoglobin stable. Atypical chest pain, resolved Cardiac enzymes normal x 2, EKG within normal limits No further reports of chest pain since admission. Dysphagia Speech therapy re-evaluated patient and continue to recommended mechanical soft diet, chopped meat with gravy and thin liquids hypertension, blood pressure stable Lopressor 12.5 mg daily DVT prophylaxis: Lovenox, SCD's Discharge Planning Difficult discharge situation with significant dementia, non-US citizen, no payer source, family unwilling to take patient home. Case management for discharge planning Gonzales Babcock Dec 02, 2016 11:30
[2016-12-02 20:00] VITALS: BP 115/71; PULSE 75; RESP 16; TEMP 97.5; O2SAT 94
[2016-12-03 08:00] VITALS: BP 127/80; PULSE 80; RESP 18; TEMP 97.7; O2SAT 95
[2016-12-03] MEDS: CHLORHEXIDINE GLUCONATE 0.12% 15 ML CUP SCH ×2 (09:00→20:40)
[2016-12-03] MEDS: MEMANTINE HCL 10 MG TAB PO SCH ×2 (09:59→20:40)
[2016-12-03] MEDS: ENOXAPARIN SODIUM 40 MG/0.4 ML SYRINGE SQ SCH (10:00)
[2016-12-03] MEDS: METOPROLOL TARTRATE 25 MG TAB PO SCH (10:00)
--- NOTE | 2016-12-03 14:37 | HHI.PR ---
Subjective Remarks Patient seen and examined today for follow-up on dementia. It is been no change in clinical status. No new complaints. Objective Vitals Vital Signs Date Time Temp Pulse Resp B/P Pulse Ox O2 Delivery O2 Flow Rate FiO2 12/03/16 08:00 97.7 80 18 127/80 95 12/02/16 20:00 97.5 75 16 115/71 94 I/O 12/02/16 12/02/16 12/02/16 12/03/16 12/03/16 12/03/16 07:00 15:00 23:00 07:00 15:00 23:00 Intake Total 0 ml 720 ml Balance 0 ml 720 ml Intake Oral 0 ml 480 ml Oral Supplement 240 ml # Voids 1 3 2 # Bowel Movements 1 1 1 Objective Remarks GENERAL: Well-developed, cachectic, in no acute distress. Arousable, patient appears to be alert, he is orientated to person and state. He has not orientated to city, date, year HEENT: Head is normocephalic without any lesions or masses noted. Facial features are symmetric with bitemporal wasting. Eyes: Extraocular muscles are intact. Conjunctivae were clear. NECK: Trachea midline no deviation. CARDIAC: Regular rhythm, regular rate. S1/S2 are heard. 2/6 ejection murmur, no gallops or rubs. LUNGS: Clear to auscultation bilaterally. No wheeze, rhonchi or rales. No use of accessory muscles on inspiration or expiration. ABDOMEN: Soft, nontender. Nondistended. Bowel sounds heard in all 4 quadrants. No organomegaly or masses. Negative rebound, negative guarding EXTREMITIES: No edema, pulses are equal bilaterally. No cyanosis or clubbing NEUROLOGY: Patient with significant dementia. Cranial nerves are grossly intact. Procedures None Urinary Catheter: No Vascular Central Line Catheter: No A/P Assessment and Plan Dementia with disturbance of behavior, stable Continue home dosing of memantine 10 mg po BID. Discontinue Seroquel and Buspirone, since patient became more alert with being off medications, patient has not had any abnormal behavior Right testicular enlargement, stable Patient has had multiple ultrasounds performed which did not indicate any changes. Does indicate right hydrocele, right epididymal cyst Continue monitor and address if needed Iron deficiency anemia- stable status post iron sucrose, hemoglobin stable. Atypical chest pain, resolved Cardiac enzymes normal x 2, EKG within normal limits No further reports of chest pain since admission. Dysphagia Speech therapy re-evaluated patient and continue to recommended mechanical soft diet, chopped meat with gravy and thin liquids hypertension, blood pressure stable Lopressor 12.5 mg daily DVT prophylaxis: Lovenox, SCD's Records reviewed, no change in current treatment plan Discharge Planning Difficult discharge situation with significant dementia, non-US citizen, no payer source, family unwilling to take patient home. Case management for discharge planning Gonzales Babcock Dec 03, 2016 14:37
[2016-12-03 20:00] VITALS: BP 116/74; PULSE 81; RESP 20; TEMP 96.2; O2SAT 99
[2016-12-04] MEDS: CHLORHEXIDINE GLUCONATE 0.12% 15 ML CUP SCH ×2 (09:00→20:05)
[2016-12-04 09:04] VITALS: BP 119/83; PULSE 83; RESP 19; TEMP 98.3; O2SAT 99
[2016-12-04] MEDS: MEMANTINE HCL 10 MG TAB PO SCH ×2 (09:34→20:05)
[2016-12-04] MEDS: ENOXAPARIN SODIUM 40 MG/0.4 ML SYRINGE SQ SCH (09:34)
[2016-12-04] MEDS: METOPROLOL TARTRATE 25 MG TAB PO SCH (09:34)
--- NOTE | 2016-12-04 11:59 | HHI.PR ---
Subjective Remarks Patient seen and examined today for follow-up on dementia. Patient denies any new complaints. No change in clinical status. Awaiting case management for discharge planning. Objective Vitals Vital Signs Date Time Temp Pulse Resp B/P Pulse Ox O2 Delivery O2 Flow Rate FiO2 12/04/16 09:04 98.3 83 19 119/83 99 12/03/16 20:00 96.2 81 20 116/74 99 I/O 12/03/16 12/03/16 12/03/16 12/04/16 12/04/16 12/04/16 07:00 15:00 23:00 07:00 15:00 23:00 Intake Total 720 ml 1320 ml 480 ml Output Total 2 ml Balance 720 ml 1318 ml 480 ml Intake Oral 480 ml 1080 ml 480 ml Oral Supplement 240 ml 240 ml Stool Total 2 ml # Voids 2 5 2 # Bowel Movements 1 1 1 Objective Remarks GENERAL: Well-developed, cachectic, in no acute distress. Arousable, patient appears to be alert, he is orientated to person and state. He has not orientated to city, date, year HEENT: Head is normocephalic without any lesions or masses noted. Facial features are symmetric with bitemporal wasting. Eyes: Extraocular muscles are intact. Conjunctivae were clear. NECK: Trachea midline no deviation. CARDIAC: Regular rhythm, regular rate. S1/S2 are heard. 2/6 ejection murmur, no gallops or rubs. LUNGS: Clear to auscultation bilaterally. No wheeze, rhonchi or rales. No use of accessory muscles on inspiration or expiration. ABDOMEN: Soft, nontender. Nondistended. Bowel sounds heard in all 4 quadrants. No organomegaly or masses. Negative rebound, negative guarding EXTREMITIES: No edema, pulses are equal bilaterally. No cyanosis or clubbing NEUROLOGY: Patient with significant dementia. Cranial nerves are grossly intact. Procedures None Urinary Catheter: No Vascular Central Line Catheter: No A/P Assessment and Plan Dementia with disturbance of behavior, stable Continue home dosing of memantine 10 mg po BID. Discontinue Seroquel and Buspirone, since patient became more alert with being off medications, patient has not had any abnormal behavior Right testicular enlargement, stable Patient has had multiple ultrasounds performed which did not indicate any changes. Does indicate right hydrocele, right epididymal cyst Continue monitor and address if needed Iron deficiency anemia- stable status post iron sucrose, hemoglobin stable. Atypical chest pain, resolved Cardiac enzymes normal x 2, EKG within normal limits No further reports of chest pain since admission. Dysphagia Speech therapy re-evaluated patient and continue to recommended mechanical soft diet, chopped meat with gravy and thin liquids hypertension, blood pressure stable Lopressor 12.5 mg daily DVT prophylaxis: Lovenox, SCD's Records reviewed, no change in current treatment plan Discharge Planning Difficult discharge situation with significant dementia, non-US citizen, no payer source, family unwilling to take patient home. Case management for discharge planning Gonzales Babcock Dec 04, 2016 11:59
[2016-12-04 20:00] VITALS: BP 110/69; PULSE 103; RESP 18; TEMP 98.4; O2SAT 94
[2016-12-05 08:00] VITALS: BP 122/76; PULSE 84; RESP 16; TEMP 97.8; O2SAT 95
[2016-12-05] MEDS: MEMANTINE HCL 10 MG TAB PO SCH ×2 (08:47→21:03)
[2016-12-05] MEDS: METOPROLOL TARTRATE 25 MG TAB PO SCH (08:47)
[2016-12-05] MEDS: CHLORHEXIDINE GLUCONATE 0.12% 15 ML CUP SCH ×2 (08:47→21:00)
[2016-12-05] MEDS: ENOXAPARIN SODIUM 40 MG/0.4 ML SYRINGE SQ SCH (08:48)
--- NOTE | 2016-12-05 11:04 | HHI.PR ---
Subjective Remarks Patient seen and examined today follow-up on dementia. Patient denies any new complaints. No change in clinical status. Awaiting case management for discharge planning. Objective Vitals Vital Signs Date Time Temp Pulse Resp B/P Pulse Ox O2 Delivery O2 Flow Rate FiO2 12/05/16 08:00 97.8 84 16 122/76 95 12/04/16 20:00 98.4 103 18 110/69 94 I/O 12/04/16 12/04/16 12/04/16 12/05/16 12/05/16 12/05/16 07:00 15:00 23:00 07:00 15:00 23:00 Intake Total 480 ml 280 ml Balance 480 ml 280 ml Intake Oral 480 ml 280 ml # Voids 2 0 # Bowel Movements 1 1 Objective Remarks GENERAL: Well-developed, cachectic, in no acute distress. Arousable, patient appears to be alert, he is orientated to person and state. He has not orientated to city, date, year HEENT: Head is normocephalic without any lesions or masses noted. Facial features are symmetric with bitemporal wasting. Eyes: Extraocular muscles are intact. Conjunctivae were clear. NECK: Trachea midline no deviation. CARDIAC: Regular rhythm, regular rate. S1/S2 are heard. 2/6 ejection murmur, no gallops or rubs. LUNGS: Clear to auscultation bilaterally. No wheeze, rhonchi or rales. No use of accessory muscles on inspiration or expiration. ABDOMEN: Soft, nontender. Nondistended. Bowel sounds heard in all 4 quadrants. No organomegaly or masses. Negative rebound, negative guarding EXTREMITIES: No edema, pulses are equal bilaterally. No cyanosis or clubbing NEUROLOGY: Patient with significant dementia. He is quite pleasant. Answers questions appropriately Cranial nerves are grossly intact. Procedures None Urinary Catheter: No Vascular Central Line Catheter: No A/P Assessment and Plan Dementia with disturbance of behavior, stable Continue home dosing of memantine 10 mg po BID. Discontinue Seroquel and Buspirone, since patient became more alert with being off medications, patient has not had any abnormal behavior Right testicular enlargement, stable Patient has had multiple ultrasounds performed which did not indicate any changes. Does indicate right hydrocele, right epididymal cyst Continue monitor and address if needed Iron deficiency anemia- stable status post iron sucrose, hemoglobin stable. Atypical chest pain, resolved Cardiac enzymes normal x 2, EKG within normal limits No further reports of chest pain since admission. Dysphagia Speech therapy re-evaluated patient and continue to recommended mechanical soft diet, chopped meat with gravy and thin liquids hypertension, blood pressure stable Lopressor 12.5 mg daily DVT prophylaxis: Lovenox, SCD's Records reviewed, no change in current treatment plan Discharge Planning Difficult discharge situation with significant dementia, non-US citizen, no payer source, family unwilling to take patient home. Case management for discharge planning Gonzales Babcock Dec 05, 2016 11:04
[2016-12-05 20:00] VITALS: BP 123/72; PULSE 85; RESP 20; TEMP 98.4; O2SAT 100
[2016-12-06 07:41] VITALS: BP 114/67; PULSE 80; RESP 18; TEMP 97.9; O2SAT 98
[2016-12-06 08:00] VITALS: BP 114/67; PULSE 80; RESP 18; TEMP 97.9; O2SAT 98
[2016-12-06] MEDS: MEMANTINE HCL 10 MG TAB PO SCH ×2 (08:41→20:51)
[2016-12-06] MEDS: METOPROLOL TARTRATE 25 MG TAB PO SCH (08:41)
[2016-12-06] MEDS: CHLORHEXIDINE GLUCONATE 0.12% 15 ML CUP SCH ×2 (08:49→20:51)
[2016-12-06] MEDS: ENOXAPARIN SODIUM 40 MG/0.4 ML SYRINGE SQ SCH (09:38)
--- NOTE | 2016-12-06 12:01 | HHI.PR ---
Subjective Remarks Patient seen and examined today for follow-up on dementia. Patient denies any new complaints. No change in clinical status. Nursing staff indicates patient has a mild erythematous rash on his back. Objective Vitals Vital Signs Date Time Temp Pulse Resp B/P Pulse Ox O2 Delivery O2 Flow Rate FiO2 12/06/16 08:00 97.9 80 18 114/67 98 12/06/16 07:41 97.9 80 18 114/67 98 12/06/16 07:00 12/05/16 20:00 98.4 85 20 123/72 100 I/O 12/05/16 12/05/16 12/05/16 12/06/16 12/06/16 12/06/16 07:00 15:00 23:00 07:00 15:00 23:00 Intake Total 280 ml 600 ml Output Total 2 ml Balance 280 ml 598 ml Intake Oral 280 ml 600 ml Stool Total 2 ml # Voids 0 3 3 # Bowel Movements 1 2 Objective Remarks GENERAL: Well-developed, cachectic, in no acute distress. Arousable, patient appears to be alert, he is orientated to person and state. He has not orientated to city, date, year HEENT: Head is normocephalic without any lesions or masses noted. Facial features are symmetric with bitemporal wasting. Eyes: Extraocular muscles are intact. Conjunctivae were clear. NECK: Trachea midline no deviation. CARDIAC: Regular rhythm, regular rate. S1/S2 are heard. 2/6 ejection murmur, no gallops or rubs. LUNGS: Clear to auscultation bilaterally. No wheeze, rhonchi or rales. No use of accessory muscles on inspiration or expiration. ABDOMEN: Soft, nontender. Nondistended. Bowel sounds heard in all 4 quadrants. No organomegaly or masses. Negative rebound, negative guarding EXTREMITIES: No edema, pulses are equal bilaterally. No cyanosis or clubbing NEUROLOGY: Patient with significant dementia. He is quite pleasant. Answers questions appropriately Cranial nerves are grossly intact. Procedures None Urinary Catheter: No Vascular Central Line Catheter: No A/P Assessment and Plan Dementia with disturbance of behavior, stable Continue home dosing of memantine 10 mg po BID. Discontinue Seroquel and Buspirone, since patient became more alert with being off medications, patient has not had any abnormal behavior Back rash Constipations on keeping patient clean and monitor for infection Right testicular enlargement, stable Patient has had multiple ultrasounds performed which did not indicate any changes. Does indicate right hydrocele, right epididymal cyst Continue monitor and address if needed Iron deficiency anemia- stable status post iron sucrose, hemoglobin stable. Atypical chest pain, resolved Cardiac enzymes normal x 2, EKG within normal limits No further reports of chest pain since admission. Dysphagia Speech therapy re-evaluated patient and continue to recommended mechanical soft diet, chopped meat with gravy and thin liquids hypertension, blood pressure stable Lopressor 12.5 mg daily DVT prophylaxis: Lovenox, SCD's Discharge Planning Difficult discharge situation with significant dementia, non-[place] citizen, no payer source, family unwilling to take patient home. Case management for discharge planning Gonzales Babcock Dec 06, 2016 12:01
[2016-12-06 20:00] VITALS: BP 110/72; PULSE 80; RESP 16; TEMP 95.9; O2SAT 97
--- NOTE | 2016-12-07 07:37 | HHI.PR ---
Subjective Remarks Patient seen and examined today for follow-up on dementia. Patient lying in bed comfortably. No new complaints. No change in clinical status Objective Vitals Vital Signs Date Time Temp Pulse Resp B/P Pulse Ox O2 Delivery O2 Flow Rate FiO2 12/06/16 20:00 95.9 80 16 110/72 97 12/06/16 08:00 97.9 80 18 114/67 98 12/06/16 07:41 97.9 80 18 114/67 98 I/O 12/06/16 12/06/16 12/06/16 12/07/16 12/07/16 12/07/16 06:59 14:59 22:59 06:59 14:59 22:59 Intake Total 450 ml 700 ml 480 ml Balance 450 ml 700 ml 480 ml Intake Oral 450 ml 480 ml 480 ml Oral Supplement 220 ml # Voids 3 3 1 2 # Bowel Movements 2 1 2 Objective Remarks GENERAL: Well-developed, cachectic, in no acute distress. Arousable, patient appears to be alert, he is orientated to person and state. He has not orientated to city, date, year HEENT: Head is normocephalic without any lesions or masses noted. Facial features are symmetric with bitemporal wasting. Eyes: Extraocular muscles are intact. Conjunctivae were clear. NECK: Trachea midline no deviation. CARDIAC: Regular rhythm, regular rate. S1/S2 are heard. 2/6 ejection murmur, no gallops or rubs. LUNGS: Clear to auscultation bilaterally. No wheeze, rhonchi or rales. No use of accessory muscles on inspiration or expiration. ABDOMEN: Soft, nontender. Nondistended. Bowel sounds heard in all 4 quadrants. No organomegaly or masses. Negative rebound, negative guarding EXTREMITIES: No edema, pulses are equal bilaterally. No cyanosis or clubbing NEUROLOGY: Patient with significant dementia. He is quite pleasant. Answers questions appropriately Cranial nerves are grossly intact. Procedures None Urinary Catheter: No Vascular Central Line Catheter: No A/P Assessment and Plan Dementia with disturbance of behavior, stable Continue home dosing of memantine 10 mg po BID. Discontinue Seroquel and Buspirone, since patient became more alert with being off medications, patient has not had any abnormal behavior Back rash Counseled nursing on keeping patient clean and monitor for infection Right testicular enlargement, stable Patient has had multiple ultrasounds performed which did not indicate any changes. Does indicate right hydrocele, right epididymal cyst Continue monitor and address if needed Iron deficiency anemia- stable status post iron sucrose, hemoglobin stable. Atypical chest pain, resolved Cardiac enzymes normal x 2, EKG within normal limits No further reports of chest pain since admission. Dysphagia Speech therapy re-evaluated patient and continue to recommended mechanical soft diet, chopped meat with gravy and thin liquids hypertension, blood pressure stable Lopressor 12.5 mg daily DVT prophylaxis: Lovenox, SCD's Discharge Planning Difficult discharge situation with significant dementia, non-[place] citizen, no payer source, family unwilling to take patient home. Case management for discharge planning Gonzales Babcock Dec 07, 2016 07:37
[2016-12-07 07:46] VITALS: BP 106/65; PULSE 66; RESP 15; TEMP 98; O2SAT 97
[2016-12-07] MEDS: METOPROLOL TARTRATE 25 MG TAB PO SCH (07:50)
[2016-12-07] MEDS: CHLORHEXIDINE GLUCONATE 0.12% 15 ML CUP SCH ×2 (07:51→21:00)
[2016-12-07] MEDS: MEMANTINE HCL 10 MG TAB PO SCH ×2 (07:51→21:00)
[2016-12-07] MEDS: ENOXAPARIN SODIUM 40 MG/0.4 ML SYRINGE SQ SCH (07:52)
[2016-12-07] MEDS: ACETAMINOPHEN 325 MG TAB PO PRN (18:41)
[2016-12-07 20:00] VITALS: BP 118/83; PULSE 84; RESP 20; TEMP 98.2; O2SAT 99
[2016-12-08 08:00] VITALS: BP 107/72; PULSE 72; RESP 16; TEMP 97.2; O2SAT 98
[2016-12-08] MEDS: ENOXAPARIN SODIUM 40 MG/0.4 ML SYRINGE SQ SCH (08:35)
[2016-12-08] MEDS: MEMANTINE HCL 10 MG TAB PO SCH ×2 (08:36→21:25)
[2016-12-08] MEDS: CHLORHEXIDINE GLUCONATE 0.12% 15 ML CUP SCH ×2 (08:36→21:00)
[2016-12-08] MEDS: METOPROLOL TARTRATE 25 MG TAB PO SCH (08:36)
--- NOTE | 2016-12-08 10:48 | HHI.PR ---
Subjective Remarks Patient seen and examined today for follow-up on dementia. Patient sitting in chair in the common area without complaints. Nursing staff does not indicate any new problems. Awaiting case management for discharge planning Objective Vitals Vital Signs Date Time Temp Pulse Resp B/P (MAP) Pulse Ox O2 Delivery O2 Flow Rate FiO2 12/07/16 20:00 98.2 84 20 118/83 (95) 99 12/07/16 19:41 16 I/O 12/07/16 12/07/16 12/07/16 12/08/16 12/08/16 12/08/16 06:59 14:59 22:59 06:59 14:59 22:59 Intake Total 480 ml 860 ml 60 ml Balance 480 ml 860 ml 60 ml Intake Oral 480 ml 860 ml 60 ml # Voids 2 5 2 # Bowel Movements 2 2 0 Objective Remarks GENERAL: Well-developed, cachectic, in no acute distress. Arousable, patient appears to be alert, he is orientated to person and state. He has not orientated to city, date, year HEENT: Head is normocephalic without any lesions or masses noted. Facial features are symmetric with bitemporal wasting. Eyes: Extraocular muscles are intact. Conjunctivae were clear. NECK: Trachea midline no deviation. CARDIAC: Regular rhythm, regular rate. S1/S2 are heard. 2/6 ejection murmur, no gallops or rubs. LUNGS: Clear to auscultation bilaterally. No wheeze, rhonchi or rales. No use of accessory muscles on inspiration or expiration. ABDOMEN: Soft, nontender. Nondistended. Bowel sounds heard in all 4 quadrants. No organomegaly or masses. Negative rebound, negative guarding EXTREMITIES: No edema, pulses are equal bilaterally. No cyanosis or clubbing NEUROLOGY: Patient with significant dementia. He is quite pleasant. Answers questions appropriately Cranial nerves are grossly intact. Procedures None Urinary Catheter: No Vascular Central Line Catheter: No A/P Assessment and Plan Dementia with disturbance of behavior, stable Continue home dosing of memantine 10 mg po BID. Discontinue Seroquel and Buspirone, since patient became more alert with being off medications, patient has not had any abnormal behavior Back rash Counseled nursing on keeping patient clean and monitor for infection Right testicular enlargement, stable Patient has had multiple ultrasounds performed which did not indicate any changes. Does indicate right hydrocele, right epididymal cyst Continue monitor and address if needed Iron deficiency anemia- stable status post iron sucrose, hemoglobin stable. Atypical chest pain, resolved Cardiac enzymes normal x 2, EKG within normal limits No further reports of chest pain since admission. Dysphagia Speech therapy re-evaluated patient and continue to recommended mechanical soft diet, chopped meat with gravy and thin liquids hypertension, blood pressure stable Lopressor 12.5 mg daily DVT prophylaxis: Lovenox, SCD's Discharge Planning Difficult discharge situation with significant dementia, non-[place] citizen, no payer source, family unwilling to take patient home. Case management for discharge planning Gonzales Babcock Dec 08, 2016 10:48
[2016-12-08 20:00] VITALS: BP 93/73; PULSE 104; RESP 18; TEMP 98.5; O2SAT 97
[2016-12-09 08:00] VITALS: BP 101/72; PULSE 70; RESP 20; TEMP 97.3; O2SAT 95
[2016-12-09] MEDS: CHLORHEXIDINE GLUCONATE 0.12% 15 ML CUP SCH ×2 (09:00→19:56)
[2016-12-09] MEDS: METOPROLOL TARTRATE 25 MG TAB PO SCH (09:09)
[2016-12-09] MEDS: ENOXAPARIN SODIUM 40 MG/0.4 ML SYRINGE SQ SCH (09:09)
[2016-12-09] MEDS: MEMANTINE HCL 10 MG TAB PO SCH ×2 (09:09→19:57)
--- NOTE | 2016-12-09 10:13 | HHI.PR ---
Subjective Remarks Follow-up for dementia. No acute complaints. Objective Vitals Vital Signs Date Time Temp Pulse Resp B/P (MAP) Pulse Ox O2 Delivery O2 Flow Rate FiO2 12/09/16 08:00 97.3 70 20 101/72 (82) 95 12/08/16 20:00 98.5 104 18 93/73 (80) 97 I/O 12/08/16 12/08/16 12/08/16 12/09/16 12/09/16 12/09/16 07:00 15:00 23:00 07:00 15:00 23:00 Intake Total 60 ml 480 ml 180 ml Output Total 600 ml Balance 60 ml 480 ml -420 ml Intake Oral 60 ml 480 ml 180 ml Output Urine Total 600 ml # Voids 2 2 3 # Bowel Movements 0 1 0 Objective Remarks GENERAL: Pleasant elderly patient in no apparent distress sitting in recliner in day room. CARDIOVASCULAR: Regular rate and rhythm. RESPIRATORY: No accessory muscle use. CTAB. GASTROINTESTINAL: Abdomen soft, non-tender, non-distended. NEUROLOGICAL: Awake and alert. PSYCHIATRIC: Pleasant mood and affect. Procedures None Urinary Catheter: No Vascular Central Line Catheter: No A/P Problem List: (1) Rhabdomyolysis ICD Code: M62.82 - Rhabdomyolysis Status: Resolved (2) Dementia with behavioral disturbance ICD Code: F03.91 - Unspecified dementia with behavioral disturbance Status: Chronic (3) Atypical chest pain ICD Code: R07.89 - Other chest pain Status: Resolved (4) Normocytic anemia ICD Code: D64.9 - Anemia, unspecified Status: Acute Assessment and Plan Dementia with disturbance of behavior: stable Continue home dosing of Memantine 10 mg po BID. Continue to hold Seroquel and Buspirone due to sedation; is awake and alert off these meds Soft restraints were removed Patient remains well behaved with good mood and affect. Hypermagnesemia: Resolved Magnesium hydroxide discontinued Mg level improved on 10/22. Suspected gingivitis: Due to poor oral hygiene. -Continue Peridex, soak swab and apply to teeth, gums, tongue, and roof of mouth bid. Temperature 100.6 on 09/27/16, afebrile since Continue monitor for infection If further temperature elevation will proceed with infection workup Rhabdomyolysis without renal involvement: Resolved Status post IV fluids, CPK returned to normal Right testicular enlargement Patient has had multiple ultrasounds performed which did not indicate any changes. Does indicate right hydrocele, right epididymal cyst Continue to monitor and address if needed Iron deficiency anemia status post iron sucrose hemoglobin stable. Atypical chest pain Cardiac enzymes normal x 2, EKG within normal limits No further reports of chest pain since admission. Dysphagia Speech therapy evaluated patient and recommends pureed diet and thin liquids. Hypertension: Stable Continue amlodipine and metoprolol DVT prophylaxis: Lovenox, SCDs. Discharge Planning 12/08: Per CM patient not a citizen and has no benefits. Called D[employer] for assistance. Problem Qualifiers (1) Rhabdomyolysis: (2) Dementia with behavioral disturbance: Naya Ferraro Dec 09, 2016 10:13
[2016-12-09 20:00] VITALS: BP 100/63; PULSE 91; RESP 16; TEMP 97.6; O2SAT 97
[2016-12-10] MEDS: ENOXAPARIN SODIUM 40 MG/0.4 ML SYRINGE SQ SCH (08:44)
[2016-12-10] MEDS: CHLORHEXIDINE GLUCONATE 0.12% 15 ML CUP SCH ×2 (08:45→20:44)
[2016-12-10] MEDS: METOPROLOL TARTRATE 25 MG TAB PO SCH (08:45)
[2016-12-10] MEDS: MEMANTINE HCL 10 MG TAB PO SCH ×2 (08:45→20:44)
--- NOTE | 2016-12-10 12:21 | HHI.PR ---
Subjective Remarks Follow-up for dementia. No acute complaints. Objective Vitals Vital Signs Date Time Temp Pulse Resp B/P (MAP) Pulse Ox O2 Delivery O2 Flow Rate FiO2 12/09/16 20:00 97.6 91 16 100/63 (75) 97 I/O 12/09/16 12/09/16 12/09/16 12/10/16 12/10/16 12/10/16 07:00 15:00 23:00 07:00 15:00 23:00 Intake Total 180 ml 450 ml 700 ml 480 ml Output Total 600 ml Balance -420 ml 450 ml 700 ml 480 ml Intake Oral 180 ml 450 ml 480 ml 480 ml Oral Supplement 220 ml Output Urine Total 600 ml # Voids 2 2 3 # Bowel Movements 0 1 2 3 Objective Remarks GENERAL: Pleasant elderly patient in no apparent distress sitting in recliner in day room. CARDIOVASCULAR: Regular rate and rhythm. RESPIRATORY: No accessory muscle use. CTAB. GASTROINTESTINAL: Abdomen soft, non-tender, non-distended. NEUROLOGICAL: Awake and alert. PSYCHIATRIC: Pleasant mood and affect. Procedures None Urinary Catheter: No Vascular Central Line Catheter: No A/P Problem List: (1) Rhabdomyolysis ICD Code: M62.82 - Rhabdomyolysis Status: Resolved (2) Dementia with behavioral disturbance ICD Code: F03.91 - Unspecified dementia with behavioral disturbance Status: Chronic (3) Atypical chest pain ICD Code: R07.89 - Other chest pain Status: Resolved (4) Normocytic anemia ICD Code: D64.9 - Anemia, unspecified Status: Acute Assessment and Plan Dementia with disturbance of behavior: stable Continue home dosing of Memantine 10 mg po BID. Continue to hold Seroquel and Buspirone due to sedation; is awake and alert off these meds Soft restraints were removed Patient remains well behaved with good mood and affect. Hypermagnesemia: Resolved Magnesium hydroxide discontinued Mg level improved on 10/22. Suspected gingivitis: Due to poor oral hygiene. -Continue Peridex, soak swab and apply to teeth, gums, tongue, and roof of mouth bid. Temperature 100.6 on 09/27/16, afebrile since Continue monitor for infection If further temperature elevation will proceed with infection workup Rhabdomyolysis without renal involvement: Resolved Status post IV fluids, CPK returned to normal Right testicular enlargement Patient has had multiple ultrasounds performed which did not indicate any changes. Does indicate right hydrocele, right epididymal cyst Continue to monitor and address if needed Iron deficiency anemia status post iron sucrose hemoglobin stable. Atypical chest pain Cardiac enzymes normal x 2, EKG within normal limits No further reports of chest pain since admission. Dysphagia Speech therapy evaluated patient and recommends pureed diet and thin liquids. Hypertension: Stable Continue amlodipine and metoprolol DVT prophylaxis: Lovenox, SCDs. Discharge Planning 12/08: Per CM patient not a citizen and has no benefits. Called DCF for assistance. Problem Qualifiers (1) Rhabdomyolysis: (2) Dementia with behavioral disturbance: Naya Ferraro Dec 10, 2016 12:21
[2016-12-10 12:46] VITALS: BP 120/67; PULSE 65; RESP 20; TEMP 97.3; O2SAT 98
[2016-12-10 20:00] VITALS: BP 120/75; PULSE 88; RESP 20; TEMP 96.8; O2SAT 91
[2016-12-11 08:21] VITALS: BP 124/65; PULSE 72; RESP 19; TEMP 97.6; O2SAT 100
[2016-12-11] MEDS: CHLORHEXIDINE GLUCONATE 0.12% 15 ML CUP SCH ×2 (09:35→21:00)
[2016-12-11] MEDS: ENOXAPARIN SODIUM 40 MG/0.4 ML SYRINGE SQ SCH (09:36)
[2016-12-11] MEDS: MEMANTINE HCL 10 MG TAB PO SCH ×2 (09:36→21:15)
[2016-12-11] MEDS: METOPROLOL TARTRATE 25 MG TAB PO SCH (09:36)
--- NOTE | 2016-12-11 13:25 | HHI.PR ---
Subjective Remarks Follow-up for dementia. No acute complaints. Patient tells me in Mauritian "I feel good". Objective Vitals Vital Signs Date Time Temp Pulse Resp B/P (MAP) Pulse Ox O2 Delivery O2 Flow Rate FiO2 12/11/16 08:21 97.6 72 19 124/65 (84) 100 12/10/16 20:00 96.8 88 20 120/75 (90) 91 I/O 12/10/16 12/10/16 12/10/16 12/11/16 12/11/16 12/11/16 06:59 14:59 22:59 06:59 14:59 22:59 Intake Total 480 ml 240 ml 240 ml Balance 480 ml 240 ml 240 ml Intake Oral 480 ml 240 ml 240 ml # Voids 3 1 1 # Bowel Movements 3 0 1 Objective Remarks GENERAL: Pleasant elderly patient in no apparent distress sitting in recliner in day room. CARDIOVASCULAR: Regular rate and rhythm. RESPIRATORY: No accessory muscle use. CTAB. NEUROLOGICAL: Awake and alert. PSYCHIATRIC: Pleasant mood and affect. Procedures None Urinary Catheter: No Vascular Central Line Catheter: No A/P Problem List: (1) Rhabdomyolysis ICD Code: M62.82 - Rhabdomyolysis Status: Resolved (2) Dementia with behavioral disturbance ICD Code: F03.91 - Unspecified dementia with behavioral disturbance Status: Chronic (3) Atypical chest pain ICD Code: R07.89 - Other chest pain Status: Resolved (4) Normocytic anemia ICD Code: D64.9 - Anemia, unspecified Status: Acute Assessment and Plan Dementia with disturbance of behavior: stable Continue home dosing of Memantine 10 mg po BID. Continue to hold Seroquel and Buspirone due to sedation; is awake and alert off these meds Soft restraints were removed Patient remains well behaved with good mood and affect. Hypermagnesemia: Resolved Magnesium hydroxide discontinued Mg level improved on 10/22. Suspected gingivitis: Due to poor oral hygiene. -Continue Peridex, soak swab and apply to teeth, gums, tongue, and roof of mouth bid. Temperature 100.6 on 09/27/16, afebrile since Continue monitor for infection If further temperature elevation will proceed with infection workup Rhabdomyolysis without renal involvement: Resolved Status post IV fluids, CPK returned to normal Right testicular enlargement Patient has had multiple ultrasounds performed which did not indicate any changes. Does indicate right hydrocele, right epididymal cyst Continue to monitor and address if needed Iron deficiency anemia status post iron sucrose hemoglobin stable. Atypical chest pain Cardiac enzymes normal x 2, EKG within normal limits No further reports of chest pain since admission. Dysphagia Speech therapy evaluated patient and recommends pureed diet and thin liquids. Hypertension: Stable Continue amlodipine and metoprolol DVT prophylaxis: Lovenox, SCDs. Discharge Planning 12/08: Per CM patient not a citizen and has no benefits. Called DCF for assistance. Problem Qualifiers (1) Rhabdomyolysis: (2) Dementia with behavioral disturbance: Naya Ferraro Dec 11, 2016 13:25
[2016-12-11 20:00] VITALS: BP 100/71; PULSE 90; RESP 20; TEMP 97.6; O2SAT 97
[2016-12-12] MEDS: MEMANTINE HCL 10 MG TAB PO SCH ×2 (07:34→19:32)
[2016-12-12] MEDS: CHLORHEXIDINE GLUCONATE 0.12% 15 ML CUP SCH ×2 (07:34→19:31)
[2016-12-12] MEDS: METOPROLOL TARTRATE 25 MG TAB PO SCH (07:34)
[2016-12-12] MEDS: ENOXAPARIN SODIUM 40 MG/0.4 ML SYRINGE SQ SCH (07:36)
[2016-12-12 08:00] VITALS: BP 101/66; PULSE 95; RESP 18; TEMP 96.2; O2SAT 93
--- NOTE | 2016-12-12 09:49 | HHI.PR ---
Subjective Remarks Follow up for dementia. Sleeping when I enter the room. No acute issues. Objective Vitals Vital Signs Date Time Temp Pulse Resp B/P (MAP) Pulse Ox O2 Delivery O2 Flow Rate FiO2 12/12/16 08:00 96.2 95 18 101/66 (78) 93 12/11/16 20:00 97.6 90 20 100/71 (81) 97 I/O 12/11/16 12/11/16 12/11/16 12/12/16 12/12/16 12/12/16 06:59 14:59 22:59 06:59 14:59 22:59 Intake Total 240 ml 1130 ml 240 ml Balance 240 ml 1130 ml 240 ml Intake Oral 240 ml 1130 ml 240 ml # Voids 1 5 2 # Bowel Movements 1 2 2 Objective Remarks GENERAL: Pleasant elderly patient in no apparent distress. CARDIOVASCULAR: Faint heart sounds. Regular rate and rhythm. RESPIRATORY: No accessory muscle use. CTAB. GASTROINTESTINAL: Abdomen soft, non-tender, non-distended. NEUROLOGICAL: Awake and alert. PSYCHIATRIC: Pleasant mood and affect. Procedures None Urinary Catheter: No Vascular Central Line Catheter: No A/P Problem List: (1) Rhabdomyolysis ICD Code: M62.82 - Rhabdomyolysis Status: Resolved (2) Dementia with behavioral disturbance ICD Code: F03.91 - Unspecified dementia with behavioral disturbance Status: Chronic (3) Atypical chest pain ICD Code: R07.89 - Other chest pain Status: Resolved (4) Normocytic anemia ICD Code: D64.9 - Anemia, unspecified Status: Acute Assessment and Plan Dementia with disturbance of behavior: stable Continue home dosing of Memantine 10 mg po BID. Continue to hold Seroquel and Buspirone due to sedation; is awake and alert off these meds Soft restraints were removed Patient remains well behaved with good mood and affect. Hypermagnesemia: Resolved Magnesium hydroxide discontinued Mg level improved on 10/22. Suspected gingivitis: Due to poor oral hygiene. -Continue Peridex, soak swab and apply to teeth, gums, tongue, and roof of mouth bid. Temperature 100.6 on 09/27/16, afebrile since Continue monitor for infection If further temperature elevation will proceed with infection workup Rhabdomyolysis without renal involvement: Resolved Status post IV fluids, CPK returned to normal Right testicular enlargement Patient has had multiple ultrasounds performed which did not indicate any changes. Does indicate right hydrocele, right epididymal cyst Continue to monitor and address if needed Iron deficiency anemia status post iron sucrose hemoglobin stable. Atypical chest pain Cardiac enzymes normal x 2, EKG within normal limits No further reports of chest pain since admission. Dysphagia Speech therapy evaluated patient and recommends pureed diet and thin liquids. Hypertension: Stable Continue amlodipine and metoprolol DVT prophylaxis: Lovenox, SCDs. Discharge Planning 12/08: Per CM patient not a citizen and has no benefits. Called DCF for assistance. Problem Qualifiers (1) Rhabdomyolysis: (2) Dementia with behavioral disturbance: Naya Ferraro Dec 12, 2016 09:49
[2016-12-12 20:00] VITALS: BP 100/60; PULSE 84; RESP 24; TEMP 95.8; O2SAT 100
[2016-12-13 08:00] VITALS: BP 124/69; PULSE 74; RESP 18; TEMP 97; O2SAT 96
[2016-12-13] MEDS: CHLORHEXIDINE GLUCONATE 0.12% 15 ML CUP SCH ×2 (09:00→20:39)
[2016-12-13] MEDS: METOPROLOL TARTRATE 25 MG TAB PO SCH (09:10)
[2016-12-13] MEDS: MEMANTINE HCL 10 MG TAB PO SCH ×2 (09:10→20:38)
[2016-12-13] MEDS: ENOXAPARIN SODIUM 40 MG/0.4 ML SYRINGE SQ SCH (09:12)
--- NOTE | 2016-12-13 09:55 | HHI.PR ---
Subjective Remarks Follow-up for dementia. No acute complaints. Objective Vitals Vital Signs Date Time Temp Pulse Resp B/P (MAP) Pulse Ox O2 Delivery O2 Flow Rate FiO2 12/13/16 08:00 97.0 74 18 124/69 (87) 96 12/12/16 20:00 95.8 84 24 100/60 (73) 100 I/O 12/12/16 12/12/16 12/12/16 12/13/16 12/13/16 12/13/16 07:00 15:00 23:00 07:00 15:00 23:00 Intake Total 240 ml 240 ml 700 ml 240 ml Balance 240 ml 240 ml 700 ml 240 ml Intake Oral 240 ml 240 ml 480 ml 240 ml Oral Supplement 220 ml # Voids 2 3 2 2 # Bowel Movements 2 2 1 2 Objective Remarks GENERAL: Pleasant elderly patient in no apparent distress. Appears restless in bed. CARDIOVASCULAR: Regular rate and rhythm. RESPIRATORY: No accessory muscle use. CTAB. NEUROLOGICAL: Awake and alert. PSYCHIATRIC: Pleasant mood and affect. Procedures None Urinary Catheter: No Vascular Central Line Catheter: No A/P Problem List: (1) Rhabdomyolysis ICD Code: M62.82 - Rhabdomyolysis Status: Resolved (2) Dementia with behavioral disturbance ICD Code: F03.91 - Unspecified dementia with behavioral disturbance Status: Chronic (3) Atypical chest pain ICD Code: R07.89 - Other chest pain Status: Resolved (4) Normocytic anemia ICD Code: D64.9 - Anemia, unspecified Status: Acute Assessment and Plan Dementia with disturbance of behavior: stable Continue home dosing of Memantine 10 mg po BID. Continue to hold Seroquel and Buspirone due to sedation; is awake and alert off these meds Soft restraints were removed Patient remains well behaved with good mood and affect. Hypermagnesemia: Resolved Magnesium hydroxide discontinued Mg level improved on 10/22. Suspected gingivitis: Due to poor oral hygiene. -Continue Peridex, soak swab and apply to teeth, gums, tongue, and roof of mouth bid. Temperature 100.6 on 09/27/16, afebrile since Continue monitor for infection If further temperature elevation will proceed with infection workup Rhabdomyolysis without renal involvement: Resolved Status post IV fluids, CPK returned to normal Right testicular enlargement Patient has had multiple ultrasounds performed which did not indicate any changes. Does indicate right hydrocele, right epididymal cyst Continue to monitor and address if needed Iron deficiency anemia status post iron sucrose hemoglobin stable. Atypical chest pain Cardiac enzymes normal x 2, EKG within normal limits No further reports of chest pain since admission. Dysphagia Speech therapy evaluated patient and recommends pureed diet and thin liquids. Hypertension: Stable Continue amlodipine and metoprolol DVT prophylaxis: Lovenox, SCDs. Discharge Planning 12/08: Per CM patient not a citizen and has no benefits. Called DCF for assistance. Problem Qualifiers (1) Rhabdomyolysis: (2) Dementia with behavioral disturbance: Naya Ferraro Dec 13, 2016 09:55
[2016-12-13 20:00] VITALS: BP 113/72; PULSE 90; RESP 20; TEMP 98.2; O2SAT 99
[2016-12-13] MEDS: ACETAMINOPHEN 325 MG TAB PO PRN (20:38)
[2016-12-14 08:00] VITALS: BP 128/72; PULSE 84; RESP 18; TEMP 98.1; O2SAT 96
[2016-12-14] MEDS: CHLORHEXIDINE GLUCONATE 0.12% 15 ML CUP SCH ×2 (09:08→20:19)
[2016-12-14] MEDS: ENOXAPARIN SODIUM 40 MG/0.4 ML SYRINGE SQ SCH (09:08)
[2016-12-14] MEDS: MEMANTINE HCL 10 MG TAB PO SCH ×2 (09:08→20:16)
[2016-12-14] MEDS: METOPROLOL TARTRATE 25 MG TAB PO SCH (09:12)
--- NOTE | 2016-12-14 11:05 | HHI.PR ---
Subjective Remarks Follow-up for dementia. No acute complaints. Objective Vitals Vital Signs Date Time Temp Pulse Resp B/P (MAP) Pulse Ox O2 Delivery O2 Flow Rate FiO2 12/14/16 08:00 98.1 84 18 128/72 (90) 96 12/13/16 20:00 98.2 90 20 113/72 (86) 99 I/O 12/13/16 12/13/16 12/13/16 12/14/16 12/14/16 12/14/16 07:00 15:00 23:00 07:00 15:00 23:00 Intake Total 240 ml 240 ml 480 ml Balance 240 ml 240 ml 480 ml Intake Oral 240 ml 240 ml 480 ml # Voids 2 2 # Bowel Movements 2 3 Objective Remarks GENERAL: Pleasant elderly patient in no apparent distress. CARDIOVASCULAR: Difficulty auscultating heart sounds. Regular rate and rhythm. RESPIRATORY: No accessory muscle use. CTAB. NEUROLOGICAL: Awake and alert. PSYCHIATRIC: Pleasant happy mood and affect. Procedures None Urinary Catheter: No Vascular Central Line Catheter: No A/P Problem List: (1) Rhabdomyolysis ICD Code: M62.82 - Rhabdomyolysis Status: Resolved (2) Dementia with behavioral disturbance ICD Code: F03.91 - Unspecified dementia with behavioral disturbance Status: Chronic (3) Atypical chest pain ICD Code: R07.89 - Other chest pain Status: Resolved (4) Normocytic anemia ICD Code: D64.9 - Anemia, unspecified Status: Acute Assessment and Plan Dementia with disturbance of behavior: stable Continue home dosing of Memantine 10 mg po BID. Continue to hold Seroquel and Buspirone due to sedation; is awake and alert off these meds Soft restraints were removed Patient remains well behaved with good mood and affect. Hypermagnesemia: Resolved Magnesium hydroxide discontinued Mg level improved on 10/22. Suspected gingivitis: Due to poor oral hygiene. -Continue Peridex, soak swab and apply to teeth, gums, tongue, and roof of mouth bid. Temperature 100.6 on 09/27/16, afebrile since Continue monitor for infection If further temperature elevation will proceed with infection workup Rhabdomyolysis without renal involvement: Resolved Status post IV fluids, CPK returned to normal Right testicular enlargement Patient has had multiple ultrasounds performed which did not indicate any changes. Does indicate right hydrocele, right epididymal cyst Continue to monitor and address if needed Iron deficiency anemia status post iron sucrose hemoglobin stable. Atypical chest pain Cardiac enzymes normal x 2, EKG within normal limits No further reports of chest pain since admission. Dysphagia Speech therapy evaluated patient and recommends pureed diet and thin liquids. Hypertension: Stable Continue amlodipine and metoprolol DVT prophylaxis: Lovenox, SCDs. Discharge Planning 12/08: Per CM patient not a citizen and has no benefits. Called DCF for assistance. Problem Qualifiers (1) Rhabdomyolysis: (2) Dementia with behavioral disturbance: Naya Ferraro Dec 14, 2016 11:05
[2016-12-14 20:00] VITALS: BP 98/73; PULSE 96; RESP 20; TEMP 97.1; O2SAT 98
[2016-12-15] MEDS: ENOXAPARIN SODIUM 40 MG/0.4 ML SYRINGE SQ SCH (09:14)
[2016-12-15 09:15] VITALS: BP 110/69; PULSE 72; RESP 20; TEMP 97.6; O2SAT 100
[2016-12-15] MEDS: METOPROLOL TARTRATE 25 MG TAB PO SCH (09:15)
[2016-12-15] MEDS: CHLORHEXIDINE GLUCONATE 0.12% 15 ML CUP SCH ×2 (09:15→20:47)
[2016-12-15] MEDS: MEMANTINE HCL 10 MG TAB PO SCH ×2 (09:15→20:47)
--- NOTE | 2016-12-15 11:24 | HHI.PR ---
Subjective Remarks Follow-up for dementia. No acute complaints. Objective Vitals Vital Signs Date Time Temp Pulse Resp B/P (MAP) Pulse Ox O2 Delivery O2 Flow Rate FiO2 12/15/16 09:15 97.6 72 20 110/69 (83) 100 12/14/16 20:00 97.1 96 20 98/73 (81) 98 I/O 12/14/16 12/14/16 12/14/16 12/15/16 12/15/16 12/15/16 07:00 15:00 23:00 07:00 15:00 23:00 Intake Total 480 ml 350 ml 680 ml Output Total 5 ml Balance 480 ml 350 ml 675 ml Intake Oral 480 ml 350 ml 680 ml Output Urine Total 4 ml Stool Total 1 ml # Voids 2 3 1 # Bowel Movements 3 2 0 Objective Remarks GENERAL: Pleasant elderly patient in no apparent distress. CARDIOVASCULAR: Regular rate and rhythm. RESPIRATORY: No accessory muscle use. CTAB. GASTROINTESTINAL: Abdomen soft, non-tender, non-distended. NEUROLOGICAL: Awake and alert. PSYCHIATRIC: Pleasant happy mood and affect. Procedures None Urinary Catheter: No Vascular Central Line Catheter: No A/P Problem List: (1) Rhabdomyolysis ICD Code: M62.82 - Rhabdomyolysis Status: Resolved (2) Dementia with behavioral disturbance ICD Code: F03.91 - Unspecified dementia with behavioral disturbance Status: Chronic (3) Atypical chest pain ICD Code: R07.89 - Other chest pain Status: Resolved (4) Normocytic anemia ICD Code: D64.9 - Anemia, unspecified Status: Acute Assessment and Plan Dementia with disturbance of behavior: stable Continue home dosing of Memantine 10 mg po BID. Continue to hold Seroquel and Buspirone due to sedation; is awake and alert off these meds Soft restraints were removed Patient remains well behaved with good mood and affect. Hypermagnesemia: Resolved Magnesium hydroxide discontinued Mg level improved on 10/22. Suspected gingivitis: Due to poor oral hygiene. -Continue Peridex, soak swab and apply to teeth, gums, tongue, and roof of mouth bid. Temperature 100.6 on 09/27/16, afebrile since Continue monitor for infection If further temperature elevation will proceed with infection workup Rhabdomyolysis without renal involvement: Resolved Status post IV fluids, CPK returned to normal Right testicular enlargement Patient has had multiple ultrasounds performed which did not indicate any changes. Does indicate right hydrocele, right epididymal cyst Continue to monitor and address if needed Iron deficiency anemia status post iron sucrose hemoglobin stable. Atypical chest pain Cardiac enzymes normal x 2, EKG within normal limits No further reports of chest pain since admission. Dysphagia Speech therapy evaluated patient and recommends pureed diet and thin liquids. Hypertension: Stable Continue amlodipine and metoprolol DVT prophylaxis: Lovenox, SCDs. Discharge Planning 12/08: Per CM patient not a citizen and has no benefits. Called DCF for assistance. Problem Qualifiers (1) Rhabdomyolysis: (2) Dementia with behavioral disturbance: Naya Ferraro Dec 15, 2016 11:24
[2016-12-15 20:00] VITALS: BP 134/80; PULSE 76; RESP 20; TEMP 96.3; O2SAT 99
[2016-12-16] MEDS: MEMANTINE HCL 10 MG TAB PO SCH ×2 (09:06→21:17)
[2016-12-16] MEDS: METOPROLOL TARTRATE 25 MG TAB PO SCH (09:06)
[2016-12-16] MEDS: ENOXAPARIN SODIUM 40 MG/0.4 ML SYRINGE SQ SCH (09:06)
[2016-12-16] MEDS: CHLORHEXIDINE GLUCONATE 0.12% 15 ML CUP SCH ×2 (09:07→21:18)
--- NOTE | 2016-12-16 11:52 | HHI.PR ---
Subjective Remarks Patient seen and examined today for follow-up on dementia. Patient denies any new complaints. No change in clinical status. Objective Vitals Vital Signs Date Time Temp Pulse Resp B/P (MAP) Pulse Ox O2 Delivery O2 Flow Rate FiO2 12/15/16 20:00 96.3 76 20 134/80 (98) 99 I/O 12/15/16 12/15/16 12/15/16 12/16/16 12/16/16 12/16/16 07:00 15:00 23:00 07:00 15:00 23:00 Intake Total 0 ml Balance 0 ml Intake Oral 0 ml # Voids 4 3 # Bowel Movements 2 3 Objective Remarks GENERAL: Well-developed, cachectic, in no acute distress. Arousable, patient appears to be alert, he is orientated to person and state. He has not orientated to city, date, year HEENT: Head is normocephalic without any lesions or masses noted. Facial features are symmetric with bitemporal wasting. Eyes: Extraocular muscles are intact. Conjunctivae were clear. NECK: Trachea midline no deviation. CARDIAC: Regular rhythm, regular rate. S1/S2 are heard. 2/6 ejection murmur, no gallops or rubs. LUNGS: Clear to auscultation bilaterally. No wheeze, rhonchi or rales. No use of accessory muscles on inspiration or expiration. ABDOMEN: Soft, nontender. Nondistended. Bowel sounds heard in all 4 quadrants. No organomegaly or masses. Negative rebound, negative guarding EXTREMITIES: No edema, pulses are equal bilaterally. No cyanosis or clubbing NEUROLOGY: Patient with significant dementia. He is quite pleasant. Answers questions appropriately Cranial nerves are grossly intact. Procedures None Urinary Catheter: No Vascular Central Line Catheter: No A/P Assessment and Plan Dementia with disturbance of behavior, stable Continue home dosing of memantine 10 mg po BID. Discontinue Seroquel and Buspirone, since patient became more alert with being off medications, patient has not had any abnormal behavior Right testicular enlargement, chronic, stable Patient has had multiple ultrasounds performed which did not indicate any changes. Does indicate right hydrocele, right epididymal cyst Continue monitor and address if needed Iron deficiency anemia- stable status post iron sucrose, hemoglobin stable. Atypical chest pain, resolved Cardiac enzymes normal x 2, EKG within normal limits No further reports of chest pain since admission. Dysphagia Speech therapy re-evaluated patient and continue to recommended mechanical soft diet, chopped meat with gravy and thin liquids hypertension, blood pressure stable Lopressor 12.5 mg daily DVT prophylaxis: Lovenox, SCD's Discharge Planning Difficult discharge situation with significant dementia, non-[place] citizen, no payer source, family unwilling to take patient home. Case management for discharge planning Gonzales Babcock Dec 16, 2016 11:52
[2016-12-16 13:03] VITALS: BP 126/77; PULSE 65; RESP 16; TEMP 96.7; O2SAT 100
[2016-12-16 20:00] VITALS: BP 115/57; PULSE 73; RESP 20; TEMP 98.4; O2SAT 99
[2016-12-17 08:00] VITALS: BP 117/98; PULSE 65; RESP 19; TEMP 97.9; O2SAT 95
[2016-12-17] MEDS: CHLORHEXIDINE GLUCONATE 0.12% 15 ML CUP SCH ×2 (09:00→20:37)
[2016-12-17] MEDS: METOPROLOL TARTRATE 25 MG TAB PO SCH (09:33)
[2016-12-17] MEDS: ENOXAPARIN SODIUM 40 MG/0.4 ML SYRINGE SQ SCH (09:33)
[2016-12-17] MEDS: MEMANTINE HCL 10 MG TAB PO SCH ×2 (09:33→20:37)
--- NOTE | 2016-12-17 11:36 | HHI.PR ---
Subjective Remarks Patient seen and examined today for follow-up on dementia. Patient denies any new complaints. No change in clinical status. Awaiting case management for discharge planning. Objective Vitals Vital Signs Date Time Temp Pulse Resp B/P (MAP) Pulse Ox O2 Delivery O2 Flow Rate FiO2 12/17/16 08:00 97.9 65 19 117/98 (104) 95 12/16/16 20:00 98.4 73 20 115/57 (76) 99 12/16/16 13:03 96.7 65 16 126/77 (93) 100 I/O 12/16/16 12/16/16 12/16/16 12/17/16 12/17/16 12/17/16 07:00 15:00 23:00 07:00 15:00 23:00 Intake Total 0 ml 0 ml Balance 0 ml 0 ml Intake Oral 0 ml 0 ml # Voids 3 3 2 # Bowel Movements 3 1 2 Objective Remarks GENERAL: Well-developed, cachectic, in no acute distress. Arousable, patient appears to be alert, he is orientated to person and state. He has not orientated to city, date, year HEENT: Head is normocephalic without any lesions or masses noted. Facial features are symmetric with bitemporal wasting. Eyes: Extraocular muscles are intact. Conjunctivae were clear. NECK: Trachea midline no deviation. CARDIAC: Regular rhythm, regular rate. S1/S2 are heard. 2/6 ejection murmur, no gallops or rubs. LUNGS: Clear to auscultation bilaterally. No wheeze, rhonchi or rales. No use of accessory muscles on inspiration or expiration. ABDOMEN: Soft, nontender. Nondistended. Bowel sounds heard in all 4 quadrants. No organomegaly or masses. Negative rebound, negative guarding EXTREMITIES: No edema, pulses are equal bilaterally. No cyanosis or clubbing NEUROLOGY: Patient with significant dementia. He is quite pleasant. Answers questions appropriately Cranial nerves are grossly intact. Procedures None Urinary Catheter: No Vascular Central Line Catheter: No A/P Assessment and Plan Dementia with disturbance of behavior, stable Continue home dosing of memantine 10 mg po BID. Discontinue Seroquel and Buspirone, since patient became more alert with being off medications, patient has not had any abnormal behavior Right testicular enlargement, chronic, stable Patient has had multiple ultrasounds performed which did not indicate any changes. Does indicate right hydrocele, right epididymal cyst Continue monitor and address if needed Iron deficiency anemia- stable status post iron sucrose, hemoglobin stable. Atypical chest pain, resolved Cardiac enzymes normal x 2, EKG within normal limits No further reports of chest pain since admission. Dysphagia Speech therapy re-evaluated patient and continue to recommended mechanical soft diet, chopped meat with gravy and thin liquids hypertension, blood pressure stable Lopressor 12.5 mg daily DVT prophylaxis: Lovenox, SCD's Discharge Planning Difficult discharge situation with significant dementia, non-[place] citizen, no payer source, family unwilling to take patient home. Case management for discharge planning Gonzales Babcock Dec 17, 2016 11:35
[2016-12-17 20:00] VITALS: BP 122/81; PULSE 81; RESP 20; TEMP 97.6; O2SAT 98
[2016-12-18 08:00] VITALS: BP 126/76; PULSE 80; RESP 18; TEMP 98.1; O2SAT 96
[2016-12-18] MEDS: CHLORHEXIDINE GLUCONATE 0.12% 15 ML CUP SCH ×2 (09:00→21:56)
--- NOTE | 2016-12-18 10:31 | HHI.PR ---
Subjective Remarks Patient seen and examined today for follow-up on dementia. Patient resting back carefully. Denies any new complaints. No change in clinical status. Awaiting case management for discharge planning. Objective Vitals Vital Signs Date Time Temp Pulse Resp B/P (MAP) Pulse Ox O2 Delivery O2 Flow Rate FiO2 12/18/16 08:00 98.1 80 18 126/76 (93) 96 12/17/16 20:00 97.6 81 20 122/81 (95) 98 I/O 12/17/16 12/17/16 12/17/16 12/18/16 12/18/16 12/18/16 07:00 15:00 23:00 07:00 15:00 23:00 Intake Total 0 ml 0 ml Output Total 1 ml Balance 0 ml -1 ml 0 ml Intake Oral 0 ml 0 ml Stool Total 1 ml # Voids 2 5 3 # Bowel Movements 2 1 3 Objective Remarks GENERAL: Well-developed, cachectic, in no acute distress. Arousable, patient appears to be alert, he is orientated to person and state. He has not orientated to city, date, year HEENT: Head is normocephalic without any lesions or masses noted. Facial features are symmetric with bitemporal wasting. Eyes: Extraocular muscles are intact. Conjunctivae were clear. NECK: Trachea midline no deviation. CARDIAC: Regular rhythm, regular rate. S1/S2 are heard. 2/6 ejection murmur, no gallops or rubs. LUNGS: Clear to auscultation bilaterally. No wheeze, rhonchi or rales. No use of accessory muscles on inspiration or expiration. ABDOMEN: Soft, nontender. Nondistended. Bowel sounds heard in all 4 quadrants. No organomegaly or masses. Negative rebound, negative guarding EXTREMITIES: No edema, pulses are equal bilaterally. No cyanosis or clubbing NEUROLOGY: Patient with significant dementia. He is quite pleasant. Answers questions appropriately Cranial nerves are grossly intact. Procedures None Urinary Catheter: No Vascular Central Line Catheter: No A/P Assessment and Plan Dementia with disturbance of behavior, stable Continue home dosing of memantine 10 mg po BID. Discontinue Seroquel and Buspirone, since patient became more alert with being off medications, patient has not had any abnormal behavior Right testicular enlargement, chronic, stable Patient has had multiple ultrasounds performed which did not indicate any changes. Does indicate right hydrocele, right epididymal cyst Continue monitor and address if needed Iron deficiency anemia- stable status post iron sucrose, hemoglobin stable. Atypical chest pain, resolved Cardiac enzymes normal x 2, EKG within normal limits No further reports of chest pain since admission. Dysphagia Speech therapy re-evaluated patient and continue to recommended mechanical soft diet, chopped meat with gravy and thin liquids hypertension, blood pressure stable Lopressor 12.5 mg daily DVT prophylaxis: Lovenox, SCD's Discharge Planning Difficult discharge situation with significant dementia, non-[place] citizen, no payer source, family unwilling to take patient home. Case management for discharge planning Gonzales Babcock Dec 18, 2016 10:30
[2016-12-18] MEDS: MEMANTINE HCL 10 MG TAB PO SCH ×2 (10:59→21:55)
[2016-12-18] MEDS: METOPROLOL TARTRATE 25 MG TAB PO SCH (10:59)
[2016-12-18] MEDS: ENOXAPARIN SODIUM 40 MG/0.4 ML SYRINGE SQ SCH (11:00)
[2016-12-18 20:00] VITALS: BP 119/65; PULSE 80; RESP 20; TEMP 97.1; O2SAT 99
[2016-12-19 08:00] VITALS: BP 126/70; PULSE 55; RESP 16; TEMP 97.3; O2SAT 95
[2016-12-19] MEDS: METOPROLOL TARTRATE 25 MG TAB PO SCH (08:22)
[2016-12-19] MEDS: MEMANTINE HCL 10 MG TAB PO SCH ×2 (08:33→20:47)
[2016-12-19] MEDS: CHLORHEXIDINE GLUCONATE 0.12% 15 ML CUP SCH ×2 (08:37→23:00)
[2016-12-19] MEDS: ENOXAPARIN SODIUM 40 MG/0.4 ML SYRINGE SQ SCH (08:38)
--- NOTE | 2016-12-19 11:07 | HHI.PR ---
Subjective Remarks Patient seen and examined today for follow-up on dementia. Patient lying in bed comfortably. Denies any new complaints. No change in clinical status. Objective Vitals Vital Signs Date Time Temp Pulse Resp B/P (MAP) Pulse Ox O2 Delivery O2 Flow Rate FiO2 12/19/16 08:00 97.3 55 16 126/70 (88) 95 12/18/16 20:00 97.1 80 20 119/65 (83) 99 I/O 12/18/16 12/18/16 12/18/16 12/19/16 12/19/16 12/19/16 07:00 15:00 23:00 07:00 15:00 23:00 Intake Total 0 ml 300 ml 0 ml Output Total 2 ml Balance 0 ml 300 ml -2 ml 0 ml Intake Oral 0 ml 300 ml 0 ml Stool Total 2 ml # Voids 3 4 2 # Bowel Movements 3 1 Objective Remarks GENERAL: Well-developed, cachectic, in no acute distress. Arousable, patient appears to be alert, he is orientated to person and state. He has not orientated to city, date, year HEENT: Head is normocephalic without any lesions or masses noted. Facial features are symmetric with bitemporal wasting. Eyes: Extraocular muscles are intact. Conjunctivae were clear. NECK: Trachea midline no deviation. CARDIAC: Regular rhythm, regular rate. S1/S2 are heard. 2/6 ejection murmur, no gallops or rubs. LUNGS: Clear to auscultation bilaterally. No wheeze, rhonchi or rales. No use of accessory muscles on inspiration or expiration. ABDOMEN: Soft, nontender. Nondistended. Bowel sounds heard in all 4 quadrants. No organomegaly or masses. Negative rebound, negative guarding EXTREMITIES: No edema, pulses are equal bilaterally. No cyanosis or clubbing NEUROLOGY: Patient with significant dementia. He is quite pleasant. Answers questions appropriately Cranial nerves are grossly intact. Procedures None Urinary Catheter: No Vascular Central Line Catheter: No A/P Assessment and Plan Dementia with disturbance of behavior, stable Continue home dosing of memantine 10 mg po BID. hypertension, blood pressure stable Lopressor 12.5 mg daily Dysphagia Speech therapy re-evaluated patient and continue to recommended mechanical soft diet, chopped meat with gravy and thin liquids DVT prophylaxis: Lovenox Discharge Planning Difficult discharge situation with significant dementia, non-[place] citizen, no payer source, family unwilling to take patient home. Case management for discharge planning Gonzales Babcock Dec 19, 2016 11:07
[2016-12-19 20:00] VITALS: BP 97/61; PULSE 103; RESP 20; TEMP 97.1; O2SAT 100
--- NOTE | 2016-12-20 08:39 | HHI.PR ---
Subjective Remarks Patient seen and examined today for follow-up on mention. Patient lying in bed comfortable. Denies any new complaints. No change in clinical status. Awaiting case management for discharge planning Objective Vitals Vital Signs Date Time Temp Pulse Resp B/P (MAP) Pulse Ox O2 Delivery O2 Flow Rate FiO2 12/19/16 20:00 97.1 103 20 97/61 (73) 100 I/O 12/19/16 12/19/16 12/19/16 12/20/16 12/20/16 12/20/16 06:59 14:59 22:59 06:59 14:59 22:59 Intake Total 0 ml 50 ml 1080 ml 220 ml Output Total 1 ml Balance 0 ml 50 ml 1079 ml 220 ml Intake Oral 0 ml 50 ml 1080 ml 220 ml IV Total 0 ml Stool Total 1 ml # Voids 2 4 2 # Bowel Movements 1 1 1 Objective Remarks GENERAL: Well-developed, cachectic, in no acute distress. Arousable, patient appears to be alert, he is orientated to person and state. He has not orientated to city, date, year HEENT: Head is normocephalic without any lesions or masses noted. Facial features are symmetric with bitemporal wasting. Eyes: Extraocular muscles are intact. Conjunctivae were clear. NECK: Trachea midline no deviation. CARDIAC: Regular rhythm, regular rate. S1/S2 are heard. 2/6 ejection murmur, no gallops or rubs. LUNGS: Clear to auscultation bilaterally. No wheeze, rhonchi or rales. No use of accessory muscles on inspiration or expiration. ABDOMEN: Soft, nontender. Nondistended. Bowel sounds heard in all 4 quadrants. No organomegaly or masses. Negative rebound, negative guarding EXTREMITIES: No edema, pulses are equal bilaterally. No cyanosis or clubbing NEUROLOGY: Patient with significant dementia. He is quite pleasant. Answers questions appropriately Cranial nerves are grossly intact. Procedures None Urinary Catheter: No Vascular Central Line Catheter: No A/P Assessment and Plan Dementia with disturbance of behavior, stable Continue home dosing of memantine 10 mg po BID. hypertension, blood pressure stable Lopressor 12.5 mg daily Dysphagia Speech therapy re-evaluated patient and continue to recommended mechanical soft diet, chopped meat with gravy and thin liquids DVT prophylaxis: Lovenox Discharge Planning Difficult discharge situation with significant dementia, non-[place] citizen, no payer source, family unwilling to take patient home. Case management for discharge planning Gonzales Babcock Dec 20, 2016 08:39
[2016-12-20 08:56] VITALS: BP 122/78; PULSE 68; RESP 20; TEMP 97.8; O2SAT 100
[2016-12-20] MEDS: METOPROLOL TARTRATE 25 MG TAB PO SCH (10:21)
[2016-12-20] MEDS: MEMANTINE HCL 10 MG TAB PO SCH (10:21)
[2016-12-20] MEDS: CHLORHEXIDINE GLUCONATE 0.12% 15 ML CUP SCH ×2 (10:22→21:37)
[2016-12-20] MEDS: ENOXAPARIN SODIUM 40 MG/0.4 ML SYRINGE SQ SCH (10:22)
[2016-12-20 20:00] VITALS: BP 114/78; PULSE 80; RESP 16; TEMP 95.2; O2SAT 98
[2016-12-21] MEDS: CHLORHEXIDINE GLUCONATE 0.12% 15 ML CUP SCH ×2 (08:23→21:53)
[2016-12-21] MEDS: ENOXAPARIN SODIUM 40 MG/0.4 ML SYRINGE SQ SCH (08:23)
[2016-12-21] MEDS: MEMANTINE HCL 10 MG TAB PO SCH ×2 (08:23→21:53)
[2016-12-21] MEDS: METOPROLOL TARTRATE 25 MG TAB PO SCH (08:24)
[2016-12-21 08:41] VITALS: BP 118/75; PULSE 66; RESP 18; TEMP 96.6; O2SAT 100
--- NOTE | 2016-12-21 14:05 | HHI.PR ---
Subjective Remarks Patient seen and examined today for follow-up on dementia. Patient does not have any new complaints. No change in clinical status. Awaiting case management for discharge planning Objective Vitals Vital Signs Date Time Temp Pulse Resp B/P (MAP) Pulse Ox O2 Delivery O2 Flow Rate FiO2 12/21/16 08:41 96.6 66 18 118/75 (89) 100 12/20/16 20:00 95.2 80 16 114/78 (90) 98 I/O 12/20/16 12/20/16 12/20/16 12/21/16 12/21/16 12/21/16 07:00 15:00 23:00 07:00 15:00 23:00 Intake Total 220 ml 450 ml 220 ml Balance 220 ml 450 ml 220 ml Intake Oral 220 ml 450 ml 220 ml # Voids 2 3 2 # Bowel Movements 1 1 2 Objective Remarks GENERAL: Well-developed, cachectic, in no acute distress. Arousable, patient appears to be alert, he is orientated to person and state. He has not orientated to city, date, year HEENT: Head is normocephalic without any lesions or masses noted. Facial features are symmetric with bitemporal wasting. Eyes: Extraocular muscles are intact. Conjunctivae were clear. NECK: Trachea midline no deviation. CARDIAC: Regular rhythm, regular rate. S1/S2 are heard. 2/6 ejection murmur, no gallops or rubs. LUNGS: Clear to auscultation bilaterally. No wheeze, rhonchi or rales. No use of accessory muscles on inspiration or expiration. ABDOMEN: Soft, nontender. Nondistended. Bowel sounds heard in all 4 quadrants. No organomegaly or masses. Negative rebound, negative guarding EXTREMITIES: No edema, pulses are equal bilaterally. No cyanosis or clubbing NEUROLOGY: Patient with significant dementia. He is quite pleasant. Answers questions appropriately Cranial nerves are grossly intact. Procedures None Urinary Catheter: No Vascular Central Line Catheter: No A/P Assessment and Plan Dementia with disturbance of behavior, stable Continue home dosing of memantine 10 mg po BID. hypertension, blood pressure stable Lopressor 12.5 mg daily Dysphagia Speech therapy re-evaluated patient and continue to recommended mechanical soft diet, chopped meat with gravy and thin liquids DVT prophylaxis: Lovenox Discharge Planning Difficult discharge situation with significant dementia, non-[place] citizen, no payer source, family unwilling to take patient home. Case management for discharge planning Gonzales Babcock Dec 21, 2016 14:05
[2016-12-21 20:00] VITALS: BP 133/74; PULSE 83; RESP 20; TEMP 97.9; O2SAT 100
[2016-12-22 08:00] VITALS: BP 130/72; PULSE 80; RESP 18; TEMP 97.8; O2SAT 95
[2016-12-22] MEDS: CHLORHEXIDINE GLUCONATE 0.12% 15 ML CUP SCH ×2 (09:00→21:00)
[2016-12-22] MEDS: MEMANTINE HCL 10 MG TAB PO SCH ×2 (09:23→21:47)
[2016-12-22] MEDS: METOPROLOL TARTRATE 25 MG TAB PO SCH (09:23)
[2016-12-22] MEDS: ENOXAPARIN SODIUM 40 MG/0.4 ML SYRINGE SQ SCH (09:23)
--- NOTE | 2016-12-22 09:42 | HHI.PR ---
Subjective Remarks Patient seen and examined today for follow-up on dementia. Patient denies any new complaints. No change in clinical status. Awaiting case management for discharge planning. Objective Vitals Vital Signs Date Time Temp Pulse Resp B/P (MAP) Pulse Ox O2 Delivery O2 Flow Rate FiO2 12/21/16 20:00 97.9 83 20 133/74 (93) 100 I/O 12/21/16 12/21/16 12/21/16 12/22/16 12/22/16 12/22/16 07:00 15:00 23:00 07:00 15:00 23:00 Intake Total 220 ml 720 ml 480 ml Balance 220 ml 720 ml 480 ml Intake Oral 220 ml 480 ml 480 ml Oral Supplement 240 ml # Voids 2 1 2 # Bowel Movements 2 1 2 Objective Remarks GENERAL: Well-developed, cachectic, in no acute distress. Arousable, patient appears to be alert, he is orientated to person and state. He has not orientated to city, date, year HEENT: Head is normocephalic without any lesions or masses noted. Facial features are symmetric with bitemporal wasting. Eyes: Extraocular muscles are intact. Conjunctivae were clear. NECK: Trachea midline no deviation. CARDIAC: Regular rhythm, regular rate. S1/S2 are heard. 2/6 ejection murmur, no gallops or rubs. LUNGS: Clear to auscultation bilaterally. No wheeze, rhonchi or rales. No use of accessory muscles on inspiration or expiration. ABDOMEN: Soft, nontender. Nondistended. Bowel sounds heard in all 4 quadrants. No organomegaly or masses. Negative rebound, negative guarding EXTREMITIES: No edema, pulses are equal bilaterally. No cyanosis or clubbing NEUROLOGY: Patient with significant dementia. He is quite pleasant. Answers questions appropriately Cranial nerves are grossly intact. Procedures None Urinary Catheter: No Vascular Central Line Catheter: No A/P Assessment and Plan Dementia with disturbance of behavior, stable Continue home dosing of memantine 10 mg po BID. hypertension, blood pressure stable Lopressor 12.5 mg daily Dysphagia Speech therapy re-evaluated patient and continue to recommended mechanical soft diet, chopped meat with gravy and thin liquids DVT prophylaxis: Lovenox Records reviewed, no change in current treatment plan Discharge Planning Difficult discharge situation with significant dementia, non-[place] citizen, no payer source, family unwilling to take patient home. Case management for discharge planning Gonzales Babcock Dec 22, 2016 09:42
[2016-12-22 20:00] VITALS: BP 110/82; PULSE 78; RESP 18; TEMP 97.9; O2SAT 98
[2016-12-23 08:00] VITALS: BP 127/82; PULSE 70; RESP 20; TEMP 98.7; O2SAT 98
[2016-12-23] MEDS: MEMANTINE HCL 10 MG TAB PO SCH ×2 (09:52→19:59)
[2016-12-23] MEDS: ENOXAPARIN SODIUM 40 MG/0.4 ML SYRINGE SQ SCH (09:52)
[2016-12-23] MEDS: METOPROLOL TARTRATE 25 MG TAB PO SCH (09:52)
[2016-12-23] MEDS: CHLORHEXIDINE GLUCONATE 0.12% 15 ML CUP SCH ×2 (09:52→19:59)
--- NOTE | 2016-12-23 11:27 | HHI.PR ---
Subjective Remarks Follow-up for dementia. No acute complaints. Objective Vitals Vital Signs Date Time Temp Pulse Resp B/P (MAP) Pulse Ox O2 Delivery O2 Flow Rate FiO2 12/22/16 20:00 97.9 78 18 110/82 (91) 98 I/O 12/22/16 12/22/16 12/22/16 12/23/16 12/23/16 12/23/16 07:00 15:00 23:00 07:00 15:00 23:00 Intake Total 480 ml 720 ml 0 ml Output Total 3 ml Balance 480 ml 720 ml -3 ml 0 ml Intake Oral 480 ml 720 ml IV Total 0 ml Stool Total 3 ml # Voids 2 3 5 4 # Bowel Movements 2 1 3 Objective Remarks GENERAL: Pleasant elderly patient in no apparent distress sitting in recliner in day room. CARDIOVASCULAR: Difficult to auscultate. Regular rate and rhythm. RESPIRATORY: No accessory muscle use. CTAB. GASTROINTESTINAL: Abdomen soft, non-tender, non-distended. NEUROLOGICAL: Awake and alert. PSYCHIATRIC: Pleasant happy mood and affect. Procedures None Urinary Catheter: No Vascular Central Line Catheter: No A/P Problem List: (1) Rhabdomyolysis ICD Code: M62.82 - Rhabdomyolysis Status: Resolved (2) Dementia with behavioral disturbance ICD Code: F03.91 - Unspecified dementia with behavioral disturbance Status: Chronic (3) Atypical chest pain ICD Code: R07.89 - Other chest pain Status: Resolved (4) Normocytic anemia ICD Code: D64.9 - Anemia, unspecified Status: Acute Assessment and Plan Dementia with disturbance of behavior: stable Continue home dosing of Memantine 10 mg po BID. Continue to hold Seroquel and Buspirone due to sedation; is awake and alert off these meds Soft restraints were removed Patient remains well behaved with good mood and affect. Hypermagnesemia: Resolved Magnesium hydroxide discontinued Mg level improved on 10/22. Suspected gingivitis: Due to poor oral hygiene. -Continue Peridex, soak swab and apply to teeth, gums, tongue, and roof of mouth bid. Temperature 100.6 on 09/27/16, afebrile since Continue monitor for infection If further temperature elevation will proceed with infection workup Rhabdomyolysis without renal involvement: Resolved Status post IV fluids, CPK returned to normal Right testicular enlargement Patient has had multiple ultrasounds performed which did not indicate any changes. Does indicate right hydrocele, right epididymal cyst Continue to monitor and address if needed Iron deficiency anemia status post iron sucrose hemoglobin stable. Atypical chest pain Cardiac enzymes normal x 2, EKG within normal limits No further reports of chest pain since admission. Dysphagia Speech therapy evaluated patient and recommends pureed diet and thin liquids. Hypertension: Stable Continue amlodipine and metoprolol DVT prophylaxis: Lovenox, SCDs. Discharge Planning 12/08: Per CM patient not a citizen and has no benefits. Called DCF for assistance. Problem Qualifiers (1) Rhabdomyolysis: (2) Dementia with behavioral disturbance: Naya Ferraro Dec 23, 2016 11:26
[2016-12-23 20:00] VITALS: BP 111/70; PULSE 68; RESP 20; TEMP 98.1; O2SAT 97
[2016-12-24] MEDS: MEMANTINE HCL 10 MG TAB PO SCH ×2 (08:51→20:36)
[2016-12-24] MEDS: CHLORHEXIDINE GLUCONATE 0.12% 15 ML CUP SCH ×2 (08:52→20:36)
[2016-12-24] MEDS: ENOXAPARIN SODIUM 40 MG/0.4 ML SYRINGE SQ SCH (08:52)
[2016-12-24] MEDS: METOPROLOL TARTRATE 25 MG TAB PO SCH (08:54)
[2016-12-24 09:44] VITALS: BP 132/74; PULSE 72; RESP 16; TEMP 98.2; O2SAT 100
--- NOTE | 2016-12-24 11:18 | HHI.PR ---
Subjective Remarks Follow up for dementia. No acute issues. Objective Vitals Vital Signs Date Time Temp Pulse Resp B/P (MAP) Pulse Ox O2 Delivery O2 Flow Rate FiO2 12/24/16 09:44 98.2 72 16 132/74 (93) 100 12/23/16 20:00 98.1 68 20 111/70 (84) 97 I/O 12/23/16 12/23/16 12/23/16 12/24/16 12/24/16 12/24/16 06:59 14:59 22:59 06:59 14:59 22:59 Intake Total 0 ml 700 ml 60 ml 180 ml Balance 0 ml 700 ml 60 ml 180 ml Intake Oral 700 ml 60 ml 180 ml IV Total 0 ml 0 ml # Voids 4 2 1 2 # Bowel Movements 3 1 1 2 Objective Remarks GENERAL: Pleasant elderly patient in no apparent distress watching TV. CARDIOVASCULAR: Faint heart sounds. Regular rate and rhythm. RESPIRATORY: No accessory muscle use. CTAB. GASTROINTESTINAL: Abdomen soft, non-tender, non-distended. NEUROLOGICAL: Awake and alert. PSYCHIATRIC: Pleasant happy mood and affect. Procedures None Urinary Catheter: No Vascular Central Line Catheter: No A/P Problem List: (1) Rhabdomyolysis ICD Code: M62.82 - Rhabdomyolysis Status: Resolved (2) Dementia with behavioral disturbance ICD Code: F03.91 - Unspecified dementia with behavioral disturbance Status: Chronic (3) Atypical chest pain ICD Code: R07.89 - Other chest pain Status: Resolved (4) Normocytic anemia ICD Code: D64.9 - Anemia, unspecified Status: Acute Assessment and Plan Dementia with disturbance of behavior: stable Continue home dosing of Memantine 10 mg po BID. Continue to hold Seroquel and Buspirone due to sedation; is awake and alert off these medications Soft restraints were removed Patient remains well behaved with good mood and affect. Hypermagnesemia: Resolved Magnesium hydroxide discontinued Mg level improved on 10/22. Suspected gingivitis: Due to poor oral hygiene. -Continue Peridex, soak swab and apply to teeth, gums, tongue, and roof of mouth bid. Temperature 100.6 on 09/27/16, afebrile since Continue monitor for infection If further temperature elevation will proceed with infection workup Rhabdomyolysis without renal involvement: Resolved Status post IV fluids, CPK returned to normal Right testicular enlargement Patient has had multiple ultrasounds performed which did not indicate any changes. Does indicate right hydrocele, right epididymal cyst Continue to monitor and address if needed Iron deficiency anemia status post iron sucrose hemoglobin stable. Atypical chest pain Cardiac enzymes normal x 2, EKG within normal limits No further reports of chest pain since admission. Dysphagia Speech therapy evaluated patient and recommends pureed diet and thin liquids. Hypertension: Stable Continue amlodipine and metoprolol DVT prophylaxis: Lovenox, SCDs. Discharge Planning 12/08: Per CM patient not a citizen and has no benefits. Called DCF for assistance. Problem Qualifiers (1) Rhabdomyolysis: (2) Dementia with behavioral disturbance: Naya Ferraro Dec 24, 2016 11:18
[2016-12-24 20:00] VITALS: BP 114/65; PULSE 73; RESP 18; TEMP 97.9; O2SAT 96
[2016-12-25 08:00] VITALS: BP 104/75; PULSE 75; RESP 18; TEMP 97.7; O2SAT 100
[2016-12-25] MEDS: METOPROLOL TARTRATE 25 MG TAB PO SCH (08:27)
[2016-12-25] MEDS: MEMANTINE HCL 10 MG TAB PO SCH ×2 (08:27→22:29)
[2016-12-25] MEDS: CHLORHEXIDINE GLUCONATE 0.12% 15 ML CUP SCH ×2 (08:27→21:00)
--- NOTE | 2016-12-25 10:29 | HHI.PR ---
Subjective Remarks Follow-up for dementia. States he is "perfecto". Objective Vitals Vital Signs Date Time Temp Pulse Resp B/P (MAP) Pulse Ox O2 Delivery O2 Flow Rate FiO2 12/25/16 08:00 97.7 75 18 104/75 (85) 100 12/24/16 20:00 97.9 73 18 114/65 (81) 96 I/O 12/24/16 12/24/16 12/24/16 12/25/16 12/25/16 12/25/16 07:00 15:00 23:00 07:00 15:00 23:00 Intake Total 180 ml 0 ml Balance 180 ml 0 ml Intake Oral 180 ml 0 ml IV Total 0 ml # Voids 2 # Bowel Movements 2 3 Objective Remarks GENERAL: Pleasant elderly patient in no apparent distress. CARDIOVASCULAR: Faint heart sounds. Regular rate and rhythm. RESPIRATORY: No accessory muscle use. CTAB. GASTROINTESTINAL: Abdomen soft, non-tender, non-distended. NEUROLOGICAL: Awake and alert. PSYCHIATRIC: Pleasant happy mood and affect. Procedures None Urinary Catheter: No Vascular Central Line Catheter: No A/P Problem List: (1) Rhabdomyolysis ICD Code: M62.82 - Rhabdomyolysis Status: Resolved (2) Dementia with behavioral disturbance ICD Code: F03.91 - Unspecified dementia with behavioral disturbance Status: Chronic (3) Atypical chest pain ICD Code: R07.89 - Other chest pain Status: Resolved (4) Normocytic anemia ICD Code: D64.9 - Anemia, unspecified Status: Acute Assessment and Plan Dementia with disturbance of behavior: stable Continue home dosing of Memantine 10 mg po BID. Continue to hold Seroquel and Buspirone due to sedation; is awake and alert off these medications Soft restraints were removed Patient remains well behaved with good mood and affect. Hypermagnesemia: Resolved Magnesium hydroxide discontinued Mg level improved on 10/22. Suspected gingivitis: Due to poor oral hygiene. -Continue Peridex, soak swab and apply to teeth, gums, tongue, and roof of mouth bid. Temperature 100.6 on 09/27/16, afebrile since Continue monitor for infection If further temperature elevation will proceed with infection workup Rhabdomyolysis without renal involvement: Resolved Status post IV fluids, CPK returned to normal Right testicular enlargement Patient has had multiple ultrasounds performed which did not indicate any changes. Does indicate right hydrocele, right epididymal cyst Continue to monitor and address if needed Iron deficiency anemia status post iron sucrose hemoglobin stable. Atypical chest pain Cardiac enzymes normal x 2, EKG within normal limits No further reports of chest pain since admission. Dysphagia Speech therapy evaluated patient and recommends pureed diet and thin liquids. Hypertension: Stable Continue amlodipine and metoprolol DVT prophylaxis: Lovenox, SCDs. Discharge Planning 12/08: Per CM patient not a citizen and has no benefits. Called DCF for assistance. Problem Qualifiers (1) Rhabdomyolysis: (2) Dementia with behavioral disturbance: Naya Ferraro Dec 25, 2016 10:29
[2016-12-25] MEDS: ENOXAPARIN SODIUM 40 MG/0.4 ML SYRINGE SQ SCH (11:25)
[2016-12-25 20:00] VITALS: BP 104/78; PULSE 92; RESP 20; TEMP 96.4; O2SAT 96
[2016-12-26 08:29] VITALS: BP 100/75; PULSE 98; RESP 19; TEMP 98.6; O2SAT 99
[2016-12-26] MEDS: MEMANTINE HCL 10 MG TAB PO SCH ×2 (09:16→20:56)
[2016-12-26] MEDS: METOPROLOL TARTRATE 25 MG TAB PO SCH (09:16)
[2016-12-26] MEDS: CHLORHEXIDINE GLUCONATE 0.12% 15 ML CUP SCH ×2 (09:20→21:00)
[2016-12-26] MEDS: ENOXAPARIN SODIUM 40 MG/0.4 ML SYRINGE SQ SCH (09:21)
--- NOTE | 2016-12-26 14:05 | HHI.PR ---
Subjective Remarks Follow-up for dementia. No acute complaints. Objective Vitals Vital Signs Date Time Temp Pulse Resp B/P (MAP) Pulse Ox O2 Delivery O2 Flow Rate FiO2 12/26/16 08:29 98.6 98 19 100/75 (83) 99 12/25/16 20:00 96.4 92 20 104/78 (87) 96 I/O 12/25/16 12/25/16 12/25/16 12/26/16 12/26/16 12/26/16 07:00 15:00 23:00 07:00 15:00 23:00 Intake Total 500 ml 100 ml Balance 500 ml 100 ml Intake Oral 500 ml 100 ml # Voids 3 1 # Bowel Movements 1 1 3 Objective Remarks GENERAL: Pleasant elderly patient in no apparent distress. CARDIOVASCULAR: Faint heart sounds. Regular rate and rhythm. RESPIRATORY: No accessory muscle use. CTAB. GASTROINTESTINAL: Abdomen soft, non-tender, non-distended. NEUROLOGICAL: Awake and alert. PSYCHIATRIC: Pleasant happy mood and affect. Procedures None Urinary Catheter: No Vascular Central Line Catheter: No A/P Problem List: (1) Rhabdomyolysis ICD Code: M62.82 - Rhabdomyolysis Status: Resolved (2) Dementia with behavioral disturbance ICD Code: F03.91 - Unspecified dementia with behavioral disturbance Status: Chronic (3) Atypical chest pain ICD Code: R07.89 - Other chest pain Status: Resolved (4) Normocytic anemia ICD Code: D64.9 - Anemia, unspecified Status: Acute Assessment and Plan Dementia with disturbance of behavior: stable Continue home dosing of Memantine 10 mg po BID. Continue to hold Seroquel and Buspirone due to sedation; is awake and alert off these medications Soft restraints were removed Patient remains well behaved with good mood and affect. Hypermagnesemia: Resolved Magnesium hydroxide discontinued Mg level improved on 10/22. Suspected gingivitis: Due to poor oral hygiene. -Continue Peridex, soak swab and apply to teeth, gums, tongue, and roof of mouth bid. Temperature 100.6 on 09/27/16, afebrile since Continue monitor for infection If further temperature elevation will proceed with infection workup Rhabdomyolysis without renal involvement: Resolved Status post IV fluids, CPK returned to normal Right testicular enlargement Patient has had multiple ultrasounds performed which did not indicate any changes. Does indicate right hydrocele, right epididymal cyst Continue to monitor and address if needed Iron deficiency anemia status post iron sucrose hemoglobin stable. Atypical chest pain Cardiac enzymes normal x 2, EKG within normal limits No further reports of chest pain since admission. Dysphagia Speech therapy evaluated patient and recommends pureed diet and thin liquids. Hypertension: Stable Continue amlodipine and metoprolol DVT prophylaxis: Lovenox, SCDs. Discharge Planning 12/08: Per CM patient not a citizen and has no benefits. Called DCF for assistance. Problem Qualifiers (1) Rhabdomyolysis: (2) Dementia with behavioral disturbance: Naya Ferraro Dec 26, 2016 14:05
[2016-12-26 20:06] VITALS: BP 112/73; PULSE 99; RESP 22; TEMP 98.7; O2SAT 96
[2016-12-27 08:00] VITALS: BP 97/77; PULSE 74; RESP 20; TEMP 96.9; O2SAT 98
[2016-12-27] MEDS: CHLORHEXIDINE GLUCONATE 0.12% 15 ML CUP SCH ×3 (09:00→20:50)
[2016-12-27] MEDS: METOPROLOL TARTRATE 25 MG TAB PO SCH (09:00)
[2016-12-27] MEDS: ENOXAPARIN SODIUM 40 MG/0.4 ML SYRINGE SQ SCH (09:04)
[2016-12-27] MEDS: MEMANTINE HCL 10 MG TAB PO SCH ×2 (09:04→20:50)
--- NOTE | 2016-12-27 10:41 | HHI.PR ---
Subjective Remarks Follow up for dementia. No acute complaints. Objective Vitals Vital Signs Date Time Temp Pulse Resp B/P (MAP) Pulse Ox O2 Delivery O2 Flow Rate FiO2 12/27/16 08:00 96.9 74 20 97/77 (84) 98 12/26/16 20:06 98.7 99 22 112/73 (86) 96 I/O 12/26/16 12/26/16 12/26/16 12/27/16 12/27/16 12/27/16 06:59 14:59 22:59 06:59 14:59 22:59 Intake Total 100 ml 950 ml Balance 100 ml 950 ml Intake Oral 100 ml 950 ml # Voids 1 4 # Bowel Movements 3 3 2 Objective Remarks GENERAL: Pleasant elderly patient in no apparent distress. CARDIOVASCULAR: Faint heart sounds. Regular rate and rhythm. RESPIRATORY: No accessory muscle use. CTAB. GASTROINTESTINAL: Abdomen soft, non-tender, non-distended. NEUROLOGICAL: Awake and alert. PSYCHIATRIC: Pleasant happy mood and affect. Procedures None Urinary Catheter: No Vascular Central Line Catheter: No A/P Problem List: (1) Rhabdomyolysis ICD Code: M62.82 - Rhabdomyolysis Status: Resolved (2) Dementia with behavioral disturbance ICD Code: F03.91 - Unspecified dementia with behavioral disturbance Status: Chronic (3) Atypical chest pain ICD Code: R07.89 - Other chest pain Status: Resolved (4) Normocytic anemia ICD Code: D64.9 - Anemia, unspecified Status: Acute Assessment and Plan Dementia with disturbance of behavior: stable Continue home dosing of Memantine 10 mg po BID. Continue to hold Seroquel and Buspirone due to sedation; is awake and alert off these medications Soft restraints were removed Patient remains well behaved with good mood and affect. Hypermagnesemia: Resolved Magnesium hydroxide discontinued Mg level improved on 10/22. Suspected gingivitis: Due to poor oral hygiene. -Continue Peridex, soak swab and apply to teeth, gums, tongue, and roof of mouth bid. Temperature 100.6 on 09/27/16, afebrile since Continue monitor for infection If further temperature elevation will proceed with infection workup Rhabdomyolysis without renal involvement: Resolved Status post IV fluids, CPK returned to normal Right testicular enlargement Patient has had multiple ultrasounds performed which did not indicate any changes. Does indicate right hydrocele, right epididymal cyst Continue to monitor and address if needed Iron deficiency anemia status post iron sucrose hemoglobin stable. Atypical chest pain Cardiac enzymes normal x 2, EKG within normal limits No further reports of chest pain since admission. Dysphagia Speech therapy evaluated patient and recommends pureed diet and thin liquids. Hypertension: Stable Continue amlodipine and metoprolol DVT prophylaxis: Lovenox, SCDs. Discharge Planning 12/08: Per CM patient not a citizen and has no benefits. Called DCF for assistance. Problem Qualifiers (1) Rhabdomyolysis: (2) Dementia with behavioral disturbance: Naya Ferraro Dec 27, 2016 10:41
[2016-12-27 20:40] VITALS: BP 94/72; PULSE 87; RESP 16; TEMP 97.7; O2SAT 93
[2016-12-28 08:00] VITALS: BP 114/76; PULSE 73; RESP 24; TEMP 98.4; O2SAT 94
[2016-12-28] MEDS: MEMANTINE HCL 10 MG TAB PO SCH ×2 (08:10→21:03)
[2016-12-28] MEDS: METOPROLOL TARTRATE 25 MG TAB PO SCH (08:10)
[2016-12-28] MEDS: CHLORHEXIDINE GLUCONATE 0.12% 15 ML CUP SCH ×2 (08:13→21:04)
[2016-12-28] MEDS: ENOXAPARIN SODIUM 40 MG/0.4 ML SYRINGE SQ SCH (08:13)
--- NOTE | 2016-12-28 10:49 | HHI.PR ---
Subjective Remarks Follow-up for dementia. States he is very good. Objective Vitals Vital Signs Date Time Temp Pulse Resp B/P (MAP) Pulse Ox O2 Delivery O2 Flow Rate FiO2 12/28/16 08:00 98.4 73 24 114/76 (89) 94 12/27/16 20:40 97.7 87 16 94/72 (79) 93 I/O 12/27/16 12/27/16 12/27/16 12/28/16 12/28/16 12/28/16 07:00 15:00 23:00 07:00 15:00 23:00 Intake Total 750 ml 300 ml Balance 750 ml 300 ml Intake Oral 750 ml 300 ml # Voids 2 2 # Bowel Movements 2 2 2 2 Objective Remarks GENERAL: Pleasant elderly patient in no apparent distress sitting in recliner in day room eating breakfast. CARDIOVASCULAR: Regular rate and rhythm. RESPIRATORY: No accessory muscle use. CTAB. GASTROINTESTINAL: Abdomen soft, non-tender, non-distended. NEUROLOGICAL: Awake and alert. PSYCHIATRIC: Pleasant happy mood and affect. Procedures None Urinary Catheter: No Vascular Central Line Catheter: No A/P Problem List: (1) Rhabdomyolysis ICD Code: M62.82 - Rhabdomyolysis Status: Resolved (2) Dementia with behavioral disturbance ICD Code: F03.91 - Unspecified dementia with behavioral disturbance Status: Chronic (3) Atypical chest pain ICD Code: R07.89 - Other chest pain Status: Resolved (4) Normocytic anemia ICD Code: D64.9 - Anemia, unspecified Status: Acute Assessment and Plan Dementia with disturbance of behavior: stable Continue home dosing of Memantine 10 mg po BID. Continue to hold Seroquel and Buspirone due to sedation; is awake and alert off these medications Soft restraints were removed Patient remains well behaved with good mood and affect. Hypermagnesemia: Resolved Magnesium hydroxide discontinued Mg level improved on 10/22. Suspected gingivitis: Due to poor oral hygiene. -Continue Peridex, soak swab and apply to teeth, gums, tongue, and roof of mouth bid. Temperature 100.6 on 09/27/16, afebrile since Continue monitor for infection If further temperature elevation will proceed with infection workup Rhabdomyolysis without renal involvement: Resolved Status post IV fluids, CPK returned to normal Right testicular enlargement Patient has had multiple ultrasounds performed which did not indicate any changes. Does indicate right hydrocele, right epididymal cyst Continue to monitor and address if needed Iron deficiency anemia status post iron sucrose hemoglobin stable. Atypical chest pain Cardiac enzymes normal x 2, EKG within normal limits No further reports of chest pain since admission. Dysphagia Speech therapy evaluated patient and recommends pureed diet and thin liquids. Hypertension: Stable Continue amlodipine and metoprolol DVT prophylaxis: Lovenox, SCDs. Discharge Planning 12/08: Per CM patient not a citizen and has no benefits. Called DCF for assistance. Problem Qualifiers (1) Rhabdomyolysis: (2) Dementia with behavioral disturbance: Naya Ferraro Dec 28, 2016 10:49
[2016-12-28 20:00] VITALS: BP 115/72; PULSE 77; RESP 20; TEMP 97.4; O2SAT 100
[2016-12-29 08:00] VITALS: BP 110/69; PULSE 75; RESP 20; TEMP 98; O2SAT 98
[2016-12-29] MEDS: CHLORHEXIDINE GLUCONATE 0.12% 15 ML CUP SCH ×2 (09:08→21:36)
[2016-12-29] MEDS: MEMANTINE HCL 10 MG TAB PO SCH ×2 (09:08→21:36)
[2016-12-29] MEDS: METOPROLOL TARTRATE 25 MG TAB PO SCH (09:08)
--- NOTE | 2016-12-29 09:11 | HHI.PR ---
Subjective Remarks Follow-up for dementia. No acute complaints. Objective Vitals Vital Signs Date Time Temp Pulse Resp B/P (MAP) Pulse Ox O2 Delivery O2 Flow Rate FiO2 12/29/16 08:00 98.0 75 20 110/69 (83) 98 12/28/16 20:00 97.4 77 20 115/72 (86) 100 I/O 12/28/16 12/28/16 12/28/16 12/29/16 12/29/16 12/29/16 07:00 15:00 23:00 07:00 15:00 23:00 Intake Total 120 ml Balance 120 ml Intake Oral 120 ml # Voids 1 4 # Bowel Movements 2 1 Objective Remarks GENERAL: Pleasant elderly patient in no apparent distress sleeping when I enter the room. CARDIOVASCULAR: Faint heart sounds. Regular rate and rhythm. RESPIRATORY: No accessory muscle use. CTAB. GASTROINTESTINAL: Abdomen soft, non-tender, non-distended. NEUROLOGICAL: Awake and alert. PSYCHIATRIC: Normal mood and affect. Procedures None Urinary Catheter: No Vascular Central Line Catheter: No A/P Problem List: (1) Rhabdomyolysis ICD Code: M62.82 - Rhabdomyolysis Status: Resolved (2) Dementia with behavioral disturbance ICD Code: F03.91 - Unspecified dementia with behavioral disturbance Status: Chronic (3) Atypical chest pain ICD Code: R07.89 - Other chest pain Status: Resolved (4) Normocytic anemia ICD Code: D64.9 - Anemia, unspecified Status: Acute Assessment and Plan Dementia with disturbance of behavior: stable Continue home dosing of Memantine 10 mg po BID. Continue to hold Seroquel and Buspirone due to sedation; is awake and alert off these medications Soft restraints were removed Patient remains well behaved with good mood and affect. Hypermagnesemia: Resolved Magnesium hydroxide discontinued Mg level improved on 10/22. Suspected gingivitis: Due to poor oral hygiene. -Continue Peridex, soak swab and apply to teeth, gums, tongue, and roof of mouth bid. Temperature 100.6 on 09/27/16, afebrile since Continue monitor for infection If further temperature elevation will proceed with infection workup Rhabdomyolysis without renal involvement: Resolved Status post IV fluids, CPK returned to normal Right testicular enlargement Patient has had multiple ultrasounds performed which did not indicate any changes. Does indicate right hydrocele, right epididymal cyst Continue to monitor and address if needed Iron deficiency anemia status post iron sucrose hemoglobin stable. Atypical chest pain Cardiac enzymes normal x 2, EKG within normal limits No further reports of chest pain since admission. Dysphagia Speech therapy evaluated patient and recommends pureed diet and thin liquids. Hypertension: Stable Continue amlodipine and metoprolol DVT prophylaxis: Lovenox, SCDs. Discharge Planning 12/08: Per CM patient not a citizen and has no benefits. Called DCF for assistance. Problem Qualifiers (1) Rhabdomyolysis: (2) Dementia with behavioral disturbance: Naya Ferraro Dec 29, 2016 09:11
[2016-12-29] MEDS: ENOXAPARIN SODIUM 40 MG/0.4 ML SYRINGE SQ SCH (09:12)
[2016-12-29 20:00] VITALS: BP 140/80; PULSE 100; RESP 20; TEMP 97.6; O2SAT 100
[2016-12-30 08:00] VITALS: BP 101/70; PULSE 79; RESP 22; TEMP 98.2; O2SAT 94
--- NOTE | 2016-12-30 08:36 | HHI.PR ---
Subjective Remarks Patient seen and examined today for follow-up on dementia. Patient denies any new complaints. No change in clinical status. Awaiting case management for discharge planning. Objective Vitals Vital Signs Date Time Temp Pulse Resp B/P (MAP) Pulse Ox O2 Delivery O2 Flow Rate FiO2 12/30/16 08:00 98.2 79 22 101/70 (80) 94 12/29/16 20:00 97.6 100 20 140/80 (100) 100 I/O 12/29/16 12/29/16 12/29/16 12/30/16 12/30/16 12/30/16 07:00 15:00 23:00 07:00 15:00 23:00 Intake Total 120 ml 60 ml 60 ml Balance 120 ml 60 ml 60 ml Intake Oral 120 ml 60 ml 60 ml # Voids 4 1 2 3 # Bowel Movements 1 1 1 Objective Remarks GENERAL: Well-developed, cachectic, in no acute distress. Arousable, patient appears to be alert, he is orientated to person and state. He has not orientated to city, date, year HEENT: Head is normocephalic without any lesions or masses noted. Facial features are symmetric with bitemporal wasting. Eyes: Extraocular muscles are intact. Conjunctivae were clear. NECK: Trachea midline no deviation. CARDIAC: Regular rhythm, regular rate. S1/S2 are heard. 2/6 ejection murmur, no gallops or rubs. LUNGS: Clear to auscultation bilaterally. No wheeze, rhonchi or rales. No use of accessory muscles on inspiration or expiration. ABDOMEN: Soft, nontender. Nondistended. Bowel sounds heard in all 4 quadrants. No organomegaly or masses. Negative rebound, negative guarding EXTREMITIES: No edema, pulses are equal bilaterally. No cyanosis or clubbing NEUROLOGY: Patient with significant dementia. He is quite pleasant. Answers questions appropriately Cranial nerves are grossly intact. Procedures None Urinary Catheter: No Vascular Central Line Catheter: No A/P Assessment and Plan Dementia with disturbance of behavior, stable Continue home dosing of memantine 10 mg po BID. hypertension, blood pressure stable Lopressor 12.5 mg daily Dysphagia Speech therapy re-evaluated patient and continue to recommended mechanical soft diet, chopped meat with gravy and thin liquids DVT prophylaxis: Lovenox Records reviewed, no change in current treatment plan Discharge Planning Difficult discharge situation with significant dementia, non-[place] citizen, no payer source, family unwilling to take patient home. Case management for discharge planning Gonzales Babcock Dec 30, 2016 08:36
[2016-12-30] MEDS: CHLORHEXIDINE GLUCONATE 0.12% 15 ML CUP SCH ×2 (09:49→20:23)
[2016-12-30] MEDS: MEMANTINE HCL 10 MG TAB PO SCH ×2 (09:49→20:23)
[2016-12-30] MEDS: ENOXAPARIN SODIUM 40 MG/0.4 ML SYRINGE SQ SCH (09:49)
[2016-12-30] MEDS: METOPROLOL TARTRATE 25 MG TAB PO SCH (09:49)
[2016-12-30 14:27] LABS: BLOOD GAS BASE EXCESS 0.1 mmol/L (-2-2); BLOOD GAS CARBOXYHEMOGLOBIN 1.4 % (0-4); BLOOD GAS HCO3 22 mmol/L (22-26); BLOOD GAS METHEMOGLOBIN 0.7 % (0-2); BLOOD GAS O2 HGB SATURATION 97 % (90-100); BLOOD GAS OXYGEN CONTENT 17.8 Vol % (12.0-20.0); BLOOD GAS PCO2 21 mmHG (38-42); BLOOD GAS PO2 125 mmHG (61-120); BLOOD GAS TOTAL HGB 12.9 G/DL (12.0-16.0); CRITICAL VALUE YES; FIO2 21 %; TEMP CORR TO 98.6
[2016-12-30 14:28] LABS: DRAW SITE RT BRACHIAL; NUMBER OF ARTERIAL PUNCTURES 1; STAT YES; ULNAR PULSE PRESENT
--- NOTE | 2016-12-30 14:43 | RADRPT ---
EXAM DATE/TIME: 12/30/2016 14:30 [facility] COMPARISON: CHEST SINGLE AP, September 17, 2016, 22:07. INDICATIONS : Short of breath. MEDICAL HISTORY : unobtainable SURGICAL HISTORY : unobtainable ENCOUNTER: Subsequent ACUITY: 1 day PAIN SCORE: 0/10 LOCATION: Bilateral chest FINDINGS: A single view of the chest demonstrates the lungs to be symmetrically aerated without evidence of mas s, infiltrate or effusion. The cardiomediastinal contours are unremarkable. Osseous structures are intact. The study is degraded by motion artifact. CONCLUSION: No acute disease. Lyle Dow MD on December 30, 2016 at 14:41 Board Certified Radiologist. This report was verified electronically.
[2016-12-30 20:00] VITALS: BP 106/72; PULSE 72; RESP 16; TEMP 96.6; O2SAT 100
[2016-12-31 09:12] VITALS: BP 101/54; PULSE 66; RESP 18; TEMP 96
[2016-12-31] MEDS: METOPROLOL TARTRATE 25 MG TAB PO SCH (09:13)
[2016-12-31] MEDS: MEMANTINE HCL 10 MG TAB PO SCH ×2 (09:14→20:00)
[2016-12-31] MEDS: ENOXAPARIN SODIUM 40 MG/0.4 ML SYRINGE SQ SCH (09:15)
[2016-12-31] MEDS: CHLORHEXIDINE GLUCONATE 0.12% 15 ML CUP SCH ×2 (09:15→20:00)
--- NOTE | 2016-12-31 11:38 | HHI.PR ---
Subjective Remarks Patient seen and examined today for follow-up on dementia. Patient did have an episode yesterday afternoon of tachypnea, difficult to obtain O2 saturation due to patient's fingers. Blood gases performed which did indicate respiratory alkalosis. Patient without any other symptoms and did appear to be tachypneic. Chest x-ray was performed which was unremarkable for any acute abnormality. Today patient is resting comfortably. No signs of tachypnea. Objective Vitals Vital Signs Date Time Temp Pulse Resp B/P (MAP) Pulse Ox O2 Delivery O2 Flow Rate FiO2 12/31/16 09:12 96.0 66 18 101/54 (70) 12/30/16 20:00 96.6 72 16 106/72 (83) 100 I/O 12/30/16 12/30/16 12/30/16 12/31/16 12/31/16 12/31/16 07:00 15:00 23:00 07:00 15:00 23:00 Intake Total 60 ml 240 ml 480 ml Balance 60 ml 240 ml 480 ml Intake Oral 60 ml 240 ml 480 ml # Voids 3 2 2 # Bowel Movements 1 1 2 Objective Remarks GENERAL: Well-developed, cachectic, in no acute distress. Arousable, patient appears to be alert, he is orientated to person and state. He has not orientated to city, date, year HEENT: Head is normocephalic without any lesions or masses noted. Facial features are symmetric with bitemporal wasting. Eyes: Extraocular muscles are intact. Conjunctivae were clear. NECK: Trachea midline no deviation. CARDIAC: Regular rhythm, regular rate. S1/S2 are heard. 2/6 ejection murmur, no gallops or rubs. LUNGS: Clear to auscultation bilaterally. No wheeze, rhonchi or rales. No use of accessory muscles on inspiration or expiration. ABDOMEN: Soft, nontender. Nondistended. Bowel sounds heard in all 4 quadrants. No organomegaly or masses. Negative rebound, negative guarding EXTREMITIES: No edema, pulses are equal bilaterally. No cyanosis or clubbing NEUROLOGY: Patient with significant dementia. He is quite pleasant. Answers questions appropriately Cranial nerves are grossly intact. Procedures None Urinary Catheter: No Vascular Central Line Catheter: No A/P Assessment and Plan Tachypnea/hypoventilation, resolved --Could be secondary to underlying dementia, anxiety --Blood gas does indicate respiratory alkalosis --Chest x-ray does not indicate any acute abnormality Dementia with disturbance of behavior, stable Continue home dosing of memantine 10 mg po BID. hypertension, blood pressure stable Lopressor 12.5 mg daily Dysphagia Speech therapy re-evaluated patient and continue to recommended mechanical soft diet, chopped meat with gravy and thin liquids DVT prophylaxis: Lovenox Records reviewed, no change in current treatment plan Discharge Planning Difficult discharge situation with significant dementia, non-[place] citizen, no payer source, family unwilling to take patient home. Case management for discharge planning Gonzales Babcock Dec 31, 2016 11:38
[2016-12-31 20:00] VITALS: BP 107/72; PULSE 98; RESP 20; TEMP 98; O2SAT 97
[2017-01-01 08:00] VITALS: BP 120/82; PULSE 77; RESP 20; TEMP 98.1; O2SAT 96
[2017-01-01] MEDS: CHLORHEXIDINE GLUCONATE 0.12% 15 ML CUP SCH ×2 (09:52→21:03)
[2017-01-01] MEDS: METOPROLOL TARTRATE 25 MG TAB PO SCH (09:52)
[2017-01-01] MEDS: MEMANTINE HCL 10 MG TAB PO SCH ×2 (09:52→21:03)
[2017-01-01] MEDS: ENOXAPARIN SODIUM 40 MG/0.4 ML SYRINGE SQ SCH (11:20)
--- NOTE | 2017-01-01 14:37 | HHI.PR ---
Subjective Remarks Patient seen and examined today for follow-up on dementia. Patient denies any new complaints. No change in clinical status. Awaiting case management discharge planning Objective Vitals Vital Signs Date Time Temp Pulse Resp B/P (MAP) Pulse Ox O2 Delivery O2 Flow Rate FiO2 01/01/17 08:00 98.1 77 20 120/82 (95) 96 12/31/16 20:00 98.0 98 20 107/72 (84) 97 I/O 12/31/16 12/31/16 12/31/16 01/01/17 01/01/17 01/01/17 07:00 15:00 23:00 07:00 15:00 23:00 Intake Total 480 ml 300 ml 660 ml 0 ml 240 ml Output Total 1 ml Balance 480 ml 300 ml 659 ml 0 ml 240 ml Intake Oral 480 ml 300 ml 660 ml 0 ml 240 ml Stool Total 1 ml # Voids 2 1 4 1 # Bowel Movements 2 1 0 Objective Remarks GENERAL: Well-developed, cachectic, in no acute distress. Arousable, patient appears to be alert, he is orientated to person and state. He has not orientated to city, date, year HEENT: Head is normocephalic without any lesions or masses noted. Facial features are symmetric with bitemporal wasting. Eyes: Extraocular muscles are intact. Conjunctivae were clear. NECK: Trachea midline no deviation. CARDIAC: Regular rhythm, regular rate. S1/S2 are heard. 2/6 ejection murmur, no gallops or rubs. LUNGS: Clear to auscultation bilaterally. No wheeze, rhonchi or rales. No use of accessory muscles on inspiration or expiration. ABDOMEN: Soft, nontender. Nondistended. Bowel sounds heard in all 4 quadrants. No organomegaly or masses. Negative rebound, negative guarding EXTREMITIES: No edema, pulses are equal bilaterally. No cyanosis or clubbing NEUROLOGY: Patient with significant dementia. He is quite pleasant. Answers questions appropriately Cranial nerves are grossly intact. Procedures None Urinary Catheter: No Vascular Central Line Catheter: No A/P Assessment and Plan Dementia with disturbance of behavior, stable Continue home dosing of memantine 10 mg po BID. hypertension, blood pressure stable Lopressor 12.5 mg daily Dysphagia Speech therapy re-evaluated patient and continue to recommended mechanical soft diet, chopped meat with gravy and thin liquids DVT prophylaxis: Lovenox Records reviewed, no change in current treatment plan Discharge Planning Difficult discharge situation with significant dementia, non-[place] citizen, no payer source, family unwilling to take patient home. Case management for discharge planning Gonzales Babcock Jan 01, 2017 14:37
[2017-01-01 20:00] VITALS: BP 92/70; PULSE 91; RESP 20; TEMP 98.1; O2SAT 98
[2017-01-02 08:00] VITALS: BP 124/79; PULSE 88; RESP 16; TEMP 97.4; O2SAT 98
[2017-01-02] MEDS: CHLORHEXIDINE GLUCONATE 0.12% 15 ML CUP SCH ×2 (09:01→21:00)
[2017-01-02] MEDS: MEMANTINE HCL 10 MG TAB PO SCH ×2 (09:01→21:36)
[2017-01-02] MEDS: METOPROLOL TARTRATE 25 MG TAB PO SCH (09:01)
--- NOTE | 2017-01-02 09:22 | HHI.PR ---
Subjective Remarks Patient seen and examined today for follow-up on dementia. Patient denies any new complaints. No change in clinical status. Awaiting case management discharge planning. Objective Vitals Vital Signs Date Time Temp Pulse Resp B/P (MAP) Pulse Ox O2 Delivery O2 Flow Rate FiO2 01/01/17 20:00 98.1 91 20 92/70 (77) 98 I/O 01/01/17 01/01/17 01/01/17 01/02/17 01/02/17 01/02/17 07:00 15:00 23:00 07:00 15:00 23:00 Intake Total 0 ml 240 ml 0 ml Output Total 1 ml Balance 0 ml 240 ml 0 ml -1 ml Intake Oral 0 ml 240 ml 0 ml Output Urine Total 1 ml # Voids 1 2 # Bowel Movements 0 2 1 Objective Remarks GENERAL: Well-developed, cachectic, in no acute distress. Arousable, patient appears to be alert, he is orientated to person and state. He has not orientated to city, date, year HEENT: Head is normocephalic without any lesions or masses noted. Facial features are symmetric with bitemporal wasting. Eyes: Extraocular muscles are intact. Conjunctivae were clear. NECK: Trachea midline no deviation. CARDIAC: Regular rhythm, regular rate. S1/S2 are heard. 2/6 ejection murmur, no gallops or rubs. LUNGS: Clear to auscultation bilaterally. No wheeze, rhonchi or rales. No use of accessory muscles on inspiration or expiration. ABDOMEN: Soft, nontender. Nondistended. Bowel sounds heard in all 4 quadrants. No organomegaly or masses. Negative rebound, negative guarding EXTREMITIES: No edema, pulses are equal bilaterally. No cyanosis or clubbing NEUROLOGY: Patient with significant dementia. He is quite pleasant. Answers questions appropriately Cranial nerves are grossly intact. Procedures None Urinary Catheter: No Vascular Central Line Catheter: No A/P Assessment and Plan Dementia with disturbance of behavior, stable Continue home dosing of memantine 10 mg po BID. hypertension, blood pressure stable Lopressor 12.5 mg daily Dysphagia Speech therapy re-evaluated patient and continue to recommended mechanical soft diet, chopped meat with gravy and thin liquids DVT prophylaxis: Lovenox Records reviewed, no change in current treatment plan Discharge Planning Difficult discharge situation with significant dementia, non-[place] citizen, no payer source, family unwilling to take patient home. Case management for discharge planning Gonzales Babcock Jan 02, 2017 09:22
[2017-01-02] MEDS: ENOXAPARIN SODIUM 40 MG/0.4 ML SYRINGE SQ SCH (09:46)
[2017-01-02 20:06] VITALS: BP 114/86; PULSE 86; RESP 22; TEMP 98.6; O2SAT 96
[2017-01-03] MEDS: METOPROLOL TARTRATE 25 MG TAB PO SCH ×2 (09:00→11:38)
[2017-01-03] MEDS: MEMANTINE HCL 10 MG TAB PO SCH ×2 (09:00→21:28)
[2017-01-03] MEDS: CHLORHEXIDINE GLUCONATE 0.12% 15 ML CUP SCH ×2 (09:00→21:28)
[2017-01-03] MEDS: ENOXAPARIN SODIUM 40 MG/0.4 ML SYRINGE SQ SCH (10:00)
--- NOTE | 2017-01-03 10:18 | HHI.PR ---
Subjective Remarks Patient seen and examined today for follow-up on dementia. Patient lying in bed comfortably. Denies any new complaints. No change in clinical status. Objective Vitals Vital Signs Date Time Temp Pulse Resp B/P (MAP) Pulse Ox O2 Delivery O2 Flow Rate FiO2 01/02/17 20:06 98.6 86 22 114/86 (95) 96 I/O 01/02/17 01/02/17 01/02/17 01/03/17 01/03/17 01/03/17 07:00 15:00 23:00 07:00 15:00 23:00 Intake Total 0 ml 1000 ml Output Total 1 ml 0 ml Balance 0 ml 999 ml 0 ml Intake Oral 0 ml 1000 ml Output Urine Total 1 ml 0 ml # Voids 2 2 1 # Bowel Movements 2 2 2 1 Objective Remarks GENERAL: Well-developed, cachectic, in no acute distress. Arousable, patient appears to be alert, he is orientated to person and state. He has not orientated to city, date, year HEENT: Head is normocephalic without any lesions or masses noted. Facial features are symmetric with bitemporal wasting. Eyes: Extraocular muscles are intact. Conjunctivae were clear. NECK: Trachea midline no deviation. CARDIAC: Regular rhythm, regular rate. S1/S2 are heard. 2/6 ejection murmur, no gallops or rubs. LUNGS: Clear to auscultation bilaterally. No wheeze, rhonchi or rales. No use of accessory muscles on inspiration or expiration. ABDOMEN: Soft, nontender. Nondistended. Bowel sounds heard in all 4 quadrants. No organomegaly or masses. Negative rebound, negative guarding EXTREMITIES: No edema, pulses are equal bilaterally. No cyanosis or clubbing NEUROLOGY: Patient with significant dementia. He is quite pleasant. Answers questions appropriately Cranial nerves are grossly intact. Procedures None Urinary Catheter: No Vascular Central Line Catheter: No A/P Assessment and Plan Dementia with disturbance of behavior, stable Continue home dosing of memantine 10 mg po BID. hypertension, blood pressure stable Lopressor 12.5 mg daily Dysphagia Speech therapy re-evaluated patient and continue to recommended mechanical soft diet, chopped meat with gravy and thin liquids DVT prophylaxis: Lovenox Records reviewed, no change in current treatment plan Discharge Planning Difficult discharge situation with significant dementia, non-[place] citizen, no payer source, family unwilling to take patient home. Case management for discharge planning Gonzales Babcock Jan 03, 2017 10:18
[2017-01-03 13:27] VITALS: BP 107/72; PULSE 71; RESP 20; TEMP 96.2; O2SAT 95
[2017-01-03 20:52] VITALS: BP 130/79; PULSE 88; RESP 22; TEMP 98.6; O2SAT 98
[2017-01-04 09:42] VITALS: BP 98/76; PULSE 73; RESP 18; TEMP 96.6; O2SAT 94
[2017-01-04] MEDS: ENOXAPARIN SODIUM 40 MG/0.4 ML SYRINGE SQ SCH (10:00)
[2017-01-04] MEDS: METOPROLOL TARTRATE 25 MG TAB PO SCH (10:08)
[2017-01-04] MEDS: MEMANTINE HCL 10 MG TAB PO SCH ×2 (10:25→21:58)
[2017-01-04] MEDS: CHLORHEXIDINE GLUCONATE 0.12% 15 ML CUP SCH ×2 (10:25→21:00)
--- NOTE | 2017-01-04 10:30 | HHI.PR ---
Subjective Remarks Patient is examined today for follow-up on dementia. Patient denies any new complaints. No change in clinical status. Awaiting case management specialist discharge planning Objective Vitals Vital Signs Date Time Temp Pulse Resp B/P (MAP) Pulse Ox O2 Delivery O2 Flow Rate FiO2 01/04/17 09:42 96.6 73 18 98/76 (83) 94 01/03/17 20:52 98.6 88 22 130/79 (96) 98 01/03/17 13:27 96.2 71 20 107/72 (84) 95 I/O 01/03/17 01/03/17 01/03/17 01/04/17 01/04/17 01/04/17 07:00 15:00 23:00 07:00 15:00 23:00 Intake Total 1200 ml Balance 1200 ml Intake Oral 1200 ml # Voids 1 3 1 # Bowel Movements 1 4 Objective Remarks GENERAL: Well-developed, cachectic, in no acute distress. Arousable, patient appears to be alert, he is orientated to person and state. He has not orientated to city, date, year HEENT: Head is normocephalic without any lesions or masses noted. Facial features are symmetric with bitemporal wasting. Eyes: Extraocular muscles are intact. Conjunctivae were clear. NECK: Trachea midline no deviation. CARDIAC: Regular rhythm, regular rate. S1/S2 are heard. 2/6 ejection murmur, no gallops or rubs. LUNGS: Clear to auscultation bilaterally. No wheeze, rhonchi or rales. No use of accessory muscles on inspiration or expiration. ABDOMEN: Soft, nontender. Nondistended. Bowel sounds heard in all 4 quadrants. No organomegaly or masses. Negative rebound, negative guarding EXTREMITIES: No edema, pulses are equal bilaterally. No cyanosis or clubbing NEUROLOGY: Patient with significant dementia. He is quite pleasant. Answers questions appropriately Cranial nerves are grossly intact. Procedures None Urinary Catheter: No Vascular Central Line Catheter: No A/P Assessment and Plan Dementia with disturbance of behavior, stable Continue home dosing of memantine 10 mg po BID. hypertension, blood pressure stable Lopressor 12.5 mg daily Dysphagia Speech therapy re-evaluated patient and continue to recommended mechanical soft diet, chopped meat with gravy and thin liquids DVT prophylaxis: Lovenox Awaiting case management for discharge planning. Records reviewed, no change in current treatment plan Discharge Planning Difficult discharge situation with significant dementia, non-[place] citizen, no payer source, family unwilling to take patient home. Case management for discharge planning Gonzales Babcock Jan 04, 2017 10:30
[2017-01-04 21:29] VITALS: BP 140/80; PULSE 90; RESP 20; TEMP 97.9; O2SAT 96
[2017-01-05 08:00] VITALS: BP 139/87; RESP 20; TEMP 96.2
[2017-01-05] MEDS: ENOXAPARIN SODIUM 40 MG/0.4 ML SYRINGE SQ SCH (10:00)
--- NOTE | 2017-01-05 10:10 | HHI.PR ---
Subjective Remarks Patient seen and examined today for follow-up on dementia. Patient denies any new complaints. No change in clinical status. Awaiting case management for discharge planning. Objective Vitals Vital Signs Date Time Temp Pulse Resp B/P (MAP) Pulse Ox O2 Delivery O2 Flow Rate FiO2 01/05/17 08:00 96.2 20 139/87 (104) 01/04/17 21:29 97.9 90 20 140/80 (100) 96 I/O 01/04/17 01/04/17 01/04/17 01/05/17 01/05/17 01/05/17 07:00 15:00 23:00 07:00 15:00 23:00 Intake Total 800 ml Balance 800 ml Intake Oral 800 ml # Voids 1 3 3 # Bowel Movements 1 3 Objective Remarks GENERAL: Well-developed, cachectic, in no acute distress. Arousable, patient appears to be alert, he is orientated to person and state. He has not orientated to city, date, year HEENT: Head is normocephalic without any lesions or masses noted. Facial features are symmetric with bitemporal wasting. Eyes: Extraocular muscles are intact. Conjunctivae were clear. NECK: Trachea midline no deviation. CARDIAC: Regular rhythm, regular rate. S1/S2 are heard. 2/6 ejection murmur, no gallops or rubs. LUNGS: Clear to auscultation bilaterally. No wheeze, rhonchi or rales. No use of accessory muscles on inspiration or expiration. ABDOMEN: Soft, nontender. Nondistended. Bowel sounds heard in all 4 quadrants. No organomegaly or masses. Negative rebound, negative guarding EXTREMITIES: No edema, pulses are equal bilaterally. No cyanosis or clubbing NEUROLOGY: Patient with significant dementia. He is quite pleasant. Answers questions appropriately Cranial nerves are grossly intact. Procedures None Urinary Catheter: No Vascular Central Line Catheter: No A/P Assessment and Plan Dementia with disturbance of behavior, stable Continue home dosing of memantine 10 mg po BID. hypertension, blood pressure stable Lopressor 12.5 mg daily Dysphagia Speech therapy re-evaluated patient and continue to recommended mechanical soft diet, chopped meat with gravy and thin liquids DVT prophylaxis: Lovenox Records reviewed, no change in current treatment plan, Awaiting case management for discharge planning. Discharge Planning Difficult discharge situation with significant dementia, non-[place] citizen, no payer source, family unwilling to take patient home. Case management for discharge planning Gonzales Babcock Jan 05, 2017 10:10
[2017-01-05] MEDS: MEMANTINE HCL 10 MG TAB PO SCH ×2 (10:35→22:11)
[2017-01-05] MEDS: CHLORHEXIDINE GLUCONATE 0.12% 15 ML CUP SCH ×2 (10:35→21:00)
[2017-01-05] MEDS: METOPROLOL TARTRATE 25 MG TAB PO SCH (10:44)
[2017-01-05 20:00] VITALS: BP 95/67; PULSE 95; RESP 18; TEMP 97.7; O2SAT 97
[2017-01-06 08:00] VITALS: BP 122/71; PULSE 80; RESP 22; TEMP 97.7; O2SAT 98
[2017-01-06] MEDS: MEMANTINE HCL 10 MG TAB PO SCH ×2 (09:00→22:10)
[2017-01-06] MEDS: CHLORHEXIDINE GLUCONATE 0.12% 15 ML CUP SCH ×2 (09:51→22:14)
[2017-01-06] MEDS: METOPROLOL TARTRATE 25 MG TAB PO SCH (09:51)
[2017-01-06] MEDS: ENOXAPARIN SODIUM 40 MG/0.4 ML SYRINGE SQ SCH (09:52)
--- NOTE | 2017-01-06 10:20 | HHI.PR ---
Subjective Remarks Follow-up for dementia. No acute issues. Objective Vitals Vital Signs Date Time Temp Pulse Resp B/P (MAP) Pulse Ox O2 Delivery O2 Flow Rate FiO2 01/05/17 20:00 97.7 95 18 95/67 (76) 97 I/O 01/05/17 01/05/17 01/05/17 01/06/17 01/06/17 01/06/17 06:59 14:59 22:59 06:59 14:59 22:59 Intake Total 1260 ml Balance 1260 ml Intake Oral 1260 ml # Voids 3 1 2 # Bowel Movements 3 1 0 Objective Remarks GENERAL: Pleasant elderly patient in no apparent distress. CARDIOVASCULAR: Faint heart sounds. Regular rate and rhythm. RESPIRATORY: No accessory muscle use. CTAB. GASTROINTESTINAL: Abdomen non-tender. NEUROLOGICAL: Awake and alert. PSYCHIATRIC: Normal mood and affect. Procedures None Urinary Catheter: No Vascular Central Line Catheter: No A/P Problem List: (1) Rhabdomyolysis ICD Code: M62.82 - Rhabdomyolysis Status: Resolved (2) Dementia with behavioral disturbance ICD Code: F03.91 - Unspecified dementia with behavioral disturbance Status: Chronic (3) Atypical chest pain ICD Code: R07.89 - Other chest pain Status: Resolved (4) Normocytic anemia ICD Code: D64.9 - Anemia, unspecified Status: Acute Assessment and Plan Dementia with disturbance of behavior: stable Continue home dosing of Memantine 10 mg po BID. Continue to hold Seroquel and Buspirone due to sedation; is awake and alert off these medications Soft restraints were removed Patient remains well behaved with good mood and affect. Tachypnea/hypoventilation: Resolved. -Could be secondary to underlying dementia, anxiety -Blood gas with respiratory alkalosis -Chest x-ray without acute abnormality Hypermagnesemia: Resolved Magnesium hydroxide discontinued Mg level improved on 10/22. Suspected gingivitis: Due to poor oral hygiene. -Continue Peridex, soak swab and apply to teeth, gums, tongue, and roof of mouth bid. Rhabdomyolysis without renal involvement: Resolved Status post IV fluids, CPK returned to normal Right testicular enlargement Patient has had multiple ultrasounds performed which did not indicate any changes. Does indicate right hydrocele, right epididymal cyst Continue to monitor and address if needed Iron deficiency anemia status post iron sucrose hemoglobin stable. Atypical chest pain Cardiac enzymes normal x 2, EKG within normal limits No further reports of chest pain since admission. Dysphagia Speech therapy evaluated patient and recommends pureed diet and thin liquids. Hypertension: Stable Continue amlodipine and metoprolol DVT prophylaxis: Lovenox, SCDs. Discharge Planning 12/08: Per CM patient not a citizen and has no benefits. Called DCF for assistance. Problem Qualifiers (1) Rhabdomyolysis: (2) Dementia with behavioral disturbance: Naya Ferraro Jan 06, 2017 10:20
[2017-01-06 20:00] VITALS: BP 99/76; PULSE 87; RESP 18; TEMP 98.5; O2SAT 99
[2017-01-07 08:00] VITALS: BP 105/79; PULSE 73; RESP 21; TEMP 97; O2SAT 96
[2017-01-07] MEDS: ENOXAPARIN SODIUM 40 MG/0.4 ML SYRINGE SQ SCH (09:02)
[2017-01-07] MEDS: CHLORHEXIDINE GLUCONATE 0.12% 15 ML CUP SCH ×2 (09:03→21:00)
[2017-01-07] MEDS: MEMANTINE HCL 10 MG TAB PO SCH ×2 (09:03→20:59)
[2017-01-07] MEDS: METOPROLOL TARTRATE 25 MG TAB PO SCH (09:03)
--- NOTE | 2017-01-07 10:07 | HHI.PR ---
Subjective Remarks Follow-up for dementia. RN states patient was up all night. Objective Vitals Vital Signs Date Time Temp Pulse Resp B/P (MAP) Pulse Ox O2 Delivery O2 Flow Rate FiO2 01/06/17 20:00 98.5 87 18 99/76 (84) 99 I/O 01/06/17 01/06/17 01/06/17 01/07/17 01/07/17 01/07/17 07:00 15:00 23:00 07:00 15:00 23:00 Intake Total 180 ml Balance 180 ml Intake Oral 180 ml # Voids 2 1 # Bowel Movements 0 1 Objective Remarks GENERAL: Pleasant elderly patient in no apparent distress sleeping. CARDIOVASCULAR: Faint heart sounds. Regular rate and rhythm. RESPIRATORY: No accessory muscle use. CTAB. GASTROINTESTINAL: Abdomen soft, non-tender, nondistended. NEUROLOGICAL: Sleeping. PSYCHIATRIC: Normal mood and affect. Procedures None Urinary Catheter: No Vascular Central Line Catheter: No A/P Problem List: (1) Rhabdomyolysis ICD Code: M62.82 - Rhabdomyolysis Status: Resolved (2) Dementia with behavioral disturbance ICD Code: F03.91 - Unspecified dementia with behavioral disturbance Status: Chronic (3) Atypical chest pain ICD Code: R07.89 - Other chest pain Status: Resolved (4) Normocytic anemia ICD Code: D64.9 - Anemia, unspecified Status: Acute Assessment and Plan Dementia with disturbance of behavior: stable Continue home dosing of Memantine 10 mg po BID. Continue to hold Seroquel and Buspirone due to sedation; is awake and alert off these medications Soft restraints were removed Patient remains well behaved with good mood and affect. Tachypnea/hypoventilation: Resolved. -Could be secondary to underlying dementia, anxiety -Blood gas with respiratory alkalosis -Chest x-ray without acute abnormality Hypermagnesemia: Resolved Magnesium hydroxide discontinued Mg level improved on 10/22. Suspected gingivitis: Due to poor oral hygiene. -Continue Peridex, soak swab and apply to teeth, gums, tongue, and roof of mouth bid. Rhabdomyolysis without renal involvement: Resolved Status post IV fluids, CPK returned to normal Right testicular enlargement Patient has had multiple ultrasounds performed which did not indicate any changes. Does indicate right hydrocele, right epididymal cyst Continue to monitor and address if needed Iron deficiency anemia status post iron sucrose hemoglobin stable. Atypical chest pain Cardiac enzymes normal x 2, EKG within normal limits No further reports of chest pain since admission. Dysphagia Speech therapy evaluated patient and recommends pureed diet and thin liquids. Hypertension: Stable Continue amlodipine and metoprolol DVT prophylaxis: Lovenox, SCDs. Discharge Planning 12/08: Per CM patient not a citizen and has no benefits. Called DCF for assistance. Problem Qualifiers (1) Rhabdomyolysis: (2) Dementia with behavioral disturbance: Naya Ferraro Jan 07, 2017 10:07
[2017-01-07 20:00] VITALS: BP 112/85; PULSE 94; RESP 18; TEMP 97.1
[2017-01-08 08:00] VITALS: BP 143/86; PULSE 84; RESP 18; TEMP 95.9; O2SAT 96
[2017-01-08] MEDS: ENOXAPARIN SODIUM 40 MG/0.4 ML SYRINGE SQ SCH (09:03)
[2017-01-08] MEDS: MEMANTINE HCL 10 MG TAB PO SCH ×2 (09:03→21:13)
[2017-01-08] MEDS: METOPROLOL TARTRATE 25 MG TAB PO SCH (09:03)
[2017-01-08] MEDS: CHLORHEXIDINE GLUCONATE 0.12% 15 ML CUP SCH ×2 (09:51→21:13)
--- NOTE | 2017-01-08 11:11 | HHI.PR ---
Subjective Remarks Follow-up for dementia. No acute complaints. States he is very good. Objective Vitals Vital Signs Date Time Temp Pulse Resp B/P (MAP) Pulse Ox O2 Delivery O2 Flow Rate FiO2 01/08/17 08:00 95.9 84 18 143/86 (105) 96 01/07/17 20:00 97.1 94 18 112/85 (94) I/O 01/07/17 01/07/17 01/07/17 01/08/17 01/08/17 01/08/17 07:00 15:00 23:00 07:00 15:00 23:00 Intake Total 180 ml 240 ml 60 ml 60 ml Output Total 4 ml Balance 180 ml 240 ml 60 ml 56 ml Intake Oral 180 ml 240 ml 60 ml 60 ml Output Urine Total 4 ml # Voids 1 1 2 1 # Bowel Movements 1 2 1 Objective Remarks GENERAL: Pleasant elderly patient in no apparent distress sitting in recliner in day room. CARDIOVASCULAR: Regular rate and rhythm. RESPIRATORY: No accessory muscle use. CTAB. GASTROINTESTINAL: Abdomen soft, non-tender, nondistended. NEUROLOGICAL: Sleeping initially but arouses and is awake and alert. PSYCHIATRIC: Pleasant mood and affect. Procedures None Urinary Catheter: No Vascular Central Line Catheter: No A/P Problem List: (1) Rhabdomyolysis ICD Code: M62.82 - Rhabdomyolysis Status: Resolved (2) Dementia with behavioral disturbance ICD Code: F03.91 - Unspecified dementia with behavioral disturbance Status: Chronic (3) Atypical chest pain ICD Code: R07.89 - Other chest pain Status: Resolved (4) Normocytic anemia ICD Code: D64.9 - Anemia, unspecified Status: Acute Assessment and Plan Dementia with disturbance of behavior: stable Continue home dosing of Memantine 10 mg po BID. Continue to hold Seroquel and Buspirone due to sedation; is awake and alert off these medications Soft restraints were removed Patient remains well behaved with good mood and affect. Tachypnea/hypoventilation: Resolved. -Could be secondary to underlying dementia, anxiety -Blood gas with respiratory alkalosis -Chest x-ray without acute abnormality Hypermagnesemia: Resolved Magnesium hydroxide discontinued Mg level improved on 10/22. Suspected gingivitis: Due to poor oral hygiene. -Continue Peridex, soak swab and apply to teeth, gums, tongue, and roof of mouth bid. Rhabdomyolysis without renal involvement: Resolved Status post IV fluids, CPK returned to normal Right testicular enlargement Patient has had multiple ultrasounds performed which did not indicate any changes. Does indicate right hydrocele, right epididymal cyst Continue to monitor and address if needed Iron deficiency anemia status post iron sucrose hemoglobin stable. Atypical chest pain Cardiac enzymes normal x 2, EKG within normal limits No further reports of chest pain since admission. Dysphagia Speech therapy evaluated patient and recommends pureed diet and thin liquids. Hypertension: Stable Continue amlodipine and metoprolol DVT prophylaxis: Lovenox, SCDs. Discharge Planning 12/08: Per CM patient not a citizen and has no benefits. Called DCF for assistance. Problem Qualifiers (1) Rhabdomyolysis: (2) Dementia with behavioral disturbance: Naya Ferraro Jan 08, 2017 11:09
[2017-01-08 20:00] VITALS: BP 142/71; PULSE 85; RESP 20; TEMP 96; O2SAT 96
[2017-01-09 08:00] VITALS: BP 102/65; PULSE 20; RESP 17; TEMP 97; O2SAT 96
[2017-01-09] MEDS: ENOXAPARIN SODIUM 40 MG/0.4 ML SYRINGE SQ SCH (09:05)
[2017-01-09] MEDS: CHLORHEXIDINE GLUCONATE 0.12% 15 ML CUP SCH ×2 (09:05→20:05)
[2017-01-09] MEDS: MEMANTINE HCL 10 MG TAB PO SCH ×2 (09:05→20:05)
--- NOTE | 2017-01-09 10:01 | HHI.PR ---
Subjective Remarks Follow-up for dementia. No acute complaints. Objective Vitals Vital Signs Date Time Temp Pulse Resp B/P (MAP) Pulse Ox O2 Delivery O2 Flow Rate FiO2 01/09/17 08:00 97.0 20 17 102/65 (77) 96 01/08/17 20:00 96.0 85 20 142/71 (94) 96 I/O 01/08/17 01/08/17 01/08/17 01/09/17 01/09/17 01/09/17 07:00 15:00 23:00 07:00 15:00 23:00 Intake Total 60 ml 1130 ml 60 ml 60 ml Output Total 4 ml Balance 56 ml 1130 ml 60 ml 60 ml Intake Oral 60 ml 1130 ml 60 ml 60 ml Output Urine Total 4 ml # Voids 2 3 1 2 # Bowel Movements 2 3 1 1 Objective Remarks GENERAL: Pleasant elderly patient in no apparent distress sleeping in recliner in day room. CARDIOVASCULAR: Faint heart sounds. Regular rate and rhythm. RESPIRATORY: No accessory muscle use. CTAB. NEUROLOGICAL: Sleeping initially but arouses and is awake and alert. PSYCHIATRIC: Pleasant mood and affect. Procedures None Urinary Catheter: No Vascular Central Line Catheter: No A/P Problem List: (1) Rhabdomyolysis ICD Code: M62.82 - Rhabdomyolysis Status: Resolved (2) Dementia with behavioral disturbance ICD Code: F03.91 - Unspecified dementia with behavioral disturbance Status: Chronic (3) Atypical chest pain ICD Code: R07.89 - Other chest pain Status: Resolved (4) Normocytic anemia ICD Code: D64.9 - Anemia, unspecified Status: Acute Assessment and Plan Dementia with disturbance of behavior: stable Continue home dosing of Memantine 10 mg po BID. Continue to hold Seroquel and Buspirone due to sedation; is awake and alert off these medications Soft restraints were removed Patient remains well behaved with good mood and affect. Tachypnea/hypoventilation: Resolved. -Could be secondary to underlying dementia, anxiety -Blood gas with respiratory alkalosis -Chest x-ray without acute abnormality Hypermagnesemia: Resolved Magnesium hydroxide discontinued Mg level improved on 10/22. Suspected gingivitis: Due to poor oral hygiene. -Continue Peridex, soak swab and apply to teeth, gums, tongue, and roof of mouth bid. Rhabdomyolysis without renal involvement: Resolved Status post IV fluids, CPK returned to normal Right testicular enlargement Patient has had multiple ultrasounds performed which did not indicate any changes. Does indicate right hydrocele, right epididymal cyst Continue to monitor and address if needed Iron deficiency anemia status post iron sucrose hemoglobin stable. Atypical chest pain Cardiac enzymes normal x 2, EKG within normal limits No further reports of chest pain since admission. Dysphagia Speech therapy evaluated patient and recommends pureed diet and thin liquids. Hypertension: Stable Continue amlodipine and metoprolol DVT prophylaxis: Lovenox, SCDs. Discharge Planning 12/08: Per CM patient not a citizen and has no benefits. Called DCF for assistance. Problem Qualifiers (1) Rhabdomyolysis: (2) Dementia with behavioral disturbance: Naya Ferraro Jan 09, 2017 10:01
[2017-01-09 20:42] VITALS: BP 137/75; PULSE 96; RESP 22; TEMP 98.9; O2SAT 97
[2017-01-10 08:00] VITALS: BP 106/77; PULSE 64; RESP 20; TEMP 95.8; O2SAT 100
[2017-01-10] MEDS: METOPROLOL TARTRATE 25 MG TAB PO SCH ×2 (09:00→09:29)
[2017-01-10] MEDS: CHLORHEXIDINE GLUCONATE 0.12% 15 ML CUP SCH ×2 (09:29→20:02)
[2017-01-10] MEDS: ENOXAPARIN SODIUM 40 MG/0.4 ML SYRINGE SQ SCH (09:29)
[2017-01-10] MEDS: MEMANTINE HCL 10 MG TAB PO SCH ×2 (09:29→20:02)
--- NOTE | 2017-01-10 11:09 | HHI.PR ---
Subjective Remarks Follow up for dementia. No acute complaints. Sleeping but arouses and states something about wine. Objective Vitals Vital Signs Date Time Temp Pulse Resp B/P (MAP) Pulse Ox O2 Delivery O2 Flow Rate FiO2 01/10/17 08:00 95.8 64 20 106/77 (87) 100 01/09/17 20:42 98.9 96 22 137/75 (95) 97 I/O 01/09/17 01/09/17 01/09/17 01/10/17 01/10/17 01/10/17 07:00 15:00 23:00 07:00 15:00 23:00 Intake Total 60 ml 720 ml Balance 60 ml 720 ml Intake Oral 60 ml 720 ml # Voids 2 1 # Bowel Movements 1 2 1 Objective Remarks GENERAL: Pleasant elderly patient in no apparent distress sleeping when I enter the room. CARDIOVASCULAR: Faint heart sounds. Regular rate and rhythm. RESPIRATORY: No accessory muscle use. CTAB. GASTROINTESTINAL: Abdomen slightly tense due to patient position. NEUROLOGICAL: Sleeping initially but arouses and is awake and alert. PSYCHIATRIC: Normal mood and affect. Procedures None Urinary Catheter: No Vascular Central Line Catheter: No A/P Problem List: (1) Rhabdomyolysis ICD Code: M62.82 - Rhabdomyolysis Status: Resolved (2) Dementia with behavioral disturbance ICD Code: F03.91 - Unspecified dementia with behavioral disturbance Status: Chronic (3) Atypical chest pain ICD Code: R07.89 - Other chest pain Status: Resolved (4) Normocytic anemia ICD Code: D64.9 - Anemia, unspecified Status: Acute Assessment and Plan Dementia with disturbance of behavior: stable Continue home dosing of Memantine 10 mg po BID. Continue to hold Seroquel and Buspirone due to sedation; is awake and alert off these medications Soft restraints were removed Patient remains well behaved with good mood and affect. Tachypnea/hypoventilation: Resolved. -Could be secondary to underlying dementia, anxiety -Blood gas with respiratory alkalosis -Chest x-ray without acute abnormality Hypermagnesemia: Resolved Magnesium hydroxide discontinued Mg level improved on 10/22. Suspected gingivitis: Due to poor oral hygiene. -Continue Peridex, soak swab and apply to teeth, gums, tongue, and roof of mouth bid. Rhabdomyolysis without renal involvement: Resolved Status post IV fluids, CPK returned to normal Right testicular enlargement Patient has had multiple ultrasounds performed which did not indicate any changes. Does indicate right hydrocele, right epididymal cyst Continue to monitor and address if needed Iron deficiency anemia status post iron sucrose hemoglobin stable. Atypical chest pain Cardiac enzymes normal x 2, EKG within normal limits No further reports of chest pain since admission. Dysphagia Speech therapy evaluated patient and recommends pureed diet and thin liquids. Hypertension: Stable Continue amlodipine and metoprolol DVT prophylaxis: Lovenox, SCDs. Discharge Planning 12/08: Per CM patient not a citizen and has no benefits. Called DCF for assistance. Problem Qualifiers (1) Rhabdomyolysis: (2) Dementia with behavioral disturbance: Naya Ferraro Jan 10, 2017 11:09
[2017-01-10 20:34] VITALS: BP 146/77; PULSE 101; RESP 24; TEMP 97.8; O2SAT 96
[2017-01-11 08:00] VITALS: BP 116/75; PULSE 87; RESP 12; TEMP 96.3; O2SAT 95
[2017-01-11] MEDS: CHLORHEXIDINE GLUCONATE 0.12% 15 ML CUP SCH ×2 (09:16→20:19)
[2017-01-11] MEDS: MEMANTINE HCL 10 MG TAB PO SCH ×2 (09:17→20:19)
[2017-01-11] MEDS: ENOXAPARIN SODIUM 40 MG/0.4 ML SYRINGE SQ SCH (09:17)
[2017-01-11] MEDS: METOPROLOL TARTRATE 25 MG TAB PO SCH (09:17)
--- NOTE | 2017-01-11 11:35 | HHI.PR ---
Subjective Remarks Follow-up for dementia. Patient sleeping, arouses, but goes back to sleep. Objective Vitals Vital Signs Date Time Temp Pulse Resp B/P (MAP) Pulse Ox O2 Delivery O2 Flow Rate FiO2 01/11/17 08:00 96.3 87 12 116/75 (89) 95 01/10/17 20:34 97.8 101 24 146/77 (100) 96 I/O 01/10/17 01/10/17 01/10/17 01/11/17 01/11/17 01/11/17 07:00 15:00 23:00 07:00 15:00 23:00 Intake Total 1020 ml Balance 1020 ml Intake Oral 1020 ml # Voids 4 1 # Bowel Movements 2 2 3 Objective Remarks GENERAL: Pleasant elderly patient in no apparent distress sleeping when I enter the room. CARDIOVASCULAR: Regular rate and rhythm. RESPIRATORY: No accessory muscle use. CTAB. NEUROLOGICAL: Sleeping but arouses. Procedures None Urinary Catheter: No Vascular Central Line Catheter: No A/P Problem List: (1) Rhabdomyolysis ICD Code: M62.82 - Rhabdomyolysis Status: Resolved (2) Dementia with behavioral disturbance ICD Code: F03.91 - Unspecified dementia with behavioral disturbance Status: Chronic (3) Atypical chest pain ICD Code: R07.89 - Other chest pain Status: Resolved (4) Normocytic anemia ICD Code: D64.9 - Anemia, unspecified Status: Acute Assessment and Plan Dementia with disturbance of behavior: stable Continue home dosing of Memantine 10 mg po BID. Continue to hold Seroquel and Buspirone due to sedation; is awake and alert off these medications Soft restraints were removed Patient remains well behaved with good mood and affect. Tachypnea/hypoventilation: Resolved. -Could be secondary to underlying dementia, anxiety -Blood gas with respiratory alkalosis -Chest x-ray without acute abnormality Hypermagnesemia: Resolved Magnesium hydroxide discontinued Mg level improved on 10/22. Suspected gingivitis: Due to poor oral hygiene. -Continue Peridex, soak swab and apply to teeth, gums, tongue, and roof of mouth bid. Rhabdomyolysis without renal involvement: Resolved Status post IV fluids, CPK returned to normal Right testicular enlargement Patient has had multiple ultrasounds performed which did not indicate any changes. Does indicate right hydrocele, right epididymal cyst Continue to monitor and address if needed Iron deficiency anemia status post iron sucrose hemoglobin stable. Atypical chest pain Cardiac enzymes normal x 2, EKG within normal limits No further reports of chest pain since admission. Dysphagia Speech therapy evaluated patient and recommends pureed diet and thin liquids. Hypertension: Stable Continue amlodipine and metoprolol DVT prophylaxis: Lovenox, SCDs. Discharge Planning 12/08: Per CM patient not a citizen and has no benefits. Called DCF for assistance. Problem Qualifiers (1) Rhabdomyolysis: (2) Dementia with behavioral disturbance: Naya Ferraro Jan 11, 2017 11:35
[2017-01-11 12:00] VITALS: BP 100/61; PULSE 75; RESP 16; TEMP 96.6; O2SAT 99
[2017-01-11 20:00] VITALS: BP 110/79; PULSE 80; RESP 20; TEMP 99.1; O2SAT 99
[2017-01-12 08:00] VITALS: BP 114/79; PULSE 89; RESP 18; TEMP 97.8; O2SAT 94
[2017-01-12] MEDS: METOPROLOL TARTRATE 25 MG TAB PO SCH (09:00)
[2017-01-12] MEDS: MEMANTINE HCL 10 MG TAB PO SCH ×2 (09:00→21:39)
--- NOTE | 2017-01-12 09:40 | HHI.PR ---
Subjective Remarks Follow-up for dementia. No acute complaints. Objective Vitals Vital Signs Date Time Temp Pulse Resp B/P (MAP) Pulse Ox O2 Delivery O2 Flow Rate FiO2 01/12/17 08:00 97.8 89 18 114/79 (91) 94 01/11/17 20:00 99.1 80 20 110/79 (89) 99 01/11/17 12:00 96.6 75 16 100/61 (74) 99 I/O 01/11/17 01/11/17 01/11/17 01/12/17 01/12/17 01/12/17 07:00 15:00 23:00 07:00 15:00 23:00 Intake Total 600 ml 480 ml 0 ml Output Total 1 ml 0 ml Balance 599 ml 480 ml 0 ml Intake Oral 600 ml 480 ml 0 ml Output Urine Total 0 ml Stool Total 1 ml # Voids 2 2 1 # Bowel Movements 3 3 2 Objective Remarks GENERAL: Pleasant elderly patient in no apparent distress sitting in recliner in day room sleeping when I enter the room. CARDIOVASCULAR: Regular rate and rhythm. RESPIRATORY: No accessory muscle use. CTAB. NEUROLOGICAL: Sleeping but arouses. Procedures None Urinary Catheter: No Vascular Central Line Catheter: No A/P Problem List: (1) Rhabdomyolysis ICD Code: M62.82 - Rhabdomyolysis Status: Resolved (2) Dementia with behavioral disturbance ICD Code: F03.91 - Unspecified dementia with behavioral disturbance Status: Chronic (3) Atypical chest pain ICD Code: R07.89 - Other chest pain Status: Resolved (4) Normocytic anemia ICD Code: D64.9 - Anemia, unspecified Status: Acute Assessment and Plan Dementia with disturbance of behavior: stable Continue home dosing of Memantine 10 mg po BID. Continue to hold Seroquel and Buspirone due to sedation; is awake and alert off these medications Soft restraints were removed Patient remains well behaved with good mood and affect. Tachypnea/hypoventilation: Resolved. -Could be secondary to underlying dementia, anxiety -Blood gas with respiratory alkalosis -Chest x-ray without acute abnormality Hypermagnesemia: Resolved Magnesium hydroxide discontinued Mg level improved on 10/22. Suspected gingivitis: Due to poor oral hygiene. -Continue Peridex, soak swab and apply to teeth, gums, tongue, and roof of mouth bid. Rhabdomyolysis without renal involvement: Resolved Status post IV fluids, CPK returned to normal Right testicular enlargement Patient has had multiple ultrasounds performed which did not indicate any changes. Does indicate right hydrocele, right epididymal cyst Continue to monitor and address if needed Iron deficiency anemia status post iron sucrose hemoglobin stable. Atypical chest pain Cardiac enzymes normal x 2, EKG within normal limits No further reports of chest pain since admission. Dysphagia Speech therapy evaluated patient and recommends pureed diet and thin liquids. Hypertension: Stable Continue amlodipine and metoprolol DVT prophylaxis: Lovenox, SCDs. Discharge Planning 12/08: Per CM patient not a citizen and has no benefits. Called DCF for assistance. Problem Qualifiers (1) Rhabdomyolysis: (2) Dementia with behavioral disturbance: Naya Ferraro Jan 12, 2017 09:40
[2017-01-12] MEDS: CHLORHEXIDINE GLUCONATE 0.12% 15 ML CUP SCH ×2 (10:01→21:40)
[2017-01-12] MEDS: ENOXAPARIN SODIUM 40 MG/0.4 ML SYRINGE SQ SCH (10:05)
[2017-01-12 20:00] VITALS: BP 118/78; PULSE 82; RESP 18; TEMP 98; O2SAT 93
[2017-01-13 08:00] VITALS: BP 111/74; PULSE 70; RESP 19; TEMP 97.6; O2SAT 98
[2017-01-13] MEDS: MEMANTINE HCL 10 MG TAB PO SCH ×2 (09:00→21:47)
[2017-01-13] MEDS: METOPROLOL TARTRATE 25 MG TAB PO SCH (10:12)
[2017-01-13] MEDS: CHLORHEXIDINE GLUCONATE 0.12% 15 ML CUP SCH ×2 (10:12→21:47)
--- NOTE | 2017-01-13 10:13 | HHI.PR ---
Subjective Remarks Patient seen exam today for follow-up on dementia. Patient lying in bed comfortable. Denies any new complaints. No change in clinical status. Objective Vitals Vital Signs Date Time Temp Pulse Resp B/P (MAP) Pulse Ox O2 Delivery O2 Flow Rate FiO2 01/13/17 08:00 97.6 70 19 111/74 (86) 98 01/12/17 20:00 98.0 82 18 118/78 (91) 93 I/O 01/12/17 01/12/17 01/12/17 01/13/17 01/13/17 01/13/17 07:00 15:00 23:00 07:00 15:00 23:00 Intake Total 0 ml 660 ml 240 ml Balance 0 ml 660 ml 240 ml Intake Oral 0 ml 660 ml 240 ml # Voids 1 4 2 # Bowel Movements 2 2 2 Objective Remarks GENERAL: Well-developed, cachectic, in no acute distress. Arousable, patient appears to be alert, he is orientated to person and state. He has not orientated to city, date, year HEENT: Head is normocephalic without any lesions or masses noted. Facial features are symmetric with bitemporal wasting. Eyes: Extraocular muscles are intact. Conjunctivae were clear. NECK: Trachea midline no deviation. CARDIAC: Regular rhythm, regular rate. S1/S2 are heard. 2/6 ejection murmur, no gallops or rubs. LUNGS: Clear to auscultation bilaterally. No wheeze, rhonchi or rales. No use of accessory muscles on inspiration or expiration. ABDOMEN: Soft, nontender. Nondistended. Bowel sounds heard in all 4 quadrants. No organomegaly or masses. Negative rebound, negative guarding EXTREMITIES: No edema, pulses are equal bilaterally. No cyanosis or clubbing NEUROLOGY: Patient with significant dementia. He is quite pleasant. Answers questions appropriately Cranial nerves are grossly intact. Procedures None Urinary Catheter: No Vascular Central Line Catheter: No A/P Assessment and Plan Dementia with disturbance of behavior, stable Continue home dosing of memantine 10 mg po BID. hypertension, blood pressure stable Lopressor 12.5 mg daily Dysphagia Speech therapy re-evaluated patient and continue to recommended mechanical soft diet, chopped meat with gravy and thin liquids DVT prophylaxis: Lovenox Records reviewed, no change in current treatment plan, Awaiting case management for discharge planning. Discharge Planning Difficult discharge situation with significant dementia, non-[place] citizen, no payer source, family unwilling to take patient home. Case management for discharge planning Gonzales Babcock Jan 13, 2017 10:13
[2017-01-13] MEDS: ENOXAPARIN SODIUM 40 MG/0.4 ML SYRINGE SQ SCH (10:14)
[2017-01-13 20:00] VITALS: BP 144/70; PULSE 86; RESP 20; TEMP 97.6; O2SAT 92
[2017-01-14 08:00] VITALS: BP 111/82; PULSE 83; RESP 18; TEMP 97.3; O2SAT 96
[2017-01-14] MEDS: MEMANTINE HCL 10 MG TAB PO SCH ×2 (09:00→22:03)
[2017-01-14] MEDS: METOPROLOL TARTRATE 25 MG TAB PO SCH (09:47)
[2017-01-14] MEDS: ENOXAPARIN SODIUM 40 MG/0.4 ML SYRINGE SQ SCH (09:48)
[2017-01-14] MEDS: CHLORHEXIDINE GLUCONATE 0.12% 15 ML CUP SCH ×2 (09:48→21:00)
--- NOTE | 2017-01-14 11:45 | HHI.PR ---
Subjective Remarks Patient seen and examined today for follow-up on dementia. Patient lying in bed carefully. Denies any new complaints. No change in clinical status. Objective Vitals Vital Signs Date Time Temp Pulse Resp B/P (MAP) Pulse Ox O2 Delivery O2 Flow Rate FiO2 01/14/17 08:00 97.3 83 18 111/82 (92) 96 01/13/17 20:00 97.6 86 20 144/70 (94) 92 I/O 01/13/17 01/13/17 01/13/17 01/14/17 01/14/17 01/14/17 07:00 15:00 23:00 07:00 15:00 23:00 Intake Total 240 ml 100 ml Balance 240 ml 100 ml Intake Oral 240 ml 100 ml # Voids 2 4 2 # Bowel Movements 2 1 2 Objective Remarks GENERAL: Well-developed, cachectic, in no acute distress. Arousable, patient appears to be alert, he is orientated to person and state. He has not orientated to city, date, year HEENT: Head is normocephalic without any lesions or masses noted. Facial features are symmetric with bitemporal wasting. Eyes: Extraocular muscles are intact. Conjunctivae were clear. NECK: Trachea midline no deviation. CARDIAC: Regular rhythm, regular rate. S1/S2 are heard. 2/6 ejection murmur, no gallops or rubs. LUNGS: Clear to auscultation bilaterally. No wheeze, rhonchi or rales. No use of accessory muscles on inspiration or expiration. ABDOMEN: Soft, nontender. Nondistended. Bowel sounds heard in all 4 quadrants. No organomegaly or masses. Negative rebound, negative guarding EXTREMITIES: No edema, pulses are equal bilaterally. No cyanosis or clubbing NEUROLOGY: Patient with significant dementia. He is quite pleasant. Answers questions appropriately Cranial nerves are grossly intact. Procedures None Urinary Catheter: No Vascular Central Line Catheter: No A/P Assessment and Plan Dementia with disturbance of behavior, stable Continue home dosing of memantine 10 mg po BID. hypertension, blood pressure stable Lopressor 12.5 mg daily Dysphagia Speech therapy re-evaluated patient and continue to recommended mechanical soft diet, chopped meat with gravy and thin liquids DVT prophylaxis: Lovenox Records reviewed, no change in current treatment plan, Awaiting case management for discharge planning. Discharge Planning Difficult discharge situation with significant dementia, non-[place] citizen, no payer source, family unwilling to take patient home. Case management for discharge planning Gonzales Babcock Jan 14, 2017 11:45
[2017-01-14 20:00] VITALS: BP 106/68; PULSE 68; RESP 20; TEMP 96.7; O2SAT 99
[2017-01-14] MEDS: ACETAMINOPHEN 325 MG TAB PO PRN (22:03)
[2017-01-15 08:00] VITALS: BP 108/79; PULSE 60; RESP 20; TEMP 98
[2017-01-15] MEDS: METOPROLOL TARTRATE 25 MG TAB PO SCH (08:09)
[2017-01-15] MEDS: MEMANTINE HCL 10 MG TAB PO SCH ×2 (08:11→21:03)
[2017-01-15] MEDS: CHLORHEXIDINE GLUCONATE 0.12% 15 ML CUP SCH ×2 (08:11→21:03)
--- NOTE | 2017-01-15 09:02 | HHI.PR ---
Subjective Remarks Patient seen and examined today for follow-up on dementia. Patient did not indicate any new complaints. No change in clinical status. Objective Vitals Vital Signs Date Time Temp Pulse Resp B/P (MAP) Pulse Ox O2 Delivery O2 Flow Rate FiO2 01/15/17 08:00 98.0 60 20 108/79 (89) 01/14/17 20:00 96.7 68 20 106/68 (81) 99 I/O 01/14/17 01/14/17 01/14/17 01/15/17 01/15/17 01/15/17 07:00 15:00 23:00 07:00 15:00 23:00 Intake Total 100 ml 480 ml 160 ml 100 ml Balance 100 ml 480 ml 160 ml 100 ml Intake Oral 100 ml 480 ml 160 ml 100 ml # Voids 2 3 1 # Bowel Movements 2 1 1 1 Objective Remarks GENERAL: Well-developed, cachectic, in no acute distress. Arousable, patient appears to be alert, he is orientated to person and state. He has not orientated to city, date, year HEENT: Head is normocephalic without any lesions or masses noted. Facial features are symmetric with bitemporal wasting. Eyes: Extraocular muscles are intact. Conjunctivae were clear. NECK: Trachea midline no deviation. CARDIAC: Regular rhythm, regular rate. S1/S2 are heard. 2/6 ejection murmur, no gallops or rubs. LUNGS: Clear to auscultation bilaterally. No wheeze, rhonchi or rales. No use of accessory muscles on inspiration or expiration. ABDOMEN: Soft, nontender. Nondistended. Bowel sounds heard in all 4 quadrants. No organomegaly or masses. Negative rebound, negative guarding EXTREMITIES: No edema, pulses are equal bilaterally. No cyanosis or clubbing NEUROLOGY: Patient with significant dementia. He is quite pleasant. Answers questions appropriately Cranial nerves are grossly intact. Procedures None Urinary Catheter: No Vascular Central Line Catheter: No A/P Assessment and Plan Dementia with disturbance of behavior, stable Continue home dosing of memantine 10 mg po BID. hypertension, blood pressure stable Lopressor 12.5 mg daily Dysphagia Speech therapy re-evaluated patient and continue to recommended mechanical soft diet, chopped meat with gravy and thin liquids DVT prophylaxis: Lovenox Records reviewed, no change in current treatment plan, Awaiting case management for discharge planning. Discharge Planning Difficult discharge situation with significant dementia, non-US citizen, no payer source, family unwilling to take patient home. Case management for discharge planning Gonzales Babcock Jan 15, 2017 09:02
[2017-01-15] MEDS: ENOXAPARIN SODIUM 40 MG/0.4 ML SYRINGE SQ SCH (10:28)
[2017-01-15 20:00] VITALS: BP 120/90; PULSE 82; RESP 20; TEMP 96.5; O2SAT 98
[2017-01-16 08:00] VITALS: BP 86/64; PULSE 80; RESP 21; TEMP 96.9; O2SAT 96
[2017-01-16] MEDS: METOPROLOL TARTRATE 25 MG TAB PO SCH (08:45)
[2017-01-16] MEDS: CHLORHEXIDINE GLUCONATE 0.12% 15 ML CUP SCH ×2 (08:46→20:28)
[2017-01-16] MEDS: MEMANTINE HCL 10 MG TAB PO SCH ×2 (08:46→20:34)
[2017-01-16] MEDS: ENOXAPARIN SODIUM 40 MG/0.4 ML SYRINGE SQ SCH (10:13)
--- NOTE | 2017-01-16 11:17 | HHI.PR ---
Subjective Remarks Patient seen and examined today for follow-up on dementia. Patient sitting in chair, resting carefully, denies any new complaints. Objective Vitals Vital Signs Date Time Temp Pulse Resp B/P (MAP) Pulse Ox O2 Delivery O2 Flow Rate FiO2 01/16/17 08:00 96.9 80 21 86/64 (71) 96 01/15/17 20:00 96.5 82 20 120/90 (100) 98 I/O 01/15/17 01/15/17 01/15/17 01/16/17 01/16/17 01/16/17 07:00 15:00 23:00 07:00 15:00 23:00 Intake Total 100 ml 1240 ml 120 ml Balance 100 ml 1240 ml 120 ml Intake Oral 100 ml 1240 ml 120 ml # Voids 2 0 # Bowel Movements 1 2 5 Objective Remarks GENERAL: Well-developed, cachectic, in no acute distress. Arousable, patient appears to be alert, he is orientated to person and state. He has not orientated to city, date, year HEENT: Head is normocephalic without any lesions or masses noted. Facial features are symmetric with bitemporal wasting. Eyes: Extraocular muscles are intact. Conjunctivae were clear. NECK: Trachea midline no deviation. CARDIAC: Regular rhythm, regular rate. S1/S2 are heard. 2/6 ejection murmur, no gallops or rubs. LUNGS: Clear to auscultation bilaterally. No wheeze, rhonchi or rales. No use of accessory muscles on inspiration or expiration. ABDOMEN: Soft, nontender. Nondistended. Bowel sounds heard in all 4 quadrants. No organomegaly or masses. Negative rebound, negative guarding EXTREMITIES: No edema, pulses are equal bilaterally. No cyanosis or clubbing NEUROLOGY: Patient with significant dementia. He is quite pleasant. Answers questions appropriately Cranial nerves are grossly intact. Procedures None Urinary Catheter: No Vascular Central Line Catheter: No A/P Assessment and Plan Dementia with disturbance of behavior, stable Continue home dosing of memantine 10 mg po BID. hypertension, blood pressure stable Lopressor 12.5 mg daily Dysphagia Speech therapy re-evaluated patient and continue to recommended mechanical soft diet, chopped meat with gravy and thin liquids DVT prophylaxis: Lovenox Awaiting case management for discharge planning. Records reviewed, no change in current treatment plan, Discharge Planning Difficult discharge situation with significant dementia, non-[place] citizen, no payer source, family unwilling to take patient home. Case management for discharge planning Gonzales Babcock Jan 16, 2017 11:17
[2017-01-16 20:00] VITALS: BP 110/89; PULSE 111; RESP 18; TEMP 96.8; O2SAT 99
[2017-01-17 08:00] VITALS: BP 118/85; PULSE 72; RESP 19; TEMP 96.9; O2SAT 93
--- NOTE | 2017-01-17 08:24 | HHI.PR ---
Subjective Remarks Patient seen and examined today for follow-up on dementia. Patient denies any new complaints. No change in clinical status. Awaiting case management for discharge planning. Objective Vitals Vital Signs Date Time Temp Pulse Resp B/P (MAP) Pulse Ox O2 Delivery O2 Flow Rate FiO2 01/16/17 20:00 96.8 111 18 110/89 (96) 99 I/O 01/16/17 01/16/17 01/16/17 01/17/17 01/17/17 01/17/17 07:00 15:00 23:00 07:00 15:00 23:00 Intake Total 120 ml 400 ml Balance 120 ml 400 ml Intake Oral 120 ml 400 ml # Voids 0 3 # Bowel Movements 5 1 2 Objective Remarks GENERAL: Well-developed, cachectic, in no acute distress. Arousable, patient appears to be alert, he is orientated to person and state. He has not orientated to city, date, year HEENT: Head is normocephalic without any lesions or masses noted. Facial features are symmetric with bitemporal wasting. Eyes: Extraocular muscles are intact. Conjunctivae were clear. NECK: Trachea midline no deviation. CARDIAC: Regular rhythm, regular rate. S1/S2 are heard. 2/6 ejection murmur, no gallops or rubs. LUNGS: Clear to auscultation bilaterally. No wheeze, rhonchi or rales. No use of accessory muscles on inspiration or expiration. ABDOMEN: Soft, nontender. Nondistended. Bowel sounds heard in all 4 quadrants. No organomegaly or masses. Negative rebound, negative guarding EXTREMITIES: No edema, pulses are equal bilaterally. No cyanosis or clubbing NEUROLOGY: Patient with significant dementia. He is quite pleasant. Answers questions appropriately Cranial nerves are grossly intact. Procedures None Urinary Catheter: No Vascular Central Line Catheter: No A/P Assessment and Plan Dementia with disturbance of behavior, stable Continue home dosing of memantine 10 mg po BID. hypertension, blood pressure stable Lopressor 12.5 mg daily Dysphagia Speech therapy re-evaluated patient and continue to recommended mechanical soft diet, chopped meat with gravy and thin liquids DVT prophylaxis: Lovenox Records reviewed, no change in current treatment plan, Awaiting case management for discharge planning. Discharge Planning Difficult discharge situation with significant dementia, non-[place] citizen, no payer source, family unwilling to take patient home. Case management for discharge planning Gonzales Babcock Jan 17, 2017 08:24
[2017-01-17] MEDS: ENOXAPARIN SODIUM 40 MG/0.4 ML SYRINGE SQ SCH (08:32)
[2017-01-17] MEDS: CALCIUM CARBONATE 500 MG CHEWABLE TAB CHEW PRN (08:33)
[2017-01-17] MEDS: METOPROLOL TARTRATE 25 MG TAB PO SCH (08:35)
[2017-01-17] MEDS: MEMANTINE HCL 10 MG TAB PO SCH ×2 (08:35→20:31)
[2017-01-17] MEDS: CHLORHEXIDINE GLUCONATE 0.12% 15 ML CUP SCH ×2 (09:00→20:32)
[2017-01-17 20:42] VITALS: BP 136/76; PULSE 77; RESP 20; TEMP 98; O2SAT 96
[2017-01-18 08:00] VITALS: BP 118/77; PULSE 75; RESP 17; TEMP 97.6; O2SAT 95
--- NOTE | 2017-01-18 08:10 | HHI.PR ---
Subjective Remarks Patient seen and examined today for follow-up on dementia. No change in clinical status. Patient does not indicate any new complaints. Awaiting case management for discharge planning. Objective Vitals Vital Signs Date Time Temp Pulse Resp B/P (MAP) Pulse Ox O2 Delivery O2 Flow Rate FiO2 01/17/17 20:42 98.0 77 20 136/76 (96) 96 I/O 01/17/17 01/17/17 01/17/17 01/18/17 01/18/17 01/18/17 07:00 15:00 23:00 07:00 15:00 23:00 # Voids 1 # Bowel Movements 2 1 3 1 Objective Remarks GENERAL: Well-developed, cachectic, in no acute distress. Arousable, patient appears to be alert, he is orientated to person and state. He has not orientated to city, date, year HEENT: Head is normocephalic without any lesions or masses noted. Facial features are symmetric with bitemporal wasting. Eyes: Extraocular muscles are intact. Conjunctivae were clear. NECK: Trachea midline no deviation. CARDIAC: Regular rhythm, regular rate. S1/S2 are heard. 2/6 ejection murmur, no gallops or rubs. LUNGS: Clear to auscultation bilaterally. No wheeze, rhonchi or rales. No use of accessory muscles on inspiration or expiration. ABDOMEN: Soft, nontender. Nondistended. Bowel sounds heard in all 4 quadrants. No organomegaly or masses. Negative rebound, negative guarding EXTREMITIES: No edema, pulses are equal bilaterally. No cyanosis or clubbing NEUROLOGY: Patient with significant dementia. He is quite pleasant. Answers questions appropriately Cranial nerves are grossly intact. Procedures None Urinary Catheter: No Vascular Central Line Catheter: No A/P Assessment and Plan Dementia with disturbance of behavior, stable Continue home dosing of memantine 10 mg po BID. hypertension, blood pressure stable Lopressor 12.5 mg daily Dysphagia Speech therapy re-evaluated patient and continue to recommended mechanical soft diet, chopped meat with gravy and thin liquids DVT prophylaxis: Lovenox Awaiting case management for discharge planning. Records reviewed, no change in current treatment plan, Discharge Planning Case management for discharge planning Gonzales Babcock Jan 18, 2017 08:10
[2017-01-18] MEDS: MEMANTINE HCL 10 MG TAB PO SCH ×2 (09:02→21:42)
[2017-01-18] MEDS: METOPROLOL TARTRATE 25 MG TAB PO SCH (09:02)
[2017-01-18] MEDS: CHLORHEXIDINE GLUCONATE 0.12% 15 ML CUP SCH ×2 (09:05→21:42)
[2017-01-18] MEDS: ENOXAPARIN SODIUM 40 MG/0.4 ML SYRINGE SQ SCH (09:11)
[2017-01-18 19:00] VITALS: BP 93/67; PULSE 82; RESP 22; TEMP 95.9; O2SAT 96
--- NOTE | 2017-01-19 07:50 | HHI.PR ---
Subjective Remarks Patient seen and examined today for follow-up on dementia. No change in clinical status. Patient denies any new complaints. Awaiting case management for discharge planning. Objective Vitals Vital Signs Date Time Temp Pulse Resp B/P (MAP) Pulse Ox O2 Delivery O2 Flow Rate FiO2 01/18/17 19:00 95.9 82 22 93/67 (76) 96 01/18/17 08:00 97.6 75 17 118/77 (91) 95 I/O 01/18/17 01/18/17 01/18/17 01/19/17 01/19/17 01/19/17 07:00 15:00 23:00 07:00 15:00 23:00 # Voids 2 # Bowel Movements 1 1 3 Objective Remarks GENERAL: Well-developed, cachectic, in no acute distress. Arousable, patient appears to be alert, he is orientated to person and state. He has not orientated to city, date, year HEENT: Head is normocephalic without any lesions or masses noted. Facial features are symmetric with bitemporal wasting. Eyes: Extraocular muscles are intact. Conjunctivae were clear. NECK: Trachea midline no deviation. CARDIAC: Regular rhythm, regular rate. S1/S2 are heard. 2/6 ejection murmur, no gallops or rubs. LUNGS: Clear to auscultation bilaterally. No wheeze, rhonchi or rales. No use of accessory muscles on inspiration or expiration. ABDOMEN: Soft, nontender. Nondistended. Bowel sounds heard in all 4 quadrants. No organomegaly or masses. Negative rebound, negative guarding EXTREMITIES: No edema, pulses are equal bilaterally. No cyanosis or clubbing NEUROLOGY: Patient with significant dementia. He is quite pleasant. Answers questions appropriately Cranial nerves are grossly intact. Procedures None Urinary Catheter: No Vascular Central Line Catheter: No A/P Assessment and Plan Dementia with disturbance of behavior, stable Continue home dosing of memantine 10 mg po BID. hypertension, blood pressure stable Lopressor 12.5 mg daily Dysphagia Speech therapy re-evaluated patient and continue to recommended mechanical soft diet, chopped meat with gravy and thin liquids DVT prophylaxis: Lovenox Records reviewed, no change in current treatment plan, Awaiting case management for discharge planning. Discharge Planning Case management for discharge planning Gonzales Babcock Jan 19, 2017 07:50
[2017-01-19 07:52] VITALS: BP 110/80; PULSE 80; RESP 20; TEMP 97.6; O2SAT 100
[2017-01-19] MEDS: METOPROLOL TARTRATE 25 MG TAB PO SCH (08:27)
[2017-01-19] MEDS: MEMANTINE HCL 10 MG TAB PO SCH ×2 (08:28→21:29)
[2017-01-19] MEDS: CHLORHEXIDINE GLUCONATE 0.12% 15 ML CUP SCH ×2 (08:29→21:29)
[2017-01-19] MEDS: ENOXAPARIN SODIUM 40 MG/0.4 ML SYRINGE SQ SCH (10:14)
[2017-01-19 20:00] VITALS: BP 125/73; PULSE 71; RESP 20; TEMP 97.9; O2SAT 99
[2017-01-20 08:00] VITALS: BP 118/76; PULSE 64; RESP 20; TEMP 97.7; O2SAT 97
--- NOTE | 2017-01-20 09:11 | HHI.PR ---
Subjective Remarks Follow up for dementia. Objective Vitals Vital Signs Date Time Temp Pulse Resp B/P (MAP) Pulse Ox O2 Delivery O2 Flow Rate FiO2 01/20/17 08:00 97.7 64 20 118/76 (90) 97 01/19/17 20:00 97.9 71 20 125/73 (90) 99 I/O 01/19/17 01/19/17 01/19/17 01/20/17 01/20/17 01/20/17 07:00 15:00 23:00 07:00 15:00 23:00 Intake Total 960 ml 780 ml 60 ml Balance 960 ml 780 ml 60 ml Intake Oral 960 ml 780 ml 60 ml # Voids 2 2 1 0 # Bowel Movements 3 1 1 2 Objective Remarks GENERAL: Pleasant elderly patient in no apparent distress sleeping when I enter the room. CARDIOVASCULAR: Regular rate and rhythm. RESPIRATORY: No accessory muscle use. CTAB. GASTROINTESTINAL: Abdomen non-distended. Tense due to patient position, but when he relaxes abdomen is soft and non-tender. NEUROLOGICAL: Arouses to voice. Awake and alert. Procedures None Urinary Catheter: No Vascular Central Line Catheter: No A/P Problem List: (1) Rhabdomyolysis ICD Code: M62.82 - Rhabdomyolysis Status: Resolved (2) Dementia with behavioral disturbance ICD Code: F03.91 - Unspecified dementia with behavioral disturbance Status: Chronic (3) Atypical chest pain ICD Code: R07.89 - Other chest pain Status: Resolved (4) Normocytic anemia ICD Code: D64.9 - Anemia, unspecified Status: Acute Assessment and Plan Dementia with disturbance of behavior: stable Continue home dosing of Memantine 10 mg po BID. Continue to hold Seroquel and Buspirone due to sedation; is awake and alert off these medications Soft restraints were removed Patient remains well behaved with good mood and affect. Tachypnea/hypoventilation: Resolved. -Could be secondary to underlying dementia, anxiety -Blood gas with respiratory alkalosis -Chest x-ray without acute abnormality Hypermagnesemia: Resolved Magnesium hydroxide discontinued Mg level improved on 10/22. Suspected gingivitis: Due to poor oral hygiene. -Continue Peridex, soak swab and apply to teeth, gums, tongue, and roof of mouth bid. Rhabdomyolysis without renal involvement: Resolved Status post IV fluids, CPK returned to normal Right testicular enlargement Patient has had multiple ultrasounds performed which did not indicate any changes. Does indicate right hydrocele, right epididymal cyst Continue to monitor and address if needed Iron deficiency anemia status post iron sucrose hemoglobin stable. Atypical chest pain Cardiac enzymes normal x 2, EKG within normal limits No further reports of chest pain since admission. Dysphagia Speech therapy evaluated patient and recommends pureed diet and thin liquids. Hypertension: Stable Continue amlodipine and metoprolol DVT prophylaxis: Lovenox, SCDs. Discharge Planning 12/08: Per CM patient not a citizen and has no benefits. Called DCF for assistance. Problem Qualifiers (1) Rhabdomyolysis: (2) Dementia with behavioral disturbance: Naya Ferraro Jan 20, 2017 09:11
[2017-01-20] MEDS: CHLORHEXIDINE GLUCONATE 0.12% 15 ML CUP SCH ×2 (09:28→21:32)
[2017-01-20] MEDS: ENOXAPARIN SODIUM 40 MG/0.4 ML SYRINGE SQ SCH (09:28)
[2017-01-20] MEDS: METOPROLOL TARTRATE 25 MG TAB PO SCH (09:28)
[2017-01-20] MEDS: MEMANTINE HCL 10 MG TAB PO SCH ×2 (09:28→21:33)
[2017-01-20 20:00] VITALS: BP 113/78; PULSE 85; RESP 20; TEMP 98.3; O2SAT 99
[2017-01-21] MEDS: MEMANTINE HCL 10 MG TAB PO SCH ×2 (07:51→20:03)
[2017-01-21] MEDS: METOPROLOL TARTRATE 25 MG TAB PO SCH (07:51)
[2017-01-21] MEDS: CHLORHEXIDINE GLUCONATE 0.12% 15 ML CUP SCH ×2 (07:52→20:05)
[2017-01-21 08:00] VITALS: BP_SYST 147; BP_SYST 99; BP_DIAS 71; PULSE 60; PULSE 76; RESP 17; RESP 21; TEMP 97.2; TEMP 98.2; O2SAT 93; O2SAT 96
--- NOTE | 2017-01-21 09:00 | HHI.PR ---
Subjective Remarks Follow-up for dementia. Patient complains of pain pointing to the center of his abdomen. Denies any fevers or chills, nausea, vomiting, or diarrhea. Objective Vitals Vital Signs Date Time Temp Pulse Resp B/P (MAP) Pulse Ox O2 Delivery O2 Flow Rate FiO2 01/20/17 20:00 98.3 85 20 113/78 (90) 99 I/O 01/20/17 01/20/17 01/20/17 01/21/17 01/21/17 01/21/17 07:00 15:00 23:00 07:00 15:00 23:00 Intake Total 60 ml 1440 ml 540 ml 60 ml Balance 60 ml 1440 ml 540 ml 60 ml Intake Oral 60 ml 1440 ml 540 ml 60 ml # Voids 0 2 1 1 # Bowel Movements 2 1 1 3 Objective Remarks GENERAL: Pleasant elderly patient in no apparent distress sleeping when I enter the room. CARDIOVASCULAR: Regular rate and rhythm. RESPIRATORY: No accessory muscle use. CTAB. GASTROINTESTINAL: Abdomen non-tender, non-distended. Tense as patient will not relax his body. NEUROLOGICAL: Awake and alert. Procedures None Urinary Catheter: No Vascular Central Line Catheter: No A/P Problem List: (1) Abdominal pain ICD Code: R10.9 - Unspecified abdominal pain Status: Acute (2) Rhabdomyolysis ICD Code: M62.82 - Rhabdomyolysis Status: Resolved (3) Dementia with behavioral disturbance ICD Code: F03.91 - Unspecified dementia with behavioral disturbance Status: Chronic (4) Atypical chest pain ICD Code: R07.89 - Other chest pain Status: Resolved (5) Normocytic anemia ICD Code: D64.9 - Anemia, unspecified Status: Acute Assessment and Plan 01/21 Abdominal pain: Patient c/o abdominal pain this morning but has no pain on exam although patient is unreliable as he is elderly and has dementia. Patient has had 3 BMs today. Afebrile. -Will order CBC, CMP, and lipase to make sure there are no abnormalities especially since patient has not had lab work since 11/27/16. -Monitor clinically. Dementia with disturbance of behavior: stable Continue home dosing of Memantine 10 mg po BID. Continue to hold Seroquel and Buspirone due to sedation; is awake and alert off these medications Soft restraints were removed Patient remains well behaved with good mood and affect. Tachypnea/hypoventilation: Resolved. -Could be secondary to underlying dementia, anxiety -Blood gas with respiratory alkalosis -Chest x-ray without acute abnormality Hypermagnesemia: Resolved Magnesium hydroxide discontinued Mg level improved on 10/22. Suspected gingivitis: Due to poor oral hygiene. -Continue Peridex, soak swab and apply to teeth, gums, tongue, and roof of mouth bid. Rhabdomyolysis without renal involvement: Resolved Status post IV fluids, CPK returned to normal Right testicular enlargement Patient has had multiple ultrasounds performed which did not indicate any changes. Does indicate right hydrocele, right epididymal cyst Continue to monitor and address if needed Iron deficiency anemia status post iron sucrose hemoglobin stable. Atypical chest pain Cardiac enzymes normal x 2, EKG within normal limits No further reports of chest pain since admission. Dysphagia Speech therapy evaluated patient and recommends pureed diet and thin liquids. Hypertension: Continue amlodipine and metoprolol 01/21: BP elevated this morning possibly due to pain he reported. Monitor. DVT prophylaxis: Lovenox, SCDs. Discharge Planning 12/08: Per CM patient not a citizen and has no benefits. Called DCF for assistance. Problem Qualifiers (1) Rhabdomyolysis: (2) Dementia with behavioral disturbance: Naya Ferraro Jan 21, 2017 09:00
[2017-01-21] MEDS: ENOXAPARIN SODIUM 40 MG/0.4 ML SYRINGE SQ SCH (10:00)
[2017-01-21 16:27] LABS: AUTOMATED NEUTROPHIL # 6.9 TH/MM3 (1.8-7.7); BASOPHIL % 0.4 % (0.0-2.0); EOSINOPHIL # 0.1 TH/MM3 (0-0.4); EOSINOPHIL % 1.6 % (0.0-4.0); HEMATOCRIT 34.6 % (39.0-51.0); HEMO FLAGS DIFF FINAL; LYMPH % 18.6 % (9.0-44.0); LYMPHOCYTE # 1.7 TH/MM3 (1.0-4.8); MEAN CELL VOLUME 90.6 FL (80.0-100.0); MEAN CORPUSCULAR HGB CONC 34.2 % (32.0-36.0); MONO % 5.8 % (0.0-8.0); NEUT % 73.6 % (16.0-70.0); PLATELET COUNT 376 TH/MM3 (150-450); RED BLOOD COUNT 3.82 MIL/MM3 (4.50-5.90); RED CELL DISTRIBUTION WIDTH 12.4 % (11.6-17.2); WHITE BLOOD COUNT 9.2 TH/MM3 (4.0-11.0)
[2017-01-21 16:46] LABS: CHLORIDE 102 MEQ/L (98-107); POTASSIUM 4.1 MEQ/L (3.5-5.1); SODIUM (NA) 138 MEQ/L (136-145)
[2017-01-21 16:50] LABS: ANION GAP 8 MEQ/L (5-15); BICARBONATE 28.4 MEQ/L (21.0-32.0)
[2017-01-21 16:51] LABS: BLOOD UREA NITROGEN 14 MG/DL (7-18)
[2017-01-21 16:53] LABS: ALT (GPT) 24 U/L (12-78); AST (GOT) 14 U/L (15-37); GLOMERULAR FILTRATION RATE 93 ML/MIN (>89)
[2017-01-21 16:55] LABS: TOTAL BILIRUBIN ADULT 0.5 MG/DL (0.2-1.0)
[2017-01-21 16:56] LABS: ALKALINE PHOSPHATASE 73 U/L (45-117)
[2017-01-21 20:16] VITALS: BP_SYST 115; BP_SYST 122; BP_DIAS 70; BP_DIAS 84; PULSE 81; PULSE 90; RESP 18; RESP 22; TEMP 98.4; TEMP 99.3; O2SAT 95
[2017-01-22 08:00] VITALS: BP 119/71; PULSE 59; RESP 19; TEMP 96.1; O2SAT 100
--- NOTE | 2017-01-22 09:01 | HHI.PR ---
Subjective Remarks Follow-up for dementia. Patient reported abdominal pain yesterday. He denies any abdominal pain today. Objective Vitals Vital Signs Date Time Temp Pulse Resp B/P (MAP) Pulse Ox O2 Delivery O2 Flow Rate FiO2 01/21/17 20:16 99.3 81 22 122/84 (97) 95 I/O 01/21/17 01/21/17 01/21/17 01/22/17 01/22/17 01/22/17 07:00 15:00 23:00 07:00 15:00 23:00 Intake Total 60 ml 450 ml Balance 60 ml 450 ml Intake Oral 60 ml 450 ml # Voids 1 3 3 # Bowel Movements 3 2 Result Diagram: 01/21/17 1622 01/21/17 1622 Objective Remarks GENERAL: Pleasant elderly patient in no apparent distress. CARDIOVASCULAR: Regular rate and rhythm. RESPIRATORY: No accessory muscle use. CTAB. GASTROINTESTINAL: Abdomen soft, non-tender, non-distended NEUROLOGICAL: Awake and alert. Procedures None Urinary Catheter: No Vascular Central Line Catheter: No A/P Problem List: (1) Abdominal pain ICD Code: R10.9 - Unspecified abdominal pain Status: Acute (2) Rhabdomyolysis ICD Code: M62.82 - Rhabdomyolysis Status: Resolved (3) Dementia with behavioral disturbance ICD Code: F03.91 - Unspecified dementia with behavioral disturbance Status: Chronic (4) Atypical chest pain ICD Code: R07.89 - Other chest pain Status: Resolved (5) Normocytic anemia ICD Code: D64.9 - Anemia, unspecified Status: Acute Assessment and Plan Abdominal pain: Patient c/o abdominal pain on 01/21 but has no pain on exam although patient is unreliable as he is elderly and has dementia. -White blood cell count normal. Hemoglobin stable. CMP unremarkable. Lipase normal. -Monitor clinically. -01/22: No further c/o abdominal pain. Exam benign. Dementia with disturbance of behavior: stable Continue home dosing of Memantine 10 mg po BID. Continue to hold Seroquel and Buspirone due to sedation; is awake and alert off these medications Soft restraints were removed Patient remains well behaved with good mood and affect. Tachypnea/hypoventilation: Resolved. -Could be secondary to underlying dementia, anxiety -Blood gas with respiratory alkalosis -Chest x-ray without acute abnormality Hypermagnesemia: Resolved Magnesium hydroxide discontinued Mg level improved on 10/22. Suspected gingivitis: Due to poor oral hygiene. -Continue Peridex, soak swab and apply to teeth, gums, tongue, and roof of mouth bid. Rhabdomyolysis without renal involvement: Resolved Status post IV fluids, CPK returned to normal Right testicular enlargement Patient has had multiple ultrasounds performed which did not indicate any changes. Does indicate right hydrocele, right epididymal cyst Continue to monitor and address if needed Iron deficiency anemia status post iron sucrose hemoglobin stable. Atypical chest pain Cardiac enzymes normal x 2, EKG within normal limits No further reports of chest pain since admission. Dysphagia Speech therapy evaluated patient and recommends pureed diet and thin liquids. Hypertension: Continue Metoprolol DVT prophylaxis: Lovenox, SCDs. Discharge Planning 12/08: Per CM patient not a citizen and has no benefits. Called DCF for assistance. Problem Qualifiers (1) Rhabdomyolysis: (2) Dementia with behavioral disturbance: Naya Ferraro Jan 22, 2017 09:01
[2017-01-22] MEDS: CHLORHEXIDINE GLUCONATE 0.12% 15 ML CUP SCH ×2 (09:11→19:51)
[2017-01-22] MEDS: MEMANTINE HCL 10 MG TAB PO SCH ×2 (09:11→19:51)
[2017-01-22] MEDS: METOPROLOL TARTRATE 25 MG TAB PO SCH (09:12)
[2017-01-22] MEDS: ENOXAPARIN SODIUM 40 MG/0.4 ML SYRINGE SQ SCH (09:12)
[2017-01-22 20:00] VITALS: BP 109/86; PULSE 79; RESP 20; TEMP 99; O2SAT 99
[2017-01-23] MEDS: METOPROLOL TARTRATE 25 MG TAB PO SCH (07:40)
[2017-01-23] MEDS: ENOXAPARIN SODIUM 40 MG/0.4 ML SYRINGE SQ SCH (07:40)
[2017-01-23] MEDS: MEMANTINE HCL 10 MG TAB PO SCH ×2 (07:41→21:22)
[2017-01-23] MEDS: CHLORHEXIDINE GLUCONATE 0.12% 15 ML CUP SCH ×2 (07:41→21:00)
[2017-01-23 08:00] VITALS: BP 99/82; PULSE 77; RESP 16; TEMP 97.4; O2SAT 96
--- NOTE | 2017-01-23 11:20 | HHI.PR ---
Subjective Remarks Follow up for dementia. No acute complaints. Objective Vitals Vital Signs Date Time Temp Pulse Resp B/P (MAP) Pulse Ox O2 Delivery O2 Flow Rate FiO2 01/23/17 08:00 97.4 77 16 99/82 (88) 96 01/22/17 20:00 99.0 79 20 109/86 (94) 99 I/O 01/22/17 01/22/17 01/22/17 01/23/17 01/23/17 01/23/17 07:00 15:00 23:00 07:00 15:00 23:00 Intake Total 400 ml 120 ml Output Total 0 ml Balance 400 ml 120 ml Intake Oral 400 ml 120 ml Output Urine Total 0 ml # Voids 3 4 0 0 # Bowel Movements 4 3 1 Result Diagram: 01/21/17 1622 01/21/171621 Objective Remarks GENERAL: Pleasant elderly patient in no apparent distress sitting in recliner in day room. CARDIOVASCULAR: Regular rate and rhythm. RESPIRATORY: No accessory muscle use. CTAB. GASTROINTESTINAL: Abdomen soft, non-tender, non-distended NEUROLOGICAL: Awake and alert. Procedures None Urinary Catheter: No Vascular Central Line Catheter: No A/P Problem List: (1) Abdominal pain ICD Code: R10.9 - Unspecified abdominal pain Status: Acute (2) Rhabdomyolysis ICD Code: M62.82 - Rhabdomyolysis Status: Resolved (3) Dementia with behavioral disturbance ICD Code: F03.91 - Unspecified dementia with behavioral disturbance Status: Chronic (4) Atypical chest pain ICD Code: R07.89 - Other chest pain Status: Resolved (5) Normocytic anemia ICD Code: D64.9 - Anemia, unspecified Status: Acute Assessment and Plan Dementia with disturbance of behavior: stable Continue home dosing of Memantine 10 mg po BID. Continue to hold Seroquel and Buspirone due to sedation; is awake and alert off these medications Soft restraints were removed Patient remains well behaved with good mood and affect. Abdominal pain: Resolved. Patient c/o abdominal pain on 01/21 but has no pain on exam although patient is unreliable as he is elderly and has dementia. -White blood cell count normal. Hemoglobin stable. CMP unremarkable. Lipase normal. -Monitor clinically. Tachypnea/hypoventilation: Resolved. -Could be secondary to underlying dementia, anxiety -Blood gas with respiratory alkalosis -Chest x-ray without acute abnormality Hypermagnesemia: Resolved Magnesium hydroxide discontinued Mg level improved on 10/22. Suspected gingivitis: Due to poor oral hygiene. -Continue Peridex, soak swab and apply to teeth, gums, tongue, and roof of mouth bid. Rhabdomyolysis without renal involvement: Resolved Status post IV fluids, CPK returned to normal Right testicular enlargement Patient has had multiple ultrasounds performed which did not indicate any changes. Does indicate right hydrocele, right epididymal cyst Continue to monitor and address if needed Iron deficiency anemia status post iron sucrose hemoglobin stable. Atypical chest pain Cardiac enzymes normal x 2, EKG within normal limits No further reports of chest pain since admission. Dysphagia Speech therapy evaluated patient and recommends pureed diet and thin liquids. Hypertension: Continue Metoprolol DVT prophylaxis: Cordellx, SCDs. Discharge Planning 12/08: Per CM patient not a citizen and has no benefits. Called DCF for assistance. Problem Qualifiers (1) Rhabdomyolysis: (2) Dementia with behavioral disturbance: Naya Ferraro Jan 23, 2017 11:20
[2017-01-23] MEDS: ONDANSETRON ODT 4 MG TAB PO PRN (17:02)
[2017-01-23 20:28] VITALS: BP 103/78; PULSE 73; RESP 18; TEMP 97.9; O2SAT 99
[2017-01-24 08:00] VITALS: BP 133/70; PULSE 80; RESP 18; TEMP 98; O2SAT 97
[2017-01-24] MEDS: METOPROLOL TARTRATE 25 MG TAB PO SCH (08:57)
[2017-01-24] MEDS: ENOXAPARIN SODIUM 40 MG/0.4 ML SYRINGE SQ SCH (08:57)
[2017-01-24] MEDS: MEMANTINE HCL 10 MG TAB PO SCH ×2 (08:57→21:18)
[2017-01-24] MEDS: CHLORHEXIDINE GLUCONATE 0.12% 15 ML CUP SCH ×2 (08:57→21:20)
--- NOTE | 2017-01-24 10:51 | HHI.PR ---
Subjective Remarks Follow-up for dementia. No acute complaints. Objective Vitals Vital Signs Date Time Temp Pulse Resp B/P (MAP) Pulse Ox O2 Delivery O2 Flow Rate FiO2 01/24/17 08:00 98.0 80 18 133/70 (91) 97 01/23/17 20:28 97.9 73 18 103/78 (86) 99 I/O 01/23/17 01/23/17 01/23/17 01/24/17 01/24/17 01/24/17 06:59 14:59 22:59 06:59 14:59 22:59 Intake Total 120 ml 960 ml Output Total 0 ml Balance 120 ml 960 ml Intake Oral 120 ml 960 ml Output Urine Total 0 ml # Voids 0 1 1 2 # Bowel Movements 3 2 1 2 Result Diagram: 01/21/17 1622 01/21/17 162 Objective Remarks GENERAL: Pleasant elderly patient in no apparent distress watching TV. CARDIOVASCULAR: Regular rate and rhythm. RESPIRATORY: No accessory muscle use. CTAB. GASTROINTESTINAL: Abdomen soft, non-tender, non-distended NEUROLOGICAL: Awake and alert. Procedures None Urinary Catheter: No Vascular Central Line Catheter: No A/P Problem List: (1) Abdominal pain ICD Code: R10.9 - Unspecified abdominal pain Status: Acute (2) Rhabdomyolysis ICD Code: M62.82 - Rhabdomyolysis Status: Resolved (3) Dementia with behavioral disturbance ICD Code: F03.91 - Unspecified dementia with behavioral disturbance Status: Chronic (4) Atypical chest pain ICD Code: R07.89 - Other chest pain Status: Resolved (5) Normocytic anemia ICD Code: D64.9 - Anemia, unspecified Status: Acute Assessment and Plan Dementia with disturbance of behavior: stable Continue home dosing of Memantine 10 mg po BID. Continue to hold Seroquel and Buspirone due to sedation; is awake and alert off these medications Soft restraints were removed Patient remains well behaved with good mood and affect. Abdominal pain: Resolved. Patient c/o abdominal pain on 01/21 but has no pain on exam although patient is unreliable as he is elderly and has dementia. -White blood cell count normal. Hemoglobin stable. CMP unremarkable. Lipase normal. -Monitor clinically. Tachypnea/hypoventilation: Resolved. -Could be secondary to underlying dementia, anxiety -Blood gas with respiratory alkalosis -Chest x-ray without acute abnormality Hypermagnesemia: Resolved Magnesium hydroxide discontinued Mg level improved on 10/22. Suspected gingivitis: Due to poor oral hygiene. -Continue Peridex, soak swab and apply to teeth, gums, tongue, and roof of mouth bid. Rhabdomyolysis without renal involvement: Resolved Status post IV fluids, CPK returned to normal Right testicular enlargement Patient has had multiple ultrasounds performed which did not indicate any changes. Does indicate right hydrocele, right epididymal cyst Continue to monitor and address if needed Iron deficiency anemia status post iron sucrose hemoglobin stable. Atypical chest pain Cardiac enzymes normal x 2, EKG within normal limits No further reports of chest pain since admission. Dysphagia Speech therapy evaluated patient and recommends pureed diet and thin liquids. Hypertension: Continue Metoprolol DVT prophylaxis: Cordellx, SCDs. Discharge Planning 12/08: Per CM patient not a citizen and has no benefits. Called DCF for assistance. Problem Qualifiers (1) Rhabdomyolysis: (2) Dementia with behavioral disturbance: Naya Ferraro Jan 24, 2017 10:51
[2017-01-24 20:32] VITALS: BP 136/75; PULSE 98; RESP 22; TEMP 98.9; O2SAT 98
[2017-01-25 08:00] VITALS: BP 128/78; PULSE 88; RESP 18; TEMP 98.8; O2SAT 95
[2017-01-25] MEDS: METOPROLOL TARTRATE 25 MG TAB PO SCH (08:54)
[2017-01-25] MEDS: MEMANTINE HCL 10 MG TAB PO SCH ×2 (08:54→21:05)
[2017-01-25] MEDS: ENOXAPARIN SODIUM 40 MG/0.4 ML SYRINGE SQ SCH (08:54)
[2017-01-25] MEDS: CHLORHEXIDINE GLUCONATE 0.12% 15 ML CUP SCH ×2 (08:54→21:05)
--- NOTE | 2017-01-25 13:55 | HHI.PR ---
Subjective Remarks Follow up for dementia. No acute complaints. Objective Vitals Vital Signs Date Time Temp Pulse Resp B/P (MAP) Pulse Ox O2 Delivery O2 Flow Rate FiO2 01/25/17 08:00 98.8 88 18 128/78 (95) 95 01/24/17 20:32 98.9 98 22 136/75 (95) 98 I/O 01/24/17 01/24/17 01/24/17 01/25/17 01/25/17 01/25/17 07:00 15:00 23:00 07:00 15:00 23:00 Intake Total 100 ml 240 ml Balance 100 ml 240 ml Intake Oral 100 ml 240 ml # Voids 2 # Bowel Movements 2 2 1 Result Diagram: 01/21/17 1622 01/21/17 1622 Objective Remarks GENERAL: Pleasant elderly patient in no apparent distress. CARDIOVASCULAR: Regular rate and rhythm. Faint heart sounds. RESPIRATORY: CTAB. Tachypneic. GASTROINTESTINAL: Abdomen non-tender, non-distended NEUROLOGICAL: Awake and alert. Procedures None Urinary Catheter: No Vascular Central Line Catheter: No A/P Problem List: (1) Abdominal pain ICD Code: R10.9 - Unspecified abdominal pain Status: Acute (2) Rhabdomyolysis ICD Code: M62.82 - Rhabdomyolysis Status: Resolved (3) Dementia with behavioral disturbance ICD Code: F03.91 - Unspecified dementia with behavioral disturbance Status: Chronic (4) Atypical chest pain ICD Code: R07.89 - Other chest pain Status: Resolved (5) Normocytic anemia ICD Code: D64.9 - Anemia, unspecified Status: Acute Assessment and Plan Dementia with disturbance of behavior: stable Continue home dosing of Memantine 10 mg po BID. Continue to hold Seroquel and Buspirone due to sedation; is awake and alert off these medications Soft restraints were removed Patient remains well behaved with good mood and affect. Abdominal pain: Resolved. Patient c/o abdominal pain on 01/21 but has no pain on exam although patient is unreliable as he is elderly and has dementia. -White blood cell count normal. Hemoglobin stable. CMP unremarkable. Lipase normal. -Monitor clinically. Tachypnea/hypoventilation: -Could be secondary to underlying dementia, anxiety -Blood gas with respiratory alkalosis -Chest x-ray without acute abnormality -01/25: Patient again tachypneic on exam. His O2 saturation is normal. The PET[employer]LE[employer] SUPPLY SPECIALIST states the patient does this all the time. It's likely related to his dementia. He's been previously worked up for this. Hypermagnesemia: Resolved Magnesium hydroxide discontinued Mg level improved on 10/22. Suspected gingivitis: Due to poor oral hygiene. -Continue Peridex, soak swab and apply to teeth, gums, tongue, and roof of mouth bid. Rhabdomyolysis without renal involvement: Resolved Status post IV fluids, CPK returned to normal Right testicular enlargement Patient has had multiple ultrasounds performed which did not indicate any changes. Does indicate right hydrocele, right epididymal cyst Continue to monitor and address if needed Iron deficiency anemia status post iron sucrose hemoglobin stable. Atypical chest pain Cardiac enzymes normal x 2, EKG within normal limits No further reports of chest pain since admission. Dysphagia Speech therapy evaluated patient and recommends pureed diet and thin liquids. Hypertension: Continue Metoprolol DVT prophylaxis: Lovenox, SCDs. Discharge Planning 12/08: Per CM patient not a citizen and has no benefits. Called DCF for assistance. Problem Qualifiers (1) Rhabdomyolysis: (2) Dementia with behavioral disturbance: Naya Ferraro Jan 25, 2017 13:55
[2017-01-25 21:43] VITALS: BP 105/68; PULSE 63; RESP 16; TEMP 97.6; O2SAT 98
[2017-01-26 08:00] VITALS: BP 122/76; PULSE 77; RESP 17; TEMP 97.6; O2SAT 96
[2017-01-26] MEDS: METOPROLOL TARTRATE 25 MG TAB PO SCH (08:56)
[2017-01-26] MEDS: MEMANTINE HCL 10 MG TAB PO SCH ×2 (08:56→21:50)
[2017-01-26] MEDS: CHLORHEXIDINE GLUCONATE 0.12% 15 ML CUP SCH ×2 (08:57→21:50)
[2017-01-26] MEDS: ENOXAPARIN SODIUM 40 MG/0.4 ML SYRINGE SQ SCH (09:01)
--- NOTE | 2017-01-26 10:47 | HHI.PR ---
Subjective Remarks Follow up for dementia. Objective Vitals Vital Signs Date Time Temp Pulse Resp B/P (MAP) Pulse Ox O2 Delivery O2 Flow Rate FiO2 01/26/17 08:00 97.6 77 17 122/76 (91) 96 01/25/17 21:43 97.6 63 16 105/68 (80) 98 I/O 01/25/17 01/25/17 01/25/17 01/26/17 01/26/17 01/26/17 06:59 14:59 22:59 06:59 14:59 22:59 Intake Total 540 ml 720 ml 60 ml Output Total 1 ml 2 ml Balance 540 ml 719 ml 58 ml Intake Oral 540 ml 720 ml 60 ml Stool Total 1 ml 2 ml # Voids 1 3 1 # Bowel Movements 1 1 Objective Remarks GENERAL: Pleasant elderly patient in no apparent distress sleeping in recliner in day room. CARDIOVASCULAR: Regular rate and rhythm. Faint heart sounds. RESPIRATORY: CTAB. GASTROINTESTINAL: Abdomen non-tender, non-distended NEUROLOGICAL: Sleeping but arouses slightly. Procedures None Urinary Catheter: No Vascular Central Line Catheter: No A/P Problem List: (1) Abdominal pain ICD Code: R10.9 - Unspecified abdominal pain Status: Acute (2) Rhabdomyolysis ICD Code: M62.82 - Rhabdomyolysis Status: Resolved (3) Dementia with behavioral disturbance ICD Code: F03.91 - Unspecified dementia with behavioral disturbance Status: Chronic (4) Atypical chest pain ICD Code: R07.89 - Other chest pain Status: Resolved (5) Normocytic anemia ICD Code: D64.9 - Anemia, unspecified Status: Acute Assessment and Plan Dementia with disturbance of behavior: stable Continue home dosing of Memantine 10 mg po BID. Continue to hold Seroquel and Buspirone due to sedation; is awake and alert off these medications Soft restraints were removed Patient remains well behaved with good mood and affect. Abdominal pain: Resolved. Patient c/o abdominal pain on 01/21 but has no pain on exam although patient is unreliable as he is elderly and has dementia. -White blood cell count normal. Hemoglobin stable. CMP unremarkable. Lipase normal. -Monitor clinically. Tachypnea/hypoventilation: -Could be secondary to underlying dementia, anxiety -Blood gas with respiratory alkalosis -Chest x-ray without acute abnormality -01/25: Patient again tachypneic on exam. His O2 saturation is normal. 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 It's likely related to his dementia. He's been previously worked up for this. -01/26: O2 saturation remains normal. Hypermagnesemia: Resolved Magnesium hydroxide discontinued Mg level improved on 10/22. Suspected gingivitis: Due to poor oral hygiene. -Continue Peridex, soak swab and apply to teeth, gums, tongue, and roof of mouth bid. Rhabdomyolysis without renal involvement: Resolved Status post IV fluids, CPK returned to normal Right testicular enlargement Patient has had multiple ultrasounds performed which did not indicate any changes. Does indicate right hydrocele, right epididymal cyst Continue to monitor and address if needed Iron deficiency anemia status post iron sucrose hemoglobin stable. Atypical chest pain Cardiac enzymes normal x 2, EKG within normal limits No further reports of chest pain since admission. Dysphagia Speech therapy evaluated patient and recommends pureed diet and thin liquids. Hypertension: Continue Metoprolol DVT prophylaxis: Lovenox, SCDs. Discharge Planning 12/08: Per CM patient not a citizen and has no benefits. Called DCF for assistance. Problem Qualifiers (1) Rhabdomyolysis: (2) Dementia with behavioral disturbance: Naya Ferraro Jan 26, 2017 10:47
[2017-01-26 20:00] VITALS: BP 106/67; PULSE 87; RESP 18; TEMP 99.6; O2SAT 98
--- NOTE | 2017-01-27 08:37 | HHI.PR ---
Subjective Remarks Patient seen and examined today for follow-up on dementia. No change in clinical status. Awaiting casey saw operator discharge planning. Objective Vitals Vital Signs Date Time Temp Pulse Resp B/P (MAP) Pulse Ox O2 Delivery O2 Flow Rate FiO2 01/26/17 20:00 99.6 87 18 106/67 (80) 98 I/O 01/26/17 01/26/17 01/26/17 01/27/17 01/27/17 01/27/17 06:59 14:59 22:59 06:59 14:59 22:59 Intake Total 60 ml 520 ml 0 ml Output Total 2 ml 0 ml Balance 58 ml 520 ml 0 ml Intake Oral 60 ml 520 ml 0 ml Output Urine Total 0 ml Stool Total 2 ml # Voids 1 0 # Bowel Movements 1 1 Objective Remarks GENERAL: Well-developed, cachectic, in no acute distress. Arousable, patient appears to be alert, he is orientated to person and state. He has not orientated to city, date, year HEENT: Head is normocephalic without any lesions or masses noted. Facial features are symmetric with bitemporal wasting. Eyes: Extraocular muscles are intact. Conjunctivae were clear. NECK: Trachea midline no deviation. CARDIAC: Regular rhythm, regular rate. S1/S2 are heard. 2/6 ejection murmur, no gallops or rubs. LUNGS: Clear to auscultation bilaterally. No wheeze, rhonchi or rales. No use of accessory muscles on inspiration or expiration. ABDOMEN: Soft, nontender. Nondistended. Bowel sounds heard in all 4 quadrants. No organomegaly or masses. Negative rebound, negative guarding EXTREMITIES: No edema, pulses are equal bilaterally. No cyanosis or clubbing NEUROLOGY: Patient with significant dementia. He is quite pleasant. Answers questions appropriately Cranial nerves are grossly intact. Procedures None Urinary Catheter: No Vascular Central Line Catheter: No A/P Assessment and Plan Dementia with disturbance of behavior, stable Continue home dosing of memantine 10 mg po BID. hypertension, blood pressure stable Lopressor 12.5 mg daily Dysphagia Speech therapy re-evaluated patient and continue to recommended mechanical soft diet, chopped meat with gravy and thin liquids DVT prophylaxis: Lovenox Awaiting case management for discharge planning. Records reviewed, no change in current treatment plan, Discharge Planning Case management for discharge planning Gonzales Babcock Jan 27, 2017 08:37
[2017-01-27] MEDS: METOPROLOL TARTRATE 25 MG TAB PO SCH (09:00)
[2017-01-27] MEDS: MEMANTINE HCL 10 MG TAB PO SCH ×2 (09:00→21:22)
[2017-01-27] MEDS: CHLORHEXIDINE GLUCONATE 0.12% 15 ML CUP SCH ×2 (09:00→21:22)
[2017-01-27] MEDS: ENOXAPARIN SODIUM 40 MG/0.4 ML SYRINGE SQ SCH (10:00)
[2017-01-27 17:39] VITALS: BP 98/60; PULSE 83; RESP 22; TEMP 96.3
[2017-01-27 20:00] VITALS: BP 155/86; PULSE 108; RESP 20; TEMP 98.6; O2SAT 98
--- NOTE | 2017-01-28 07:55 | HHI.PR ---
Subjective Remarks Patient seen and examined today for follow-up on dementia. Patient is not indicating any new complaints. No change in clinical status. Awaiting case management for discharge planning. Objective Vitals Vital Signs Date Time Temp Pulse Resp B/P (MAP) Pulse Ox O2 Delivery O2 Flow Rate FiO2 01/27/17 20:00 98.6 108 20 155/86 (109) 98 01/27/17 17:39 96.3 83 22 98/60 (73) I/O 01/27/17 01/27/17 01/27/17 01/28/17 01/28/17 01/28/17 06:59 14:59 22:59 06:59 14:59 22:59 Intake Total 0 ml 600 ml 60 ml Output Total 0 ml 0 ml Balance 0 ml 600 ml 60 ml Intake Oral 0 ml 600 ml 60 ml Output Urine Total 0 ml 0 ml # Voids 0 3 0 # Bowel Movements 1 1 1 Objective Remarks GENERAL: Well-developed, cachectic, in no acute distress. Arousable, patient appears to be alert, he is orientated to person and state. He has not orientated to city, date, year HEENT: Head is normocephalic without any lesions or masses noted. Facial features are symmetric with bitemporal wasting. Eyes: Extraocular muscles are intact. Conjunctivae were clear. NECK: Trachea midline no deviation. CARDIAC: Regular rhythm, regular rate. S1/S2 are heard. 2/6 ejection murmur, no gallops or rubs. LUNGS: Clear to auscultation bilaterally. No wheeze, rhonchi or rales. No use of accessory muscles on inspiration or expiration. ABDOMEN: Soft, nontender. Nondistended. Bowel sounds heard in all 4 quadrants. No organomegaly or masses. Negative rebound, negative guarding EXTREMITIES: No edema, pulses are equal bilaterally. No cyanosis or clubbing NEUROLOGY: Patient with significant dementia. He is quite pleasant. Answers questions appropriately Cranial nerves are grossly intact. Procedures None Urinary Catheter: No Vascular Central Line Catheter: No A/P Assessment and Plan Dementia with disturbance of behavior, stable Continue home dosing of memantine 10 mg po BID. hypertension, blood pressure stable Lopressor 12.5 mg daily Dysphagia Speech therapy re-evaluated patient and continue to recommended mechanical soft diet, chopped meat with gravy and thin liquids DVT prophylaxis: Lovenox Records reviewed, no change in current treatment plan, Awaiting case management for discharge planning. Discharge Planning Case management for discharge planning Gonzales Babcock Jan 28, 2017 07:55
[2017-01-28 08:00] VITALS: BP 100/68; PULSE 94; RESP 18; TEMP 98; O2SAT 95
[2017-01-28] MEDS: MEMANTINE HCL 10 MG TAB PO SCH ×2 (08:02→22:55)
[2017-01-28] MEDS: CHLORHEXIDINE GLUCONATE 0.12% 15 ML CUP SCH ×2 (08:02→22:53)
[2017-01-28] MEDS: METOPROLOL TARTRATE 25 MG TAB PO SCH (08:02)
[2017-01-28] MEDS: ENOXAPARIN SODIUM 40 MG/0.4 ML SYRINGE SQ SCH (10:00)
[2017-01-28 20:00] VITALS: BP 104/58; PULSE 64; RESP 16; TEMP 97; O2SAT 95
[2017-01-29] VITALS: BP_SYST 113; BP_SYST 172; BP_DIAS 67; BP_DIAS 76; PULSE 69; PULSE 81; RESP 16; RESP 24; TEMP 97; TEMP 97.2; O2SAT 95; O2SAT 96
--- NOTE | 2017-01-29 07:41 | HHI.PR ---
Subjective Remarks Patient seen and examined today for follow-up on dementia. Patient not indicate any new complaints. No change in clinical status. Awaiting case management for discharge planning Objective Vitals Vital Signs Date Time Temp Pulse Resp B/P (MAP) Pulse Ox O2 Delivery O2 Flow Rate FiO2 01/29/17 00:00 97.0 81 16 113/67 (82) 96 01/28/17 20:00 97.0 64 16 104/58 (73) 95 01/28/17 08:00 98.0 94 18 100/68 (79) 95 I/O 01/28/17 01/28/17 01/28/17 01/29/17 01/29/17 01/29/17 07:00 15:00 23:00 07:00 15:00 23:00 Intake Total 60 ml 640 ml 720 ml 480 ml Output Total 0 ml Balance 60 ml 640 ml 720 ml 480 ml Intake Oral 60 ml 640 ml 480 ml 480 ml Oral Supplement 240 ml Output Urine Total 0 ml # Voids 0 3 5 2 # Bowel Movements 1 1 1 0 Objective Remarks GENERAL: Well-developed, cachectic, in no acute distress. Arousable, patient appears to be alert, he is orientated to person and state. He has not orientated to city, date, year HEENT: Head is normocephalic without any lesions or masses noted. Facial features are symmetric with bitemporal wasting. Eyes: Extraocular muscles are intact. Conjunctivae were clear. NECK: Trachea midline no deviation. CARDIAC: Regular rhythm, regular rate. S1/S2 are heard. 2/6 ejection murmur, no gallops or rubs. LUNGS: Clear to auscultation bilaterally. No wheeze, rhonchi or rales. No use of accessory muscles on inspiration or expiration. ABDOMEN: Soft, nontender. Nondistended. Bowel sounds heard in all 4 quadrants. No organomegaly or masses. Negative rebound, negative guarding EXTREMITIES: No edema, pulses are equal bilaterally. No cyanosis or clubbing NEUROLOGY: Patient with significant dementia. He is quite pleasant. Answers questions appropriately Cranial nerves are grossly intact. Procedures None Urinary Catheter: No Vascular Central Line Catheter: No A/P Assessment and Plan Dementia with disturbance of behavior, stable Continue home dosing of memantine 10 mg po BID. hypertension, blood pressure stable Lopressor 12.5 mg daily Dysphagia Speech therapy re-evaluated patient and continue to recommended mechanical soft diet, chopped meat with gravy and thin liquids DVT prophylaxis: Lovenox Records reviewed, Awaiting case management for discharge planning. no change in current treatment plan, Discharge Planning Case management for discharge planning Gonzales Babcock Jan 29, 2017 07:41
[2017-01-29 08:00] VITALS: BP 128/72; PULSE 82; RESP 17; TEMP 97.6; O2SAT 95
[2017-01-29] MEDS: METOPROLOL TARTRATE 25 MG TAB PO SCH (09:05)
[2017-01-29] MEDS: MEMANTINE HCL 10 MG TAB PO SCH ×2 (09:05→21:29)
[2017-01-29] MEDS: CHLORHEXIDINE GLUCONATE 0.12% 15 ML CUP SCH ×2 (09:06→21:29)
[2017-01-29] MEDS: ENOXAPARIN SODIUM 40 MG/0.4 ML SYRINGE SQ SCH (09:06)
[2017-01-29 20:00] VITALS: BP 94/64; PULSE 80; RESP 16; TEMP 97.6; O2SAT 93
--- NOTE | 2017-01-30 07:43 | HHI.PR ---
Subjective Remarks Patient seen and examined today for follow-up on dementia. Patient does not indicate any new complaints. No change in clinical status. Awaiting case management for discharge planning. Objective Vitals Vital Signs Date Time Temp Pulse Resp B/P (MAP) Pulse Ox O2 Delivery O2 Flow Rate FiO2 01/29/17 20:00 97.6 80 16 94/64 (74) 93 01/29/17 08:00 97.6 82 17 128/72 (90) 95 I/O 01/29/17 01/29/17 01/29/17 01/30/17 01/30/17 01/30/17 07:00 15:00 23:00 07:00 15:00 23:00 Intake Total 480 ml 600 ml 880 ml Output Total 1 ml Balance 480 ml 600 ml 879 ml Intake Oral 480 ml 600 ml 880 ml Output Urine Total 1 ml # Voids 2 1 # Bowel Movements 0 2 Objective Remarks GENERAL: Well-developed, cachectic, in no acute distress. Arousable, patient appears to be alert, he is orientated to person and state. He has not orientated to city, date, year HEENT: Head is normocephalic without any lesions or masses noted. Facial features are symmetric with bitemporal wasting. Eyes: Extraocular muscles are intact. Conjunctivae were clear. NECK: Trachea midline no deviation. CARDIAC: Regular rhythm, regular rate. S1/S2 are heard. 2/6 ejection murmur, no gallops or rubs. LUNGS: Clear to auscultation bilaterally. No wheeze, rhonchi or rales. No use of accessory muscles on inspiration or expiration. ABDOMEN: Soft, nontender. Nondistended. Bowel sounds heard in all 4 quadrants. No organomegaly or masses. Negative rebound, negative guarding EXTREMITIES: No edema, pulses are equal bilaterally. No cyanosis or clubbing NEUROLOGY: Patient with significant dementia. He is quite pleasant. Answers questions appropriately Cranial nerves are grossly intact. Procedures None Urinary Catheter: No Vascular Central Line Catheter: No A/P Assessment and Plan Dementia with disturbance of behavior, stable Continue home dosing of memantine 10 mg po BID. hypertension, blood pressure stable Lopressor 12.5 mg daily Dysphagia Speech therapy re-evaluated patient and continue to recommended mechanical soft diet, chopped meat with gravy and thin liquids DVT prophylaxis: Lovenox Records reviewed, no change in current treatment plan, Awaiting case management for discharge planning. Discharge Planning Case management for discharge planning Gonzales Babcock Jan 30, 2017 07:43
[2017-01-30 08:00] VITALS: BP 109/73; PULSE 73; RESP 20; TEMP 96.4; O2SAT 100
[2017-01-30] MEDS: METOPROLOL TARTRATE 25 MG TAB PO SCH (08:51)
[2017-01-30] MEDS: CHLORHEXIDINE GLUCONATE 0.12% 15 ML CUP SCH ×2 (08:51→22:41)
[2017-01-30] MEDS: ENOXAPARIN SODIUM 40 MG/0.4 ML SYRINGE SQ SCH (08:52)
[2017-01-30] MEDS: MEMANTINE HCL 10 MG TAB PO SCH ×2 (08:52→22:41)
[2017-01-30 20:00] VITALS: BP 129/66; PULSE 71; RESP 20; TEMP 96.3; O2SAT 92
--- NOTE | 2017-01-31 07:46 | HHI.PR ---
Subjective Remarks Patient seen and examined today for follow-up on dementia. Patient denies any new complaints. No change in clinical status. Awaiting case management for discharge planning Objective Vitals Vital Signs Date Time Temp Pulse Resp B/P (MAP) Pulse Ox O2 Delivery O2 Flow Rate FiO2 01/30/17 20:00 96.3 71 20 129/66 (87) 92 01/30/17 08:00 96.4 73 20 109/73 (85) 100 I/O 01/30/17 01/30/17 01/30/17 01/31/17 01/31/17 01/31/17 07:00 15:00 23:00 07:00 15:00 23:00 Intake Total 600 ml 480 ml 0 ml Balance 600 ml 480 ml 0 ml Intake Oral 600 ml 480 ml 0 ml # Voids 2 1 # Bowel Movements 0 Objective Remarks GENERAL: Well-developed, cachectic, in no acute distress. Arousable, patient appears to be alert, he is orientated to person and state. He has not orientated to city, date, year HEENT: Head is normocephalic without any lesions or masses noted. Facial features are symmetric with bitemporal wasting. Eyes: Extraocular muscles are intact. Conjunctivae were clear. NECK: Trachea midline no deviation. CARDIAC: Regular rhythm, regular rate. S1/S2 are heard. 2/6 ejection murmur, no gallops or rubs. LUNGS: Clear to auscultation bilaterally. No wheeze, rhonchi or rales. No use of accessory muscles on inspiration or expiration. ABDOMEN: Soft, nontender. Nondistended. Bowel sounds heard in all 4 quadrants. No organomegaly or masses. Negative rebound, negative guarding EXTREMITIES: No edema, pulses are equal bilaterally. No cyanosis or clubbing NEUROLOGY: Patient with significant dementia. He is quite pleasant. Answers questions appropriately Cranial nerves are grossly intact. Procedures None Urinary Catheter: No Vascular Central Line Catheter: No A/P Assessment and Plan Dementia with disturbance of behavior, stable Continue home dosing of memantine 10 mg po BID. hypertension, blood pressure stable Lopressor 12.5 mg daily Dysphagia Speech therapy re-evaluated patient and continue to recommended mechanical soft diet, chopped meat with gravy and thin liquids DVT prophylaxis: Lovenox Records reviewed, Awaiting case management for discharge planning. no change in current treatment plan, Discharge Planning Case management for discharge planning Gonzales Babcock Jan 31, 2017 07:46
[2017-01-31 07:50] VITALS: BP 92/68; PULSE 93; RESP 16; TEMP 96.9
[2017-01-31] MEDS: MEMANTINE HCL 10 MG TAB PO SCH ×2 (08:55→21:41)
[2017-01-31] MEDS: METOPROLOL TARTRATE 25 MG TAB PO SCH (08:56)
[2017-01-31] MEDS: CHLORHEXIDINE GLUCONATE 0.12% 15 ML CUP SCH ×2 (08:56→21:00)
[2017-01-31] MEDS: ENOXAPARIN SODIUM 40 MG/0.4 ML SYRINGE SQ SCH (08:56)
[2017-01-31 20:00] VITALS: BP 115/85; PULSE 94; RESP 16; TEMP 99.2; O2SAT 94
[2017-02-01 07:50] VITALS: BP 114/75; PULSE 78; RESP 20; TEMP 96.6
[2017-02-01] MEDS: MEMANTINE HCL 10 MG TAB PO SCH ×2 (08:21→23:03)
[2017-02-01] MEDS: ENOXAPARIN SODIUM 40 MG/0.4 ML SYRINGE SQ SCH (08:22)
[2017-02-01] MEDS: CHLORHEXIDINE GLUCONATE 0.12% 15 ML CUP SCH ×2 (08:37→23:01)
[2017-02-01] MEDS: METOPROLOL TARTRATE 25 MG TAB PO SCH (09:00)
--- NOTE | 2017-02-01 12:16 | HHI.PR ---
Subjective Remarks Patient seen and examined today for follow-up on dementia. Patient denies any new complaints. No change in clinical status. Awaiting case management discharge planning Objective Vitals Vital Signs Date Time Temp Pulse Resp B/P (MAP) Pulse Ox O2 Delivery O2 Flow Rate FiO2 02/01/17 07:50 96.6 78 20 114/75 (88) 01/31/17 20:00 99.2 94 16 115/85 (95) 94 I/O 01/31/17 01/31/17 01/31/17 02/01/17 02/01/17 02/01/17 07:00 15:00 23:00 07:00 15:00 23:00 Intake Total 0 ml 457 ml Balance 0 ml 457 ml Intake Oral 0 ml 457 ml # Voids 1 4 1 # Bowel Movements 0 Objective Remarks GENERAL: Well-developed, cachectic, in no acute distress. Arousable, patient appears to be alert, he is orientated to person and state. He has not orientated to city, date, year HEENT: Head is normocephalic without any lesions or masses noted. Facial features are symmetric with bitemporal wasting. Eyes: Extraocular muscles are intact. Conjunctivae were clear. NECK: Trachea midline no deviation. CARDIAC: Regular rhythm, regular rate. S1/S2 are heard. 2/6 ejection murmur, no gallops or rubs. LUNGS: Clear to auscultation bilaterally. No wheeze, rhonchi or rales. No use of accessory muscles on inspiration or expiration. ABDOMEN: Soft, nontender. Nondistended. Bowel sounds heard in all 4 quadrants. No organomegaly or masses. Negative rebound, negative guarding EXTREMITIES: No edema, pulses are equal bilaterally. No cyanosis or clubbing NEUROLOGY: Patient with significant dementia. He is quite pleasant. Answers questions appropriately Cranial nerves are grossly intact. Procedures None Urinary Catheter: No Vascular Central Line Catheter: No A/P Assessment and Plan Dementia with disturbance of behavior, stable Continue home dosing of memantine 10 mg po BID. hypertension, blood pressure stable Lopressor 12.5 mg daily Dysphagia Speech therapy re-evaluated patient and continue to recommended mechanical soft diet, chopped meat with gravy and thin liquids DVT prophylaxis: Lovenox Records reviewed, no change in current treatment plan, Awaiting case management for discharge planning. Discharge Planning Case management for discharge planning Gonzales Babcock Feb 01, 2017 12:16
[2017-02-01 20:00] VITALS: BP 138/80; PULSE 80; RESP 14; TEMP 97.7; O2SAT 95
[2017-02-02 08:00] VITALS: BP 126/77; PULSE 80; RESP 20; TEMP 98.2; O2SAT 97
--- NOTE | 2017-02-02 08:32 | HHI.PR ---
Subjective Remarks Patient seen and examined today for follow-up on dementia. Patient denies any new complaints. No change in clinical status. Awaiting case management for discharge planning. Objective Vitals Vital Signs Date Time Temp Pulse Resp B/P (MAP) Pulse Ox O2 Delivery O2 Flow Rate FiO2 02/01/17 20:00 97.7 80 14 138/80 (99) 95 I/O 02/01/17 02/01/17 02/01/17 02/02/17 02/02/17 02/02/17 06:59 14:59 22:59 06:59 14:59 22:59 Intake Total 100 ml Output Total 30 ml Balance -30 ml 100 ml Intake Oral 100 ml Output Urine Total 30 ml # Voids 1 3 1 Objective Remarks GENERAL: Well-developed, cachectic, in no acute distress. Arousable, patient appears to be alert, he is orientated to person and state. He has not orientated to city, date, year HEENT: Head is normocephalic without any lesions or masses noted. Facial features are symmetric with bitemporal wasting. Eyes: Extraocular muscles are intact. Conjunctivae were clear. NECK: Trachea midline no deviation. CARDIAC: Regular rhythm, regular rate. S1/S2 are heard. 2/6 ejection murmur, no gallops or rubs. LUNGS: Clear to auscultation bilaterally. No wheeze, rhonchi or rales. No use of accessory muscles on inspiration or expiration. ABDOMEN: Soft, nontender. Nondistended. Bowel sounds heard in all 4 quadrants. No organomegaly or masses. Negative rebound, negative guarding EXTREMITIES: No edema, pulses are equal bilaterally. No cyanosis or clubbing NEUROLOGY: Patient with significant dementia. He is quite pleasant. Answers questions appropriately Cranial nerves are grossly intact. Procedures None Urinary Catheter: No Vascular Central Line Catheter: No A/P Assessment and Plan Dementia with disturbance of behavior, stable Continue home dosing of memantine 10 mg po BID. hypertension, blood pressure stable Lopressor 12.5 mg daily Dysphagia Speech therapy re-evaluated patient and continue to recommended mechanical soft diet, chopped meat with gravy and thin liquids DVT prophylaxis: Lovenox Records reviewed, Awaiting case management for discharge planning. no change in current treatment plan, Discharge Planning Case management for discharge planning Gonzales Babcock Feb 02, 2017 08:32
[2017-02-02] MEDS: MEMANTINE HCL 10 MG TAB PO SCH ×2 (08:42→20:20)
[2017-02-02] MEDS: METOPROLOL TARTRATE 25 MG TAB PO SCH (08:42)
[2017-02-02] MEDS: CHLORHEXIDINE GLUCONATE 0.12% 15 ML CUP SCH ×2 (08:42→20:20)
[2017-02-02] MEDS: ENOXAPARIN SODIUM 40 MG/0.4 ML SYRINGE SQ SCH (13:41)
[2017-02-02 20:00] VITALS: BP 120/73; PULSE 92; RESP 16; TEMP 96.2; O2SAT 100
[2017-02-03 08:00] VITALS: BP 130/72; PULSE 80; RESP 18; TEMP 98.2; O2SAT 94
--- NOTE | 2017-02-03 10:20 | HHI.PR ---
Subjective Remarks Follow up for dementia. No acute complaints. Objective Vitals Vital Signs Date Time Temp Pulse Resp B/P (MAP) Pulse Ox O2 Delivery O2 Flow Rate FiO2 02/03/17 08:00 98.2 80 18 130/72 (91) 94 02/02/17 20:00 96.2 92 16 120/73 (89) 100 I/O 02/02/17 02/02/17 02/02/17 02/03/17 02/03/17 02/03/17 07:00 15:00 23:00 07:00 15:00 23:00 Intake Total 100 ml 600 ml 240 ml Output Total 1 ml Balance 100 ml 599 ml 240 ml Intake Oral 100 ml 600 ml 240 ml Stool Total 1 ml # Voids 1 4 1 # Bowel Movements 0 Objective Remarks GENERAL: Pleasant elderly patient in no apparent distress. CARDIOVASCULAR: Regular rate and rhythm. Faint heart sounds. RESPIRATORY: CTAB. GASTROINTESTINAL: Abdomen non-tender, non-distended NEUROLOGICAL: Awake and alert. Procedures None Urinary Catheter: No Vascular Central Line Catheter: No A/P Problem List: (1) Abdominal pain ICD Code: R10.9 - Unspecified abdominal pain Status: Acute (2) Rhabdomyolysis ICD Code: M62.82 - Rhabdomyolysis Status: Resolved (3) Dementia with behavioral disturbance ICD Code: F03.91 - Unspecified dementia with behavioral disturbance Status: Chronic (4) Atypical chest pain ICD Code: R07.89 - Other chest pain Status: Resolved (5) Normocytic anemia ICD Code: D64.9 - Anemia, unspecified Status: Acute Assessment and Plan Dementia with disturbance of behavior: stable Continue home dosing of Memantine 10 mg po BID. Continue to hold Seroquel and Buspirone due to sedation; is awake and alert off these medications Soft restraints were removed Patient remains well behaved with good mood and affect. Abdominal pain: Resolved. -White blood cell count normal. Hemoglobin stable. CMP unremarkable. Lipase normal. -Monitor clinically. Tachypnea/hypoventilation: -Could be secondary to underlying dementia, anxiety -Blood gas with respiratory alkalosis -Chest x-ray without acute abnormality -01/25: Patient again tachypneic on exam. His O2 saturation is normal. The DIRECTOR UTILIZATION MANAGEMENT states the patient does this all the time. It's likely related to his dementia. He's been previously worked up for this. Hypermagnesemia: Resolved Magnesium hydroxide discontinued Mg level improved on 10/22. Suspected gingivitis: Due to poor oral hygiene. -Continue Peridex, soak swab and apply to teeth, gums, tongue, and roof of mouth bid. Rhabdomyolysis without renal involvement: Resolved Status post IV fluids, CPK returned to normal Right testicular enlargement Patient has had multiple ultrasounds performed which did not indicate any changes. Does indicate right hydrocele, right epididymal cyst Continue to monitor and address if needed Iron deficiency anemia status post iron sucrose hemoglobin stable. Atypical chest pain Cardiac enzymes normal x 2, EKG within normal limits No further reports of chest pain since admission. Dysphagia Speech therapy evaluated patient and recommends pureed diet and thin liquids. Hypertension: Continue Metoprolol DVT prophylaxis: Cordellx, SCDs. Discharge Planning 01/30/17: Per CM cannot place due to citizenship status. No funding available. No family willing to accept patient. CM seeking assistance from [facility]/State Legislature. Problem Qualifiers (1) Rhabdomyolysis: (2) Dementia with behavioral disturbance: Naya Ferraro Feb 03, 2017 10:20
[2017-02-03] MEDS: ENOXAPARIN SODIUM 40 MG/0.4 ML SYRINGE SQ SCH (10:22)
[2017-02-03] MEDS: CHLORHEXIDINE GLUCONATE 0.12% 15 ML CUP SCH ×2 (10:22→22:04)
[2017-02-03] MEDS: METOPROLOL TARTRATE 25 MG TAB PO SCH (10:23)
[2017-02-03] MEDS: MEMANTINE HCL 10 MG TAB PO SCH ×2 (10:23→22:03)
[2017-02-03 20:00] VITALS: BP 105/64; PULSE 120; RESP 22; TEMP 98.9; O2SAT 87
[2017-02-03 21:18] LABS: BLOOD GAS BASE EXCESS 1.6 mmol/L (-2-2); BLOOD GAS CARBOXYHEMOGLOBIN 1.4 % (0-4); BLOOD GAS HCO3 22 mmol/L (22-26); BLOOD GAS METHEMOGLOBIN 0.9 % (0-2); BLOOD GAS O2 HGB SATURATION 98 % (90-100); BLOOD GAS OXYGEN CONTENT 16.7 Vol % (12.0-20.0); BLOOD GAS PCO2 16 mmHG (38-42); BLOOD GAS PO2 148 mmHG (61-120); BLOOD GAS TOTAL HGB 11.9 G/DL (12.0-16.0); CRITICAL VALUE YES; OXYGEN DEVICE VENTI MASK; TEMP CORR TO 98.6
[2017-02-03 21:19] LABS: DRAW SITE RT BRACHIAL; FIO2 50 %; LITER FLOW 6 L/M; NUMBER OF ARTERIAL PUNCTURES 1; STAT YES
--- NOTE | 2017-02-03 22:36 | RADRPT ---
EXAM DATE/TIME: 02/03/2017 22:20 [facility] COMPARISON: CHEST SINGLE AP, December 30, 2016, 14:30. INDICATIONS : Tachypnea. MEDICAL HISTORY : Dementia. SURGICAL HISTORY : None. ENCOUNTER: Initial ACUITY: 1 day PAIN SCORE: Non-responsive. LOCATION: Bilateral chest FINDINGS: The lungs are clear without infiltrate, nodule, or mass. There is no appreciable pleural effusion fo r technique. Heart and mediastinum are unremarkable. CONCLUSION: No acute cardiopulmonary disease. Jerardo Lopez MD on February 03, 2017 at 22:34 Board Certified Radiologist. This report was verified electronically.
[2017-02-03 22:40] VITALS: O2SAT 98
[2017-02-03 23:03] LABS: POTASSIUM 3.3 MEQ/L (3.5-5.1)
[2017-02-03 23:06] LABS: BICARBONATE 25.6 MEQ/L (21.0-32.0)
[2017-02-04] MEDS ORDERED: POTASSIUM CHLORIDE 25 MEQ EFFERVESCENT TAB PO ONE (00:15)
[2017-02-04 08:00] VITALS: BP 98/66; PULSE 84; RESP 12; TEMP 95.8; O2SAT 99
[2017-02-04] MEDS: CHLORHEXIDINE GLUCONATE 0.12% 15 ML CUP SCH ×2 (10:16→22:30)
[2017-02-04] MEDS: MEMANTINE HCL 10 MG TAB PO SCH ×2 (10:16→22:32)
[2017-02-04] MEDS: ENOXAPARIN SODIUM 40 MG/0.4 ML SYRINGE SQ SCH (10:16)
[2017-02-04] MEDS: METOPROLOL TARTRATE 25 MG TAB PO SCH (10:16)
[2017-02-04 12:00] VITALS: BP 107/60; PULSE 74; RESP 14; TEMP 97.3; O2SAT 99
--- NOTE | 2017-02-04 13:26 | HHI.PR ---
Subjective Remarks Follow-up for dementia. Apparently the patient had acute respiratory issues last night. It appears he had an oxygen saturation of 87% on room air with heart rate of 120. The water conservationist was called and ordered an ABG as well as chest x-ray. The patient required a Venturi mask with 6 L of oxygen. This morning though patient is on room air at 99%. The physical therapist informed me yesterday that the patient was having some leg pain and when I asked the patient if he had any pain today he points to his right chest. Denies SOB. He agrees to having chest pain but is very unreliable and does not respond appropriately to me on further questioning in [place] or Mauritian including when pain started. Objective Vitals Vital Signs Date Time Temp Pulse Resp B/P (MAP) Pulse Ox O2 Delivery O2 Flow Rate FiO2 02/04/17 12:00 97.3 74 14 107/60 (76) 99 02/04/17 08:00 95.8 84 12 98/66 (77) 99 02/03/17 22:40 98 21 02/03/17 20:20 Venturi Mask 6.00 50 02/03/17 20:00 98.9 120 22 105/64 (78) 87 I/O 02/03/17 02/03/17 02/03/17 02/04/17 02/04/17 02/04/17 06:59 14:59 22:59 06:59 14:59 22:59 Intake Total 240 ml 360 ml 124 ml Balance 240 ml 360 ml 124 ml Intake Oral 240 ml 360 ml 124 ml # Voids 1 4 3 1 # Bowel Movements 0 1 Result Diagram: 02/03/17 2235 Imaging Last Impressions Chest X-Ray 02/03/17 0000 Signed Impressions: Service Date/Time: Friday, February 03, 2017 22:20 - CONCLUSION: No acute cardiopulmonary disease. Jerardo Lopez MD Scrotum Ultrasound 09/28/16 0000 Signed Impressions: Service Date/Time: Wednesday, September 28, 2016 15:43 - CONCLUSION: 1. Intact flow to both testicles without focal lesions. 2. Small right hydrocele. 2 right epididymal cysts, similar to prior ultrasound 10 days ago. Mild hyperemia to the right epididymis. Moises Borden MD Objective Remarks GENERAL: Pleasant elderly patient in no apparent distress. CARDIOVASCULAR: Faint heart sounds but radial pulse with normal rate and regular rhythm. CHEST: Patient admits to pain with palpation over right and left sides of chest ; unreliable and unclear if truly reproducible. RESPIRATORY: CTAB. GASTROINTESTINAL: Abdomen soft, non-tender, non-distended NEUROLOGICAL: Awake and alert. Demented. Procedures None Urinary Catheter: No Vascular Central Line Catheter: No A/P Problem List: (1) Atypical chest pain ICD Code: R07.89 - Other chest pain Status: Acute (2) Hypoxia ICD Code: R09.02 - Hypoxemia Status: Resolved (3) Elevated CK ICD Code: R74.8 - Abnormal levels of other serum enzymes Status: Acute (4) Hypokalemia ICD Code: E87.6 - Hypokalemia Status: Resolved (5) Poor nutrition ICD Code: E63.9 - Nutritional deficiency, unspecified Status: Acute (6) Dementia with behavioral disturbance ICD Code: F03.91 - Unspecified dementia with behavioral disturbance Status: Chronic (7) Rhabdomyolysis ICD Code: M62.82 - Rhabdomyolysis Status: Resolved (8) Abdominal pain ICD Code: R10.9 - Unspecified abdominal pain Status: Resolved (9) Normocytic anemia ICD Code: D64.9 - Anemia, unspecified Status: Acute Assessment and Plan Atypical chest pain: Recurrent today -Has had previous normal workup -EKG personally interpreted with significant artifact as patient was likely unable to remain still for testing. Normal sinus rhythm with borderline left axis deviation. QTc is normal. No ischemic abnormalities noted. -CK-MB normal. Troponin less than 0.02. -Potassium within normal limits. Hypoxia: Resolved. O2 saturation 87% on room air last night. Patient has a history of tachypnea/hypoventilation, likely dementia/anxiety related. -ABG last night personally interpreted with respiratory alkalosis similar to ABG on 12/30/16 are patient required Ventimask at 6 L last night but is now on room air at 99% O2 saturation with normal respiratory rate. -Chest x-ray last night personally interpreted with no evidence of infiltrate or effusion; no cardiomegaly. -Afebrile. WBC normal. Monitor clinically. Hypokalemia: Mild 3.3. Resolved status post repletion with 25 mEq last night. -Potassium level normal this morning. Magnesium normal at 2.2. Elevated CK: CK mildly elevated at 429 previously 198 on 09/23/16. History of rhabdomyolysis with CPK over 3000 on 09/18/16. Could be due to agitation. Pre- renal azotemia stable (BUN 22). Cr normal. -Will start patient on IV NS @ 100 mL/hr. -Recheck CPK level in the morning -Recheck am BMP Poor nutrition: By mouth intake is inadequate with decreased intake at 10-25% of meals recently. -Pre-albumin level ordered. -Depilatory Painter reconsulted -Order for staff to assist patient with eating Dementia with disturbance of behavior: stable Continue home dosing of Memantine 10 mg po BID. Continue to hold Seroquel and Buspirone due to sedation; is awake and alert off these medications Soft restraints were removed Patient remains well behaved with good mood and affect. Abdominal pain: Resolved. -White blood cell count normal. Hemoglobin stable. CMP unremarkable. Lipase normal. -Monitor clinically. Hypermagnesemia: Resolved Magnesium hydroxide discontinued Mg level improved on 10/22. Suspected gingivitis: Due to poor oral hygiene. -Continue Peridex, soak swab and apply to teeth, gums, tongue, and roof of mouth bid. Right testicular enlargement Patient has had multiple ultrasounds performed which did not indicate any changes. Does indicate right hydrocele, right epididymal cyst Continue to monitor and address if needed Iron deficiency anemia S/p iron sucrose 02/04: Hemoglobin stable at 11.1. Dysphagia Speech therapy evaluated patient and recommends pureed diet and thin liquids. Hypertension: Continue Metoprolol DVT prophylaxis: Lovenox, SCDs. Discharge Planning 01/30/17: Per CM cannot place due to citizenship status. No funding available. No family willing to accept patient. CM seeking assistance from [facility]/State Legislature. Problem Qualifiers (1) Dementia with behavioral disturbance: (2) Rhabdomyolysis: Naya Ferraro Feb 04, 2017 13:26
[2017-02-04 13:52] LABS: CREATINE KINASE 429 U/L (39-308)
[2017-02-04 14:05] LABS: CKMB 2.2 NG/ML (0.5-3.6)
[2017-02-04] MEDS: SODIUM CHLOR 0.9% 1000 ML INJ 1,000 ML IV SCH ×2 (14:30→20:25)
[2017-02-04 14:44] LABS: AUTOMATED NEUTROPHIL # 5.2 TH/MM3 (1.8-7.7); BASOPHIL % 0.2 % (0.0-2.0); EOSINOPHIL # 0.1 TH/MM3 (0-0.4); EOSINOPHIL % 0.9 % (0.0-4.0); HEMATOCRIT 32.7 % (39.0-51.0); HEMO FLAGS DIFF FINAL; LYMPH % 18.8 % (9.0-44.0); LYMPHOCYTE # 1.3 TH/MM3 (1.0-4.8); MEAN CELL VOLUME 92.1 FL (80.0-100.0); MEAN CORPUSCULAR HEMOGLOBIN 31.4 PG (27.0-34.0); MONO % 6.6 % (0.0-8.0); NEUT % 73.5 % (16.0-70.0); PLATELET COUNT 413 TH/MM3 (150-450); RED BLOOD COUNT 3.55 MIL/MM3 (4.50-5.90); RED CELL DISTRIBUTION WIDTH 12.1 % (11.6-17.2); WHITE BLOOD COUNT 7.1 TH/MM3 (4.0-11.0)
[2017-02-04 14:45] LABS: BLOOD UREA NITROGEN 22 MG/DL (7-18); CHLORIDE 110 MEQ/L (98-107); MAGNESIUM 2.2 MG/DL (1.5-2.5); POTASSIUM 3.6 MEQ/L (3.5-5.1); SODIUM (NA) 143 MEQ/L (136-145)
[2017-02-04 14:48] LABS: ANION GAP 11 MEQ/L (5-15); BICARBONATE 22.2 MEQ/L (21.0-32.0)
[2017-02-04 14:49] LABS: GLOMERULAR FILTRATION RATE 92 ML/MIN (>89)
[2017-02-04 16:00] VITALS: BP 102/81; PULSE 90; RESP 12; TEMP 96; O2SAT 95
[2017-02-04 20:00] VITALS: BP 101/80; PULSE 89; RESP 20; TEMP 97.6; O2SAT 100
[2017-02-05] MEDS: SODIUM CHLOR 0.9% 1000 ML INJ 1,000 ML IV SCH ×2 (06:16→06:22)
[2017-02-05 06:54] LABS: POTASSIUM 3.7 MEQ/L (3.5-5.1)
[2017-02-05 06:57] LABS: BICARBONATE 26.2 MEQ/L (21.0-32.0)
[2017-02-05 07:50] LABS: CKMB 7.1 NG/ML (0.5-3.6)
[2017-02-05 08:00] VITALS: BP 125/93; PULSE 83; RESP 18; TEMP 97.3; O2SAT 98
[2017-02-05] MEDS: METOPROLOL TARTRATE 25 MG TAB PO SCH (09:00)
[2017-02-05] MEDS ORDERED: SODIUM CHLOR 0.9% 1000 ML INJ 1,000 ML IV ONE (11:30)
[2017-02-05] MEDS: MEMANTINE HCL 10 MG TAB PO SCH ×2 (11:32→21:52)
[2017-02-05] MEDS: ENOXAPARIN SODIUM 40 MG/0.4 ML SYRINGE SQ SCH (11:33)
[2017-02-05] MEDS: CHLORHEXIDINE GLUCONATE 0.12% 15 ML CUP SCH ×2 (11:33→21:55)
--- NOTE | 2017-02-05 11:42 | HHI.PR ---
Subjective Remarks Follow-up for elevated CPK, chest pain, hypoxia. States he is "very good". Patient denies any pain today. Objective Vitals Vital Signs Date Time Temp Pulse Resp B/P (MAP) Pulse Ox O2 Delivery O2 Flow Rate FiO2 02/05/17 08:00 97.3 83 18 125/93 (104) 98 02/04/17 20:00 97.6 89 20 101/80 (87) 100 02/04/17 16:00 96.0 90 12 102/81 (88) 95 02/04/17 12:00 97.3 74 14 107/60 (76) 99 I/O 02/04/17 02/04/17 02/04/17 02/05/17 02/05/17 02/05/17 07:00 15:00 23:00 07:00 15:00 23:00 Intake Total 124 ml 297 ml 1060 ml Output Total 0 ml Balance 124 ml 297 ml 1060 ml Intake Oral 124 ml 297 ml 60 ml IV Total 1000 ml Output Urine Total 0 ml # Voids 3 1 1 2 # Bowel Movements 1 0 1 Result Diagram: 02/04/17 1315 02/05/17 0557 Objective Remarks GENERAL: Pleasant elderly patient in no apparent distress. CARDIOVASCULAR: Normal rate and regular rhythm. RESPIRATORY: CTAB. RR normal. GASTROINTESTINAL: Abdomen soft, non-tender, non-distended NEUROLOGICAL: Awake and alert. Procedures None Urinary Catheter: No Vascular Central Line Catheter: No A/P Problem List: (1) Rhabdomyolysis ICD Code: M62.82 - Rhabdomyolysis Status: Acute (2) Poor nutrition ICD Code: E63.9 - Nutritional deficiency, unspecified Status: Acute (3) Atypical chest pain ICD Code: R07.89 - Other chest pain Status: Resolved (4) Hypoxia ICD Code: R09.02 - Hypoxemia Status: Resolved (5) Hypokalemia ICD Code: E87.6 - Hypokalemia Status: Resolved (6) Dementia with behavioral disturbance ICD Code: F03.91 - Unspecified dementia with behavioral disturbance Status: Chronic (7) Abdominal pain ICD Code: R10.9 - Unspecified abdominal pain Status: Resolved (8) Normocytic anemia ICD Code: D64.9 - Anemia, unspecified Status: Acute Assessment and Plan Rhabdomyolysis: Worse. CK mildly elevated at 429 on 02/04. History of rhabdomyolysis with CPK over 3000 on 09/18/16. Could be due to increased immobilization. PT states patient has been less active with increased flexion contractures. Also had recent hypoxia and increased work of breathing which could have caused this. -02/05: CPK increased to 1726. Mild hypernatremia 146 and hyperchloremia 111. BUN improved. Cr normal. Currently on NS @ 100 mL/hr. Discussed with Dr. Noonan. Recommends NS bolus followed by 1/2 NS + sodium bicarbonate. 1L NS bolus ordered. I spoke with pharmacist and ordered 1/2 NS @ 100 mL/hr + 25 mEq sodium bicarbonate per bag. -Recheck am CPK level and BMP and adjust fluids as needed. Poor nutrition: By mouth intake is inadequate with decreased intake at 10-25% of meals recently. -Order for staff to assist patient with eating -Pre-albumin level pending. -02/05: I spoke with beater tender who recommends increasing Ensure to tid, and giving milk and yogurt with meals. She suggests possibly starting an appetite stimulant, but I told her let's ensure that staff is appropriately assisting him in eating before taking this step with which she agrees. She will monitor po intake. She recommends patient be on regular diet for increased food options ; will consider as BP is currently controlled. She does state patient is continuously chewing food in his mouth and RN states he has some trouble even with soft diet at times. We agree to reconsult ST for swallow eval to reassess diet consistency needed. Atypical chest pain: Resolved. -Has had previous normal workup -EKG 02/04 with NSR and no ischemic abnormalities. -CK-MB normal. Troponin less than 0.02. Hypoxia: Resolved. O2 saturation 87% night of 02/03. Patient has a history of tachypnea/hypoventilation, likely dementia/anxiety related. -ABG 02/03 with respiratory alkalosis similar to ABG on 12/30/16 are patient required Ventimask at 6 L temporarily. -Chest 02/03 with no evidence of infiltrate or effusion; no cardiomegaly. -Afebrile. WBC 02/04 normal. Monitor clinically. -02/05: Patient remains on room air with 98% O2 saturation. Hypokalemia: Mild 3.3. Resolved status post repletion. Mg normal. -Monitor Dementia with disturbance of behavior: stable Continue home dosing of Memantine 10 mg po BID. Continue to hold Seroquel and Buspirone due to sedation; is awake and alert off these medications Soft restraints were removed Patient remains well behaved with good mood and affect. Abdominal pain: Resolved. -White blood cell count normal. Hemoglobin stable. CMP unremarkable. Lipase normal. -Monitor clinically. Hypermagnesemia: Resolved Magnesium hydroxide discontinued Mg level improved on 10/22. Suspected gingivitis: Due to poor oral hygiene. -Continue Peridex, soak swab and apply to teeth, gums, tongue, and roof of mouth bid. Right testicular enlargement Patient has had multiple ultrasounds performed which did not indicate any changes. Does indicate right hydrocele, right epididymal cyst Continue to monitor and address if needed Iron deficiency anemia S/p iron sucrose Hemoglobin stable Dysphagia Speech therapy evaluated patient and recommends pureed diet and thin liquids. Hypertension: Continue Metoprolol DVT prophylaxis: Lovenox, SCDs. Discharge Planning 01/30/17: Per CM cannot place due to citizenship status. No funding available. No family willing to accept patient. CM seeking assistance from [facility]/State Legislature. Problem Qualifiers (1) Rhabdomyolysis: (2) Dementia with behavioral disturbance: Naya Ferraro Feb 05, 2017 11:41
--- NOTE | 2017-02-05 12:43 | EKG ---
Date Performed: 02/04/2017 Time Performed: 13:26:52 PTAGE: 71 years EKG: Sinus rhythm with marked baseline artifact Baseline artifact makes this substandard for interpretation BORDERLINE ECG PREVIOUS TRACING : 09/17/2016 21.36 No interpretable change from the prior tracing. DOCTOR: Nick Godinez Interpretating Date/Time 02/05/2017 12:41:46
[2017-02-05] MEDS: SODIUM CHLOR 0.45% IV SCH (13:00)
[2017-02-05] MEDS: SODIUM BICARBONATE IV SCH (13:00)
[2017-02-05 20:00] VITALS: BP 108/76; PULSE 89; RESP 20; TEMP 96.7; O2SAT 99
[2017-02-06] MEDS: SODIUM BICARBONATE IV SCH ×3 (00:22→22:04)
[2017-02-06] MEDS: SODIUM CHLOR 0.45% IV SCH ×3 (00:22→22:04)
[2017-02-06 05:45] LABS: POTASSIUM 3.7 MEQ/L (3.5-5.1)
[2017-02-06 05:49] LABS: BICARBONATE 23.3 MEQ/L (21.0-32.0)
[2017-02-06 06:26] LABS: CKMB 4.2 NG/ML (0.5-3.6)
[2017-02-06 08:00] VITALS: BP 154/77; PULSE 73; RESP 20; TEMP 97; O2SAT 92
[2017-02-06] MEDS: MEMANTINE HCL 10 MG TAB PO SCH ×2 (08:30→20:30)
[2017-02-06] MEDS: ACETAMINOPHEN 325 MG TAB PO PRN (08:30)
[2017-02-06] MEDS: METOPROLOL TARTRATE 25 MG TAB PO SCH (08:31)
--- NOTE | 2017-02-06 08:41 | HHI.PR ---
Subjective Remarks Follow-up for dementia, rhabdomyolysis. Patient sleeping when I enter the room. He arouses and mutters some things in Kiswahili and then goes back to sleep. Objective Vitals Vital Signs Date Time Temp Pulse Resp B/P (MAP) Pulse Ox O2 Delivery O2 Flow Rate FiO2 02/05/17 20:00 96.7 89 20 108/76 (87) 99 I/O 02/05/17 02/05/17 02/05/17 02/06/17 02/06/17 02/06/17 07:00 15:00 23:00 07:00 15:00 23:00 Intake Total 1060 ml 770 ml 1380 ml Output Total 0 ml Balance 1060 ml 770 ml 1380 ml Intake Oral 60 ml 770 ml 180 ml IV Total 1000 ml 1200 ml Output Urine Total 0 ml # Voids 2 1 2 # Bowel Movements 1 0 0 Result Diagram: 02/04/17 1315 02/06/17 0440 Objective Remarks GENERAL: Thin elderly patient in no apparent distress. CARDIOVASCULAR: Faint heart sounds. Normal rate and regular rhythm. RESPIRATORY: CTAB. No wheezes, rales, or rhonchi. GASTROINTESTINAL: Abdomen soft, non-tender, non-distended. NEUROLOGICAL: Sleeping. Arouses to light touch on the shoulder, slightly startled, but then goes back to sleep. Procedures None Urinary Catheter: No Vascular Central Line Catheter: No A/P Problem List: (1) Rhabdomyolysis ICD Code: M62.82 - Rhabdomyolysis Status: Acute (2) Moderate malnutrition ICD Code: E44.0 - Moderate protein-calorie malnutrition (3) Atypical chest pain ICD Code: R07.89 - Other chest pain Status: Resolved (4) Hypoxia ICD Code: R09.02 - Hypoxemia Status: Resolved (5) Hypokalemia ICD Code: E87.6 - Hypokalemia Status: Resolved (6) Dementia with behavioral disturbance ICD Code: F03.91 - Unspecified dementia with behavioral disturbance Status: Chronic (7) Abdominal pain ICD Code: R10.9 - Unspecified abdominal pain Status: Resolved (8) Normocytic anemia ICD Code: D64.9 - Anemia, unspecified Status: Acute Assessment and Plan Rhabdomyolysis: Improving. CK mildly elevated at 429 on 02/04. History of rhabdomyolysis with CPK over 3000 on 09/18/16. Could be due to increased immobilization. PT states patient has been less active with increased flexion contractures. Also had recent hypoxia and increased work of breathing which could have caused this. -02/05: CPK increased to 1726. Mild hypernatremia 146 and hyperchloremia 111. BUN improved. Cr normal. Currently on NS @ 100 mL/hr which has been discontinued. 1L NS bolus ordered followed by 1/2 NS @ 100 mL/hr + 25 mEq sodium bicarbonate per bag. -02/06: CPK decreased to 1381. Hypernatremia resolved. Hyperchloremia improved. BUN now wnl. Cr remains normal with improved GFR. Continue 1/2 NS @ 100 mL/hr + 25 mEq sodium bicarbonate for today. Will recheck am BMP and CPK and make fluid adjustments as needed then. Moderate malnutrition: By mouth intake is inadequate with decreased intake at 10 -25% of meals recently. Albumin 2.9. Patient is at 78% of usual weight and 77.56 % of IBW. Pre-albumin level low at 14. -Order for staff to assist patient with eating -02/05: Saw Cleaner recommends increasing Enlive to tid, and increasing milk x 2 with meals and sending yogurt with meals. She suggests possibly starting an appetite stimulant, but I told her let's ensure that staff is appropriately assisting him in eating before taking this step with which she agrees. She will monitor po intake. -Speech therapy reevaluated patient and changed consistency to puree diet with thin liquids. -02/06: % of breakfast consumed yesterday increased, but intake of other meals remained low. Continue to monitor. Atypical chest pain: Resolved. -Has had previous normal workup -EKG 02/04 with NSR and no ischemic abnormalities. -CK-MB normal. Troponin less than 0.02. Hypoxia: Resolved. O2 saturation 87% night of 02/03. Patient has a history of tachypnea/hypoventilation, likely dementia/anxiety related. -ABG 02/03 with respiratory alkalosis similar to ABG on 12/30/16 are patient required Ventimask at 6 L temporarily. -Chest 02/03 with no evidence of infiltrate or effusion; no cardiomegaly. -Afebrile. WBC 02/04 normal. Monitor clinically. -02/06: O2 saturation decreased at 92% this morning but lung exam is clear and patient is sleeping. When he did awake briefly for exam he starts to take a few quick deep breaths and I have to remind him again to breathe normally. Will monitor clinically and O2 saturation. Hypokalemia: Mild 3.3. Resolved status post repletion. Mg normal. -Monitor Dementia with disturbance of behavior: stable Continue home dosing of Memantine 10 mg po BID. Continue to hold Seroquel and Buspirone due to sedation; is awake and alert off these medications Soft restraints were removed Patient remains well behaved with good mood and affect. Abdominal pain: Resolved. -White blood cell count normal. Hemoglobin stable. CMP unremarkable. Lipase normal. -Monitor clinically. Hypermagnesemia: Resolved Magnesium hydroxide discontinued Mg level improved on 10/22. Suspected gingivitis: Due to poor oral hygiene. -Continue Peridex, soak swab and apply to teeth, gums, tongue, and roof of mouth bid. Right testicular enlargement Patient has had multiple ultrasounds performed which did not indicate any changes. Does indicate right hydrocele, right epididymal cyst Continue to monitor and address if needed Iron deficiency anemia S/p iron sucrose Hemoglobin stable Dysphagia Speech therapy evaluated patient and recommends pureed diet and thin liquids. Hypertension: Continue Metoprolol 02/06: BP elevated prior to medication administration this morning. Monitor. DVT prophylaxis: Lovenox, SCDs. Discharge Planning 01/30/17: Per CM cannot place due to citizenship status. No funding available. No family willing to accept patient. CM seeking assistance from [facility]/State Legislature. Problem Qualifiers (1) Rhabdomyolysis: (2) Dementia with behavioral disturbance: Naya Ferraro Feb 06, 2017 08:41
[2017-02-06] MEDS: CHLORHEXIDINE GLUCONATE 0.12% 15 ML CUP SCH ×2 (09:00→20:30)
[2017-02-06] MEDS: ENOXAPARIN SODIUM 40 MG/0.4 ML SYRINGE SQ SCH (10:00)
[2017-02-06 18:00] VITALS: O2SAT 100
[2017-02-06 20:45] VITALS: BP 117/79; PULSE 69; RESP 20; TEMP 98.3; O2SAT 95
[2017-02-07 07:52] LABS: POTASSIUM 3.4 MEQ/L (3.5-5.1)
[2017-02-07 07:58] LABS: BICARBONATE 26.2 MEQ/L (21.0-32.0)
[2017-02-07 08:00] VITALS: BP 108/86; PULSE 86; RESP 14; TEMP 96.7; O2SAT 94
[2017-02-07 08:29] LABS: CKMB 3.6 NG/ML (0.5-3.6)
[2017-02-07] MEDS: SODIUM BICARBONATE IV SCH (08:53)
[2017-02-07] MEDS: METOPROLOL TARTRATE 25 MG TAB PO SCH (08:53)
[2017-02-07] MEDS: SODIUM CHLOR 0.45% IV SCH (08:53)
[2017-02-07] MEDS: CHLORHEXIDINE GLUCONATE 0.12% 15 ML CUP SCH ×2 (08:53→22:21)
[2017-02-07] MEDS: MEMANTINE HCL 10 MG TAB PO SCH ×2 (08:54→22:16)
[2017-02-07] MEDS: ENOXAPARIN SODIUM 40 MG/0.4 ML SYRINGE SQ SCH (08:55)
--- NOTE | 2017-02-07 12:14 | HHI.PR ---
Subjective Remarks Follow-up for rhabdomyolysis, dementia. Sitting in day room. Patient does not respond as well as before to both Trinidadian and Czech. RN states patient refused Peridex because of pain. Objective Vitals Vital Signs Date Time Temp Pulse Resp B/P (MAP) Pulse Ox O2 Delivery O2 Flow Rate FiO2 02/07/17 08:00 96.7 86 14 108/86 (93) 94 02/06/17 20:45 98.3 69 20 117/79 (92) 95 02/06/17 18:00 100 I/O 02/06/17 02/06/17 02/06/17 02/07/17 02/07/17 02/07/17 07:00 15:00 23:00 07:00 15:00 23:00 Intake Total 1380 ml 475 ml 1735 ml 118 ml Output Total 0 ml Balance 1380 ml 475 ml 1735 ml 118 ml Intake Oral 180 ml 475 ml 118 ml IV Total 1200 ml 1735 ml Output Urine Total 0 ml # Voids 2 3 4 # Bowel Movements 0 1 0 Result Diagram: 02/04/17 1315 02/07/17 0557 Objective Remarks GENERAL: Thin elderly patient in no apparent distress sitting in recliner in day room. ENT: Aphthous ulcer over left lower lip. CARDIOVASCULAR: Faint heart sounds. Normal rate and regular rhythm. RESPIRATORY: CTAB. No wheezes, rales, or rhonchi. GASTROINTESTINAL: Abdomen soft, non-tender, non-distended. MUSCULOSKELETAL: R arm is tensed as RN tries to reposition it more comfortably for patient. Right knee is flexed; he is able to extend it although resists. NEUROLOGICAL: Awake and alert. Demented. Procedures None Urinary Catheter: No Vascular Central Line Catheter: No A/P Problem List: (1) Rhabdomyolysis ICD Code: M62.82 - Rhabdomyolysis Status: Acute (2) Hypokalemia ICD Code: E87.6 - Hypokalemia Status: Acute (3) Moderate malnutrition ICD Code: E44.0 - Moderate protein-calorie malnutrition (4) Atypical chest pain ICD Code: R07.89 - Other chest pain Status: Resolved (5) Hypoxia ICD Code: R09.02 - Hypoxemia Status: Resolved (6) Dementia with behavioral disturbance ICD Code: F03.91 - Unspecified dementia with behavioral disturbance Status: Chronic (7) Abdominal pain ICD Code: R10.9 - Unspecified abdominal pain Status: Resolved (8) Normocytic anemia ICD Code: D64.9 - Anemia, unspecified Status: Acute Assessment and Plan Rhabdomyolysis: Improving. CK mildly elevated at 429 on 02/04. History of rhabdomyolysis with CPK over 3000 on 09/18/16. Could be due to increased immobilization. PT states patient has been less active with increased flexion contractures. Also had recent hypoxia and increased work of breathing which could have caused this. -S/p NS @ 100 mL/hr and 1L NS bolus. -Currently on 04/21 NS @ 100 mL/hr + 25 mEq sodium bicarbonate per bag. -02/07: CPK decreased to 765. Mild hyponatremia of 134. Chloride now within normal limits at 101. BUN/Cr normal. D/c current fluids and restart IV NS @ 100 mL/hr. Repeat am BMP and CPK. Hypokalemia: Mild 3.4. -25 mEq Effervescent KCl ordered. -Monitor Moderate malnutrition: By mouth intake is inadequate with decreased intake at 10 -25% of meals recently. Albumin 2.9. Patient is at 78% of usual weight and 77.56 % of IBW. Pre-albumin level low at 14. -Order for staff to assist patient with eating -02/05: Magnetic Tape Winder recommends increasing Enlive to tid, and increasing milk x 2 with meals and sending yogurt with meals. She suggests possibly starting an appetite stimulant, but I told her let's ensure that staff is appropriately assisting him in eating before taking this step with which she agrees. She will monitor po intake. -Speech therapy reevaluated patient and changed consistency to puree diet with thin liquids. -02/07: PO intake improving. Consumed 100% of breakfast and lunch yesterday and 100% of breakfast this morning. Hypoxia: Resolved. O2 saturation 87% night of 02/03. Patient has a history of tachypnea/hypoventilation, likely dementia/anxiety related. -ABG 02/03 with respiratory alkalosis similar to ABG on 12/30/16 are patient required Ventimask at 6 L temporarily. -Chest 02/03 with no evidence of infiltrate or effusion; no cardiomegaly. -Afebrile. WBC 02/04 normal. Monitor clinically. -02/07: O2 saturation improved yesterday evening; stable at 94% this morning. Aphthous ulcer: lower lip -Start Triamcinolone in Orabase topical q8h for healing and pain relief Atypical chest pain: Resolved. -Has had previous normal workup -EKG 02/04 with NSR and no ischemic abnormalities. -CK-MB normal. Troponin less than 0.02. Dementia with disturbance of behavior: stable Continue home dosing of Memantine 10 mg po BID. Continue to hold Seroquel and Buspirone due to sedation; is awake and alert off these medications Soft restraints were removed Patient remains well behaved with good mood and affect. Abdominal pain: Resolved. -White blood cell count normal. Hemoglobin stable. CMP unremarkable. Lipase normal. -Monitor clinically. Hypermagnesemia: Resolved Magnesium hydroxide discontinued Mg level improved on 10/22. Suspected gingivitis: Due to poor oral hygiene. -Continue Peridex, soak swab and apply to teeth, gums, tongue, and roof of mouth bid. Right testicular enlargement Patient has had multiple ultrasounds performed which did not indicate any changes. Does indicate right hydrocele, right epididymal cyst Continue to monitor and address if needed Iron deficiency anemia S/p iron sucrose Hemoglobin stable Dysphagia Speech therapy evaluated patient and recommends pureed diet and thin liquids. Hypertension: Continue Metoprolol with hold parameters. DVT prophylaxis: Lovenox, SCDs. Discharge Planning 01/30/17: Per CM cannot place due to citizenship status. No funding available. No family willing to accept patient. CM seeking assistance from [facility]/State Legislature. Problem Qualifiers (1) Rhabdomyolysis: (2) Dementia with behavioral disturbance: Naya Ferraro Feb 07, 2017 12:14
[2017-02-07] MEDS ORDERED: POTASSIUM CHLORIDE 25 MEQ EFFERVESCENT TAB PO ONE (12:15)
[2017-02-07] MEDS: SODIUM CHLOR 0.9% 1000 ML INJ 1,000 ML IV SCH ×2 (12:54→22:20)
[2017-02-07] MEDS: TRIAMCINOLONE ACET 0.1% IN ORABASE PASTE 5 GM TUBE OTHER SCH ×2 (16:19→22:21)
[2017-02-07 20:52] VITALS: BP 90/56; PULSE 60; RESP 16; TEMP 98.9; O2SAT 94
[2017-02-08] MEDS: TRIAMCINOLONE ACET 0.1% IN ORABASE PASTE 5 GM TUBE OTHER SCH ×3 (05:30→21:35)
[2017-02-08 07:50] VITALS: BP 110/69; PULSE 86; RESP 20; TEMP 96.2
[2017-02-08 08:25] LABS: POTASSIUM 3.6 MEQ/L (3.5-5.1)
[2017-02-08 08:31] LABS: BICARBONATE 25.3 MEQ/L (21.0-32.0)
[2017-02-08] MEDS: CHLORHEXIDINE GLUCONATE 0.12% 15 ML CUP SCH ×2 (08:36→21:35)
[2017-02-08] MEDS: SODIUM CHLOR 0.9% 1000 ML INJ 1,000 ML IV SCH ×2 (08:36→17:19)
[2017-02-08] MEDS: METOPROLOL TARTRATE 25 MG TAB PO SCH (08:37)
[2017-02-08] MEDS: MEMANTINE HCL 10 MG TAB PO SCH ×2 (08:38→21:35)
[2017-02-08] MEDS: ENOXAPARIN SODIUM 40 MG/0.4 ML SYRINGE SQ SCH (08:38)
--- NOTE | 2017-02-08 08:46 | HHI.PR ---
Subjective Remarks Follow-up for rhabdomyolysis, dementia. Patient is drowsy. He mumbles in Burmese. Initially he states he is not well. Denies pain. I had an head of ethics and compliance try to speak with the patient but this was unsuccessful. He later stated he was well. RN states his lip lesion is healing. Objective Vitals Vital Signs Date Time Temp Pulse Resp B/P (MAP) Pulse Ox O2 Delivery O2 Flow Rate FiO2 02/07/17 20:52 98.9 60 16 90/56 (67) 94 I/O 02/07/17 02/07/17 02/07/17 02/08/17 02/08/17 02/08/17 07:00 15:00 23:00 07:00 15:00 23:00 Intake Total 838 ml 836 ml 1002 ml Balance 838 ml 836 ml 1002 ml Intake Oral 238 ml 236 ml IV Total 600 ml 600 ml 1002 ml # Voids 4 4 # Bowel Movements 0 1 2 Result Diagram: 02/04/17 1315 02/08/17 0622 Objective Remarks GENERAL: Thin elderly patient in no apparent distress sitting in recliner in room with [place] on sleeping with R arm falling over the side. ENT: Aphthous ulcer improved over left lower lip- only white outline of lesion this morning. CARDIOVASCULAR: Faint heart sounds. Normal rate and regular rhythm. RESPIRATORY: CTAB, but exam limited as patient does not take deep breaths. GASTROINTESTINAL: Abdomen soft, non-tender, non-distended. MUSCULOSKELETAL: Keeps knees in flexed position sitting in recliner. No lower extremity edema bilaterally. NEUROLOGICAL: Drowsy with mumbled speech then arouses briefly at times fully awake and alert. PSYCHIATRIC: Calm, but has startled affect when he arouses from sleep. Procedures None Urinary Catheter: No Vascular Central Line Catheter: No A/P Problem List: (1) Rhabdomyolysis ICD Code: M62.82 - Rhabdomyolysis Status: Acute (2) Hypokalemia ICD Code: E87.6 - Hypokalemia Status: Resolved (3) Moderate malnutrition ICD Code: E44.0 - Moderate protein-calorie malnutrition (4) Atypical chest pain ICD Code: R07.89 - Other chest pain Status: Resolved (5) Hypoxia ICD Code: R09.02 - Hypoxemia Status: Resolved (6) Dementia with behavioral disturbance ICD Code: F03.91 - Unspecified dementia with behavioral disturbance Status: Chronic (7) Abdominal pain ICD Code: R10.9 - Unspecified abdominal pain Status: Resolved (8) Normocytic anemia ICD Code: D64.9 - Anemia, unspecified Status: Acute Assessment and Plan Dementia with disturbance of behavior: Continue home dosing of Memantine 10 mg po BID. Continue to hold Seroquel and Buspirone due to sedation; is awake and alert off these medications Soft restraints were removed Patient remains well behaved with good mood and affect. Appears to be worsening. Does not respond to questions in Grenadian or Burmese as well as before. PT states patient has physically regressed. Rhabdomyolysis: Improving. CK mildly elevated at 429 on 02/04. History of rhabdomyolysis with CPK over 3000 on 09/18/16. Could be due to increased immobilization. PT states patient has been less active with increased flexion contractures. Also had recent hypoxia and increased work of breathing which could have caused this. -S/p NS @ 100 mL/hr, 1L NS bolus, and 1/2 NS @ 100 mL/hr + 25 mEq sodium bicarbonate per bag. -02/07: Restarted on IV NS @ 100 mL/hr. -02/08: CPK decreased to 448. Hyponatremia resolved. Chloride within normal limits. Renal function remains normal. Continue IV NS today. Repeat am BMP and CPK. Hopefully can stop IVF tomorrow. Hypokalemia: Mild 3.4. Resolved s/p repletion. K+ 3.6 this morning. Moderate malnutrition: By mouth intake is inadequate with decreased intake at 10 -25% of meals recently. Albumin 2.9. Patient is at 78% of usual weight and 77.56 % of IBW. Pre-albumin level low at 14. -Order for staff to assist patient with eating -02/05: Driller And Reamer recommends increasing Enlive to tid, and increasing milk x 2 with meals and sending yogurt with meals. She suggests possibly starting an appetite stimulant, but I told her let's ensure that staff is appropriately assisting him in eating before taking this step with which she agrees. She will monitor po intake. -Speech therapy reevaluated patient and changed consistency to puree diet with thin liquids. -02/08: PO intake improving with breakfast, lunch, and dinner yesterday. Hypoxia: Resolved. O2 saturation 87% night of 02/03. Patient has a history of tachypnea/hypoventilation, likely dementia/anxiety related. -ABG 02/03 with respiratory alkalosis similar to ABG on 12/30/16 are patient required Ventimask at 6 L temporarily. -Chest 02/03 with no evidence of infiltrate or effusion; no cardiomegaly. -Afebrile. WBC 02/04 normal. Monitor clinically. Aphthous ulcer: lower lip. Improving. -Continue Triamcinolone in Orabase topical q8h for healing and pain relief Atypical chest pain: Resolved. -Has had previous normal workup -EKG 02/04 with NSR and no ischemic abnormalities. -CK-MB normal. Troponin less than 0.02. Abdominal pain: Resolved. -White blood cell count normal. Hemoglobin stable. CMP unremarkable. Lipase normal. -Monitor clinically. Hypermagnesemia: Resolved Magnesium hydroxide discontinued Mg level improved on 10/22. Suspected gingivitis: Due to poor oral hygiene. -Continue Peridex, soak swab and apply to teeth, gums, tongue, and roof of mouth bid. Right testicular enlargement Patient has had multiple ultrasounds performed which did not indicate any changes. Does indicate right hydrocele, right epididymal cyst Continue to monitor and address if needed Iron deficiency anemia S/p iron sucrose Hemoglobin stable Dysphagia Speech therapy evaluated patient and recommends pureed diet and thin liquids. Hypertension: Continue Metoprolol with hold parameters. 02/08: SBP 110 this morning per RN. Advised to hold metoprolol. DVT prophylaxis: Lovenox, SCDs. Discharge Planning 01/30/17: Per CM cannot place due to citizenship status. No funding available. No family willing to accept patient. CM seeking assistance from [facility]/State Legislature. Problem Qualifiers (1) Rhabdomyolysis: (2) Dementia with behavioral disturbance: Naya Ferraro Feb 08, 2017 08:46
[2017-02-08 09:00] LABS: CKMB 2.5 NG/ML (0.5-3.6)
[2017-02-08] MEDS: ONDANSETRON ODT 4 MG TAB PO PRN (18:36)
[2017-02-08 21:10] VITALS: BP 105/61; PULSE 68; RESP 16; TEMP 97.9; O2SAT 95
[2017-02-09] MEDS: SODIUM CHLOR 0.9% 1000 ML INJ 1,000 ML IV SCH ×2 (03:46→14:12)
[2017-02-09] MEDS: TRIAMCINOLONE ACET 0.1% IN ORABASE PASTE 5 GM TUBE OTHER SCH ×3 (05:23→22:00)
[2017-02-09 05:40] LABS: POTASSIUM 3.4 MEQ/L (3.5-5.1)
[2017-02-09 06:15] LABS: CKMB 3.7 NG/ML (0.5-3.6)
[2017-02-09] MEDS: MEMANTINE HCL 10 MG TAB PO SCH ×2 (07:58→23:11)
[2017-02-09] MEDS: METOPROLOL TARTRATE 25 MG TAB PO SCH (07:58)
[2017-02-09] MEDS: CHLORHEXIDINE GLUCONATE 0.12% 15 ML CUP SCH ×2 (07:58→21:00)
[2017-02-09 08:24] VITALS: BP 160/72; PULSE 74; RESP 16; TEMP 97; O2SAT 98
--- NOTE | 2017-02-09 09:38 | HHI.PR ---
Subjective Remarks Follow-up for rhabdomyolysis, dementia. The patient appears much more awake and alert this morning and interactive. States he is well. Objective Vitals Vital Signs Date Time Temp Pulse Resp B/P (MAP) Pulse Ox O2 Delivery O2 Flow Rate FiO2 02/09/17 08:24 97.0 74 16 160/72 (101) 98 02/08/17 21:10 97.9 68 16 105/61 (76) 95 I/O 02/08/17 02/08/17 02/08/17 02/09/17 02/09/17 02/09/17 07:00 15:00 23:00 07:00 15:00 23:00 Intake Total 1002 ml 500 ml 1460 ml 1272 ml Output Total 300 ml Balance 1002 ml 500 ml 1160 ml 1272 ml Intake Oral 300 ml 560 ml 100 ml IV Total 1002 ml 200 ml 900 ml 1172 ml Emesis 300 ml # Voids 4 1 6 2 # Bowel Movements 2 1 4 1 Result Diagram: 02/09/17 0445 Objective Remarks GENERAL: Thin elderly patient in no apparent distress sitting in bed drinking an Ensure. CARDIOVASCULAR: Normal rate and regular rhythm. RESPIRATORY: CTAB. No rales. GASTROINTESTINAL: Abdomen soft, non-tender, non-distended. MUSCULOSKELETAL: Keeps knees in flexed position. No lower extremity edema bilaterally. NEUROLOGICAL: Awake and alert. Better verbal responsiveness and interaction compared to yesterday. PSYCHIATRIC: Happy mood, smiling. Procedures None Urinary Catheter: No Vascular Central Line Catheter: No A/P Problem List: (1) Rhabdomyolysis ICD Code: M62.82 - Rhabdomyolysis Status: Acute (2) Hypokalemia ICD Code: E87.6 - Hypokalemia Status: Resolved (3) Moderate malnutrition ICD Code: E44.0 - Moderate protein-calorie malnutrition (4) Atypical chest pain ICD Code: R07.89 - Other chest pain Status: Resolved (5) Hypoxia ICD Code: R09.02 - Hypoxemia Status: Resolved (6) Dementia with behavioral disturbance ICD Code: F03.91 - Unspecified dementia with behavioral disturbance Status: Chronic (7) Abdominal pain ICD Code: R10.9 - Unspecified abdominal pain Status: Resolved (8) Normocytic anemia ICD Code: D64.9 - Anemia, unspecified Status: Acute Assessment and Plan Dementia with disturbance of behavior: Stable Continue home dosing of Memantine 10 mg po BID. Continue to hold Seroquel and Buspirone due to sedation; is awake and alert off these medications Soft restraints were removed Patient remains well behaved with good mood and affect. 02/08: Appears to be worsening. Does not respond to questions in Icelandic or [place]ayan as well as before. PT states patient has physically regressed. 02/09: Demeanor improved today. More awake and alert and interactive. Rhabdomyolysis: Stable. CK mildly elevated at 429 on 02/04. History of rhabdomyolysis with CPK over 3000 on 09/18/16. Could be due to increased immobilization. PT states patient has been less active with increased flexion contractures. Also had recent hypoxia and increased work of breathing which could have caused this. -S/p NS @ 100 mL/hr, 1L NS bolus, and 1/2 NS @ 100 mL/hr + 25 mEq sodium bicarbonate per bag. -02/07: Restarted on IV NS @ 100 mL/hr. -02/09: CPK stable at 448 from yesterday. Na and Cl remain within normal limits. Renal function remains normal. Continue IV NS today at same rate. Would prefer not to reintroduce sodium bicarbonate. Repeat am BMP and CPK. Hypokalemia: Mild. -02/09: K+ again low at 3.4. 25 mEq po effervescent KCl ordered. Recheck K+ level in the morning. Moderate malnutrition: By mouth intake is inadequate with decreased intake at 10 -25% of meals recently. Albumin 2.9. Patient is at 78% of usual weight and 77.56 % of IBW. Pre-albumin level low at 14. -Order for staff to assist patient with eating -02/05: Parts Counter Sales Person recommends increasing Enlive to tid, and increasing milk x 2 with meals and sending yogurt with meals. She suggests possibly starting an appetite stimulant, but I told her let's ensure that staff is appropriately assisting him in eating before taking this step with which she agrees. She will monitor po intake. -Speech therapy reevaluated patient and changed consistency to puree diet with thin liquids. -PO intake improving Hypoxia: Resolved. O2 saturation 87% night of 02/03. Patient has a history of tachypnea/hypoventilation, likely dementia/anxiety related. -ABG 02/03 with respiratory alkalosis similar to ABG on 12/30/16 are patient required Ventimask at 6 L temporarily. -Chest 02/03 with no evidence of infiltrate or effusion; no cardiomegaly. -Afebrile. WBC 02/04 normal. Monitor clinically. Aphthous ulcer: lower lip. Improving. -Continue Triamcinolone in Orabase topical q8h for healing and pain relief Atypical chest pain: Resolved. -Has had previous normal workup -EKG 02/04 with NSR and no ischemic abnormalities. -CK-MB normal. Troponin less than 0.02. Hypertension: Continue Metoprolol with hold parameters. 02/09: BP elevated at 160/72 this morning likely because metoprolol dose was held the last 2 days. Continue medication today. Repeat BP at 1230 normal at 121 /60. Abdominal pain: Resolved. -White blood cell count normal. Hemoglobin stable. CMP unremarkable. Lipase normal. -Monitor clinically. Hypermagnesemia: Resolved Magnesium hydroxide discontinued Mg level improved on 10/22. Suspected gingivitis: Due to poor oral hygiene. -Continue Peridex, soak swab and apply to teeth, gums, tongue, and roof of mouth bid. Right testicular enlargement Patient has had multiple ultrasounds performed which did not indicate any changes. Does indicate right hydrocele, right epididymal cyst Continue to monitor and address if needed Iron deficiency anemia S/p iron sucrose Hemoglobin stable Dysphagia Speech therapy evaluated patient and recommends pureed diet and thin liquids. DVT prophylaxis: Lovenox, SCDs. Discharge Planning 01/30/17: Per CM cannot place due to citizenship status. No funding available. No family willing to accept patient. CM seeking assistance from [facility]/State [employer]. Problem Qualifiers (1) Rhabdomyolysis: (2) Dementia with behavioral disturbance: Naya Ferraro Feb 09, 2017 09:38
[2017-02-09] MEDS ORDERED: POTASSIUM CHLORIDE 25 MEQ EFFERVESCENT TAB PO ONE (09:45)
[2017-02-09] MEDS: ENOXAPARIN SODIUM 40 MG/0.4 ML SYRINGE SQ SCH (10:08)
[2017-02-09 12:30] VITALS: BP 121/60
[2017-02-09 20:00] VITALS: BP 142/84; PULSE 68; RESP 18; TEMP 98.5; O2SAT 96
[2017-02-10] MEDS: SODIUM CHLOR 0.9% 1000 ML INJ 1,000 ML IV SCH ×3 (00:15→20:15)
[2017-02-10] MEDS: TRIAMCINOLONE ACET 0.1% IN ORABASE PASTE 5 GM TUBE OTHER SCH ×3 (06:00→21:11)
[2017-02-10 06:47] LABS: POTASSIUM 3.4 MEQ/L (3.5-5.1)
[2017-02-10 06:51] LABS: BICARBONATE 25.6 MEQ/L (21.0-32.0)
[2017-02-10 07:15] LABS: CKMB 4.4 NG/ML (0.5-3.6)
[2017-02-10 08:00] VITALS: BP 110/75; PULSE 80; RESP 18; TEMP 97.9; O2SAT 92
[2017-02-10] MEDS: METOPROLOL TARTRATE 25 MG TAB PO SCH (09:00)
[2017-02-10] MEDS: CHLORHEXIDINE GLUCONATE 0.12% 15 ML CUP SCH ×2 (09:00→21:10)
[2017-02-10] MEDS: MEMANTINE HCL 10 MG TAB PO SCH ×2 (10:19→21:10)
[2017-02-10] MEDS: ENOXAPARIN SODIUM 40 MG/0.4 ML SYRINGE SQ SCH (10:19)
--- NOTE | 2017-02-10 11:10 | HHI.PR ---
Subjective Remarks Patient seen and examined today for follow-up on dementia, rhabdomyolysis. Patient not indicate any new complaints. Laboratory studies are improving nicely. Objective Vitals Vital Signs Date Time Temp Pulse Resp B/P (MAP) Pulse Ox O2 Delivery O2 Flow Rate FiO2 02/10/17 08:00 97.9 80 18 110/75 (87) 92 02/09/17 20:00 98.5 68 18 142/84 (103) 96 02/09/17 12:30 121/60 (80) I/O 02/09/17 02/09/17 02/09/17 02/10/17 02/10/17 02/10/17 07:00 15:00 23:00 07:00 15:00 23:00 Intake Total 1272 ml 1300 ml Balance 1272 ml 1300 ml Intake Oral 100 ml IV Total 1172 ml 1300 ml # Voids 2 3 # Bowel Movements 1 5 2 Result Diagram: 02/10/17 0510 Objective Remarks GENERAL: Well-developed, cachectic, in no acute distress. Arousable, patient appears to be alert, he is orientated to person and state. He has not orientated to city, date, year HEENT: Head is normocephalic without any lesions or masses noted. Facial features are symmetric with bitemporal wasting. Eyes: Extraocular muscles are intact. Conjunctivae were clear. NECK: Trachea midline no deviation. CARDIAC: Regular rhythm, regular rate. S1/S2 are heard. 2/6 ejection murmur, no gallops or rubs. LUNGS: Clear to auscultation bilaterally. No wheeze, rhonchi or rales. No use of accessory muscles on inspiration or expiration. ABDOMEN: Soft, nontender. Nondistended. Bowel sounds heard in all 4 quadrants. No organomegaly or masses. Negative rebound, negative guarding EXTREMITIES: No edema, pulses are equal bilaterally. No cyanosis or clubbing NEUROLOGY: Patient with significant dementia. He is quite pleasant. Answers questions appropriately Cranial nerves are grossly intact. Procedures None Urinary Catheter: No Vascular Central Line Catheter: No A/P Assessment and Plan Rhabdomyolysis, recurrent Continue to trend CPK Continue IV fluids Replace electrolyte as needed Dementia with disturbance of behavior, stable Continue home dosing of memantine 10 mg po BID. hypertension, Lopressor 12.5 mg daily Dysphagia Speech therapy re-evaluated patient and continue to recommended mechanical soft diet, chopped meat with gravy and thin liquids Dietary recommendations Enlive 3 times daily, increasing milk 2 with meals and yogurt with meals. Consider appetite stimulant Aphthous ulcer: lower lip. Improving. Continue Triamcinolone in Orabase topical q8h for healing and pain relief DVT prophylaxis: Lovenox Discharge Planning Case management for discharge planning Gonzales Babcock Feb 10, 2017 11:10
[2017-02-10] MEDS ORDERED: POTASSIUM CHLORIDE 25 MEQ EFFERVESCENT TAB PO ONE (11:15)
[2017-02-10 20:00] VITALS: BP 145/86; PULSE 80; RESP 20; TEMP 97.6; O2SAT 98
[2017-02-11] MEDS: SODIUM CHLOR 0.9% 1000 ML INJ 1,000 ML IV SCH ×2 (03:08→16:15)
[2017-02-11] MEDS: TRIAMCINOLONE ACET 0.1% IN ORABASE PASTE 5 GM TUBE OTHER SCH ×2 (05:59→14:00)
[2017-02-11 06:47] LABS: POTASSIUM 3.8 MEQ/L (3.5-5.1)
[2017-02-11 07:21] LABS: CKMB 12.9 NG/ML (0.5-3.6)
[2017-02-11 07:50] VITALS: BP 131/82; PULSE 71; RESP 20; TEMP 96.1
--- NOTE | 2017-02-11 09:58 | HHI.PR ---
Subjective Remarks Patient seen and examined today for follow-up on dementia, recurrent rhabdomyolysis. Patient denies any new complaints. Objective Vitals Vital Signs Date Time Temp Pulse Resp B/P (MAP) Pulse Ox O2 Delivery O2 Flow Rate FiO2 02/11/17 07:50 96.1 71 20 131/82 (98) 02/10/17 20:00 97.6 80 20 145/86 (105) 98 I/O 02/10/17 02/10/17 02/10/17 02/11/17 02/11/17 02/11/17 07:00 15:00 23:00 07:00 15:00 23:00 Intake Total 0 ml 60 ml Output Total 800 ml 0 ml Balance -800 ml 60 ml Intake Oral 0 ml 60 ml Output Urine Total 800 ml 0 ml # Voids 3 3 0 # Bowel Movements 2 4 3 Result Diagram: 02/11/17 0555 Objective Remarks GENERAL: Well-developed, cachectic, in no acute distress. Arousable, patient appears to be alert, he is orientated to person and state. He has not orientated to city, date, year HEENT: Head is normocephalic without any lesions or masses noted. Facial features are symmetric with bitemporal wasting. Eyes: Extraocular muscles are intact. Conjunctivae were clear. NECK: Trachea midline no deviation. CARDIAC: Regular rhythm, regular rate. S1/S2 are heard. 2/6 ejection murmur, no gallops or rubs. LUNGS: Clear to auscultation bilaterally. No wheeze, rhonchi or rales. No use of accessory muscles on inspiration or expiration. ABDOMEN: Soft, nontender. Nondistended. Bowel sounds heard in all 4 quadrants. No organomegaly or masses. Negative rebound, negative guarding EXTREMITIES: No edema, pulses are equal bilaterally. No cyanosis or clubbing NEUROLOGY: Patient with significant dementia. He is quite pleasant. Answers questions appropriately Cranial nerves are grossly intact. Procedures None Urinary Catheter: No Vascular Central Line Catheter: No A/P Assessment and Plan Rhabdomyolysis, recurrent Continue to trend CPK Continue IV fluids Replace electrolyte as needed Dementia with disturbance of behavior, stable Continue home dosing of memantine 10 mg po BID. hypertension, Lopressor 12.5 mg daily Dysphagia Speech therapy re-evaluated patient and continue to recommended mechanical soft diet, chopped meat with gravy and thin liquids Dietary recommendations Enlive 3 times daily, increasing milk 2 with meals and yogurt with meals. Consider appetite stimulant Aphthous ulcer: lower lip. Improving. Continue Triamcinolone in Orabase topical q8h for healing and pain relief DVT prophylaxis: Lovenox Discharge Planning Case management for discharge planning Gonzales Babcock Feb 11, 2017 09:58
[2017-02-11] MEDS: CHLORHEXIDINE GLUCONATE 0.12% 15 ML CUP SCH ×2 (10:28→21:35)
[2017-02-11] MEDS: METOPROLOL TARTRATE 25 MG TAB PO SCH (10:28)
[2017-02-11] MEDS: MEMANTINE HCL 10 MG TAB PO SCH ×2 (10:28→21:33)
[2017-02-11] MEDS: ENOXAPARIN SODIUM 40 MG/0.4 ML SYRINGE SQ SCH (10:28)
[2017-02-11 20:00] VITALS: BP 124/88; PULSE 80; RESP 20; TEMP 97.6; O2SAT 98
[2017-02-12] MEDS: TRIAMCINOLONE ACET 0.1% IN ORABASE PASTE 5 GM TUBE OTHER SCH ×4 (01:38→20:29)
[2017-02-12] MEDS: SODIUM CHLOR 0.9% 1000 ML INJ 1,000 ML IV SCH ×3 (02:19→20:29)
[2017-02-12 07:38] LABS: CREATINE KINASE 168 U/L (39-308)
[2017-02-12 08:00] VITALS: BP 143/80; PULSE 77; RESP 22; TEMP 96.9; O2SAT 99
--- NOTE | 2017-02-12 08:29 | HHI.PR ---
Subjective Remarks Patient seen and examined today for follow-up on dementia, rhabdomyolysis. Patient lying in bed in a contracted position. Patient denies any new complaints or any pain. Objective Vitals Vital Signs Date Time Temp Pulse Resp B/P (MAP) Pulse Ox O2 Delivery O2 Flow Rate FiO2 02/11/17 20:00 97.6 80 20 124/88 (100) 98 I/O 02/11/17 02/11/17 02/11/17 02/12/17 02/12/17 02/12/17 07:00 15:00 23:00 07:00 15:00 23:00 Intake Total 60 ml 240 ml 1627 ml 60 ml Output Total 0 ml Balance 60 ml 240 ml 1627 ml 60 ml Intake Oral 60 ml 240 ml 60 ml IV Total 1627 ml Output Urine Total 0 ml # Voids 0 6 1 # Bowel Movements 3 2 0 Result Diagram: 02/11/17 0555 Objective Remarks GENERAL: Well-developed, cachectic, in no acute distress. Arousable, patient appears to be alert, he is orientated to person and state. He has not orientated to city, date, year HEENT: Head is normocephalic without any lesions or masses noted. Facial features are symmetric with bitemporal wasting. Eyes: Extraocular muscles are intact. Conjunctivae were clear. NECK: Trachea midline no deviation. CARDIAC: Regular rhythm, regular rate. S1/S2 are heard. 2/6 ejection murmur, no gallops or rubs. LUNGS: Clear to auscultation bilaterally. No wheeze, rhonchi or rales. No use of accessory muscles on inspiration or expiration. ABDOMEN: Soft, nontender. Nondistended. Bowel sounds heard in all 4 quadrants. No organomegaly or masses. Negative rebound, negative guarding EXTREMITIES: No edema, pulses are equal bilaterally. No cyanosis or clubbing NEUROLOGY: Patient with significant dementia. He is quite pleasant. Answers questions appropriately Cranial nerves are grossly intact. Procedures None Urinary Catheter: No Vascular Central Line Catheter: No A/P Assessment and Plan Rhabdomyolysis, recurrent, improving Continue to trend CPK Continue IV fluids Replace electrolyte as needed Dementia with disturbance of behavior, stable Continue home dosing of memantine 10 mg po BID. hypertension, Lopressor 12.5 mg daily Dysphagia Speech therapy re-evaluated patient and continue to recommended mechanical soft diet, chopped meat with gravy and thin liquids Dietary recommendations Enlive 3 times daily, increasing milk 2 with meals and yogurt with meals. Consider appetite stimulant Aphthous ulcer: lower lip. Improving. Continue Triamcinolone in Orabase topical q8h for healing and pain relief DVT prophylaxis: Lovenox Discharge Planning Case management for discharge planning Gonzales Babcock Feb 12, 2017 08:29
[2017-02-12] MEDS: CHLORHEXIDINE GLUCONATE 0.12% 15 ML CUP SCH ×2 (10:54→20:29)
[2017-02-12] MEDS: ENOXAPARIN SODIUM 40 MG/0.4 ML SYRINGE SQ SCH (10:54)
[2017-02-12] MEDS: METOPROLOL TARTRATE 25 MG TAB PO SCH (10:55)
[2017-02-12] MEDS: MEMANTINE HCL 10 MG TAB PO SCH ×2 (10:55→20:28)
[2017-02-12 20:00] VITALS: BP 139/93; PULSE 80; RESP 20; TEMP 96.5; O2SAT 100
[2017-02-13] MEDS: TRIAMCINOLONE ACET 0.1% IN ORABASE PASTE 5 GM TUBE OTHER SCH ×3 (05:16→22:21)
[2017-02-13 06:45] LABS: CKMB 41.9 NG/ML (0.5-3.6)
[2017-02-13 07:50] VITALS: BP 119/73; PULSE 66; RESP 20; TEMP 96.2
[2017-02-13] MEDS: METOPROLOL TARTRATE 25 MG TAB PO SCH (08:30)
[2017-02-13] MEDS: CHLORHEXIDINE GLUCONATE 0.12% 15 ML CUP SCH ×2 (08:30→22:21)
[2017-02-13] MEDS: SODIUM CHLOR 0.9% 1000 ML INJ 1,000 ML IV SCH ×2 (08:30→17:36)
[2017-02-13] MEDS: MEMANTINE HCL 10 MG TAB PO SCH ×2 (08:31→22:20)
[2017-02-13] MEDS: ENOXAPARIN SODIUM 40 MG/0.4 ML SYRINGE SQ SCH (10:13)
--- NOTE | 2017-02-13 10:59 | HHI.PR ---
Subjective Remarks Patient seen and examined today for follow-up on rhabdomyolysis, dementia. Patient denies any new complaints. Rhabdomyolysis appears to be worsened today. Objective Vitals Vital Signs Date Time Temp Pulse Resp B/P (MAP) Pulse Ox O2 Delivery O2 Flow Rate FiO2 02/13/17 07:50 96.2 66 20 119/73 (88) 02/12/17 20:00 96.5 80 20 139/93 (108) 100 I/O 02/12/17 02/12/17 02/12/17 02/13/17 02/13/17 02/13/17 07:00 15:00 23:00 07:00 15:00 23:00 Intake Total 1627 ml 540 ml 1060 ml 60 ml Balance 1627 ml 540 ml 1060 ml 60 ml Intake Oral 540 ml 60 ml 60 ml IV Total 1627 ml 1000 ml # Voids 4 1 3 # Bowel Movements 0 0 0 Result Diagram: 02/11/17 0555 Objective Remarks GENERAL: Well-developed, cachectic, in no acute distress. Arousable, patient appears to be alert, he is orientated to person and state. He has not orientated to city, date, year HEENT: Head is normocephalic without any lesions or masses noted. Facial features are symmetric with bitemporal wasting. Eyes: Extraocular muscles are intact. Conjunctivae were clear. NECK: Trachea midline no deviation. CARDIAC: Regular rhythm, regular rate. S1/S2 are heard. 2/6 ejection murmur, no gallops or rubs. LUNGS: Clear to auscultation bilaterally. No wheeze, rhonchi or rales. No use of accessory muscles on inspiration or expiration. ABDOMEN: Soft, nontender. Nondistended. Bowel sounds heard in all 4 quadrants. No organomegaly or masses. Negative rebound, negative guarding EXTREMITIES: No edema, pulses are equal bilaterally. No cyanosis or clubbing NEUROLOGY: Patient with significant dementia. He is quite pleasant. Answers questions appropriately Cranial nerves are grossly intact. Procedures None Urinary Catheter: No Vascular Central Line Catheter: No A/P Assessment and Plan Rhabdomyolysis, recurrent, worsening Continue to trend CPK Increased IV fluids Likely secondary to inactivity, lays in bed and contracted position. Worsening kidney secondary to recent physical therapy Dementia with disturbance of behavior, stable Continue home dosing of memantine 10 mg po BID. hypertension, Lopressor 12.5 mg daily Dysphagia Speech therapy re-evaluated patient and continue to recommended mechanical soft diet, chopped meat with gravy and thin liquids Dietary recommendations Enlive 3 times daily, increasing milk 2 with meals and yogurt with meals. Consider appetite stimulant Aphthous ulcer: lower lip. Improving. Continue Triamcinolone in Orabase topical q8h for healing and pain relief DVT prophylaxis: Lovenox Discharge Planning Case management for discharge planning Gonzales Babcock Feb 13, 2017 10:59
[2017-02-13 20:00] VITALS: BP 126/99; PULSE 102; RESP 20; TEMP 98.7; O2SAT 91
[2017-02-14] MEDS: SODIUM CHLOR 0.9% 1000 ML INJ 1,000 ML IV SCH ×3 (04:15→20:32)
[2017-02-14] MEDS: TRIAMCINOLONE ACET 0.1% IN ORABASE PASTE 5 GM TUBE OTHER SCH ×3 (04:45→21:50)
[2017-02-14 07:32] LABS: CREATINE KINASE 281 U/L (39-308)
[2017-02-14 07:55] LABS: CKMB 8.1 NG/ML (0.5-3.6)
[2017-02-14 08:00] VITALS: BP 131/68; PULSE 78; RESP 20; TEMP 97; O2SAT 95
[2017-02-14] MEDS: MEMANTINE HCL 10 MG TAB PO SCH ×2 (08:27→20:33)
[2017-02-14] MEDS: ENOXAPARIN SODIUM 40 MG/0.4 ML SYRINGE SQ SCH (08:27)
[2017-02-14] MEDS: METOPROLOL TARTRATE 25 MG TAB PO SCH (08:28)
[2017-02-14] MEDS: CHLORHEXIDINE GLUCONATE 0.12% 15 ML CUP SCH ×2 (08:28→20:32)
--- NOTE | 2017-02-14 09:31 | HHI.PR ---
Subjective Remarks Patient seen and examined today for follow-up on rhabdomyolysis, dementia. She does not indicate any new complaints. No change in clinical status. Objective Vitals Vital Signs Date Time Temp Pulse Resp B/P (MAP) Pulse Ox O2 Delivery O2 Flow Rate FiO2 02/14/17 08:00 97.0 78 20 131/68 (89) 95 02/13/17 20:00 98.7 102 20 126/99 (108) 91 I/O 02/13/17 02/13/17 02/13/17 02/14/17 02/14/17 02/14/17 07:00 15:00 23:00 07:00 15:00 23:00 Intake Total 60 ml 1340 ml 1200 ml Balance 60 ml 1340 ml 1200 ml Intake Oral 60 ml 240 ml 100 ml IV Total 1100 ml 1100 ml # Voids 3 5 2 # Bowel Movements 0 0 1 Result Diagram: 02/11/17 0555 Objective Remarks GENERAL: Well-developed, cachectic, in no acute distress. Arousable, patient appears to be alert, he is orientated to person and state. He has not orientated to city, date, year HEENT: Head is normocephalic without any lesions or masses noted. Facial features are symmetric with bitemporal wasting. Eyes: Extraocular muscles are intact. Conjunctivae were clear. NECK: Trachea midline no deviation. CARDIAC: Regular rhythm, regular rate. S1/S2 are heard. 2/6 ejection murmur, no gallops or rubs. LUNGS: Clear to auscultation bilaterally. No wheeze, rhonchi or rales. No use of accessory muscles on inspiration or expiration. ABDOMEN: Soft, nontender. Nondistended. Bowel sounds heard in all 4 quadrants. No organomegaly or masses. Negative rebound, negative guarding EXTREMITIES: No edema, pulses are equal bilaterally. No cyanosis or clubbing NEUROLOGY: Patient with significant dementia. He is quite pleasant. Answers questions appropriately Cranial nerves are grossly intact. Procedures None Urinary Catheter: No Vascular Central Line Catheter: No A/P Assessment and Plan Rhabdomyolysis, recurrent, improved Continue to trend CPK Continue IV fluids Likely secondary to inactivity, lays in bed in contracted position. Possibly secondary to recent strenuous physical therapy Dementia with disturbance of behavior, stable Continue home dosing of memantine 10 mg po BID. hypertension, Lopressor 12.5 mg daily Dysphagia Speech therapy re-evaluated patient and continue to recommended mechanical soft diet, chopped meat with gravy and thin liquids Dietary recommendations Enlive 3 times daily, increasing milk 2 with meals and yogurt with meals. Consider appetite stimulant Aphthous ulcer: lower lip. Improving. Continue Triamcinolone in Orabase topical q8h for healing and pain relief DVT prophylaxis: Lovenox Discharge Planning Case management for discharge planning Gonzales Babcock Feb 14, 2017 09:31
[2017-02-14 20:01] VITALS: BP 140/92; PULSE 87; RESP 16; TEMP 97.9; O2SAT 98
[2017-02-15] MEDS: TRIAMCINOLONE ACET 0.1% IN ORABASE PASTE 5 GM TUBE OTHER SCH ×4 (06:12→23:19)
[2017-02-15] MEDS: SODIUM CHLOR 0.9% 1000 ML INJ 1,000 ML IV SCH (06:12)
[2017-02-15 07:10] LABS: CREATINE KINASE 142 U/L (39-308)
[2017-02-15 07:30] LABS: CKMB 3.1 NG/ML (0.5-3.6)
[2017-02-15 08:00] VITALS: BP 133/85; PULSE 84; RESP 18; TEMP 97.9; O2SAT 98
[2017-02-15] MEDS: CHLORHEXIDINE GLUCONATE 0.12% 15 ML CUP SCH ×3 (08:36→23:18)
[2017-02-15] MEDS: ENOXAPARIN SODIUM 40 MG/0.4 ML SYRINGE SQ SCH (08:37)
[2017-02-15] MEDS: MEMANTINE HCL 10 MG TAB PO SCH ×3 (08:37→23:19)
[2017-02-15] MEDS: METOPROLOL TARTRATE 25 MG TAB PO SCH (08:37)
[2017-02-15] MEDS ORDERED: SODIUM CHLORIDE 0.9% FLUSH 10 ML FLUSH IV FLUSH PRN (09:45)
--- NOTE | 2017-02-15 09:45 | HHI.PR ---
Subjective Remarks Patient seen and examined today for follow-up on dementia. Patient eyes any new complaints. No change in clinical status. Rhabdomyolysis has improved. Objective Vitals Vital Signs Date Time Temp Pulse Resp B/P (MAP) Pulse Ox O2 Delivery O2 Flow Rate FiO2 02/15/17 08:00 97.9 84 18 133/85 (101) 98 02/14/17 20:01 97.9 87 16 140/92 (108) 98 I/O 02/14/17 02/14/17 02/14/17 02/15/17 02/15/17 02/15/17 07:00 15:00 23:00 07:00 15:00 23:00 Intake Total 1200 ml 350 ml 888 ml 1000 ml Balance 1200 ml 350 ml 888 ml 1000 ml Intake Oral 100 ml 350 ml IV Total 1100 ml 888 ml 1000 ml # Voids 2 2 1 2 # Bowel Movements 1 0 0 Result Diagram: 02/11/17 0555 Objective Remarks GENERAL: Well-developed, cachectic, in no acute distress. Arousable, patient appears to be alert, he is orientated to person and state. He has not orientated to city, date, year HEENT: Head is normocephalic without any lesions or masses noted. Facial features are symmetric with bitemporal wasting. Eyes: Extraocular muscles are intact. Conjunctivae were clear. NECK: Trachea midline no deviation. CARDIAC: Regular rhythm, regular rate. S1/S2 are heard. 2/6 ejection murmur, no gallops or rubs. LUNGS: Clear to auscultation bilaterally. No wheeze, rhonchi or rales. No use of accessory muscles on inspiration or expiration. ABDOMEN: Soft, nontender. Nondistended. Bowel sounds heard in all 4 quadrants. No organomegaly or masses. Negative rebound, negative guarding EXTREMITIES: No edema, pulses are equal bilaterally. No cyanosis or clubbing NEUROLOGY: Patient with significant dementia. He is quite pleasant. Answers questions appropriately Cranial nerves are grossly intact. Procedures None Urinary Catheter: No Vascular Central Line Catheter: No A/P Assessment and Plan Rhabdomyolysis, recurrent, resolved Continue to trend CPK Continue IV fluids Likely secondary to inactivity, lays in bed in contracted position. Possibly secondary to recent strenuous physical therapy Dementia with disturbance of behavior, stable Continue home dosing of memantine 10 mg po BID. hypertension, Lopressor 12.5 mg daily Dysphagia Speech therapy re-evaluated patient and continue to recommended mechanical soft diet, chopped meat with gravy and thin liquids Dietary recommendations Enlive 3 times daily, increasing milk 2 with meals and yogurt with meals. Consider appetite stimulant Aphthous ulcer: lower lip. Improving. Continue Triamcinolone in Orabase topical q8h for healing and pain relief DVT prophylaxis: Lovenox Discharge Planning Case management for discharge planning Gonzales Babcock Feb 15, 2017 09:45
[2017-02-15] MEDS ORDERED: SODIUM CHLORIDE 0.9% FLUSH 10 ML FLUSH IV FLUSH SCH (21:00)
[2017-02-15 21:45] VITALS: BP 110/79; PULSE 63; RESP 16; TEMP 97.9; O2SAT 98
[2017-02-16] MEDS: TRIAMCINOLONE ACET 0.1% IN ORABASE PASTE 5 GM TUBE OTHER SCH (05:12)
[2017-02-16 07:13] LABS: CREATINE KINASE 108 U/L (39-308)
[2017-02-16 07:32] LABS: CKMB 2.3 NG/ML (0.5-3.6)
[2017-02-16 08:00] VITALS: BP 137/84; PULSE 77; RESP 18; TEMP 96.6; O2SAT 100
[2017-02-16] MEDS: METOPROLOL TARTRATE 25 MG TAB PO SCH ×2 (08:45→09:37)
[2017-02-16] MEDS: MEMANTINE HCL 10 MG TAB PO SCH ×2 (09:37→20:35)
[2017-02-16] MEDS: CHLORHEXIDINE GLUCONATE 0.12% 15 ML CUP SCH ×2 (09:37→20:35)
[2017-02-16] MEDS: ENOXAPARIN SODIUM 40 MG/0.4 ML SYRINGE SQ SCH (09:39)
--- NOTE | 2017-02-16 09:42 | HHI.PR ---
Subjective Remarks Patient seen and examined today for follow-up on dementia, rhabdomyolysis. Patient lying in bed counseled. No indication any new complaints. No change in clinical status. Objective Vitals Vital Signs Date Time Temp Pulse Resp B/P (MAP) Pulse Ox O2 Delivery O2 Flow Rate FiO2 02/15/17 21:45 97.9 63 16 110/79 (89) 98 I/O 02/15/17 02/15/17 02/15/17 02/16/17 02/16/17 02/16/17 07:00 15:00 23:00 07:00 15:00 23:00 Intake Total 1000 ml 675 ml 490 ml Balance 1000 ml 675 ml 490 ml Intake Oral 375 ml 490 ml IV Total 1000 ml 300 ml # Voids 2 3 3 # Bowel Movements 0 0 Objective Remarks GENERAL: Well-developed, cachectic, in no acute distress. Arousable, patient appears to be alert, he is orientated to person and state. He has not orientated to city, date, year HEENT: Head is normocephalic without any lesions or masses noted. Facial features are symmetric with bitemporal wasting. Eyes: Extraocular muscles are intact. Conjunctivae were clear. NECK: Trachea midline no deviation. CARDIAC: Regular rhythm, regular rate. S1/S2 are heard. 2/6 ejection murmur, no gallops or rubs. LUNGS: Clear to auscultation bilaterally. No wheeze, rhonchi or rales. No use of accessory muscles on inspiration or expiration. ABDOMEN: Soft, nontender. Nondistended. Bowel sounds heard in all 4 quadrants. No organomegaly or masses. Negative rebound, negative guarding EXTREMITIES: No edema, pulses are equal bilaterally. No cyanosis or clubbing NEUROLOGY: Patient with significant dementia. He is quite pleasant. Answers questions appropriately Cranial nerves are grossly intact. Procedures None Urinary Catheter: No Vascular Central Line Catheter: No A/P Assessment and Plan Rhabdomyolysis, recurrent, resolved CPK reviewed today which has returned to normal for the last 3 days. Has continued to improve after discontinuation of IV fluids Discontinued IV fluids yesterday Likely secondary to inactivity, lays in bed in contracted position. Possibly secondary to recent strenuous physical therapy Dementia with disturbance of behavior, stable Continue home dosing of memantine 10 mg po BID. hypertension, Lopressor 12.5 mg daily Dysphagia Speech therapy re-evaluated patient and continue to recommended mechanical soft diet, chopped meat with gravy and thin liquids Dietary recommendations Enlive 3 times daily, increasing milk 2 with meals and yogurt with meals. Consider appetite stimulant Aphthous ulcer: lower lip. Improving. Continue Triamcinolone in Orabase topical q8h for healing and pain relief DVT prophylaxis: Lovenox Discharge Planning Case management for discharge planning Gonzales Babcock Feb 16, 2017 09:42
[2017-02-16 20:00] VITALS: BP 129/83; PULSE 81; RESP 20; TEMP 97.3; O2SAT 99
[2017-02-17 08:00] VITALS: BP 142/92; PULSE 87; RESP 18; TEMP 98; O2SAT 97
[2017-02-17] MEDS: CHLORHEXIDINE GLUCONATE 0.12% 15 ML CUP SCH ×2 (08:48→20:28)
[2017-02-17] MEDS: METOPROLOL TARTRATE 25 MG TAB PO SCH (08:48)
[2017-02-17] MEDS: MEMANTINE HCL 10 MG TAB PO SCH ×2 (08:48→20:28)
--- NOTE | 2017-02-17 09:52 | HHI.PR ---
Subjective Remarks Follow up dementia and rhabdo. Patient seen and examined today, lying in bed comfortably in no apparent distress. Spoke to bedside RN who reports no acute events overnight. No change in clinical status. Speech is clear. Patient is Micronesian-speaking. Denies pain. Afebrile. Positive BM. Tolerating PO intake. Encouraged fluids. Objective Vitals Vital Signs Date Time Temp Pulse Resp B/P (MAP) Pulse Ox O2 Delivery O2 Flow Rate FiO2 02/17/17 08:00 98.0 87 18 142/92 (109) 97 02/16/17 20:00 97.3 81 20 129/83 (98) 99 I/O 02/16/17 02/16/17 02/16/17 02/17/17 02/17/17 02/17/17 07:00 15:00 23:00 07:00 15:00 23:00 Intake Total 20 ml 422 ml Balance 20 ml 422 ml Intake Oral 20 ml 422 ml # Voids 3 2 3 1 # Bowel Movements 1 2 Imaging Last Impressions Chest X-Ray 02/03/17 0000 Signed Impressions: Service Date/Time: Friday, February 03, 2017 22:20 - CONCLUSION: No acute cardiopulmonary disease. Jerardo Lopez MD Scrotum Ultrasound 09/28/16 0000 Signed Impressions: Service Date/Time: Wednesday, September 28, 2016 15:43 - CONCLUSION: 1. Intact flow to both testicles without focal lesions. 2. Small right hydrocele. 2 right epididymal cysts, similar to prior ultrasound 10 days ago. Mild hyperemia to the right epididymis. Moises Borden MD Objective Remarks GENERAL: Well-developed cachectic male patient lying in bed comfortably in NAD. Awake and alert. Contracted. SKIN: Warm and dry. No rash. HEENT: Normocephalic. Atraumatic. Pupils equal and round. No scleral icterus. No injection or drainage. No nasal bleeding or discharge. Mucous membranes pink and moist. EOMs intact. PERRL. NECK: Supple. Trachea midline. CARDIOVASCULAR: Regular rate and rhythm. S1, S2 noted. 2/6 ejection murmur, no gallops or rubs. RESPIRATORY: No accessory muscle use. Clear to auscultation. Breath sounds equal bilaterally. GASTROINTESTINAL: Abdomen soft, non-tender, nondistended. Normoactive bowel sounds x4. No guarding noted.. MUSCULOSKELETAL: No obvious deformities. Extremities without clubbing, cyanosis , or edema. NEUROLOGICAL: Awake and alert, confused. No obvious cranial nerve deficits. Procedures None A/P Problem List: (1) Rhabdomyolysis ICD Code: M62.82 - Rhabdomyolysis Status: Acute (2) Hypokalemia ICD Code: E87.6 - Hypokalemia Status: Resolved (3) Moderate malnutrition ICD Code: E44.0 - Moderate protein-calorie malnutrition (4) Atypical chest pain ICD Code: R07.89 - Other chest pain Status: Resolved (5) Hypoxia ICD Code: R09.02 - Hypoxemia Status: Resolved (6) Dementia with behavioral disturbance ICD Code: F03.91 - Unspecified dementia with behavioral disturbance Status: Chronic (7) Abdominal pain ICD Code: R10.9 - Unspecified abdominal pain Status: Resolved (8) Normocytic anemia ICD Code: D64.9 - Anemia, unspecified Status: Acute Assessment and Plan Rhabdomyolysis, recurrent, suspect secondary to inactivity vs recent strenuous PT. Resolved. CPK trends reviewed, WNL. IVF discontinued. Encouraged PO intake. Dementia with disturbance of behavior, stable. Continue home dosing of memantine 10 mg po BID. Hypertension: Stable at this time. Continue Lopressor 12.5 mg daily. Monitor BP trends. Dysphagia Speech therapy re-evaluated patient and continue to recommended mechanical soft diet, chopped meat with gravy and thin liquids. Dietary recommendations Enlive 3 times daily, increasing milk 2 with meals and yogurt with meals. Consider appetite stimulant. Aphthous ulcer: lower lip. Improving. Continue Triamcinolone in [employer] topical q8h for healing and pain relief DVT prophylaxis: Lovenox Problem Qualifiers (1) Rhabdomyolysis: (2) Dementia with behavioral disturbance: Linnea Solis Feb 17, 2017 09:52
[2017-02-17] MEDS: ENOXAPARIN SODIUM 40 MG/0.4 ML SYRINGE SQ SCH (10:16)
[2017-02-17 20:00] VITALS: BP 124/73; PULSE 80; RESP 20; TEMP 97.2; O2SAT 98
[2017-02-18 08:00] VITALS: BP 101/61; PULSE 81; RESP 18; TEMP 97.2; O2SAT 95
[2017-02-18] MEDS: CHLORHEXIDINE GLUCONATE 0.12% 15 ML CUP SCH ×2 (09:21→20:50)
[2017-02-18] MEDS: MEMANTINE HCL 10 MG TAB PO SCH ×2 (09:22→20:50)
[2017-02-18] MEDS: METOPROLOL TARTRATE 25 MG TAB PO SCH (09:23)
[2017-02-18] MEDS: ENOXAPARIN SODIUM 40 MG/0.4 ML SYRINGE SQ SCH (09:24)
--- NOTE | 2017-02-18 13:46 | HHI.PR ---
Subjective Remarks Follow up dementia and rhabdo. Patient lying in bed comfortably today. Smiling and pleasant. No reports of new change overnight. Following commands and tracking with eyes. Denies pain. Spoke to RN, no new change. Objective Vitals Vital Signs Date Time Temp Pulse Resp B/P (MAP) Pulse Ox O2 Delivery O2 Flow Rate FiO2 02/18/17 08:00 97.2 81 18 101/61 (74) 95 02/17/17 20:00 97.2 80 20 124/73 (90) 98 I/O 02/17/17 02/17/17 02/17/17 02/18/17 02/18/17 02/18/17 07:00 15:00 23:00 07:00 15:00 23:00 Intake Total 50 ml Balance 50 ml Other 50 ml # Voids 1 Imaging Last Impressions Chest X-Ray 02/03/17 0000 Signed Impressions: Service Date/Time: Friday, February 03, 2017 22:20 - CONCLUSION: No acute cardiopulmonary disease. Jerardo Lopez MD Scrotum Ultrasound 09/28/16 0000 Signed Impressions: Service Date/Time: Wednesday, September 28, 2016 15:43 - CONCLUSION: 1. Intact flow to both testicles without focal lesions. 2. Small right hydrocele. 2 right epididymal cysts, similar to prior ultrasound 10 days ago. Mild hyperemia to the right epididymis. Moises Borden MD Objective Remarks GENERAL: Well-developed cachectic male patient lying in bed comfortably in NAD. Awake and alert. Contracted. SKIN: Warm and dry. No rash. HEENT: Normocephalic. Atraumatic. Pupils equal and round. No scleral icterus. No injection or drainage. No nasal bleeding or discharge. Mucous membranes pink and moist. EOMs intact. PERRL. NECK: Supple. Trachea midline. CARDIOVASCULAR: Regular rate and rhythm. S1, S2 noted. 2/6 ejection murmur, no gallops or rubs. RESPIRATORY: No accessory muscle use. Clear to auscultation. Breath sounds equal bilaterally. GASTROINTESTINAL: Abdomen soft, non-tender, nondistended. Normoactive bowel sounds x4. No guarding noted.. MUSCULOSKELETAL: No obvious deformities. Extremities without clubbing, cyanosis , or edema. NEUROLOGICAL: Awake and alert, confused. No obvious cranial nerve deficits. Procedures None A/P Problem List: (1) Rhabdomyolysis ICD Code: M62.82 - Rhabdomyolysis Status: Acute (2) Hypokalemia ICD Code: E87.6 - Hypokalemia Status: Resolved (3) Moderate malnutrition ICD Code: E44.0 - Moderate protein-calorie malnutrition (4) Atypical chest pain ICD Code: R07.89 - Other chest pain Status: Resolved (5) Hypoxia ICD Code: R09.02 - Hypoxemia Status: Resolved (6) Dementia with behavioral disturbance ICD Code: F03.91 - Unspecified dementia with behavioral disturbance Status: Chronic (7) Abdominal pain ICD Code: R10.9 - Unspecified abdominal pain Status: Resolved (8) Normocytic anemia ICD Code: D64.9 - Anemia, unspecified Status: Acute Assessment and Plan Rhabdomyolysis, recurrent, suspect secondary to inactivity vs recent strenuous PT. Resolved. CPK trends reviewed, WNL. IVF discontinued. Encouraged PO intake. Dementia with disturbance of behavior, stable. Continue home dosing of memantine 10 mg po BID. Hypertension: Stable at this time. Continue Lopressor 12.5 mg daily. Monitor BP trends. Dysphagia Speech therapy re-evaluated patient and continue to recommended mechanical soft diet, chopped meat with gravy and thin liquids. Dietary recommendations Enlive 3 times daily, increasing milk 2 with meals and yogurt with meals. Consider appetite stimulant. Aphthous ulcer: lower lip. Improving. Continue Triamcinolone in [employer] topical q8h for healing and pain relief DVT prophylaxis: Lovenox Problem Qualifiers (1) Rhabdomyolysis: (2) Dementia with behavioral disturbance: Linnea Solis Feb 18, 2017 13:46
[2017-02-18 20:00] VITALS: BP 154/63; PULSE 86; RESP 24; TEMP 97.1; O2SAT 95
--- NOTE | 2017-02-19 08:42 | HHI.PR ---
Subjective Remarks Follow up dementia and rhabdomyolysis. Patient lying in bed sleeping, awakens to voice. Pleasant. Speech clear. Denies any new acute complaints. Spoke to RN at bedside who denies any changes clinically. Afebrile. Positive BM. Objective Vitals Vital Signs Date Time Temp Pulse Resp B/P (MAP) Pulse Ox O2 Delivery O2 Flow Rate FiO2 02/18/17 20:00 97.1 86 24 154/63 (93) 95 I/O 02/18/17 02/18/17 02/18/17 02/19/17 02/19/17 02/19/17 07:00 15:00 23:00 07:00 15:00 23:00 Intake Total 360 ml 240 ml Balance 360 ml 240 ml Intake Oral 120 ml 240 ml Oral Supplement 240 ml IV Total 0 ml # Voids 1 1 # Bowel Movements 0 0 Imaging Last Impressions Chest X-Ray 02/03/17 0000 Signed Impressions: Service Date/Time: Friday, February 03, 2017 22:20 - CONCLUSION: No acute cardiopulmonary disease. KBob Lopez MD Scrotum Ultrasound 09/28/16 0000 Signed Impressions: Service Date/Time: Wednesday, September 28, 2016 15:43 - CONCLUSION: 1. Intact flow to both testicles without focal lesions. 2. Small right hydrocele. 2 right epididymal cysts, similar to prior ultrasound 10 days ago. Mild hyperemia to the right epididymis. Moises Borden MD Objective Remarks GENERAL: Well-developed cachectic male patient lying in bed comfortably in NAD. Awake and alert. Contracted. SKIN: Warm and dry. No rash. HEENT: Normocephalic. Atraumatic. Pupils equal and round. No scleral icterus. No injection or drainage. No nasal bleeding or discharge. Mucous membranes pink and moist. EOMs intact. PERRL. NECK: Supple. Trachea midline. CARDIOVASCULAR: Regular rate and rhythm. S1, S2 noted. 2/6 ejection murmur, no gallops or rubs. RESPIRATORY: No accessory muscle use. Clear to auscultation. Breath sounds equal bilaterally. GASTROINTESTINAL: Abdomen soft, non-tender, nondistended. Normoactive bowel sounds x4. No guarding noted. MUSCULOSKELETAL: No obvious deformities. Extremities without clubbing, cyanosis , or edema. NEUROLOGICAL: Awake and alert, confused. No obvious cranial nerve deficits. Procedures None A/P Problem List: (1) Rhabdomyolysis ICD Code: M62.82 - Rhabdomyolysis Status: Acute (2) Hypokalemia ICD Code: E87.6 - Hypokalemia Status: Resolved (3) Moderate malnutrition ICD Code: E44.0 - Moderate protein-calorie malnutrition (4) Atypical chest pain ICD Code: R07.89 - Other chest pain Status: Resolved (5) Hypoxia ICD Code: R09.02 - Hypoxemia Status: Resolved (6) Dementia with behavioral disturbance ICD Code: F03.91 - Unspecified dementia with behavioral disturbance Status: Chronic (7) Abdominal pain ICD Code: R10.9 - Unspecified abdominal pain Status: Resolved (8) Normocytic anemia ICD Code: D64.9 - Anemia, unspecified Status: Acute Assessment and Plan Rhabdomyolysis, recurrent, suspect secondary to inactivity vs recent strenuous PT. Resolved. CPK trends reviewed, WNL. IVF discontinued. Encouraged PO intake. Dementia with disturbance of behavior, stable. Continue home dosing of memantine 10 mg po BID. Hypertension: Stable at this time. Continue Lopressor 12.5 mg daily. Monitor BP trends. Dysphagia, tolerating PO intake now. Monitor PO input closely. Speech therapy re-evaluated patient and continue to recommended mechanical soft diet, chopped meat with gravy and thin liquids. Dietary recommendations Enlive 3 times daily, increasing milk 2 with meals and yogurt with meals. Consider appetite stimulant. Aphthous ulcer: lower lip. Improving. Continue Triamcinolone in [employer] topical q8h for healing and pain relief DVT prophylaxis: Lovenox Problem Qualifiers (1) Rhabdomyolysis: (2) Dementia with behavioral disturbance: Linnea Solis Feb 19, 2017 08:42
[2017-02-19 09:00] VITALS: BP 107/80
[2017-02-19] MEDS: CHLORHEXIDINE GLUCONATE 0.12% 15 ML CUP SCH ×2 (09:00→21:41)
[2017-02-19] MEDS: METOPROLOL TARTRATE 25 MG TAB PO SCH ×2 (09:00→09:17)
[2017-02-19] MEDS: MEMANTINE HCL 10 MG TAB PO SCH ×2 (09:17→21:41)
[2017-02-19] MEDS: ENOXAPARIN SODIUM 40 MG/0.4 ML SYRINGE SQ SCH (09:17)
[2017-02-19 16:00] VITALS: PULSE 91; RESP 18; TEMP 97.9; O2SAT 100
[2017-02-19 20:00] VITALS: BP 114/82; PULSE 86; RESP 20; TEMP 97.5; O2SAT 98
[2017-02-20 08:00] VITALS: BP 118/65; PULSE 67; RESP 20; TEMP 95.8; O2SAT 99
[2017-02-20] MEDS: CHLORHEXIDINE GLUCONATE 0.12% 15 ML CUP SCH ×2 (09:44→20:54)
[2017-02-20] MEDS: ENOXAPARIN SODIUM 40 MG/0.4 ML SYRINGE SQ SCH (09:45)
[2017-02-20] MEDS: MEMANTINE HCL 10 MG TAB PO SCH ×2 (09:45→20:54)
[2017-02-20] MEDS: METOPROLOL TARTRATE 25 MG TAB PO SCH (09:45)
--- NOTE | 2017-02-20 12:05 | HHI.PR ---
Subjective Remarks Follow up dementia and rhabdomyolysis. Patient seen and examined. Sleeping peacefully. Awakens to voice. Speech clear. Denies any new acute complaints. Denies any change. Denies pain. No change clinically. Objective Vitals Vital Signs Date Time Temp Pulse Resp B/P (MAP) Pulse Ox O2 Delivery O2 Flow Rate FiO2 02/20/17 08:00 95.8 67 20 118/65 (82) 99 02/19/17 20:00 97.5 86 20 114/82 (93) 98 02/19/17 16:00 97.9 91 18 100 I/O 02/19/17 02/19/17 02/19/17 02/20/17 02/20/17 02/20/17 07:00 15:00 23:00 07:00 15:00 23:00 Intake Total 240 ml 240 ml 240 ml 120 ml Balance 240 ml 240 ml 240 ml 120 ml Intake Oral 240 ml 240 ml 240 ml 120 ml # Voids 1 2 2 # Bowel Movements 0 1 1 Imaging Last Impressions Chest X-Ray 02/03/17 0000 Signed Impressions: Service Date/Time: Friday, February 03, 2017 22:20 - CONCLUSION: No acute cardiopulmonary disease. Jerardo Lopez MD Scrotum Ultrasound 09/28/16 0000 Signed Impressions: Service Date/Time: Wednesday, September 28, 2016 15:43 - CONCLUSION: 1. Intact flow to both testicles without focal lesions. 2. Small right hydrocele. 2 right epididymal cysts, similar to prior ultrasound 10 days ago. Mild hyperemia to the right epididymis. Moises Borden MD Objective Remarks GENERAL: Well-developed cachectic male patient lying in bed comfortably in NAD. Awake and alert. Contracted. SKIN: Warm and dry. No rash. HEENT: Normocephalic. Atraumatic. Pupils equal and round. No scleral icterus. No injection or drainage. No nasal bleeding or discharge. Mucous membranes pink and moist. EOMs intact. PERRL. NECK: Supple. Trachea midline. CARDIOVASCULAR: Regular rate and rhythm. S1, S2 noted. 2/6 ejection murmur, no gallops or rubs. RESPIRATORY: No accessory muscle use. Clear to auscultation. Breath sounds equal bilaterally. GASTROINTESTINAL: Abdomen soft, non-tender, nondistended. Normoactive bowel sounds x4. No guarding noted. MUSCULOSKELETAL: No obvious deformities. Extremities without clubbing, cyanosis , or edema. NEUROLOGICAL: Awake and alert, confused. No obvious cranial nerve deficits. Procedures None A/P Problem List: (1) Rhabdomyolysis ICD Code: M62.82 - Rhabdomyolysis Status: Acute (2) Hypokalemia ICD Code: E87.6 - Hypokalemia Status: Resolved (3) Moderate malnutrition ICD Code: E44.0 - Moderate protein-calorie malnutrition (4) Atypical chest pain ICD Code: R07.89 - Other chest pain Status: Resolved (5) Hypoxia ICD Code: R09.02 - Hypoxemia Status: Resolved (6) Dementia with behavioral disturbance ICD Code: F03.91 - Unspecified dementia with behavioral disturbance Status: Chronic (7) Abdominal pain ICD Code: R10.9 - Unspecified abdominal pain Status: Resolved (8) Normocytic anemia ICD Code: D64.9 - Anemia, unspecified Status: Acute Assessment and Plan Rhabdomyolysis, recurrent, suspect secondary to inactivity vs recent strenuous PT. Resolved. CPK trends reviewed, WNL. IVF discontinued. Encouraged PO intake. Dementia with disturbance of behavior, stable. Continue home dosing of memantine 10 mg po BID. Hypertension: Stable at this time. Continue Lopressor 12.5 mg daily. Monitor BP trends. Dysphagia, tolerating PO intake now. Monitor PO input closely. Speech therapy re-evaluated patient and continue to recommended mechanical soft diet, chopped meat with gravy and thin liquids. Dietary recommendations Enlive 3 times daily, increasing milk 2 with meals and yogurt with meals. Consider appetite stimulant. Aphthous ulcer: lower lip. Improving. Continue Triamcinolone in [employer] topical q8h for healing and pain relief DVT prophylaxis: Lovenox Problem Qualifiers (1) Rhabdomyolysis: (2) Dementia with behavioral disturbance: Linnea Solis Feb 20, 2017 12:04
[2017-02-20 20:00] VITALS: BP 121/66; PULSE 94; RESP 18; TEMP 96.8; O2SAT 94
[2017-02-21 07:50] VITALS: BP 106/60; PULSE 77; RESP 20; TEMP 96.4
[2017-02-21] MEDS: MEMANTINE HCL 10 MG TAB PO SCH ×2 (08:35→20:20)
[2017-02-21] MEDS: METOPROLOL TARTRATE 25 MG TAB PO SCH (08:35)
[2017-02-21] MEDS: CHLORHEXIDINE GLUCONATE 0.12% 15 ML CUP SCH ×2 (08:35→20:29)
[2017-02-21] MEDS: ENOXAPARIN SODIUM 40 MG/0.4 ML SYRINGE SQ SCH (08:36)
--- NOTE | 2017-02-21 11:30 | HHI.PR ---
Subjective Remarks Follow up dementia and rhabdomyolysis. Patient seen and examined. Awake lying in bed. Calm and pleasant. Denies any new acute complaints. Appears to be tachypneic and dry. VSS. Afebrile. Will order repeat CPK. Encourage PO intake. Monitor intake and output. Follow clinically. Supportive care. Objective Vitals Vital Signs Date Time Temp Pulse Resp B/P (MAP) Pulse Ox O2 Delivery O2 Flow Rate FiO2 02/21/17 07:50 96.4 77 20 106/60 (75) 02/20/17 20:00 96.8 94 18 121/66 (84) 94 I/O 02/20/17 02/20/17 02/20/17 02/21/17 02/21/17 02/21/17 07:00 15:00 23:00 07:00 15:00 23:00 Intake Total 120 ml 700 ml 0 ml 100 ml Balance 120 ml 700 ml 0 ml 100 ml Intake Oral 120 ml 700 ml 0 ml 100 ml # Voids 2 1 1 # Bowel Movements 1 1 1 Imaging Last Impressions Chest X-Ray 02/03/17 0000 Signed Impressions: Service Date/Time: Friday, February 03, 2017 22:20 - CONCLUSION: No acute cardiopulmonary disease. KBob Lopez MD Scrotum Ultrasound 09/28/16 0000 Signed Impressions: Service Date/Time: Wednesday, September 28, 2016 15:43 - CONCLUSION: 1. Intact flow to both testicles without focal lesions. 2. Small right hydrocele. 2 right epididymal cysts, similar to prior ultrasound 10 days ago. Mild hyperemia to the right epididymis. Moises Borden MD Objective Remarks GENERAL: Well-developed cachectic male patient lying in bed comfortably in NAD. Awake and alert. Contracted. SKIN: Warm and dry. No rash. HEENT: Normocephalic. Atraumatic. Pupils equal and round. No scleral icterus. No injection or drainage. No nasal bleeding or discharge. Mucous membranes pink and moist. EOMs intact. PERRL. NECK: Supple. Trachea midline. CARDIOVASCULAR: Regular rate and rhythm. S1, S2 noted. 2/6 ejection murmur, no gallops or rubs. RESPIRATORY: No accessory muscle use. Clear to auscultation. Breath sounds equal bilaterally. Tachypnea. GASTROINTESTINAL: Abdomen soft, non-tender, nondistended. Normoactive bowel sounds x4. No guarding noted. MUSCULOSKELETAL: No obvious deformities. Extremities without clubbing, cyanosis , or edema. NEUROLOGICAL: Awake and alert, confused. No obvious cranial nerve deficits. Procedures None A/P Problem List: (1) Rhabdomyolysis ICD Code: M62.82 - Rhabdomyolysis Status: Acute (2) Hypokalemia ICD Code: E87.6 - Hypokalemia Status: Resolved (3) Moderate malnutrition ICD Code: E44.0 - Moderate protein-calorie malnutrition (4) Atypical chest pain ICD Code: R07.89 - Other chest pain Status: Resolved (5) Hypoxia ICD Code: R09.02 - Hypoxemia Status: Resolved (6) Dementia with behavioral disturbance ICD Code: F03.91 - Unspecified dementia with behavioral disturbance Status: Chronic (7) Abdominal pain ICD Code: R10.9 - Unspecified abdominal pain Status: Resolved (8) Normocytic anemia ICD Code: D64.9 - Anemia, unspecified Status: Acute Assessment and Plan Rhabdomyolysis, recurrent, suspect secondary to inactivity vs recent strenuous PT. Resolved. CPK trends reviewed, WNL. IVF discontinued. Encouraged PO intake. Will order repeat CPK. Encourage PO intake. Monitor intake and output. Follow clinically. Supportive care. Dementia with disturbance of behavior, stable. Continue home dosing of memantine 10 mg po BID. Hypertension: Stable at this time. Continue Lopressor 12.5 mg daily. Monitor BP trends. Dysphagia, tolerating PO intake now. Monitor PO input closely. Speech therapy re-evaluated patient and continue to recommended mechanical soft diet, chopped meat with gravy and thin liquids. Dietary recommendations to D/C Heart Healthy diet order d/t limits menu variety to the already limited pureed diet. Calorie Count 02/20 through 02/22 w/ Nutrition Recs 02/23, follow along. Continue Ensure Enlive tid. Continue milk x 2 w/meals. Continue yogurt w/meals for additional nutrition. Will start appetite stimulant. Aphthous ulcer: lower lip. Improving. Continue Triamcinolone in [employer] topical q8h for healing and pain relief. DVT prophylaxis: Lovenox Problem Qualifiers (1) Rhabdomyolysis: (2) Dementia with behavioral disturbance: Linnea Solis Feb 21, 2017 11:30
[2017-02-21] MEDS: MEGESTROL ACETATE SUSP 400 MG/10 ML CUP PO SCH (12:23)
[2017-02-21 20:00] VITALS: BP 95/66; PULSE 111; RESP 20; TEMP 96.9; O2SAT 97
[2017-02-22 07:50] VITALS: BP 127/67; PULSE 84; RESP 20; TEMP 97.7
[2017-02-22] MEDS: METOPROLOL TARTRATE 25 MG TAB PO SCH (08:43)
[2017-02-22] MEDS: MEMANTINE HCL 10 MG TAB PO SCH ×2 (08:44→20:35)
[2017-02-22] MEDS: MEGESTROL ACETATE SUSP 400 MG/10 ML CUP PO SCH (08:44)
[2017-02-22] MEDS: CHLORHEXIDINE GLUCONATE 0.12% 15 ML CUP SCH ×2 (08:50→20:35)
[2017-02-22] MEDS: ENOXAPARIN SODIUM 40 MG/0.4 ML SYRINGE SQ SCH (08:51)
--- NOTE | 2017-02-22 11:15 | HHI.PR ---
Subjective Remarks Follow up dementia and rhabdomyolysis. Patient seen and examined. Lying in bed sleeping, comfortable. Awakens to voice. Denies any changes. No change in clinical condition. CEMENT TESTER ASSISTANT at bedside, just received bed bath tolerated well. Objective Vitals Vital Signs Date Time Temp Pulse Resp B/P (MAP) Pulse Ox O2 Delivery O2 Flow Rate FiO2 02/22/17 07:50 97.7 84 20 127/67 (87) 02/21/17 20:00 96.9 111 20 95/66 (76) 97 I/O 02/21/17 02/21/17 02/21/17 02/22/17 02/22/17 02/22/17 07:00 15:00 23:00 07:00 15:00 23:00 Intake Total 0 ml 100 ml 100 ml Balance 0 ml 100 ml 100 ml Intake Oral 0 ml 100 ml 100 ml # Voids 1 # Bowel Movements 1 Imaging Last Impressions Chest X-Ray 02/03/17 0000 Signed Impressions: Service Date/Time: Friday, February 03, 2017 22:20 - CONCLUSION: No acute cardiopulmonary disease. Jerardo Lopez MD Scrotum Ultrasound 09/28/16 0000 Signed Impressions: Service Date/Time: Wednesday, September 28, 2016 15:43 - CONCLUSION: 1. Intact flow to both testicles without focal lesions. 2. Small right hydrocele. 2 right epididymal cysts, similar to prior ultrasound 10 days ago. Mild hyperemia to the right epididymis. Moises Borden MD Objective Remarks GENERAL: Well-developed cachectic male patient lying in bed comfortably in NAD. Awake and alert. Contracted. SKIN: Warm and dry. No rash. HEENT: Normocephalic. Atraumatic. Pupils equal and round. No scleral icterus. No injection or drainage. No nasal bleeding or discharge. Mucous membranes pink and moist. EOMs intact. PERRL. NECK: Supple. Trachea midline. CARDIOVASCULAR: Regular rate and rhythm. S1, S2 noted. 2/6 ejection murmur, no gallops or rubs. RESPIRATORY: No accessory muscle use. Clear to auscultation. Breath sounds equal bilaterally. Tachypnea. GASTROINTESTINAL: Abdomen soft, non-tender, nondistended. Normoactive bowel sounds x4. No guarding noted. MUSCULOSKELETAL: No obvious deformities. Extremities without clubbing, cyanosis , or edema. NEUROLOGICAL: Awake and alert, confused. No obvious cranial nerve deficits. Procedures None A/P Problem List: (1) Rhabdomyolysis ICD Code: M62.82 - Rhabdomyolysis Status: Acute (2) Hypokalemia ICD Code: E87.6 - Hypokalemia Status: Resolved (3) Moderate malnutrition ICD Code: E44.0 - Moderate protein-calorie malnutrition (4) Atypical chest pain ICD Code: R07.89 - Other chest pain Status: Resolved (5) Hypoxia ICD Code: R09.02 - Hypoxemia Status: Resolved (6) Dementia with behavioral disturbance ICD Code: F03.91 - Unspecified dementia with behavioral disturbance Status: Chronic (7) Abdominal pain ICD Code: R10.9 - Unspecified abdominal pain Status: Resolved (8) Normocytic anemia ICD Code: D64.9 - Anemia, unspecified Status: Acute Assessment and Plan Rhabdomyolysis, recurrent, suspect secondary to inactivity vs recent strenuous PT. Resolved. CPK trends reviewed, WNL. IVF discontinued. Repeat CPK WNL. Continue to encourage PO intake. Monitor intake and output. Follow clinically. Supportive care. Dementia with disturbance of behavior, stable. Continue home dosing of memantine 10 mg po BID. Hypertension: Stable at this time. Continue Lopressor 12.5 mg daily. Monitor BP trends. Dysphagia, tolerating PO intake now. Monitor PO input closely. Speech therapy re-evaluated patient and continue to recommended mechanical soft diet, chopped meat with gravy and thin liquids. Dietary recommendations to D/C Heart Healthy diet order d/t limits menu variety to the already limited pureed diet. Calorie Count 02/20 through 02/22 w/ Nutrition Recs 02/23, follow along. Continue Ensure Enlive tid. Continue milk x 2 w/meals. Continue yogurt w/meals for additional nutrition. Will start appetite stimulant. Aphthous ulcer: lower lip. Improving. Continue Triamcinolone in [employer] topical q8h for healing and pain relief. DVT prophylaxis: Lovenox Problem Qualifiers (1) Rhabdomyolysis: (2) Dementia with behavioral disturbance: Linnea Solis Feb 22, 2017 11:15
[2017-02-22 20:00] VITALS: BP 138/81; PULSE 94; RESP 20; TEMP 97.4; O2SAT 100
[2017-02-23 08:00] VITALS: BP 112/71; PULSE 86; RESP 18; TEMP 96.4; O2SAT 94
[2017-02-23] MEDS: MEGESTROL ACETATE SUSP 400 MG/10 ML CUP PO SCH (08:40)
[2017-02-23] MEDS: ENOXAPARIN SODIUM 40 MG/0.4 ML SYRINGE SQ SCH (08:40)
[2017-02-23] MEDS: METOPROLOL TARTRATE 25 MG TAB PO SCH (08:40)
[2017-02-23] MEDS: MEMANTINE HCL 10 MG TAB PO SCH ×2 (08:40→20:43)
[2017-02-23] MEDS: CHLORHEXIDINE GLUCONATE 0.12% 15 ML CUP SCH ×2 (08:41→20:43)
--- NOTE | 2017-02-23 11:54 | HHI.PR ---
Subjective Remarks Follow up dementia and rhabdomyolysis. Patient seen and examined. Lying in bed awake and alert. Smiling. Follows commands appropriately. Denies any pain. Spoke to RN who denies any change in clinical condition. Denies any acute events overnight. Afebrile. VSS. Objective Vitals Vital Signs Date Time Temp Pulse Resp B/P (MAP) Pulse Ox O2 Delivery O2 Flow Rate FiO2 02/23/17 08:00 96.4 86 18 112/71 (85) 94 02/22/17 20:00 97.4 94 20 138/81 (100) 100 I/O 02/22/17 02/22/17 02/22/17 02/23/17 02/23/17 02/23/17 07:00 15:00 23:00 07:00 15:00 23:00 Intake Total 170 ml 60 ml Balance 170 ml 60 ml Intake Oral 170 ml 60 ml # Voids 3 # Bowel Movements 2 Imaging Last Impressions Chest X-Ray 02/03/17 0000 Signed Impressions: Service Date/Time: Friday, February 03, 2017 22:20 - CONCLUSION: No acute cardiopulmonary disease. Jerardo Lopez MD Scrotum Ultrasound 09/28/16 0000 Signed Impressions: Service Date/Time: Wednesday, September 28, 2016 15:43 - CONCLUSION: 1. Intact flow to both testicles without focal lesions. 2. Small right hydrocele. 2 right epididymal cysts, similar to prior ultrasound 10 days ago. Mild hyperemia to the right epididymis. Moises Borden MD Objective Remarks GENERAL: Well-developed cachectic male patient lying in bed comfortably in NAD. Awake and alert. Contracted. SKIN: Warm and dry. No rash. HEENT: Normocephalic. Atraumatic. Pupils equal and round. No scleral icterus. No injection or drainage. No nasal bleeding or discharge. Mucous membranes pink and moist. EOMs intact. PERRL. NECK: Supple. Trachea midline. CARDIOVASCULAR: Regular rate and rhythm. S1, S2 noted. 2/6 ejection murmur, no gallops or rubs. RESPIRATORY: No accessory muscle use. Clear to auscultation. Breath sounds equal bilaterally. Tachypnea. GASTROINTESTINAL: Abdomen soft, non-tender, nondistended. Normoactive bowel sounds x4. No guarding noted. MUSCULOSKELETAL: No obvious deformities. Extremities without clubbing, cyanosis , or edema. NEUROLOGICAL: Awake and alert, confused. No obvious cranial nerve deficits. Procedures None A/P Problem List: (1) Rhabdomyolysis ICD Code: M62.82 - Rhabdomyolysis Status: Acute (2) Moderate malnutrition ICD Code: E44.0 - Moderate protein-calorie malnutrition (3) Hypoxia ICD Code: R09.02 - Hypoxemia Status: Resolved (4) Dementia with behavioral disturbance ICD Code: F03.91 - Unspecified dementia with behavioral disturbance Status: Chronic (5) Abdominal pain ICD Code: R10.9 - Unspecified abdominal pain Status: Resolved (6) Normocytic anemia ICD Code: D64.9 - Anemia, unspecified Status: Acute Assessment and Plan Rhabdomyolysis, recurrent, suspect secondary to inactivity vs recent strenuous PT. Resolved. CPK trends reviewed, WNL. IVF discontinued. Repeat CPK WNL. Continue to encourage PO intake. Monitor intake and output. Follow clinically. Supportive care. Dementia with disturbance of behavior, stable. Continue home dosing of memantine 10 mg po BID. Hypertension: Stable at this time. Continue Lopressor 12.5 mg daily. Monitor BP trends. Dysphagia, tolerating PO intake now. Monitor PO input closely. Speech therapy re-evaluated patient and continue to recommended mechanical soft diet, chopped meat with gravy and thin liquids. Dietary recommendations to D/C Heart Healthy diet order d/t limits menu variety to the already limited pureed diet. Calorie Count 02/20 through 02/22 w/ Nutrition Recs 02/23, follow along. Continue Ensure Enlive tid. Continue milk x 2 w/meals. Continue yogurt w/meals for additional nutrition. Will start appetite stimulant. Aphthous ulcer: lower lip. Improving. Continue Triamcinolone in Orabase topical q8h for healing and pain relief. DVT prophylaxis: Lovenox Problem Qualifiers (1) Rhabdomyolysis: (2) Dementia with behavioral disturbance: Linnea Solis Feb 23, 2017 11:54
[2017-02-23 20:00] VITALS: BP 134/86; PULSE 102; RESP 22; TEMP 96.2; O2SAT 100
[2017-02-24 07:50] VITALS: BP 96/57; PULSE 101; RESP 20; TEMP 97.5
[2017-02-24] MEDS: CHLORHEXIDINE GLUCONATE 0.12% 15 ML CUP SCH ×2 (08:06→21:31)
[2017-02-24] MEDS: MEGESTROL ACETATE SUSP 400 MG/10 ML CUP PO SCH (08:06)
[2017-02-24] MEDS: METOPROLOL TARTRATE 25 MG TAB PO SCH (08:07)
[2017-02-24] MEDS: MEMANTINE HCL 10 MG TAB PO SCH ×2 (08:07→21:32)
[2017-02-24] MEDS: ENOXAPARIN SODIUM 40 MG/0.4 ML SYRINGE SQ SCH (09:22)
--- NOTE | 2017-02-24 11:44 | HHI.PR ---
Subjective Remarks Patient seen and examined today for follow-up on dementia. Patient denies any new complaints. No change in clinical status. Awaiting case management for discharge planning Objective Vitals Vital Signs Date Time Temp Pulse Resp B/P (MAP) Pulse Ox O2 Delivery O2 Flow Rate FiO2 02/24/17 07:50 97.5 101 20 96/57 (70) 02/23/17 20:00 96.2 102 22 134/86 (102) 100 I/O 02/23/17 02/23/17 02/23/17 02/24/17 02/24/17 02/24/17 07:00 15:00 23:00 07:00 15:00 23:00 Intake Total 60 ml 454 ml 200 ml Balance 60 ml 454 ml 200 ml Intake Oral 60 ml 454 ml 200 ml # Voids 3 1 1 # Bowel Movements 2 1 2 Objective Remarks GENERAL: Well-developed, cachectic, in no acute distress. Arousable, patient appears to be alert, he is orientated to person and state. He has not orientated to city, date, year HEENT: Head is normocephalic without any lesions or masses noted. Facial features are symmetric with bitemporal wasting. Eyes: Extraocular muscles are intact. Conjunctivae were clear. NECK: Trachea midline no deviation. CARDIAC: Regular rhythm, regular rate. S1/S2 are heard. 2/6 ejection murmur, no gallops or rubs. LUNGS: Clear to auscultation bilaterally. No wheeze, rhonchi or rales. No use of accessory muscles on inspiration or expiration. ABDOMEN: Soft, nontender. Nondistended. Bowel sounds heard in all 4 quadrants. No organomegaly or masses. Negative rebound, negative guarding EXTREMITIES: No edema, pulses are equal bilaterally. No cyanosis or clubbing NEUROLOGY: Patient with significant dementia. He is quite pleasant. Answers questions appropriately Cranial nerves are grossly intact. Procedures None Urinary Catheter: No Vascular Central Line Catheter: No A/P Assessment and Plan Rhabdomyolysis, recurrent, resolved CPK reviewed today which has returned to normal for the last 3 days. Has continued to improve after discontinuation of IV fluids Discontinued IV fluids yesterday Likely secondary to inactivity, lays in bed in contracted position. Possibly secondary to recent strenuous physical therapy Dementia with disturbance of behavior, stable Continue home dosing of memantine 10 mg po BID. hypertension, Lopressor 12.5 mg daily Dysphagia Speech therapy re-evaluated patient and continue to recommended mechanical soft diet, chopped meat with gravy and thin liquids Dietary recommendations Enlive 3 times daily, increasing milk 2 with meals and yogurt with meals. Consider appetite stimulant Aphthous ulcer: lower lip. Resolved. Discontinue Triamcinolone in Orabase topical q8h for healing and pain relief DVT prophylaxis: Lovenox Discharge Planning Case management for discharge planning Gonzales Babcock Feb 24, 2017 11:44
[2017-02-24 20:00] VITALS: BP 116/71; PULSE 95; RESP 20; TEMP 98; O2SAT 99
[2017-02-25 07:50] VITALS: BP 113/73; PULSE 88; RESP 20; TEMP 97.8
[2017-02-25] MEDS: MEGESTROL ACETATE SUSP 400 MG/10 ML CUP PO SCH (08:24)
[2017-02-25] MEDS: CHLORHEXIDINE GLUCONATE 0.12% 15 ML CUP SCH ×2 (08:24→20:27)
[2017-02-25] MEDS: MEMANTINE HCL 10 MG TAB PO SCH ×2 (08:25→20:28)
[2017-02-25] MEDS: ENOXAPARIN SODIUM 40 MG/0.4 ML SYRINGE SQ SCH (08:25)
[2017-02-25] MEDS: METOPROLOL TARTRATE 25 MG TAB PO SCH (08:26)
--- NOTE | 2017-02-25 09:46 | HHI.PR ---
Subjective Remarks Patient seen and examined today for follow-up on dementia. No change in clinical status. Awaiting case management for discharge planning. Nursing staff does not indicate any acute events overnight. Objective Vitals Vital Signs Date Time Temp Pulse Resp B/P (MAP) Pulse Ox O2 Delivery O2 Flow Rate FiO2 02/25/17 07:50 97.8 88 20 113/73 (86) 02/24/17 20:00 98.0 95 20 116/71 (86) 99 I/O 02/24/17 02/24/17 02/24/17 02/25/17 02/25/17 02/25/17 07:00 15:00 23:00 07:00 15:00 23:00 Intake Total 360 ml Balance 360 ml Intake Oral 360 ml # Voids 3 1 # Bowel Movements 4 2 Objective Remarks GENERAL: Well-developed, cachectic, in no acute distress. Arousable, patient appears to be alert, he is orientated to person and state. He has not orientated to city, date, year HEENT: Head is normocephalic without any lesions or masses noted. Facial features are symmetric with bitemporal wasting. Eyes: Extraocular muscles are intact. Conjunctivae were clear. NECK: Trachea midline no deviation. CARDIAC: Regular rhythm, regular rate. S1/S2 are heard. 2/6 ejection murmur, no gallops or rubs. LUNGS: Clear to auscultation bilaterally. No wheeze, rhonchi or rales. No use of accessory muscles on inspiration or expiration. ABDOMEN: Soft, nontender. Nondistended. Bowel sounds heard in all 4 quadrants. No organomegaly or masses. Negative rebound, negative guarding EXTREMITIES: No edema, pulses are equal bilaterally. No cyanosis or clubbing NEUROLOGY: Patient with significant dementia. He is quite pleasant. Answers questions appropriately Cranial nerves are grossly intact. Procedures None Urinary Catheter: No Vascular Central Line Catheter: No A/P Assessment and Plan Rhabdomyolysis, recurrent, resolved CPK has returned to normal, continue monitor weekly Likely secondary to inactivity, lays in bed in contracted position. Dementia with disturbance of behavior, stable Continue home dosing of memantine 10 mg po BID. hypertension, Lopressor 12.5 mg daily Dysphagia Speech therapy re-evaluated patient and continue to recommended mechanical soft diet, chopped meat with gravy and thin liquids Dietary recommendations Enlive 3 times daily, increasing milk 2 with meals and yogurt with meals. Consider appetite stimulant Aphthous ulcer: lower lip. Resolved. Discontinue Triamcinolone in Orabase topical q8h for healing and pain relief DVT prophylaxis: Lovenox Records were reviewed. No change in current treatment plan. Awaiting case management for discharge planning Discharge Planning Case management for discharge planning Gonzales Babcock Feb 25, 2017 09:46
[2017-02-25 20:00] VITALS: BP 145/75; PULSE 89; RESP 20; TEMP 98.4; O2SAT 94
[2017-02-26 08:00] VITALS: BP 112/66; PULSE 77; RESP 20; TEMP 96.2
--- NOTE | 2017-02-26 09:30 | HHI.PR ---
Subjective Remarks Patient seen and examined today for follow-up on dementia. No change in clinical status. No new complaints. Nursing staff did not indicate any acute events overnight Objective Vitals Vital Signs Date Time Temp Pulse Resp B/P (MAP) Pulse Ox O2 Delivery O2 Flow Rate FiO2 02/26/17 08:00 96.2 77 20 112/66 (81) 02/25/17 20:00 98.4 89 20 145/75 (98) 94 I/O 02/25/17 02/25/17 02/25/17 02/26/17 02/26/17 02/26/17 07:00 15:00 23:00 07:00 15:00 23:00 Intake Total 60 ml Output Total 3 ml Balance -3 ml 60 ml Intake Oral 60 ml Output Urine Total 3 ml # Voids 1 2 # Bowel Movements 2 3 1 Objective Remarks GENERAL: Well-developed, cachectic, in no acute distress. Arousable, patient appears to be alert, he is orientated to person and state. He has not orientated to city, date, year HEENT: Head is normocephalic without any lesions or masses noted. Facial features are symmetric with bitemporal wasting. Eyes: Extraocular muscles are intact. Conjunctivae were clear. NECK: Trachea midline no deviation. CARDIAC: Regular rhythm, regular rate. S1/S2 are heard. 2/6 ejection murmur, no gallops or rubs. LUNGS: Clear to auscultation bilaterally. No wheeze, rhonchi or rales. No use of accessory muscles on inspiration or expiration. ABDOMEN: Soft, nontender. Nondistended. Bowel sounds heard in all 4 quadrants. No organomegaly or masses. Negative rebound, negative guarding EXTREMITIES: No edema, pulses are equal bilaterally. No cyanosis or clubbing NEUROLOGY: Patient with significant dementia. He is quite pleasant. Answers questions appropriately Cranial nerves are grossly intact. Procedures None Urinary Catheter: No Vascular Central Line Catheter: No A/P Assessment and Plan Rhabdomyolysis, recurrent, resolved CPK has returned to normal, continue monitor weekly Likely secondary to inactivity, lays in bed in contracted position. Dementia with disturbance of behavior, stable Continue home dosing of memantine 10 mg po BID. hypertension, Lopressor 12.5 mg daily Dysphagia Speech therapy re-evaluated patient and continue to recommended mechanical soft diet, chopped meat with gravy and thin liquids Dietary recommendations Enlive 3 times daily, increasing milk 2 with meals and yogurt with meals. Consider appetite stimulant Aphthous ulcer: lower lip. Resolved. Discontinue Triamcinolone in Orabase topical q8h for healing and pain relief DVT prophylaxis: Lovenox Records were reviewed. Awaiting case management for discharge planning, No change in current treatment plan. Discharge Planning Case management for discharge planning Gonzales Babcock Feb 26, 2017 09:30
[2017-02-26] MEDS: MEGESTROL ACETATE SUSP 400 MG/10 ML CUP PO SCH (09:50)
[2017-02-26] MEDS: CHLORHEXIDINE GLUCONATE 0.12% 15 ML CUP SCH ×2 (09:50→20:49)
[2017-02-26] MEDS: ENOXAPARIN SODIUM 40 MG/0.4 ML SYRINGE SQ SCH (09:50)
[2017-02-26] MEDS: METOPROLOL TARTRATE 25 MG TAB PO SCH (09:51)
[2017-02-26] MEDS: MEMANTINE HCL 10 MG TAB PO SCH ×2 (09:51→20:49)
[2017-02-27 04:00] VITALS: BP 109/79; PULSE 94; RESP 20; TEMP 96.2; O2SAT 98
[2017-02-27 08:00] VITALS: BP 128/72; PULSE 89; RESP 16; TEMP 97.7; O2SAT 95
[2017-02-27] MEDS: CHLORHEXIDINE GLUCONATE 0.12% 15 ML CUP SCH ×2 (08:30→21:27)
[2017-02-27] MEDS: MEMANTINE HCL 10 MG TAB PO SCH ×2 (08:54→21:26)
[2017-02-27] MEDS: METOPROLOL TARTRATE 25 MG TAB PO SCH (08:54)
[2017-02-27] MEDS: ENOXAPARIN SODIUM 40 MG/0.4 ML SYRINGE SQ SCH (08:55)
[2017-02-27] MEDS: MEGESTROL ACETATE SUSP 400 MG/10 ML CUP PO SCH (08:55)
--- NOTE | 2017-02-27 11:34 | HHI.PR ---
Subjective Remarks Patient seen and examined today for follow-up on dementia. Patient lying in bed. Does not indicate any new complaints. No acute events overnight. Objective Vitals Vital Signs Date Time Temp Pulse Resp B/P (MAP) Pulse Ox O2 Delivery O2 Flow Rate FiO2 02/27/17 08:00 97.7 89 16 128/72 (90) 95 02/27/17 04:00 96.2 94 20 109/79 (89) 98 I/O 02/26/17 02/26/17 02/26/17 02/27/17 02/27/17 02/27/17 07:00 15:00 23:00 07:00 15:00 23:00 Intake Total 60 ml 960 ml 0 ml Balance 60 ml 960 ml 0 ml Intake Oral 60 ml 960 ml 0 ml # Voids 2 2 1 # Bowel Movements 1 2 1 Objective Remarks GENERAL: Well-developed, cachectic, in no acute distress. Arousable, patient appears to be alert, he is orientated to person and state. He has not orientated to city, date, year HEENT: Head is normocephalic without any lesions or masses noted. Facial features are symmetric with bitemporal wasting. Eyes: Extraocular muscles are intact. Conjunctivae were clear. NECK: Trachea midline no deviation. CARDIAC: Regular rhythm, regular rate. S1/S2 are heard. 2/6 ejection murmur, no gallops or rubs. LUNGS: Clear to auscultation bilaterally. No wheeze, rhonchi or rales. No use of accessory muscles on inspiration or expiration. ABDOMEN: Soft, nontender. Nondistended. Bowel sounds heard in all 4 quadrants. No organomegaly or masses. Negative rebound, negative guarding EXTREMITIES: No edema, pulses are equal bilaterally. No cyanosis or clubbing NEUROLOGY: Patient with significant dementia. He is quite pleasant. Answers questions appropriately Cranial nerves are grossly intact. Procedures None Urinary Catheter: No Vascular Central Line Catheter: No A/P Assessment and Plan Rhabdomyolysis, recurrent, resolved CPK has returned to normal, continue monitor weekly Likely secondary to inactivity, lays in bed in contracted position. Dementia with disturbance of behavior, stable Continue home dosing of memantine 10 mg po BID. hypertension, Lopressor 12.5 mg daily Dysphagia Speech therapy re-evaluated patient and continue to recommended mechanical soft diet, chopped meat with gravy and thin liquids Dietary recommendations Enlive 3 times daily, increasing milk 2 with meals and yogurt with meals. Consider appetite stimulant Aphthous ulcer: lower lip. Resolved. Discontinue Triamcinolone in Orabase topical q8h for healing and pain relief DVT prophylaxis: Lovenox Records were reviewed. No change in current treatment plan. Awaiting case management for discharge planning, Discharge Planning Case management for discharge planning Gonzales Babcock Feb 27, 2017 11:34
--- NOTE | 2017-02-27 15:37 | HHI.HCPN ---
71-year-old male with dementia admitted on 09/17/16. During the subsequent months, the patient has not been able to be placed since he is an undocumented [place] national with no payer source. The patient seems to have been fairly stable last couple months. Palliative Care was consulted today. We have requested that Case Management engage in a diligent search for family members and relatives via all possible options, including [employer]. We will follow-up in the upcoming days. Arleen Carpenter MD Feb 27, 2017 15:37
[2017-02-27 20:00] VITALS: BP 168/89; PULSE 95; RESP 20; TEMP 96.3; O2SAT 94
[2017-02-27] MEDS ORDERED: ENALAPRILAT 1.25 MG/ML VIAL IV PUSH PRN (22:00)
[2017-02-27] MEDS ORDERED: cloNIDine HCL 0.1 MG TAB PO ONE (22:30)
[2017-02-28 04:00] VITALS: BP 126/95; PULSE 73
[2017-02-28 08:00] VITALS: BP 136/74; PULSE 84; RESP 16; TEMP 97; O2SAT 95
--- NOTE | 2017-02-28 08:42 | HHI.PR ---
Subjective Remarks Patient seen and examined today for follow-up on dementia. Patient denies any new complaints. No change in clinical status. Awaiting case management for discharge planning Objective Vitals Vital Signs Date Time Temp Pulse Resp B/P (MAP) Pulse Ox O2 Delivery O2 Flow Rate FiO2 02/28/17 08:00 97.0 84 16 136/74 (94) 95 02/28/17 04:00 73 126/95 (105) 02/27/17 20:00 96.3 95 20 168/89 (115) 94 I/O 02/27/17 02/27/17 02/27/17 02/28/17 02/28/17 02/28/17 07:00 15:00 23:00 07:00 15:00 23:00 Intake Total 0 ml 240 ml Balance 0 ml 240 ml Intake Oral 0 ml 240 ml # Voids 1 1 # Bowel Movements 1 1 Objective Remarks GENERAL: Well-developed, cachectic, in no acute distress. Arousable, patient appears to be alert, he is orientated to person and state. He has not orientated to city, date, year HEENT: Head is normocephalic without any lesions or masses noted. Facial features are symmetric with bitemporal wasting. Eyes: Extraocular muscles are intact. Conjunctivae were clear. NECK: Trachea midline no deviation. CARDIAC: Regular rhythm, regular rate. S1/S2 are heard. 2/6 ejection murmur, no gallops or rubs. LUNGS: Clear to auscultation bilaterally. No wheeze, rhonchi or rales. No use of accessory muscles on inspiration or expiration. ABDOMEN: Soft, nontender. Nondistended. Bowel sounds heard in all 4 quadrants. No organomegaly or masses. Negative rebound, negative guarding EXTREMITIES: No edema, pulses are equal bilaterally. No cyanosis or clubbing NEUROLOGY: Patient with significant dementia. He is quite pleasant. Answers questions appropriately Cranial nerves are grossly intact. Procedures None Urinary Catheter: No Vascular Central Line Catheter: No A/P Assessment and Plan Dementia with disturbance of behavior, stable Continue home dosing of memantine 10 mg po BID. Patient without any significant improvement, patient becoming more contracted in bed, Palliative care consulted, they recommend that case management perform family members surgeon supply them with phone numbers in order to do consultation Rhabdomyolysis, recurrent, resolved CPK has returned to normal, continue monitor weekly Likely secondary to inactivity, lays in bed in contracted position. hypertension, Lopressor 12.5 mg daily Dysphagia Speech therapy re-evaluated patient and continue to recommended mechanical soft diet, chopped meat with gravy and thin liquids Dietary recommendations Enlive 3 times daily, increasing milk 2 with meals and yogurt with meals. Consider appetite stimulant Aphthous ulcer: lower lip. Resolved. Discontinue Triamcinolone in Orabase topical q8h for healing and pain relief DVT prophylaxis: Lovenox Discharge Planning Case management for discharge planning Gonzales Babcock Feb 28, 2017 08:42
[2017-02-28] MEDS: MEGESTROL ACETATE SUSP 400 MG/10 ML CUP PO SCH (10:30)
[2017-02-28] MEDS: CHLORHEXIDINE GLUCONATE 0.12% 15 ML CUP SCH ×2 (10:30→21:40)
[2017-02-28] MEDS: METOPROLOL TARTRATE 25 MG TAB PO SCH (10:31)
[2017-02-28] MEDS: MEMANTINE HCL 10 MG TAB PO SCH ×2 (10:32→21:40)
[2017-02-28] MEDS: ENOXAPARIN SODIUM 40 MG/0.4 ML SYRINGE SQ SCH (10:50)
[2017-02-28 20:00] VITALS: BP 106/81; RESP 18; TEMP 94.6; O2SAT 93
[2017-02-28 21:00] VITALS: PULSE 88
[2017-03-01 06:36] LABS: CREATINE KINASE 59 U/L (39-308)
[2017-03-01 08:00] VITALS: BP 120/63; PULSE 94; RESP 20; TEMP 97.2; O2SAT 95
[2017-03-01] MEDS: CHLORHEXIDINE GLUCONATE 0.12% 15 ML CUP SCH ×2 (09:00→22:05)
[2017-03-01] MEDS: MEGESTROL ACETATE SUSP 400 MG/10 ML CUP PO SCH (10:32)
[2017-03-01] MEDS: METOPROLOL TARTRATE 25 MG TAB PO SCH (10:33)
[2017-03-01] MEDS: MEMANTINE HCL 10 MG TAB PO SCH ×2 (10:33→22:04)
[2017-03-01] MEDS: ENOXAPARIN SODIUM 40 MG/0.4 ML SYRINGE SQ SCH (10:34)
--- NOTE | 2017-03-01 11:08 | HHI.PR ---
Subjective Remarks Patient seen and examined today for follow-up on dementia. Patient denies any new complaints. No change in clinical status. Objective Vitals Vital Signs Date Time Temp Pulse Resp B/P (MAP) Pulse Ox O2 Delivery O2 Flow Rate FiO2 03/01/17 08:00 97.2 94 20 120/63 (82) 95 02/28/17 21:00 88 02/28/17 20:00 94.6 18 106/81 (89) 93 I/O 02/28/17 02/28/17 02/28/17 03/01/17 03/01/17 03/01/17 07:00 15:00 23:00 07:00 15:00 23:00 Intake Total 240 ml 120 ml 0 ml Balance 240 ml 120 ml 0 ml Intake Oral 240 ml 120 ml 0 ml # Voids 1 2 1 1 # Bowel Movements 1 Objective Remarks GENERAL: Well-developed, cachectic, in no acute distress. Arousable, patient appears to be alert, he is orientated to person and state. He has not orientated to city, date, year HEENT: Head is normocephalic without any lesions or masses noted. Facial features are symmetric with bitemporal wasting. Eyes: Extraocular muscles are intact. Conjunctivae were clear. NECK: Trachea midline no deviation. CARDIAC: Regular rhythm, regular rate. S1/S2 are heard. 2/6 ejection murmur, no gallops or rubs. LUNGS: Clear to auscultation bilaterally. No wheeze, rhonchi or rales. No use of accessory muscles on inspiration or expiration. ABDOMEN: Soft, nontender. Nondistended. Bowel sounds heard in all 4 quadrants. No organomegaly or masses. Negative rebound, negative guarding EXTREMITIES: No edema, pulses are equal bilaterally. No cyanosis or clubbing NEUROLOGY: Patient with significant dementia. He is quite pleasant. Answers questions appropriately Cranial nerves are grossly intact. Procedures None Urinary Catheter: No Vascular Central Line Catheter: No A/P Assessment and Plan Dementia with disturbance of behavior, stable Continue home dosing of memantine 10 mg po BID. Patient without any significant improvement, patient becoming more contracted in bed, Palliative care consulted, they recommend that case management perform family members surgeon supply them with phone numbers in order to do consultation Rhabdomyolysis, recurrent, resolved CPK has returned to normal, continue monitor weekly. 03/01/17 CPK 59 Likely secondary to inactivity, lays in bed in contracted position. hypertension, Lopressor 12.5 mg daily Dysphagia Speech therapy re-evaluated patient and continue to recommended mechanical soft diet, chopped meat with gravy and thin liquids Dietary recommendations Enlive 3 times daily, increasing milk 2 with meals and yogurt with meals. Consider appetite stimulant Aphthous ulcer: lower lip. Resolved. Discontinue Triamcinolone in Orabase topical q8h for healing and pain relief DVT prophylaxis: Lovenox Discharge Planning Case management for discharge planning Gonzales Babcock Mar 01, 2017 11:08
[2017-03-01 20:00] VITALS: BP 112/79; PULSE 71; RESP 18; TEMP 97.4; O2SAT 95
[2017-03-02] MEDS: METOPROLOL TARTRATE 25 MG TAB PO SCH (07:42)
[2017-03-02] MEDS: MEGESTROL ACETATE SUSP 400 MG/10 ML CUP PO SCH (07:42)
[2017-03-02] MEDS: CALCIUM CARBONATE 500 MG CHEWABLE TAB CHEW PRN (07:43)
[2017-03-02 08:00] VITALS: BP 155/77; PULSE 104; RESP 12; TEMP 98.3; O2SAT 98
--- NOTE | 2017-03-02 08:19 | HHI.PR ---
Subjective Remarks Patient seen and examined today for follow-up on dementia. Patient is not indicating new complaints. Patient is continuously laying in bed in contracted position. No change in clinical status. Objective Vitals Vital Signs Date Time Temp Pulse Resp B/P (MAP) Pulse Ox O2 Delivery O2 Flow Rate FiO2 03/01/17 20:00 97.4 71 18 112/79 (90) 95 I/O 03/01/17 03/01/17 03/01/17 03/02/17 03/02/17 03/02/17 07:00 15:00 23:00 07:00 15:00 23:00 Intake Total 0 ml 450 ml 240 ml Balance 0 ml 450 ml 240 ml Intake Oral 0 ml 450 ml 240 ml # Voids 1 2 1 # Bowel Movements 1 1 Objective Remarks GENERAL: Well-developed, cachectic and contracted, in no acute distress. Arousable, patient appears to be alert, he is orientated to person and state. He has not orientated to city, date, year HEENT: Head is normocephalic without any lesions or masses noted. Facial features are symmetric with bitemporal wasting. Eyes: Extraocular muscles are intact. Conjunctivae were clear. NECK: Trachea midline no deviation. CARDIAC: Regular rhythm, regular rate. S1/S2 are heard. 2/6 ejection murmur, no gallops or rubs. LUNGS: Clear to auscultation bilaterally. No wheeze, rhonchi or rales. No use of accessory muscles on inspiration or expiration. ABDOMEN: Soft, nontender. Nondistended. Bowel sounds heard in all 4 quadrants. No organomegaly or masses. Negative rebound, negative guarding EXTREMITIES: No edema, pulses are equal bilaterally. No cyanosis or clubbing NEUROLOGY: Patient with significant dementia. He is quite pleasant. Answers questions appropriately Cranial nerves are grossly intact. Procedures None Urinary Catheter: No Vascular Central Line Catheter: No A/P Assessment and Plan Dementia with disturbance of behavior, stable Continue home dosing of memantine 10 mg po BID. Patient without any significant improvement, patient becoming more contracted in bed, Palliative care consulted, they recommend that case management perform family members surgeon supply them with phone numbers in order to do consultation Rhabdomyolysis, recurrent, resolved CPK has returned to normal, continue monitor weekly. 03/01/17 CPK 59 Likely secondary to inactivity, lays in bed in contracted position. hypertension, Lopressor 12.5 mg daily Dysphagia Speech therapy re-evaluated patient and continue to recommended mechanical soft diet, chopped meat with gravy and thin liquids Dietary recommendations Enlive 3 times daily, increasing milk 2 with meals and yogurt with meals. Consider appetite stimulant DVT prophylaxis: Lovenox Discharge Planning Case management for discharge planning Gonzales Babcock Mar 02, 2017 08:19
[2017-03-02] MEDS: MEMANTINE HCL 10 MG TAB PO SCH ×2 (08:59→20:24)
[2017-03-02] MEDS: ENOXAPARIN SODIUM 40 MG/0.4 ML SYRINGE SQ SCH (08:59)
[2017-03-02] MEDS: CHLORHEXIDINE GLUCONATE 0.12% 15 ML CUP SCH ×2 (08:59→20:24)
--- NOTE | 2017-03-02 12:18 | PD.CONS ---
Consult Service Palliative Care . Consult Requested By Gonzales CRAMER . Primary Care Physician Unknown . Reason for Consultation a. To assist with evaluation and management of symptoms including: Debility , confusion b. To assist medical decision maker(s) with: better understanding of current medical conditions; weighing benefits/burdens of medical treatment options; making medical treatment decisions. . HPI History of Present Illness Mr. Hill is a 71-year-old male who presented to [facility] ED on 2016 via EMS with reported episode of dark red vomiting. Patient has a history of dementia and is a poor historian. He was alert to self only. The patient did report that he had awaken with chest pain on the right side that had since resolved. He denied nausea, vomiting, shortness of breath, abdominal pain, fevers and/or headaches. A chest x-ray was unremarkable and patient's initial troponins were negative. However, his CPK was elevated >2000. Patient received 2 L of fluid. Follow-up CPK was >3000. Patient was admitted with rhabdomyolysis of unknown etiology and atypical chest pain. Patient was treated and discharge was planned pending placement on 09/22/2016, but the patient developed dysphagia and lethargy and discharge was placed on hold. Patient passed dysphagia evaluation - recommended pureed diet and thin liquids. He was transferred to [facility] as he was not safe to discharge. The patient had been living with his ex-/behavioral health care manager for a year, but she was unwilling/unable to take him back into her home. Case management consulted to assist with identification of the appropriate healthcare proxy decision maker. The patient has lived in the [place] years but never pursued citizenship; he has no work history or social security number and is therefore ineligible for resources. Per review of notes, the patient has family in [place] and a son living in [place] but no one is willing to take him home. Of note, patient had recurrent rhabdomyolysis in 01/2017 has since resolved; possibly secondary to increased immobilization. Physical therapy states the patient had been inactive with increased flexion contractions. Patient had also had recent hypoxia and increased work of bleeding. All of which could have contributed to recurrent rhabdomyolysis. Otherwise, the patient has been fairly stable over the past couple of months. Palliative Care was consulted to assist with symptom management and to discuss with the patient/family the benefits and burdens of his current illnesses and the options regarding future care. Palliative care is requested case management engage in a diligent search for family members and/or relatives feel all possible options, including accurints. . Review of Systems ROS Limitations: Clinical Condition, Altered Mental Status (Patient is unable to participate in ROS), Poor Historian Past Family Social History Coded Allergies: No Known Allergies (Unverified , 11/10/15) INFO OBTAINED FROM PT'S SON Past Medical History Dementia Past Surgical History No known surgical history; patient denied. . Reported Medications Haloperidol 1 Mg Tab 1 Mg PO BID Memantine 10 Mg Tab 10 Mg PO BID Quetiapine (Quetiapine Fumarate) 50 Mg Tab 50 Mg PO BID Buspirone (Buspirone HCl) 7.5 Mg Tab 7.5 Mg PO BID . Current Medications Medications (Trade) Dose Ordered Sig/Leo Route Start Time Stop Time Status Last Admin (Namenda) 10 mg BID PO 09/18/16 10:00 03/02/17 08:59 (Lovenox Inj) 40 mg Q24H SQ 09/26/16 10:00 03/02/17 08:59 (Tylenol) 650 mg Q4H PRN PO 09/26/16 10:00 02/06/17 08:30 (Tums Chew) 1,000 mg TID PRN CHEW 09/26/16 10:00 03/02/17 07:43 (Zofran Odt) 4 mg Q6H PRN PO 09/26/16 10:00 02/08/17 18:36 (Pill Splitter) 1 ea UNSCH PRN OTHER 10/07/16 10:45 (Lactulose Liq) 30 ml DAILY PRN PO 10/13/16 11:30 (Peridex 0.12% Liq) 15 ml BID .XX 10/16/16 21:00 03/02/17 08:59 (Lopressor) 12.5 mg DAILY PO 11/10/16 09:00 03/02/17 07:42 (Megace Liq) 400 mg DAILY PO 02/21/17 12:00 03/02/17 07:42 Family History Unable to determine at this time; no family is available. . Substance Use Tobacco: None known Alcohol: None known Prescription med abuse: None known Illicits: None known . Psychosocial History Patient is originally from [place]. He has lived in the [facility] for 35 years but did not pursue citizenship. Patient has an ex- who he was living with for the past year; she states she is unable to take him back into her home. Patient allegedly has a son living in [place] and additional family living in [place], but no one is willing to accept responsibility for his care. . Spiritual/Cultural Factors Unknown at this time . Documented care wishes: No known documented care wishes were completed . Today's verbally stated goals: Patient does not have insight or judgment related to his medical conditions. . Family/friends goals: Pending identification of healthcare proxy decision maker. . Ethical and Legal Issues Clarification of medical treatment goals pending identification of the legal healthcare proxy decision maker. The patient has not been able to be placed since he is an undocumented [facility] national with no payer source. . Physical Exam Vital Signs Date Time Temp Pulse Resp B/P (MAP) Pulse Ox O2 Delivery O2 Flow Rate FiO2 03/02/17 08:00 98.3 104 12 155/77 (103) 98 03/01/17 20:00 97.4 71 18 112/79 (90) 95 . 03/02/17 03/03/17 19:00 07:00 Intake Total 118 ml Balance 118 ml Intake Oral 118 ml . Exam CONSTITUTIONAL/GENERAL: This is a frail, cachectic elderly male patient in no acute distress TUBES/LINES/DRAINS: NA SKIN: No jaundice, rashes, or lesions. No wounds seen anteriorly. Skin temperature appropriate. Not diaphoretic. HEAD: Atraumatic. Normocephalic. EYES: Pupils equal and round and reactive. Extraocular motions intact. No scleral icterus. No injection or drainage. Fundi not examined. ENT: Hearing grossly normal. Nose without bleeding or purulent drainage. NECK: Trachea midline. CARDIOVASCULAR: Regular rate and rhythm without murmurs, gallops, or rubs. No JVD. Peripheral pulses symmetric. RESPIRATORY/CHEST: Symmetric, unlabored respirations. Clear to auscultation. Breath sounds diminished bilaterally. No wheezes, rales, or rhonchi. GASTROINTESTINAL: Abdomen soft, non-tender, nondistended. No guarding. Bowel sounds present. GENITOURINARY: Without palpable bladder distension. MUSCULOSKELETAL: Extremities without clubbing, cyanosis, or edema. No mottling or clubbing. LYMPHATICS: No palpable cervical or supraclavicular adenopathy. NEUROLOGICAL: He arouses to verbal stimuli. Nonverbal. Does not follow commands; unable to make needs known PSYCHIATRIC: No obvious anxiety/depression. no apparent hallucinations or other psychotic thought process. . Diagnostic Tests Laboratory Laboratory Tests Test 03/01/17 05:58 Total Creatine Kinase 59 U/L (39-308) . Patient/Family Conference Issues Discussed: Assessment and Plan Disease Oriented Problem List: (1) Dementia with behavioral disturbance (2) Poor nutrition (3) Rhabdomyolysis (4) Atypical chest pain Symptom Scale: (1) Debility 0-10 Scale: Unable to quantify (2) Confusion 0-10 Scale: Unable to quantify Pertinent Non-Medical Issues Psychosocial: Patient is originally from [place]. He has lived in the [place] for 35 years but did not pursue citizenship. Patient has an ex- who he was living with for the past year; she states she is unable to take him back into her home. Patient allegedly has a son living in [place] and additional family living in [place], but no one is willing to accept responsibility for his care. Spiritual: Unknown at this time Legal: Pending decision of legal healthcare proxy decision maker; accurints pending Ethical issues impacting care: No known ethical issues impacting care at this time. . Prognosis Patient has advanced dementia with a Fast of 7D, however he does not have unmanaged symptoms and he is not appropriate fo placement in the hospice care center at this time. In the event the patient's condition deteriorates, he becomes symptomatic and the appropriate decision-maker desires comfort focused care, the patient would then be appropriate for hospice services in the care center. . Code Status: Full Code Plan * FULL CODE * Decision making: Patient does not have insight or judgment related to his medical conditions; he will not regain capacity. Palliative care has requested that case management engage in a diligent search for family members and/or relatives via all possible options, including an accurints report. * AGGRESSIVE GOALS. Clarification of medical treatment goals pending identification of the legal healthcare proxy decision maker. * The patient has not been able to be placed since he is an undocumented [facility] national with no payer source. * Palliative care will wait until the appropriate decision maker has been identified and then have conversations to clarify goals of care. * Patient has advanced dementia with a Fast of 7D, however he does not have unmanaged symptoms and he is not appropriate fo placement in the hospice care center at this time. In the event the patient's condition deteriorates, he becomes symptomatic and the appropriate decision-maker desires comfort focused care, the patient would then be appropriate for hospice services in the care center. 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 Patient is non-verbal. He does not follow commands and is unable to make his needs known. * Symptom management- confusion: Patient with end stage dementia with a Fast score of 7D. Patient is currently on Namenda 10mg PO BID which is likely not providing the patient any benefits given his dementia is so advanced. * Palliative care will continue to follow this patient throughout his hospitalization to assist with symptom management and clarification of medical treatment goals when the appropriate healthcare proxy decision maker has been identified. . Thank you for the opportunity to participate in the care of Mr. Avalos . . Attestation To help prompt me to consider important information that might be impacting today's encounter and assessment, information from prior notes written by myself or my colleagues may have been "brought forward" into today's note. My signature on this note, however, is an attestation that I personally performed the exam, history, and/or decision-making noted today, and, unless otherwise indicated, the interactions with patient, family, and staff as well as the review of records all occurred today. I also attest that the listed assessment and stated plan reflect my best clinical judgment today based on the combination of historical information, prior notes, and today's exam/ interactions. When time spent is documented, it refers only to time spent today by the signer, or if indicated, combined time spent today by collaborating physician/nurse practitioner. . Ashley Gonzalez Mar 02, 2017 12:18
[2017-03-02 20:00] VITALS: BP 124/79; PULSE 108; RESP 18; TEMP 97.6; O2SAT 95
[2017-03-02] MEDS: ONDANSETRON ODT 4 MG TAB PO PRN (21:10)
--- NOTE | 2017-03-02 23:04 | RADRPT ---
EXAM DATE/TIME: 03/02/2017 21:57 [facility] COMPARISON: CHEST SINGLE AP, February 03, 2017, 22:20. INDICATIONS : Congestion. MEDICAL HISTORY : None. SURGICAL HISTORY : None. ENCOUNTER: Initial ACUITY: 1 day PAIN SCORE: Non-responsive. LOCATION: Bilateral chest FINDINGS: A single view of the chest demonstrates the lungs to be symmetrically aerated without evidence of mas s, infiltrate or effusion. The cardiomediastinal contours are unremarkable. There is degenerative sp urring at the right proximal humerus. The bones appear osteopenic.. CONCLUSION: No acute disease. Curtis Kaur MD on March 02, 2017 at 23:01 Board Certified Radiologist. This report was verified electronically.
[2017-03-03] VITALS: BP 124/79; PULSE 108; RESP 18; TEMP 97.6; O2SAT 95
[2017-03-03 08:00] VITALS: BP 90/58; PULSE 98; RESP 20; TEMP 96.8; O2SAT 83
[2017-03-03] MEDS: METOPROLOL TARTRATE 25 MG TAB PO SCH (08:43)
[2017-03-03] MEDS: MEGESTROL ACETATE SUSP 400 MG/10 ML CUP PO SCH (08:43)
[2017-03-03] MEDS: CHLORHEXIDINE GLUCONATE 0.12% 15 ML CUP SCH ×2 (08:43→20:37)
[2017-03-03] MEDS: MEMANTINE HCL 10 MG TAB PO SCH ×2 (08:43→20:37)
--- NOTE | 2017-03-03 09:35 | HHI.PR ---
Subjective Remarks Follow up dementia. Patient seen and examined today, lying in bed comfortably. RN at bedside. Reportedly patient did have one bout of emesis overnight, O2 saturations did drop on RA, was placed on supplemental O2 2L. At this time patient is 92% on 2 L NC. CXR negative. Will continue to assess for signs of aspiration. Breathing comfortably. No complaints of pain. Objective Vitals Vital Signs Date Time Temp Pulse Resp B/P (MAP) Pulse Ox O2 Delivery O2 Flow Rate FiO2 03/03/17 08:00 96.8 98 20 90/58 (69) 83 03/02/17 20:00 97.6 108 18 124/79 (94) 95 I/O 03/02/17 03/02/17 03/02/17 03/03/17 03/03/17 03/03/17 07:00 15:00 23:00 07:00 15:00 23:00 Intake Total 118 ml 222 ml Balance 118 ml 222 ml Intake Oral 118 ml 222 ml # Voids 1 3 # Bowel Movements 1 1 1 Imaging Last Impressions Chest X-Ray 03/02/17 0000 Signed Impressions: Service Date/Time: Thursday, March 02, 2017 21:57 - CONCLUSION: No acute disease. Curtis Kaur MD Scrotum Ultrasound 09/28/16 0000 Signed Impressions: Service Date/Time: Wednesday, September 28, 2016 15:43 - CONCLUSION: 1. Intact flow to both testicles without focal lesions. 2. Small right hydrocele. 2 right epididymal cysts, similar to prior ultrasound 10 days ago. Mild hyperemia to the right epididymis. Moises Borden MD Objective Remarks GENERAL: Well-developed cachectic male patient lying in bed comfortably in NAD. Awake and alert. Contracted. SKIN: Warm and dry. No rash. HEENT: Normocephalic. Atraumatic. Pupils equal and round. No scleral icterus. No injection or drainage. No nasal bleeding or discharge. Mucous membranes pink and moist. EOMs intact. PERRL. NECK: Supple. Trachea midline. CARDIOVASCULAR: Regular rate and rhythm. S1, S2 noted. 2/6 ejection murmur, no gallops or rubs. RESPIRATORY: No accessory muscle use. Clear to auscultation. Breath sounds equal bilaterally. Tachypnea. GASTROINTESTINAL: Abdomen soft, non-tender, nondistended. Normoactive bowel sounds x4. No guarding noted. MUSCULOSKELETAL: No obvious deformities. Extremities without clubbing, cyanosis , or edema. NEUROLOGICAL: Awake and alert, confused. No obvious cranial nerve deficits. Procedures None A/P Problem List: (1) Rhabdomyolysis ICD Code: M62.82 - Rhabdomyolysis Status: Acute (2) Moderate malnutrition ICD Code: E44.0 - Moderate protein-calorie malnutrition (3) Hypoxia ICD Code: R09.02 - Hypoxemia Status: Resolved (4) Dementia with behavioral disturbance ICD Code: F03.91 - Unspecified dementia with behavioral disturbance Status: Chronic (5) Abdominal pain ICD Code: R10.9 - Unspecified abdominal pain Status: Resolved (6) Normocytic anemia ICD Code: D64.9 - Anemia, unspecified Status: Acute Assessment and Plan Dementia with disturbance of behavior, stable Continue home dosing of memantine 10 mg po BID. Patient without any significant improvement, patient becoming more contracted in bed, Palliative care saw patient. Patient desires continued full code status. Attempting to find family to accept responsibility of patient's care. Rhabdomyolysis, recurrent, resolved CPK has returned to normal, continue monitor weekly. 03/01/17 CPK 59 Likely secondary to inactivity, lays in bed in contracted position. Hypertension Lopressor 12.5 mg daily Continue to monitor BP trends. Dysphagia One bout of emesis overnight. CXR reviewed showing no acute abnormality. Will continue to monitor for any signs of aspiration. Speech therapy re-evaluated patient and continue to recommended mechanical soft diet, chopped meat with gravy and thin liquids Dietary recommendations Enlive 3 times daily, increasing milk 2 with meals and yogurt with meals. Continue Megace. DVT prophylaxis: Lovenox Discharge Planning Case management assisting with discharge planning. Problem Qualifiers (1) Rhabdomyolysis: (2) Dementia with behavioral disturbance: Linnea Solis Mar 03, 2017 09:35
[2017-03-03] MEDS: ENOXAPARIN SODIUM 40 MG/0.4 ML SYRINGE SQ SCH (09:39)
[2017-03-03 20:00] VITALS: BP 115/73; PULSE 94; RESP 18; TEMP 98.4; O2SAT 97
[2017-03-04 07:50] VITALS: BP 129/95; PULSE 91; RESP 20; TEMP 96.7; O2SAT 100
--- NOTE | 2017-03-04 08:02 | HHI.PR ---
Subjective Remarks Follow up dementia. Patient seen and examined today, lying in bed comfortably. In no apparent distress. No change in clinical condition. Breathing comfortably. VSS. Objective Vitals Vital Signs Date Time Temp Pulse Resp B/P (MAP) Pulse Ox O2 Delivery O2 Flow Rate FiO2 03/03/17 20:00 98.4 94 18 115/73 (87) 97 I/O 03/03/17 03/03/17 03/03/17 03/04/17 03/04/17 03/04/17 07:00 15:00 23:00 07:00 15:00 23:00 Intake Total 1440 ml 720 ml Balance 1440 ml 720 ml Intake Oral 1440 ml 720 ml # Voids 3 1 1 2 # Bowel Movements 1 1 1 1 Imaging Last Impressions Chest X-Ray 03/02/17 0000 Signed Impressions: Service Date/Time: Thursday, March 02, 2017 21:57 - CONCLUSION: No acute disease. Curtis Kaur MD Scrotum Ultrasound 09/28/16 0000 Signed Impressions: Service Date/Time: Wednesday, September 28, 2016 15:43 - CONCLUSION: 1. Intact flow to both testicles without focal lesions. 2. Small right hydrocele. 2 right epididymal cysts, similar to prior ultrasound 10 days ago. Mild hyperemia to the right epididymis. Moises Borden MD Objective Remarks GENERAL: Well-developed cachectic male patient lying in bed comfortably in NAD. Awake and alert. Contracted. SKIN: Warm and dry. No rash. HEENT: Normocephalic. Atraumatic. Pupils equal and round. No scleral icterus. No injection or drainage. No nasal bleeding or discharge. Mucous membranes pink and moist. EOMs intact. PERRL. NECK: Supple. Trachea midline. CARDIOVASCULAR: Regular rate and rhythm. S1, S2 noted. 2/6 ejection murmur, no gallops or rubs. RESPIRATORY: No accessory muscle use. Clear to auscultation. Breath sounds equal bilaterally. Tachypnea. GASTROINTESTINAL: Abdomen soft, non-tender, nondistended. Normoactive bowel sounds x4. No guarding noted. MUSCULOSKELETAL: No obvious deformities. Extremities without clubbing, cyanosis , or edema. NEUROLOGICAL: Awake and alert, confused. No obvious cranial nerve deficits. Procedures None A/P Problem List: (1) Rhabdomyolysis ICD Code: M62.82 - Rhabdomyolysis Status: Acute (2) Moderate malnutrition ICD Code: E44.0 - Moderate protein-calorie malnutrition (3) Hypoxia ICD Code: R09.02 - Hypoxemia Status: Resolved (4) Dementia with behavioral disturbance ICD Code: F03.91 - Unspecified dementia with behavioral disturbance Status: Chronic (5) Abdominal pain ICD Code: R10.9 - Unspecified abdominal pain Status: Resolved (6) Normocytic anemia ICD Code: D64.9 - Anemia, unspecified Status: Acute Assessment and Plan Dementia with disturbance of behavior, stable Continue home dosing of memantine 10 mg po BID. Patient without any significant improvement, patient becoming more contracted in bed, Palliative care saw patient. Patient desires continued full code status. Attempting to find family to accept responsibility of patient's care. Rhabdomyolysis, recurrent, resolved CPK has returned to normal, continue monitor weekly. 03/01/17 CPK 59 Likely secondary to inactivity, lays in bed in contracted position. Hypertension Lopressor 12.5 mg daily Continue to monitor BP trends. Dysphagia One bout of emesis overnight. CXR reviewed showing no acute abnormality. Will continue to monitor for any signs of aspiration. Speech therapy re-evaluated patient and continue to recommended mechanical soft diet, chopped meat with gravy and thin liquids Dietary recommendations Enlive 3 times daily, increasing milk 2 with meals and yogurt with meals. Continue Megace. DVT prophylaxis: Lovenox Discharge Planning Case management assisting with discharge planning. Problem Qualifiers (1) Rhabdomyolysis: (2) Dementia with behavioral disturbance: (3) Abdominal pain: Qualified Codes: R10.10 - Upper abdominal pain, unspecified Linnea Solis Mar 04, 2017 08:02
[2017-03-04] MEDS: MEMANTINE HCL 10 MG TAB PO SCH ×2 (09:35→20:43)
[2017-03-04] MEDS: METOPROLOL TARTRATE 25 MG TAB PO SCH (09:35)
[2017-03-04] MEDS: ENOXAPARIN SODIUM 40 MG/0.4 ML SYRINGE SQ SCH (09:35)
[2017-03-04] MEDS: MEGESTROL ACETATE SUSP 400 MG/10 ML CUP PO SCH (09:35)
[2017-03-04] MEDS: CHLORHEXIDINE GLUCONATE 0.12% 15 ML CUP SCH ×2 (09:35→20:43)
--- NOTE | 2017-03-04 11:01 | HHI.HCPN ---
1030am- Spoke with ex- Kenzie. She provided contact information for children , Justin and Kendall. Attempted to contact both of them, unable to reach but left messages requesting call back. Also requested accurints from [employer] to further determine any potential family. Kenzie reports sara Argueta struggles with drinking and it is best to contact him in the morning. She states Justin is more "emotionally involved" with his father. She verbalizes struggles with wanting to do what is best for Mr. Bar but family is unable to care for him at this time. She reports last time she visited she saw a decrease in appetite and did not feel he was doing well medically. Kenzie states Mr. Bar does have 3 sisters back in [place] but they have had no involvement with him, she verbalizes struggle to understand "how family can just do that". 11am- son Justin called back. Spoke with WOODY Gonzalez. Justin confirms estrangement of sara Argueta and his father. He feels Kenzie or he should make medical decisions for Mr. Bar. Encouraged him to have Kendall contact medical team to state whether he wishes to participate in decision making or not. Justin believed Mr. Bar was already on hospice, states "he should be on hospice ". Justin will be coming to see his father on Thursday (03-09-17) afternoon. Time TDB, he will let palliative care know so a provider will be available to meet with him. EXPORT SALES MANAGER encouraged Justin to talk with him mother and brother regarding Mr. Bar's code status. Explained even with hospice services placement may still be an issue. Palliative care will continue to follow throughout hospitalization. Ongoing discussion regarding goals of care will continue once able to determine if sara Argueta is going to be involved. Important Contacts Justin, son: [phone] Kendall, son: [phone] Fariha Snider, POWDER [employer]ER [employer] Mar 04, 2017 11:01
--- NOTE | 2017-03-04 15:52 | HHI.HCPN ---
Reason for visit a. To assist with evaluation and management of symptoms including: Debility , confusion b. To assist medical decision maker(s) with: better understanding of current medical conditions; weighing benefits/burdens of medical treatment options; making medical treatment decisions. . Subjective/Interval History Mr. Hill is a 71-year-old male who presented to [facility] ED on 2016 via EMS with reported episode of dark red vomiting. Patient has a history of dementia and is a poor historian. He was alert to self only. Patient was admitted with rhabdomyolysis of unknown etiology and atypical chest pain. Patient was treated and discharge was planned pending placement on 09/22/2016, but the patient developed dysphagia and lethargy and discharge was placed on hold. Otherwise, the patient has been fairly stable over the past couple of months. The patient had been living with his ex-/adult live in caregiver for a year, but she was unwilling/unable to take him back into her home. Case management consulted to assist with identification of the appropriate healthcare proxy decision maker. The patient has lived in the [facility] 35 years but never pursued citizenship; he has no work history or social security number and is therefore ineligible for resources. Per review of notes, the patient has family in [place] and a son living in [place] but no one is willing to take him home. Patient seen and examined today, EMR reviewed, no family at bedside. Patient is awake and alert, nonverbal, follows simple one step commands, appears to be resting comfortably. Telephone conversation with patient's son Kendall, provided update, discussed meeting set up for Thursday03/09/17 with his brother Justin to discuss goals of care, Kendall stated he is unsure if he can attend the meeting on Thursday, discussed [place] statutes regarding health care proxy decision making, Kendall stated he would like 24 hours to decide whether or not he would like to participate in health care decision making for his father. Palliative care information provided and will follow up tomorrow afternoon again with Kendall regarding his decision. . Family/friend interactions Telephone conference with patient's son Kendall. Telephone conference with patient's ex Kenzie, she stated she will be available to meet on Thursday03/09/17 at 1730. Advance Directives Advance Directive Specifics Documented care wishes: No known documented care wishes were completed . Objective Vital Signs Date Time Temp Pulse Resp B/P (MAP) Pulse Ox O2 Delivery O2 Flow Rate FiO2 03/04/17 07:50 96.7 91 20 129/95 (106) 100 03/03/17 20:00 98.4 94 18 115/73 (87) 97 Intake & Output 03/04/17 03/04/17 07:00 19:00 # Voids 2 # Bowel Movements 1 . Physical Exam CONSTITUTIONAL/GENERAL: This is a frail, cachectic elderly male patient in no acute distress. SKIN: No jaundice, rashes, or lesions. No wounds seen anteriorly. Skin temperature appropriate. Not diaphoretic. EYES: Pupils equal and round and reactive. Extraocular motions intact. No scleral icterus. No injection or drainage. Fundi not examined. ENT: Hearing grossly normal. Nose without bleeding or purulent drainage. CARDIOVASCULAR: Regular rate and rhythm without murmurs, gallops, or rubs. No JVD. Peripheral pulses symmetric. RESPIRATORY/CHEST: Symmetric, unlabored respirations. Clear to auscultation. Breath sounds diminished bilaterally. No wheezes, rales, or rhonchi. GASTROINTESTINAL: Abdomen soft, non-tender, nondistended. No guarding. Bowel sounds present. GENITOURINARY: Without palpable bladder distension. MUSCULOSKELETAL: Extremities without clubbing, cyanosis, or edema. No mottling or clubbing. NEUROLOGICAL: He arouses to verbal stimuli. Nonverbal. Follows simple one step commands, maintains eye contact however unable to make needs known. PSYCHIATRIC: Unable to assess secondary to clinical condition. . Assessment and Plan Disease Oriented Problem List: (1) Dementia with behavioral disturbance (2) Poor nutrition (3) Rhabdomyolysis (4) Atypical chest pain Symptom Scale: (1) Debility 0-10 Scale: Unable to quantify (2) Confusion 0-10 Scale: Unable to quantify Pertinent Non-Medical Issues Psychosocial: Patient is originally from [place]. He has lived in the [place] for [place] years but did not pursue citizenship. Patient has an ex- who he was living with for the past year; she states she is unable to take him back into her home. Patient allegedly has a son living in [place] and additional family living in [place], but no one is willing to accept responsibility for his care. Spiritual: Unknown at this time Legal: Pending decision of legal healthcare proxy decision maker; accurints pending Ethical issues impacting care: No known ethical issues impacting care at this time. . Important Contacts Justin Yates (son) [phone] Kendall (son) [phone] Kenzie Callahan (ex ) [phone] . Prognosis Patient has advanced dementia with a Fast of 7D, however he does not have unmanaged symptoms and he is not appropriate fo placement in the hospice care center at this time. In the event the patient's condition deteriorates, he becomes symptomatic and the appropriate decision-maker desires comfort focused care, the patient would then be appropriate for hospice services in the care center. . Code Status: Full Code Plan * FULL CODE * Decision making: Patient does not have insight or judgment related to his medical conditions; he will not regain capacity. In the absence of written advanced directives health care decision making would fall to the patient's next of kin, his two adult sons Justin and Kendall. Kendall stated he would like 24 hours to decide whether or not he would like to participate in health care decision making for his father. Palliative care information provided and will follow up tomorrow afternoon again with Kendall regarding his decision. * GOALS: Pending further family discussion, meeting set for Thursday03/09/17 to further discuss GOC. Telephone conference with patient's ex Kenzie, she stated she will be available to meet on Thursday03/09/17 at 1730, awaiting return phone call from patient's sons to confirm meeting time and attendance. * The patient has not been able to be placed since he is an undocumented [facility] national with no payer source. * Patient has advanced dementia with a Fast of 7D, however he does not have unmanaged symptoms and he is not appropriate fo placement in the hospice care center at this time. In the event the patient's condition deteriorates, he becomes symptomatic and the appropriate decision-maker desires comfort focused care, the patient would then be appropriate for hospice services in the care center. 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 Patient is non-verbal. He does not follow commands and is unable to make his needs known. * Symptom management- confusion: Patient with end stage dementia with a Fast score of 7D. Patient is currently on Namenda 10mg PO BID which is likely not providing the patient any benefits given his dementia is so advanced. * Palliative care will continue to follow this patient throughout his hospitalization to assist with symptom management and clarification of medical treatment goals when the appropriate healthcare proxy decision maker has been identified. . Attestation To help prompt me to consider important information that might be impacting today's encounter and assessment, information from prior notes written by myself or my colleagues may have been "brought forward" into today's note. My signature on this note, however, is an attestation that I personally performed the exam, history, and/or decision-making noted today, and, unless otherwise indicated, the interactions with patient, family, and staff as well as the review of records all occurred today. I also attest that the listed assessment and stated plan reflect my best clinical judgment today based on the combination of historical information, prior notes, and today's exam/ interactions. When time spent is documented, it refers only to time spent today by the signer, or if indicated, combined time spent today by collaborating physician/nurse practitioner. Ijeoma Paniagua Mar 04, 2017 15:52
[2017-03-04 20:00] VITALS: BP 122/79; PULSE 79; RESP 18; TEMP 97.6; O2SAT 96
[2017-03-05 07:50] VITALS: BP 132/65; PULSE 91; RESP 20; TEMP 96.4; O2SAT 98
[2017-03-05] MEDS: MEMANTINE HCL 10 MG TAB PO SCH ×2 (09:29→21:53)
[2017-03-05] MEDS: CHLORHEXIDINE GLUCONATE 0.12% 15 ML CUP SCH ×2 (09:29→21:53)
[2017-03-05] MEDS: MEGESTROL ACETATE SUSP 400 MG/10 ML CUP PO SCH (09:29)
[2017-03-05] MEDS: METOPROLOL TARTRATE 25 MG TAB PO SCH (09:30)
[2017-03-05] MEDS: ENOXAPARIN SODIUM 40 MG/0.4 ML SYRINGE SQ SCH (09:30)
--- NOTE | 2017-03-05 11:36 | HHI.PR ---
Subjective Remarks Follow up dementia. Patient seen and examined today, awake, alert and smiling. In good spirits. Denies any new acute changes. No change in clinical condition. Objective Vitals Vital Signs Date Time Temp Pulse Resp B/P (MAP) Pulse Ox O2 Delivery O2 Flow Rate FiO2 03/05/17 07:50 96.4 91 20 132/65 (87) 98 03/04/17 20:00 97.6 79 18 122/79 (93) 96 I/O 03/04/17 03/04/17 03/04/17 03/05/17 03/05/17 03/05/17 07:00 15:00 23:00 07:00 15:00 23:00 Intake Total 360 ml Balance 360 ml Intake Oral 360 ml # Voids 2 2 3 # Bowel Movements 1 0 1 Imaging Last Impressions Chest X-Ray 03/02/17 0000 Signed Impressions: Service Date/Time: Thursday, March 02, 2017 21:57 - CONCLUSION: No acute disease. Curtis Kaur MD Scrotum Ultrasound 09/28/16 0000 Signed Impressions: Service Date/Time: Wednesday, September 28, 2016 15:43 - CONCLUSION: 1. Intact flow to both testicles without focal lesions. 2. Small right hydrocele. 2 right epididymal cysts, similar to prior ultrasound 10 days ago. Mild hyperemia to the right epididymis. Moises Borden MD Objective Remarks GENERAL: Well-developed cachectic male patient lying in bed comfortably in NAD. Awake and alert. Contracted. SKIN: Warm and dry. No rash. HEENT: Normocephalic. Atraumatic. Pupils equal and round. No scleral icterus. No injection or drainage. No nasal bleeding or discharge. Mucous membranes pink and moist. EOMs intact. PERRL. NECK: Supple. Trachea midline. CARDIOVASCULAR: Regular rate and rhythm. S1, S2 noted. 2/6 ejection murmur, no gallops or rubs. RESPIRATORY: No accessory muscle use. Clear to auscultation. Breath sounds equal bilaterally. Tachypnea. GASTROINTESTINAL: Abdomen soft, non-tender, nondistended. Normoactive bowel sounds x4. No guarding noted. MUSCULOSKELETAL: No obvious deformities. Extremities without clubbing, cyanosis , or edema. NEUROLOGICAL: Awake and alert, confused. No obvious cranial nerve deficits. Procedures None A/P Problem List: (1) Rhabdomyolysis ICD Code: M62.82 - Rhabdomyolysis Status: Acute (2) Moderate malnutrition ICD Code: E44.0 - Moderate protein-calorie malnutrition (3) Hypoxia ICD Code: R09.02 - Hypoxemia Status: Resolved (4) Dementia with behavioral disturbance ICD Code: F03.91 - Unspecified dementia with behavioral disturbance Status: Chronic (5) Abdominal pain ICD Code: R10.9 - Unspecified abdominal pain Status: Resolved (6) Normocytic anemia ICD Code: D64.9 - Anemia, unspecified Status: Acute Assessment and Plan Dementia with disturbance of behavior, stable Continue home dosing of memantine 10 mg po BID. Patient without any significant improvement, patient becoming more contracted in bed, Palliative care saw patient. Patient desires continued full code status. Attempting to find family to accept responsibility of patient's care. Rhabdomyolysis, recurrent, resolved CPK has returned to normal, continue monitor weekly. 03/01/17 CPK 59 Likely secondary to inactivity, lays in bed in contracted position. Hypertension Lopressor 12.5 mg daily Continue to monitor BP trends. Dysphagia No continued emesis. CXR reviewed showing no acute abnormality. Will continue to monitor for any signs of aspiration. Speech therapy re-evaluated patient and continue to recommended mechanical soft diet, chopped meat with gravy and thin liquids Dietary recommendations Enlive 3 times daily, increasing milk 2 with meals and yogurt with meals. Continue Megace. DVT prophylaxis: Lovenox Discharge Planning Case management assisting with discharge planning. Problem Qualifiers (1) Rhabdomyolysis: (2) Dementia with behavioral disturbance: (3) Abdominal pain: Qualified Codes: R10.10 - Upper abdominal pain, unspecified Linnea Solis Mar 05, 2017 11:36
--- NOTE | 2017-03-05 16:09 | HHI.HCPN ---
Placed telephone call today to follow up with patient's son Kendall regarding his decision to participate in medical decision making, he did not answer the phone, voicemail message left, Palliative care contact information provided, awaiting return phone call. Telephone call and message left for patient's son Justin to confirm family meeting time set for Thursday03/09/17 at 1730. Ijeoma Paniagua Mar 05, 2017 16:09
[2017-03-05 20:00] VITALS: BP 123/66; PULSE 92; RESP 18; TEMP 96.9; O2SAT 98
[2017-03-06 07:48] VITALS: BP 92/61; PULSE 76
[2017-03-06] MEDS: METOPROLOL TARTRATE 25 MG TAB PO SCH ×2 (07:48→09:00)
[2017-03-06] MEDS: MEGESTROL ACETATE SUSP 400 MG/10 ML CUP PO SCH (07:49)
[2017-03-06] MEDS: ENOXAPARIN SODIUM 40 MG/0.4 ML SYRINGE SQ SCH (07:49)
[2017-03-06] MEDS: MEMANTINE HCL 10 MG TAB PO SCH ×2 (07:49→20:50)
[2017-03-06] MEDS: CHLORHEXIDINE GLUCONATE 0.12% 15 ML CUP SCH ×2 (07:50→20:51)
[2017-03-06 08:41] VITALS: BP 191/80; PULSE 106; RESP 15; TEMP 96.2; O2SAT 97
--- NOTE | 2017-03-06 08:54 | HHI.PR ---
Subjective Remarks Follow up dementia. Patient seen and examined today, [employer] at bedside. Patient awake and alert. BP elevated today. Patient questioned regarding pain or discomfort with no complaints. Follows commands appropriately. Afebrile. Objective Vitals Vital Signs Date Time Temp Pulse Resp B/P (MAP) Pulse Ox O2 Delivery O2 Flow Rate FiO2 03/06/17 08:41 96.2 106 15 191/80 (117) 97 03/06/17 07:48 76 92/61 (71) 03/05/17 20:00 96.9 92 18 123/66 (85) 98 I/O 03/05/17 03/05/17 03/05/17 03/06/17 03/06/17 03/06/17 07:00 15:00 23:00 07:00 15:00 23:00 Intake Total 890 ml Balance 890 ml Intake Oral 890 ml # Voids 3 5 2 # Bowel Movements 1 0 0 Imaging Last Impressions Chest X-Ray 03/02/17 0000 Signed Impressions: Service Date/Time: Thursday, March 02, 2017 21:57 - CONCLUSION: No acute disease. Curtis Kaur MD Scrotum Ultrasound 09/28/16 0000 Signed Impressions: Service Date/Time: Wednesday, September 28, 2016 15:43 - CONCLUSION: 1. Intact flow to both testicles without focal lesions. 2. Small right hydrocele. 2 right epididymal cysts, similar to prior ultrasound 10 days ago. Mild hyperemia to the right epididymis. Moises Borden MD Objective Remarks GENERAL: Well-developed cachectic male patient lying in bed comfortably in NAD. Awake and alert. Contracted. SKIN: Warm and dry. No rash. HEENT: Normocephalic. Atraumatic. Pupils equal and round. No scleral icterus. No injection or drainage. No nasal bleeding or discharge. Mucous membranes pink and moist. EOMs intact. PERRL. NECK: Supple. Trachea midline. CARDIOVASCULAR: Regular rate and rhythm. S1, S2 noted. 2/6 ejection murmur, no gallops or rubs. RESPIRATORY: No accessory muscle use. Clear to auscultation. Breath sounds equal bilaterally. GASTROINTESTINAL: Abdomen soft, non-tender, nondistended. Normoactive bowel sounds x4. No guarding noted. MUSCULOSKELETAL: No obvious deformities. Extremities without clubbing, cyanosis , or edema. NEUROLOGICAL: Awake and alert, confused. No obvious cranial nerve deficits. Procedures None A/P Problem List: (1) Rhabdomyolysis ICD Code: M62.82 - Rhabdomyolysis Status: Acute (2) Moderate malnutrition ICD Code: E44.0 - Moderate protein-calorie malnutrition (3) Hypoxia ICD Code: R09.02 - Hypoxemia Status: Resolved (4) Dementia with behavioral disturbance ICD Code: F03.91 - Unspecified dementia with behavioral disturbance Status: Chronic (5) Abdominal pain ICD Code: R10.9 - Unspecified abdominal pain Status: Resolved (6) Normocytic anemia ICD Code: D64.9 - Anemia, unspecified Status: Acute Assessment and Plan Dementia with disturbance of behavior, stable Continue home dosing of memantine 10 mg po BID. Patient without any significant improvement, patient becoming more contracted in bed Palliative care saw patient. Patient desires continued full code status. Attempting to find family to accept responsibility of patient's care. Rhabdomyolysis, recurrent, resolved CPK has returned to normal, continue monitor weekly. 03/01/17 CPK 59 Likely secondary to inactivity, lays in bed in contracted position. Hypertension Lopressor 12.5 mg daily Elevated today. Continue to monitor BP trends. Dysphagia No continued emesis. CXR reviewed showing no acute abnormality. Will continue to monitor for any signs of aspiration. Speech therapy re-evaluated patient and continue to recommended mechanical soft diet, chopped meat with gravy and thin liquids Dietary recommendations Enlive 3 times daily, increasing milk 2 with meals and yogurt with meals. Continue Megace. DVT prophylaxis: Lovenox Discharge Planning Case management assisting with discharge planning. Problem Qualifiers (1) Rhabdomyolysis: (2) Dementia with behavioral disturbance: (3) Abdominal pain: Qualified Codes: R10.10 - Upper abdominal pain, unspecified IrmaLinneacoby MCKAY Mar 06, 2017 08:54
--- NOTE | 2017-03-06 18:16 | HHI.HCPN ---
Patient's son Tl has opted out of medical decision making for the patient. Per [place] statutes medical decision making would fall to the patient's son Justin, who has agreed to serve as the patient's HCP. Meeting with Justin and his mother Kenzie (patient's ex ) on Thursday at 1400 to further discuss GOC. . Ijeoma Paniagua Mar 06, 2017 18:16
[2017-03-06 20:00] VITALS: BP 112/61; PULSE 88; RESP 20; TEMP 96.4; O2SAT 98
[2017-03-07 08:00] VITALS: BP 112/73; PULSE 60; RESP 20; TEMP 97.4
[2017-03-07] MEDS: MEGESTROL ACETATE SUSP 400 MG/10 ML CUP PO SCH (09:41)
[2017-03-07] MEDS: CHLORHEXIDINE GLUCONATE 0.12% 15 ML CUP SCH ×2 (09:41→21:10)
[2017-03-07] MEDS: MEMANTINE HCL 10 MG TAB PO SCH ×2 (09:42→21:10)
[2017-03-07] MEDS: METOPROLOL TARTRATE 25 MG TAB PO SCH (09:42)
[2017-03-07] MEDS: ENOXAPARIN SODIUM 40 MG/0.4 ML SYRINGE SQ SCH (09:42)
--- NOTE | 2017-03-07 15:12 | HHI.PR ---
Subjective Remarks Follow up dementia. Patient seen and examined, lying in bed comfortably. Awake and alert. Follows commands. No reports of any clinical change overnight. VSS. Objective Vitals Vital Signs Date Time Temp Pulse Resp B/P (MAP) Pulse Ox O2 Delivery O2 Flow Rate FiO2 03/07/17 08:00 97.4 60 20 112/73 (86) 03/06/17 20:00 96.4 88 20 112/61 (78) 98 I/O 03/06/17 03/06/17 03/06/17 03/07/17 03/07/17 03/07/17 07:00 15:00 23:00 07:00 15:00 23:00 Intake Total 900 ml 240 ml 720 ml Balance 900 ml 240 ml 720 ml Intake Oral 900 ml 240 ml 720 ml # Voids 2 3 3 2 # Bowel Movements 0 1 2 1 Imaging Last Impressions Chest X-Ray 03/02/17 0000 Signed Impressions: Service Date/Time: Thursday, March 02, 2017 21:57 - CONCLUSION: No acute disease. Curtis Kaur MD Scrotum Ultrasound 09/28/16 0000 Signed Impressions: Service Date/Time: Wednesday, September 28, 2016 15:43 - CONCLUSION: 1. Intact flow to both testicles without focal lesions. 2. Small right hydrocele. 2 right epididymal cysts, similar to prior ultrasound 10 days ago. Mild hyperemia to the right epididymis. Moises Borden MD Objective Remarks GENERAL: Well-developed cachectic male patient lying in bed comfortably in NAD. Awake and alert. Contracted. SKIN: Warm and dry. No rash. HEENT: Normocephalic. Atraumatic. Pupils equal and round. No scleral icterus. No injection or drainage. No nasal bleeding or discharge. Mucous membranes pink and moist. EOMs intact. PERRL. NECK: Supple. Trachea midline. CARDIOVASCULAR: Regular rate and rhythm. S1, S2 noted. 2/6 ejection murmur, no gallops or rubs. RESPIRATORY: No accessory muscle use. Clear to auscultation. Breath sounds equal bilaterally. GASTROINTESTINAL: Abdomen soft, non-tender, nondistended. Normoactive bowel sounds x4. No guarding noted. MUSCULOSKELETAL: No obvious deformities. Extremities without clubbing, cyanosis , or edema. NEUROLOGICAL: Awake and alert, confused. No obvious cranial nerve deficits. Procedures None A/P Problem List: (1) Rhabdomyolysis ICD Code: M62.82 - Rhabdomyolysis Status: Acute (2) Moderate malnutrition ICD Code: E44.0 - Moderate protein-calorie malnutrition (3) Hypoxia ICD Code: R09.02 - Hypoxemia Status: Resolved (4) Dementia with behavioral disturbance ICD Code: F03.91 - Unspecified dementia with behavioral disturbance Status: Chronic (5) Abdominal pain ICD Code: R10.9 - Unspecified abdominal pain Status: Resolved (6) Normocytic anemia ICD Code: D64.9 - Anemia, unspecified Status: Acute Assessment and Plan Dementia with disturbance of behavior, stable Continue home dosing of memantine 10 mg po BID. Patient without any significant improvement, patient becoming more contracted in bed Palliative care saw patient. Patient desires continued full code status. Attempting to find family to accept responsibility of patient's care. Rhabdomyolysis, recurrent, resolved CPK has returned to normal, continue monitor weekly. 03/01/17 CPK 59 Likely secondary to inactivity, lays in bed in contracted position. Hypertension Lopressor 12.5 mg daily Elevated today. Continue to monitor BP trends. Dysphagia No continued emesis. CXR reviewed showing no acute abnormality. Will continue to monitor for any signs of aspiration. Speech therapy re-evaluated patient and continue to recommended mechanical soft diet, chopped meat with gravy and thin liquids Dietary recommendations Enlive 3 times daily, increasing milk 2 with meals and yogurt with meals. Continue Megace. DVT prophylaxis: Lovenox Discharge Planning Case management assisting with discharge planning. Problem Qualifiers (1) Rhabdomyolysis: (2) Dementia with behavioral disturbance: (3) Abdominal pain: Qualified Codes: R10.10 - Upper abdominal pain, unspecified Linnea Solis Mar 07, 2017 15:12
[2017-03-07 20:00] VITALS: BP 137/71; PULSE 105; RESP 20; TEMP 96.5; O2SAT 98
[2017-03-07] MEDS: ONDANSETRON ODT 4 MG TAB PO PRN (21:10)
[2017-03-08 09:00] VITALS: BP 113/78; PULSE 101; RESP 18; TEMP 98.3; O2SAT 95
[2017-03-08] MEDS: MEMANTINE HCL 10 MG TAB PO SCH ×2 (09:09→20:34)
[2017-03-08] MEDS: METOPROLOL TARTRATE 25 MG TAB PO SCH (09:09)
[2017-03-08] MEDS: MEGESTROL ACETATE SUSP 400 MG/10 ML CUP PO SCH (09:12)
[2017-03-08] MEDS: ENOXAPARIN SODIUM 40 MG/0.4 ML SYRINGE SQ SCH (09:13)
[2017-03-08] MEDS: CHLORHEXIDINE GLUCONATE 0.12% 15 ML CUP SCH ×2 (09:13→20:34)
--- NOTE | 2017-03-08 11:00 | HHI.PR ---
Subjective Remarks Follow up dementia. Patient seen and examined, lying in bed comfortably. Awake. Spoke to RN who reports one bout of emesis last evening. Will monitor for signs of aspiration. breath sounds clear. Will have speech come and reassess. Follow. Objective Vitals Vital Signs Date Time Temp Pulse Resp B/P (MAP) Pulse Ox O2 Delivery O2 Flow Rate FiO2 03/07/17 20:00 96.5 105 20 137/71 (93) 98 I/O 03/07/17 03/07/17 03/07/17 03/08/17 03/08/17 03/08/17 07:00 15:00 23:00 07:00 15:00 23:00 Intake Total 240 ml 720 ml 650 ml 0 ml Balance 240 ml 720 ml 650 ml 0 ml Intake Oral 240 ml 720 ml 650 ml 0 ml # Voids 3 2 2 2 # Bowel Movements 2 1 1 Imaging Last Impressions Chest X-Ray 03/02/17 0000 Signed Impressions: Service Date/Time: Thursday, March 02, 2017 21:57 - CONCLUSION: No acute disease. Curtis Kaur MD Scrotum Ultrasound 09/28/16 0000 Signed Impressions: Service Date/Time: Wednesday, September 28, 2016 15:43 - CONCLUSION: 1. Intact flow to both testicles without focal lesions. 2. Small right hydrocele. 2 right epididymal cysts, similar to prior ultrasound 10 days ago. Mild hyperemia to the right epididymis. Moises Borden MD Objective Remarks GENERAL: Well-developed cachectic male patient lying in bed comfortably in NAD. Awake and alert. Contracted. SKIN: Warm and dry. No rash. HEENT: Normocephalic. Atraumatic. Pupils equal and round. No scleral icterus. No injection or drainage. No nasal bleeding or discharge. Mucous membranes pink and moist. EOMs intact. PERRL. NECK: Supple. Trachea midline. CARDIOVASCULAR: Regular rate and rhythm. S1, S2 noted. 2/6 ejection murmur, no gallops or rubs. RESPIRATORY: No accessory muscle use. Clear to auscultation. Breath sounds equal bilaterally. GASTROINTESTINAL: Abdomen soft, non-tender, nondistended. Normoactive bowel sounds x4. No guarding noted. MUSCULOSKELETAL: No obvious deformities. Extremities without clubbing, cyanosis , or edema. NEUROLOGICAL: Awake and alert, confused. No obvious cranial nerve deficits. Procedures None A/P Problem List: (1) Rhabdomyolysis ICD Code: M62.82 - Rhabdomyolysis Status: Acute (2) Moderate malnutrition ICD Code: E44.0 - Moderate protein-calorie malnutrition (3) Hypoxia ICD Code: R09.02 - Hypoxemia Status: Resolved (4) Dementia with behavioral disturbance ICD Code: F03.91 - Unspecified dementia with behavioral disturbance Status: Chronic (5) Abdominal pain ICD Code: R10.9 - Unspecified abdominal pain Status: Resolved (6) Normocytic anemia ICD Code: D64.9 - Anemia, unspecified Status: Acute Assessment and Plan Dementia with disturbance of behavior, stable Continue home dosing of memantine 10 mg po BID. Patient without any significant improvement, patient becoming more contracted in bed Palliative care saw patient. Patient desires continued full code status. Attempting to find family to accept responsibility of patient's care. Rhabdomyolysis, recurrent, resolved CPK has returned to normal, continue monitor weekly. 03/01/17 CPK 59 Likely secondary to inactivity, lays in bed in contracted position. Hypertension Lopressor 12.5 mg daily Elevated today. Continue to monitor BP trends. Dysphagia One bout of emesis last evening. Will continue to monitor for any signs of aspiration. Speech therapy called to reevaluate patient. Prior recs continue recommended mechanical soft diet, chopped meat with gravy and thin liquids Dietary recommendations Enlive 3 times daily, increasing milk 2 with meals and yogurt with meals. Continue Megace. DVT prophylaxis: Lovenox Discharge Planning Case management assisting with discharge planning. Problem Qualifiers (1) Rhabdomyolysis: (2) Dementia with behavioral disturbance: (3) Abdominal pain: Qualified Codes: R10.10 - Upper abdominal pain, unspecified IrmaLinneacoby MCKAY Mar 08, 2017 11:00
[2017-03-08 20:00] VITALS: BP 138/81; PULSE 97; RESP 20; TEMP 96.7; O2SAT 100
[2017-03-08] MEDS: METOCLOPRAMIDE HCL SYRUP 10 MG/10 ML UDC PO SCH (20:34)
[2017-03-09 05:47] LABS: AUTOMATED NEUTROPHIL # 7.8 TH/MM3 (1.8-7.7); BASOPHIL % 0.2 % (0.0-2.0); EOSINOPHIL # 0.2 TH/MM3 (0-0.4); EOSINOPHIL % 1.6 % (0.0-4.0); HEMATOCRIT 32.6 % (39.0-51.0); HEMO FLAGS DIFF FINAL; LYMPH % 14.9 % (9.0-44.0); LYMPHOCYTE # 1.5 TH/MM3 (1.0-4.8); MEAN CELL VOLUME 91.6 FL (80.0-100.0); MEAN CORPUSCULAR HEMOGLOBIN 30.3 PG (27.0-34.0); MONO % 4.7 % (0.0-8.0); NEUT % 78.6 % (16.0-70.0); PLATELET COUNT 423 TH/MM3 (150-450); RED BLOOD COUNT 3.56 MIL/MM3 (4.50-5.90); RED CELL DISTRIBUTION WIDTH 12.1 % (11.6-17.2); WHITE BLOOD COUNT 9.9 TH/MM3 (4.0-11.0)
[2017-03-09 06:00] LABS: CHLORIDE 107 MEQ/L (98-107); POTASSIUM 4.1 MEQ/L (3.5-5.1); SODIUM (NA) 140 MEQ/L (136-145)
[2017-03-09 06:05] LABS: ANION GAP 7 MEQ/L (5-15); BLOOD UREA NITROGEN 13 MG/DL (7-18)
[2017-03-09 06:08] LABS: ALT (GPT) 35 U/L (12-78); AST (GOT) 16 U/L (15-37); GLOMERULAR FILTRATION RATE 112 ML/MIN (>89)
[2017-03-09 06:10] LABS: TOTAL BILIRUBIN ADULT 0.4 MG/DL (0.2-1.0)
[2017-03-09 06:11] LABS: ALKALINE PHOSPHATASE 61 U/L (45-117); CREATINE KINASE 104 U/L (39-308)
[2017-03-09 08:00] VITALS: BP 116/80; PULSE 97; RESP 18; TEMP 98.5; O2SAT 98
[2017-03-09] MEDS: MEGESTROL ACETATE SUSP 400 MG/10 ML CUP PO SCH (09:58)
[2017-03-09] MEDS: METOPROLOL TARTRATE 25 MG TAB PO SCH (09:58)
[2017-03-09] MEDS: MEMANTINE HCL 10 MG TAB PO SCH ×2 (09:58→20:02)
[2017-03-09] MEDS: ENOXAPARIN SODIUM 40 MG/0.4 ML SYRINGE SQ SCH (09:58)
[2017-03-09] MEDS: METOCLOPRAMIDE HCL SYRUP 10 MG/10 ML UDC PO SCH ×2 (09:59→20:02)
[2017-03-09] MEDS: CHLORHEXIDINE GLUCONATE 0.12% 15 ML CUP SCH ×2 (09:59→20:02)
--- NOTE | 2017-03-09 11:28 | HHI.PR ---
Subjective Remarks Follow up dementia. Patient seen and examined lying in bed. No signs of distress. Flat affect today. RN at bedside with no reports of acute events overnight. No further emesis. Appointment with palliative care with family at 1400 today. Objective Vitals Vital Signs Date Time Temp Pulse Resp B/P (MAP) Pulse Ox O2 Delivery O2 Flow Rate FiO2 03/09/17 08:00 98.5 97 18 116/80 (92) 98 03/08/17 20:00 96.7 97 20 138/81 (100) 100 I/O 03/08/17 03/08/17 03/08/17 03/09/17 03/09/17 03/09/17 07:00 15:00 23:00 07:00 15:00 23:00 Intake Total 0 ml 780 ml 0 ml Balance 0 ml 780 ml 0 ml Intake Oral 0 ml 780 ml 0 ml # Voids 2 1 2 # Bowel Movements 1 2 1 Result Diagram: 03/09/17 0456 03/09/17 0456 Imaging Last Impressions Chest X-Ray 03/02/17 0000 Signed Impressions: Service Date/Time: Thursday, March 02, 2017 21:57 - CONCLUSION: No acute disease. Curtis Kaur MD Scrotum Ultrasound 09/28/16 0000 Signed Impressions: Service Date/Time: Wednesday, September 28, 2016 15:43 - CONCLUSION: 1. Intact flow to both testicles without focal lesions. 2. Small right hydrocele. 2 right epididymal cysts, similar to prior ultrasound 10 days ago. Mild hyperemia to the right epididymis. Moises Borden MD Objective Remarks GENERAL: Well-developed cachectic male patient lying in bed comfortably in NAD. Awake and alert. Contracted. SKIN: Warm and dry. No rash. HEENT: Normocephalic. Atraumatic. Pupils equal and round. No scleral icterus. No injection or drainage. No nasal bleeding or discharge. Mucous membranes pink and moist. EOMs intact. PERRL. NECK: Supple. Trachea midline. CARDIOVASCULAR: Regular rate and rhythm. S1, S2 noted. 2/6 ejection murmur, no gallops or rubs. RESPIRATORY: No accessory muscle use. Clear to auscultation. Breath sounds equal bilaterally. GASTROINTESTINAL: Abdomen soft, non-tender, nondistended. Normoactive bowel sounds x4. No guarding noted. MUSCULOSKELETAL: No obvious deformities. Extremities without clubbing, cyanosis , or edema. NEUROLOGICAL: Awake and alert, confused. No obvious cranial nerve deficits. Procedures None A/P Problem List: (1) Rhabdomyolysis ICD Code: M62.82 - Rhabdomyolysis Status: Acute (2) Moderate malnutrition ICD Code: E44.0 - Moderate protein-calorie malnutrition (3) Hypoxia ICD Code: R09.02 - Hypoxemia Status: Resolved (4) Dementia with behavioral disturbance ICD Code: F03.91 - Unspecified dementia with behavioral disturbance Status: Chronic (5) Abdominal pain ICD Code: R10.9 - Unspecified abdominal pain Status: Resolved (6) Normocytic anemia ICD Code: D64.9 - Anemia, unspecified Status: Acute Assessment and Plan Dementia with disturbance of behavior, stable Continue home dosing of memantine 10 mg po BID. Patient without any significant improvement, patient becoming more contracted in bed Palliative care saw patient. Patient desires continued full code status. Attempting to find family to accept responsibility of patient's care. Rhabdomyolysis, recurrent, resolved CPK has returned to normal, continue monitor weekly. Labs checked 03/09, CBC and BMP unremarkable. CPK 104. Likely secondary to inactivity, lays in bed in contracted position. Hypertension Lopressor 12.5 mg daily Elevated today. Continue to monitor BP trends. Dysphagia No further emesis. Will continue to monitor for any signs of aspiration. Speech therapy called to reevaluate patient on 03/08. Continue recommended mechanical soft diet, chopped meat with gravy and thin liquids Dietary recommendations Enlive 3 times daily, increasing milk 2 with meals and yogurt with meals. Continue Megace. DVT prophylaxis: Lovenox Discharge Planning Case management assisting with discharge planning. Problem Qualifiers (1) Rhabdomyolysis: (2) Dementia with behavioral disturbance: (3) Abdominal pain: Qualified Codes: R10.10 - Upper abdominal pain, unspecified Linnea Solis Mar 09, 2017 11:28
--- NOTE | 2017-03-09 15:00 | HHI.HCPN ---
Reason for visit a. To assist with evaluation and management of symptoms including: Debility , confusion b. To assist medical decision maker(s) with: better understanding of current medical conditions; weighing benefits/burdens of medical treatment options; making medical treatment decisions. . (Ijeoma Paniagua) Subjective/Interval History Mr. Hill is a 71-year-old male who presented to [facility] ED on 2016 via EMS with reported episode of dark red vomiting. Patient has a history of dementia and is a poor historian. He was alert to self only. Patient was admitted with rhabdomyolysis of unknown etiology and atypical chest pain. Patient was treated and discharge was planned pending placement on 09/22/2016, but the patient developed dysphagia and lethargy and discharge was placed on hold. Otherwise, the patient has been fairly stable over the past couple of months. The patient had been living with his ex-/residential caregiver for a year, but she was unwilling/unable to take him back into her home. Case management consulted to assist with identification of the appropriate healthcare proxy decision maker. The patient has lived in the [facility] 35 years but never pursued citizenship; he has no work history or social security number and is therefore ineligible for resources. Per review of notes, the patient has family in [place] and a son living in [place] but no one is willing to take him home. Patient seen and examined today for follow up regarding goals of care, EMR reviewed, sara Anderson (HCP) at bedside. Patient is awake and alert, mumbles a few unintelligible words, follows simple one step commands, appears to be resting comfortably. Discussion with sara Andreson (HCP) in conference room, discussed code status, CPR, transition to comfort focused goals. After much discussion with his mother ( patient's ex ), Justin (patient's son and HCP) has decided to transition to comfort focused goals, community DNR signed and on chart. Discussed Hospice philosophy, role, and benefits. Consult for Hospice placed. . (Ijeoam Paniagua) Advance Directives Advance Directive Specifics Documented care wishes: No known documented care wishes were completed . (Ijeoma Paniagua) Objective Vital Signs Date Time Temp Pulse Resp B/P (MAP) Pulse Ox O2 Delivery O2 Flow Rate FiO2 03/09/17 08:00 98.5 97 18 116/80 (92) 98 03/08/17 20:00 96.7 97 20 138/81 (100) 100 Intake & Output 03/09/17 03/09/17 07:00 19:00 Intake Total 0 ml Balance 0 ml Intake Oral 0 ml # Voids 2 # Bowel Movements 1 . Physical Exam CONSTITUTIONAL/GENERAL: This is a frail, cachectic elderly male patient in no acute distress. SKIN: No jaundice, rashes, or lesions. No wounds seen anteriorly. Skin temperature appropriate. Not diaphoretic. EYES: Pupils equal and round and reactive. Extraocular motions intact. No scleral icterus. No injection or drainage. Fundi not examined. ENT: Hearing grossly normal. Nose without bleeding or purulent drainage. CARDIOVASCULAR: Regular rate and rhythm without murmurs, gallops, or rubs. No JVD. Peripheral pulses symmetric. RESPIRATORY/CHEST: Symmetric, unlabored respirations. Clear to auscultation. Breath sounds diminished bilaterally. No wheezes, rales, or rhonchi. GASTROINTESTINAL: Abdomen soft, non-tender, nondistended. No guarding. Bowel sounds present. GENITOURINARY: Without palpable bladder distension. MUSCULOSKELETAL: Extremities without clubbing, cyanosis, or edema. No mottling or clubbing. NEUROLOGICAL: Awake, mumbles a few unintelligible words. Follows simple one step commands, maintains eye contact however unable to make needs known. PSYCHIATRIC: Unable to assess secondary to clinical condition. . (Ijeoma Paniagua) Diagnostic Tests Laboratory Laboratory Tests Test 03/09/17 04:56 White Blood Count 9.9 TH/MM3 (4.0-11.0) Red Blood Count 3.56 MIL/MM3 (4.50-5.90) Hemoglobin 10.8 GM/DL (13.0-17.0) Hematocrit 32.6 % (39.0-51.0) Mean Corpuscular Volume 91.6 FL (80.0-100.0) Mean Corpuscular Hemoglobin 30.3 PG (27.0-34.0) Mean Corpuscular Hemoglobin Concent 33.0 % (32.0-36.0) Red Cell Distribution Width 12.1 % (11.6-17.2) Platelet Count 423 TH/MM3 (150-450) Mean Platelet Volume 6.9 FL (7.0-11.0) Neutrophils (%) (Auto) 78.6 % (16.0-70.0) Lymphocytes (%) (Auto) 14.9 % (9.0-44.0) Monocytes (%) (Auto) 4.7 % (0.0-8.0) Eosinophils (%) (Auto) 1.6 % (0.0-4.0) Basophils (%) (Auto) 0.2 % (0.0-2.0) Neutrophils # (Auto) 7.8 TH/MM3 (1.8-7.7) Lymphocytes # (Auto) 1.5 TH/MM3 (1.0-4.8) Monocytes # (Auto) 0.5 TH/MM3 (0-0.9) Eosinophils # (Auto) 0.2 TH/MM3 (0-0.4) Basophils # (Auto) 0.0 TH/MM3 (0-0.2) CBC Comment DIFF FINAL Differential Comment Blood Urea Nitrogen 13 MG/DL (7-18) Creatinine 0.69 MG/DL (0.60-1.30) Random Glucose 100 MG/DL (74-106) Total Protein 6.8 GM/DL (6.4-8.2) Albumin 2.5 GM/DL (3.4-5.0) Calcium Level 8.5 MG/DL (8.5-10.1) Alkaline Phosphatase 61 U/L (45-117) Aspartate Amino Transf (AST/SGOT) 16 U/L (15-37) Alanine Aminotransferase (ALT/SGPT) 35 U/L (12-78) Total Bilirubin 0.4 MG/DL (0.2-1.0) Sodium Level 140 MEQ/L (136-145) Potassium Level 4.1 MEQ/L (3.5-5.1) Chloride Level 107 MEQ/L (98-107) Carbon Dioxide Level 26.0 MEQ/L (21.0-32.0) Anion Gap 7 MEQ/L (5-15) Estimat Glomerular Filtration Rate 112 ML/MIN (>89) Total Creatine Kinase 104 U/L (39-308) (Lower,Ijeoma MCKAY) Result Diagram: 03/09/17 0456 03/09/17 0456 Assessment and Plan Disease Oriented Problem List: (1) Dementia with behavioral disturbance (2) Poor nutrition (3) Rhabdomyolysis (4) Atypical chest pain Symptom Scale: (1) Debility 0-10 Scale: Unable to quantify (2) Confusion 0-10 Scale: Unable to quantify Pertinent Non-Medical Issues Psychosocial: Patient is originally from [place]. He has lived in the [place] for [place] years but did not pursue citizenship. Patient has an ex- who he was living with for the past year; she states she is unable to take him back into her home. Patient allegedly has a son living in [place] and additional family living in [place], but no one is willing to accept responsibility for his care. Spiritual: Unknown at this time Legal:None known. Ethical issues impacting care: No known ethical issues impacting care at this time. . Important Contacts Justin Yates (son) [phone] Kendall (son) [phone] Kenzie Callahan (ex ) [phone] . Prognosis Patient has advanced dementia with a Fast of 7D, however he does not have unmanaged symptoms and he is not appropriate fo placement in the hospice care center at this time. In the event the patient's condition deteriorates, he becomes symptomatic and the appropriate decision-maker desires comfort focused care, the patient would then be appropriate for hospice services in the care center. . Code Status: Full Code Plan * DNR * Decision making: Patient does not have insight or judgment related to his medical conditions; he will not regain capacity. In the absence of written advanced directives health care decision making would fall to the patient's next of kin, patient's son Justin has agreed to serve as HCP, sara Boothe opted out of decision making. * GOALS: Comfort oriented. * Discussion with sara Anderson (HCP) in conference room, discussed code status, CPR , transition to comfort focused goals. After much discussion with his mother ( patient's ex ), Justin (patient's son and HCP) has decided to transition to comfort focused goals, community DNR signed and on chart. Discussed Hospice philosophy, role, and benefits. Consult for Hospice placed. * Discussed with bedside RN, discussed with Hospice z os mainframe systems programmer as well as met with Hospice z os mainframe systems programmer and patient's son Justin during admissions paperwork completion. 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 Patient is non-verbal. He does not follow commands and is unable to make his needs known. * Symptom management- confusion: Patient with end stage dementia with a Fast score of 7D. Patient is currently on Namenda 10mg PO BID which is likely not providing the patient any benefits given his dementia is so advanced. * Palliative care will continue to follow this patient throughout his hospitalization to assist with symptom management and clarification of medical treatment goals when the appropriate healthcare proxy decision maker has been identified. . (Ijeoma Paniagua) Attestation To help prompt me to consider important information that might be impacting today's encounter and assessment, information from prior notes written by myself or my colleagues may have been "brought forward" into today's note. My signature on this note, however, is an attestation that I personally performed the exam, history, and/or decision-making noted today, and, unless otherwise indicated, the interactions with patient, family, and staff as well as the review of records all occurred today. I also attest that the listed assessment and stated plan reflect my best clinical judgment today based on the combination of historical information, prior notes, and today's exam/ interactions. When time spent is documented, it refers only to time spent today by the signer, or if indicated, combined time spent today by collaborating physician/nurse practitioner. (Ijeoma Paniagua) Collaborating MD Comments Discussed with WOODY, agree with assessment and plan (Elvin Jasmine MD) Ijeoma Paniagua Mar 09, 2017 15:00 lEvin Jasmine MD Mar 10, 2017 09:54
[2017-03-09 20:00] VITALS: BP 164/77; PULSE 87; RESP 16; TEMP 97.1; O2SAT 96
[2017-03-10] VITALS: BP 116/73; PULSE 97; RESP 24; TEMP 96.5; O2SAT 96
[2017-03-10] MEDS: MEGESTROL ACETATE SUSP 400 MG/10 ML CUP PO SCH (07:47)
[2017-03-10] MEDS: METOCLOPRAMIDE HCL SYRUP 10 MG/10 ML UDC PO SCH (07:47)
[2017-03-10] MEDS: MEMANTINE HCL 10 MG TAB PO SCH (07:48)
[2017-03-10] MEDS: METOPROLOL TARTRATE 25 MG TAB PO SCH (07:50)
[2017-03-10] MEDS: CHLORHEXIDINE GLUCONATE 0.12% 15 ML CUP SCH (07:51)
[2017-03-10 07:53] VITALS: BP 122/65; PULSE 84; RESP 16; TEMP 97.4; O2SAT 77
[2017-03-10] MEDS: ENOXAPARIN SODIUM 40 MG/0.4 ML SYRINGE SQ SCH (10:00)
--- NOTE | 2017-03-10 13:26 | HHI.DS ---
Discharge Summary Admission Date Sep 18, 2016 at 02:02 Discharge Date: Mar 10, 2017 Admitting Diagnosis rhabdomyolysis, atypical chest pain, dementia (1) Rhabdomyolysis ICD Code: M62.82 - Rhabdomyolysis Status: Acute (2) Moderate malnutrition ICD Code: E44.0 - Moderate protein-calorie malnutrition (3) Hypoxia ICD Code: R09.02 - Hypoxemia Status: Resolved (4) Dementia with behavioral disturbance ICD Code: F03.91 - Unspecified dementia with behavioral disturbance Status: Chronic (5) Abdominal pain ICD Code: R10.9 - Unspecified abdominal pain Status: Resolved (6) Normocytic anemia ICD Code: D64.9 - Anemia, unspecified Status: Acute Procedures None Brief History - From Admission Mr. Bar is 71 yo with history of dementia. No other history was known or reported. Mr. Bar's primary language is Panamanian. Visual nurse supervisor service was initially utilized and due to pt's low vocalization the diplomatic interpreter could not hear a great deal of pt's communication. Subsequently, a nurse who is fluent in Panamanian served as a nurse supervisor. Mr. Bar noted the current year is 1992, he was born in 2094 and could not recall events of last evening that brought him to the hospital. As such, history is obtained from medical record. 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 Pt denied taking medication for any issue. Per report, pt awoke with chest pain and coughed up an amount of red blood. He was subsequently transported to [facility]. Through bedside nurse diplomatic interpreter pain denied pain (chest, abdominal, back, leg , or head), shortness of breath. He did endorse having a cough a sore throat. Nausea and vomiting were denied. Due to pt's unreliable recall a 10 pt ROS could not be obtained. CBC/BMP: 03/09/17 0456 03/09/17 0456 Significant Findings Laboratory Tests Test 03/09/17 04:56 Red Blood Count 3.56 MIL/MM3 (4.50-5.90) Hemoglobin 10.8 GM/DL (13.0-17.0) Hematocrit 32.6 % (39.0-51.0) Mean Platelet Volume 6.9 FL (7.0-11.0) Neutrophils (%) (Auto) 78.6 % (16.0-70.0) Neutrophils # (Auto) 7.8 TH/MM3 (1.8-7.7) Albumin 2.5 GM/DL (3.4-5.0) Imaging Last Impressions Chest X-Ray 03/02/17 0000 Signed Impressions: Service Date/Time: Thursday, March 02, 2017 21:57 - CONCLUSION: No acute disease. Curtis Kaur MD Scrotum Ultrasound 09/28/16 0000 Signed Impressions: Service Date/Time: Wednesday, September 28, 2016 15:43 - CONCLUSION: 1. Intact flow to both testicles without focal lesions. 2. Small right hydrocele. 2 right epididymal cysts, similar to prior ultrasound 10 days ago. Mild hyperemia to the right epididymis. Moises Borden MD PE at Discharge GENERAL: Well-developed cachectic male patient lying in bed comfortably in NAD. Awake and alert. Contracted. SKIN: Warm and dry. No rash. HEENT: Normocephalic. Atraumatic. Pupils equal and round. No scleral icterus. No injection or drainage. No nasal bleeding or discharge. Mucous membranes pink and moist. EOMs intact. PERRL. NECK: Supple. Trachea midline. CARDIOVASCULAR: Regular rate and rhythm. S1, S2 noted. 2/6 ejection murmur, no gallops or rubs. RESPIRATORY: No accessory muscle use. Clear to auscultation. Breath sounds equal bilaterally. GASTROINTESTINAL: Abdomen soft, non-tender, nondistended. Normoactive bowel sounds x4. No guarding noted. MUSCULOSKELETAL: No obvious deformities. Extremities without clubbing, cyanosis , or edema. NEUROLOGICAL: Awake and alert, confused. No obvious cranial nerve deficits. Hospital Course 71-year-old male from [place] who does not speak any Vietnamese who originally was brought to the for evaluation of possible chest pain, coughing up blood. Patient had evaluation done in found to have rhabdomyolysis, atypical chest pain that was ruled out with cardiac enzymes and EKGs. Apparently, The patient has significant dementia with disturbance of behavior that family is unable to care for him at home. Patient apparently also is not a [place] citizen, does not have financial resources and the family unwilling to take him home. Unable to find placement for the patient at this time. For those reasons patient was transferred to [facility] for long-term care. Patient remain in [facility] during remainder of his stay. Patient had episodes of respiratory alkalosis with hyperventilation periodically. Episodes of recurrent rhabdomyolysis which was corrected with IV fluids. Patient continue with physical therapy, however he continues to remain contracted and unable to ambulate. Case management was unsuccessful in finding placement or discharge for the patient. Palliative care was consulted to evaluate goals of care, speak with family members about prolonged care. [facility] did have a meeting with the patient's family and it was agreed upon that the patient can go to hospice for continued management. Hospice evaluated the patient and have accepted the patient to their care and plan transfer into the hospice care facility today. Will discharge to hospice once arrangements made. Pt Condition on Discharge: Guarded Discharge Disposition: Hospice/Med Facility Discharge Time: > 30 minutes Discharge Instructions DIET: Follow Instructions for: As Tolerated, No Restrictions Speech Therapy-Diet Recommends: Pureed Activities you can perform: Regular-No Restrictions Follow up Referrals: SNF/[facility]/ - 2-3 Days Continued Medications: Memantine (Memantine) 10 Mg Tab 10 MG PO BID for Alzheimer's Dementia, TAB 0 Refills Discontinued Medications: Buspirone (Buspirone) 7.5 Mg Tab 7.5 MG PO BID for Anxiety, TAB 0 Refills Haloperidol (Haloperidol) 1 Mg Tab 1 MG PO BID, TAB 0 Refills Quetiapine (Quetiapine) 50 Mg Tab 50 MG PO BID, #60 TAB 0 Refills Gonzales Babcock Mar 10, 2017 13:26
== END 2017-03-10 15:15 | disposition hospice, inpatient (51) | DRG 558 ==
LOC: NEPE 20:33 → NEDA 09-18 02:02 → NEPHCDU 09-18 03:32 → N04B 09-18 20:28 → PH5A 09-25 12:45 → PH3A 12-25 17:11
PROVIDERS: ADMIT Hospitalist; ATTEND Hospitalist
DX: M62.82 Rhabdomyolysis (principal); E44.0 Moderate protein-calorie malnutrition; E87.0 Hyperosmolality and hypernatremia; E87.3 Alkalosis; F03.91 Unspecified dementia, unspecified severity, with behavioral disturbance; R13.10 Dysphagia, unspecified; E87.8 Other disorders of electrolyte and fluid balance, not elsewhere classified; E83.41 Hypermagnesemia; Z78.1 Physical restraint status; R07.89 Other chest pain; N50.89 Other specified disorders of the male genital organs; D50.9 Iron deficiency anemia, unspecified; Z51.5 Encounter for palliative care; Z74.01 Bed confinement status; R32 Unspecified urinary incontinence; R15.9 Full incontinence of feces; I10 Essential (primary) hypertension; N43.3 Hydrocele, unspecified; N50.3 Cyst of epididymis; K13.0 Diseases of lips; R09.02 Hypoxemia; Z66 Do not resuscitate; E87.6 Hypokalemia; R10.9 Unspecified abdominal pain; R11.10 Vomiting, unspecified; R05 Cough; J02.9 Acute pharyngitis, unspecified
CPT/HCPCS: 36600; 71010; 76870; 76937; 80048; 80053; 81001; 82272; 82550; 82552; 82607; 82728; 82805; 83540; 83550; 83690; 83735; 84100; 84134; 84484; 85014; 85018; 85025; 85610; 85730; 93005; 93975; 96360; J1650; J1756; J7030